=== PATIENT | female | born 1950 | race Caucasian/White ===

== ENCOUNTER 2019-07-29 15:13 | Inpatient (IN) | payer MEDICARE, OTHER, SELFPAY ==
[2019-07-29 15:31] VITALS: BP 125/52; PULSE 67; RESP 16; TEMP 37.1; O2SAT 96; BMI 35.4
[2019-07-29 17:15] LABS: Bedside Glucose 176 mg/dL (70-110)
[2019-07-29] MEDS: NYSTATIN 500,000 UNIT/5 ML UDC 100000 UNIT PO (18:11)
[2019-07-29] MEDS: Calcium Carb/Vitamin D 1 TABLET Tablet PO (18:11)
[2019-07-29] MEDS: metFORMIN (XR) 500 MG Tablet PO (18:11)
[2019-07-29 18:41] VITALS: BP 124/57; PULSE 61; RESP 16; TEMP 37; O2SAT 96
[2019-07-29 21:01] LABS: Bedside Glucose 85 mg/dL (70-110)
[2019-07-29] MEDS: Omega-3 Acid Ethyl Esters 1 GM Capsule PO (21:46)
[2019-07-29] MEDS: Nystatin Powder 15gm Bottle 1 APPLIC TOPICAL (21:48)
[2019-07-29] MEDS: Menthol/Lanolin/Calamine/Znox 113 GM Tube 1 APPLIC TOPICAL (21:49)
[2019-07-29] MEDS: Atorvastatin Calcium 80 MG Tablet PO (21:50)
[2019-07-29] MEDS: Montelukast 10 MG Tablet PO (21:51)
[2019-07-29] MEDS: NYSTATIN 500,000 UNIT/5 ML UDC 500000 UNIT PO (21:51)
[2019-07-29] MEDS: Senna/Docusate Sodium 1 Tablet 2 TABLET PO (21:51)
[2019-07-29 22:00] VITALS: RESP 16; BMI 35.4
[2019-07-29] MEDS: Lisinopril 10 MG Tablet PO (22:02)
[2019-07-30] MEDS: Levothyroxine 125 MCG Tablet PO (05:38)
[2019-07-30] MEDS: Pantoprazole Sodium 40 MG Tablet PO (05:38)
[2019-07-30] MEDS: oxyCODONE 5 MG Tablet PO ×2 (05:43→22:03)
[2019-07-30 05:44] VITALS: RESP 16; O2SAT 95
[2019-07-30 06:35] LABS: Hematocrit 32.1 % (37-47); Hemoglobin 9.9 g/dL (12.0-15.0); Mean Corp Hgb Conc 30.8 g/dL (32-36); Mean Corpuscular Hgb 28.8 pg (27.0-32.0); Mean Corpuscular Volume 93.3 fL (81-99); Mean Platelet Vol. 8.6 fl (6.2-12.0); Platelet Count 384 K/mm3 (150-450); RBC Distribution Width CV 13.8 % (11.6-14.6); RBC Distribution Width SD 46.5 fl (35.1-43.9); Red Blood Count 3.44 M/mm3 (4.2-5.4); White Blood Count 8.6 K/mm3 (4.4-11.0)
[2019-07-30 06:54] LABS: ALB/GLOB Ratio 0.9 RATIO (0.9-2.4); AST(SGOT) 12 U/L (15-37); Alanine Aminotransfer ALT/SGPT 16 U/L (13-56); Albumin, Serum 2.7 g/dL (3.2-5.0); Alkaline Phosphatase 34 U/L (45-117); Anion Gap 6 (5-15); BUN 19 mg/dL (7-18); BUN/Creat Ratio 22.5 RATIO (10-20); Chloride 111 mmol/L (98-107); Creatinine, Serum 0.84 mg/dL (0.55-1.02); EST Glomerular Filtration Rate 71 mL/min (>60); Est Glom Filt Rate - Afr Amer 86 mL/min (>60); Estimated Creatinine Clearance 58.48 ml/min; Globulin 3.1 g/dL (2.2-4.2); Glucose 109 mg/dL (74-106); Magnesium 1.9 mg/dL (1.6-2.6); Potassium 3.9 mmol/L (3.5-5.1); Protein, Total 5.8 g/dL (6.4-8.2); Sodium Level 143 mmol/L (136-145)
[2019-07-30 06:55] LABS: Bedside Glucose 106 mg/dL (70-110)
--- NOTE | 2019-07-30 08:08 | HP.PCM_ITS ---
Problem List (1) Acute ischemic left MCA stroke Status: Acute Comment: 07/25/19 No TPA (2) Hypertension Status: Chronic Qualifiers: Hypertension type: essential hypertension Qualified Code(s): I10 - Essential (primary) hypertension (3) Diabetes mellitus type 2 in obese Status: Chronic (4) Steroid dependence Status: Chronic Comment: for inflamatory polyarthropathy (5) Obesity (BMI 30-39.9) Status: Chronic (6) ADHD Status: Chronic (7) Tobacco dependence in remission Status: Chronic (8) Hypothyroidism Status: Chronic (9) Hyperlipidemia Status: Chronic (10) Normochromic normocytic anemia Status: Acute (11) Aphasia due to acute cerebrovascular accident (CVA) Status: Acute Comment: Expressive and receptive (12) Atrial fibrillation and flutter Status: Acute (13) Psoriasis Status: Chronic (14) Dysphagia Status: Acute (15) Right hemiparesis Status: Acute (16) Inflammatory polyarthropathy Status: Chronic Comment: on chronic Prednisone (17) Vitamin D deficiency Status: Chronic (18) History of depression Status: Chronic History of Present Illness Date of Admission: 07/29/19 Chief Complaint: Debility secondary to recent ischemic left MCA CVA due to embolism The patient is a 68 year old F with a past medical history of hypertension, diabetes mellitus type 2, obesity, hypothyroidism, asthma, inflammatory polyarthropathy, chronic steroid dependence, ADHD, tobacco dependence in remission, hyperlipidemia, paroxysmal atrial fibrillation/flutter, vitamin D deficiency, history of depression, left MCA ischemic CVA due to suspected embolism on 07/25/19, expressive and receptive aphasia, dysphagia, right hemiparesis and chronic narcotic use who is admitted to the [facility] for > 3 hours of therapy daily to restore function at or near he prior level of independence. Prior to the CVA she was independent with ADL's and used no assistive device. Echocardiogram at [facility] showed an ejection fraction of 65% with normal diastolic function no wall motion abnormalities. She has aortic sclerosis and otherwise no significant valvular heart disease. Estimated PA pressure was within normal limits. There was no evidence of R to Left shunt. Lipid panel at [facility] showed a LDL of 89, an HDL of 51 and TG of 309. She did not have a HGBA1C that I could find in the records sent with the patient. She has N/N anemia possibly due to inflammatory arthropathy. She has not ever seen a rail car maintenance mechanic....shakes her head no when I explain what a rail car maintenance mechanic does and ask if she has ever seen a rail car maintenance mechanic. Al records from [facility] were reviewed and all the lab from this AM. Past Medical History Past Medical History (Chronic Problems): Chronic Problems (Last Reviewed 07/30/19 @ 08:[address] Shakira Lock DO) Hypertension (Chronic) Diabetes mellitus type 2 in obese (Chronic) Steroid dependence (Chronic) for inflamatory polyarthropathy Obesity (BMI 30-39.9) (Chronic) ADHD (Chronic) Tobacco dependence in remission (Chronic) Hypothyroidism (Chronic) Hyperlipidemia (Chronic) Psoriasis (Chronic) Inflammatory polyarthropathy (Chronic) on chronic Prednisone Vitamin D deficiency (Chronic) History of depression (Chronic) Medical History: Medical History (Last Reviewed 07/30/19 @ 08:[address] Shakira Lock, ) Adult hypothyroidism E03.9 Allergic rhinitis J30.9 Alopecia L65.9 Anemia D64.9 Attention deficit disorder of adult with hyperactivity F90.9 Cervical disc syndrome M50.10 Degenerative joint disease M19.90 Depressive disorder F32.9 Fusion of lumbar spine M43.26 Goiter E04.9 Inflammatory polyarthropathy M06.4 Lumbar disc disease M51.9 Obesity E66.9 Osteoarthritis M19.90 Plantar fasciitis M72.2 Stress bladder incontinence, female N39.3 Type 2 diabetes mellitus E11.9 Vitamin D deficiency E55.9 HTN (hypertension) I10 Allergies gemfibrozil [From Lopid] Allergy (Verified 07/29/19 16:41) PT UNABLE TO RESPOND-NEEDS F/U mold Allergy (Verified 07/29/19 16:41) Shortness of breath Jziokyf-Ifw-Aur Reductase Inhibitor Allergy (Verified 07/29/19 16:41) Pain in joints Home Medications: Ambulatory Orders Medication Instructions Recorded Albuterol Inhaler [Ventolin Hfa 2 puff INHALATION Q4H PRN PRN 07/29/19 (SP)] Aspirin E.C. [Ecotrin] 81 mg PO DAILY@0800 07/29/19 Atorvastatin Calcium 80 mg PO QHS 07/29/19 Calcium Carbonate/Vitamin D3 1 ea PO BID 07/29/19 [Calcium 600-Vit D3 500 Softgel] Cholecalciferol (VIT D3) [Vitamin 2 cap PO DAILY 07/29/19 D3] Dextroamphetamine/Amphetamine 20 mg PO TID 07/29/19 [Adderall 20 mg Tablet] Esomeprazole Mag Trihydrate 40 mg PO DAILY@59907/29/19 [Nexium] Folic Acid 1 mg PO DAILY 07/29/19 Folic Acid/Multivit,Iron,Machine Taper 1 tab PO DAILY 07/29/19 [One Daily For Women Tablet] Glimepiride 2 mg PO DAILY 07/29/19 Insulin Glargine [Lantus SoloStar 5 mg PO DAILY@219907/29/19 Pen] Levothyroxine [Synthroid] 125 mcg PO DAILY@59907/29/19 Lisinopril/Hydrochlorothiazide 20 mg PO DAILY 07/29/19 [Lisinopril-Hctz 20-12.5 mg Tab] Magnesium 250 mg PO BID 07/29/19 Montelukast [Singulair] 10 mg PO DAILY@219907/29/19 Nystatin 100,000 unit PO TID 07/29/19 [place]-3 Fatty Acids/Fish Oil [Fish 1 ea PO BID 07/29/19 Oil 1,000 mg Capsule] Oxycodone HCl/Acetaminophen 1 ea PO Q4H PRN 07/29/19 [Oxycodone-Acetaminophen 5-325] Potassium 99 mg PO BID 07/29/19 Prednisone [Deltasone] 20 mg PO DAILY 07/29/19 Vitamin B Complex [B Complex] 1 ea PO BID 07/29/19 metFORMIN (XR) [Glucophage Xr] 500 mg PO BID 07/29/19 Surgical History: Surgical History (Last Reviewed 07/30/19 @ 08:[address] 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 history, - - Has had 2 C-sections Lives: Spouse/ Significant Other Smoking Status: Former smoker - *Family History Sibling Family History: Family History (Last Updated 07/29/19 @ 17:20 by Arianna Serrano) Brother Asthma Hypertension Son Diabetes Unknown Rheumatoid arthritis Review of Systems Constitutional: Denies: Chills, Fever HEENT: Reports: Difficulty Swallowing, Dysphasia Cardiovascular: Denies: Chest Pain, Palpitations Respiratory: Denies: Cough, Shortness of Breath Gastrointestinal: Denies: Abdominal Pain, Diarrhea, Nausea, Vomiting Genitourinary: Denies: Dysuria Musculoskeletal: Reports: - - denies pain Skin: Denies: Rash, Wounds Neurological: Reports: Focal weakness Psychiatric: Reports: Depression Unable to obtain accurate/complete ROS d/t: ROS limited due to receptive and expressive aphasia. VTE Information - Inpt Only VTE Present on Admission: No VTE Mechan Device Prophylaxis: Knee High OPAL Hose VTE Pharm Prophylaxis ordered?: Yes Patient Problems: Active and Suspected Problems (Last Reviewed 07/30/19 @ 08:[address] Shakira Lock, DO) Acute ischemic left MCA stroke (Acute) 07/25/19 No TPA Normochromic normocytic anemia (Acute) Aphasia due to acute cerebrovascular accident (CVA) (Acute) Expressive and receptive Atrial fibrillation and flutter (Acute) Dysphagia (Acute) Right hemiparesis (Acute) - Physical Exam Vitals/I&O's: Vital Signs Temp Pulse Resp BP Pulse Ox 98.6 F 61 16 124/57 H 95 07/29/19 18:41 07/29/19 18:41 07/30/19 05:44 07/29/19 18:41 07/30/19 05:44 Oxygen Delivery Method Room Air Weight: 212 lb 11.937 oz Body Mass Index (BMI) 35.4 Intake and Output for Last 24 Hours 07/28/19 07/29/19 07/30/19 23:59 23:59 23:59 Intake Total 240 / 300 60 / 60 Output Total 500 / 500 1250 / 1250 Balance -260 / -200 -1190 / -1190 General: Alert, Cooperative, No apparent distress, Well developed, Well nourished HEENT: Atraumatic, PERRLA, EOMI, Normocephalic Oral: No Gingival or Mucosal Lesions/ Ulcerations, Dry Mucosa Neck: Supple, Negative Carotid Bruits, No Nodes, No Nuchal Rigidity, Trachea Midline, - - Carotids had brisk upstroke and excellent pulse volume bilaterally. Lungs: Clear to auscultation, No rhonchi, No wheeze, No rales Cardiovascular: Regular rate, Regular Rhythm, Normal S1, Normal S2, No murmurs, No Ectopic Activity, No rub noted, No Gallop Abdomen: Bowel Sounds Present, Soft, Non Tender, Non-Distended, Obese, - - No guarding with palpation Extremities: No clubbing, No cyanosis, No edema, No Calf Tenderness, Peripheral Pulses Normal Skin: No rashes, No breakdown Musculoskeletal: No Muscle Wasting Neurological: - - Right facial droop, Weakness of the R arm and the R leg. The R leg and the R arm drift but do not touch the bed. She has complete R hemianopsia. She is ataxic with the R arm and the R leg. Decreased sensation on the right side. Psych/Mental Status: Appropriate Laboratory Results 07/29/19 16:22: POC Glucose 176 H 07/29/19 20:55: POC Glucose 85 07/30/19 06:21: WBC 8.6, RBC 3.44 L, Hgb 9.9 L, Hct 32.1 L, MCV 93.3, MCH 28.8, MCHC 30.8 L, RDW Std Deviation 46.5 H, RDW Coeff of Jeffrey 13.8, Plt Count 384, MPV 8.6 07/30/19 06:21: Sodium 143, Potassium 3.9, Chloride 111 H, Carbon Dioxide 26.0, Anion Gap 6, BUN 19 H, Creatinine 0.84, Estim Creat Clear Calc 58.48, Est GFR (MDRD) Af Amer 86, Est GFR (MDRD) Non-Af 71, BUN/Creatinine Ratio 22.5 H, Glucose 109 H, Calcium 9.0, Magnesium 1.9, Total Bilirubin 0.30, AST 12 L, ALT 16, Alkaline Phosphatase 34 L, Total Protein 5.8 L, Albumin 2.7 L, Globulin 3.1, Albumin/Globulin Ratio 0.9 07/30/19 06:51: POC Glucose 106 Current Medications Albuterol Sulfate (Ventolin Aerosols) 2.5 mg INHALATION Q4H PRN PRN Reason: SOB &/OR WHEEZING Aspirin (Ecotrin) 81 mg PO DAILY@0800 [facility] Atorvastatin Calcium (Lipitor) 80 mg PO QHS [facility] Last Admin: 07/29/19 21:50 Dose: 80 mg Documented by: Bisacodyl (Dulcolax) 10 mg RECTAL .PRN X 1 PRN PRN Reason: Constipation Calamine/Phenol (Calmoseptine Ointment) 1 applic TOPICAL BID [facility]; Protocol Last Admin: 07/29/19 21:49 Dose: 1 applicatio Documented by: Calcium/Vitamin D (Os-Dewayne 500mg + D) [facility] Last Admin: 07/29/19 18:11 Dose: 1 tablet Documented by: Cholecalciferol (Vitamin D (25mcg)) 2,000 unit PO DAILY [facility] Folic Acid (Folic Acid) [facility] Glimepiride (Amaryl) 2 mg PO DAILY@0800 [facility] Insulin Glargine (Lantus (Bkc)) 5 units SC QHS [facility] Last Admin: 07/29/19 21:50 Dose: 5 u Documented by: Levothyroxine Sodium (Synthroid) 125 mcg PO DAILY@0600 [facility] Last Admin: 07/30/19 05:38 Dose: 125 mcg Documented by: Lisinopril (Zestril) 10 mg PO QHS [facility] Last Admin: 07/29/19 22:02 Dose: 10 mg Documented by: Lisinopril (Zestril) 20 mg PO DAILY [facility] Magnesium Hydroxide (Milk Of Magnesia) 30 ml PO .PRN X 1 PRN PRN Reason: Constipation Metformin HCl (Glucophage Xr) [facility] Last Admin: 07/29/19 18:11 Dose: 500 mg Documented by: Montelukast Sodium (Singulair) 10 mg PO QHS [facility] Last Admin: 07/29/19 21:51 Dose: 10 mg Documented by: Multivitamins/Minerals (Multivitamin With Minerals (Bkc)) 1 tablet PO DAILY@0800 [facility] Nystatin (Mycostatin Powder) 1 applic TOPICAL BID [facility]; Protocol Last Admin: 07/29/19 21:48 Dose: 1 applicatio Documented by: Nystatin (Nystatin) 500,000 unit PO 4X/DAY [facility] Last Admin: 07/29/19 21:51 Dose: 500,000 unit Documented by: Zceyc-1-Tlcj Ethyl Esters (Lovaza) 1 gm PO BID [facility] Last Admin: 07/29/19 21:46 Dose: 1 gm Documented by: Oxycodone HCl (Oxyir) 5 mg PO Q4H PRN PRN PRN Reason: Pain Score 6-10/10 Last Admin: 07/30/19 05:43 Dose: 5 mg Documented by: Pantoprazole Sodium (Protonix) 40 mg PO DAILY@0600 [facility] Last Admin: 07/30/19 05:38 Dose: 40 mg Documented by: Prednisone () 20 mg PO DAILYCM [facility] Senna/Docusate Sodium (Senokot-S, Stefany-Colace) 2 tablet PO BID [facility] Last Admin: 07/29/19 21:51 Dose: 2 tablet Documented by: Assessment/Plan All Active Problems (Last Reviewed 07/30/19 @ 08:[address] Shakira Lock, DO) Acute ischemic left MCA stroke (Acute) Normochromic normocytic anemia (Acute) Aphasia due to acute cerebrovascular accident (CVA) (Acute) Atrial fibrillation and flutter (Acute) Dysphagia (Acute) Right hemiparesis (Acute) Impressions 1. Post stroke debility with expressive and receptive aphasia, dysphagia and right hemiparesis 2. Recent left MCA ischemic CVA presumed to be secondary to emboli 3. Paroxysmal atrial fibrillation/flutter 4. Normochromic normocytic anemia-etiology? Possibly secondary to inflammatory polyarthropathy. 5. Hypertension-controlled 6. Diabetes mellitus type 2-blood sugar record was reviewed and the blood sugars are currently well controlled 7. Dyslipidemia -continue atorvastatin 80 mg nightly. Patient lists statins as an allergy due to bone pain. HDL was 51 recently and the LDL was 89. 8. chronic steroid dependence - Need to find out who is managing the inflammatory polyarthropathy and whether or not she has been tried on any steroid sparing alternatives. 9. Chronic medical conditions: Asthma/hypothyroidism/ADHD/obesity/former tobacco dependence/GERD/chronic narcotic use/vitamin D deficiency/history of depression(not currently on an anti-depressant) - continue the home meds. These conditions complicate care/management/recovery/prognosis. PLAN PT for gait stability OT for ADL's ST for evaluation Analgesics as needed Bowel protocol Fall precautions Assess for Anxiety/Depression GI prophylaxis with Protonix DVT prophylaxis with heparin 5000 units subcu every 12 hours Follow up with neurology at [facility], Dr. Montalvo and rheumatology following DC from Rehab Obtain Dr Montalvo's records...has she ever seen a rail car maintenance mechanic? Med list, problem list, recent labs. Check a TSH and a T4. HGBA1C, UA, urine culture(had a Nicolas until 07/29/19 at [facility]). Hemoccult stool. DC the diuretic Keep the K at 4 or above and the Mag at 2 or above Overnight trending pulse ox Accu-Chek blood sugars before meals and at bedtime Goal for the hemoglobin A1c is 7 or under Goal for the LDL is less than 70 Goal for the blood pressure currently is less than 135/80 Inpatient E&M: 19614 Init Hosp L3
[2019-07-30] MEDS: predniSONE 20 MG Tablet PO (08:44)
[2019-07-30] MEDS: Lisinopril 20 MG Tablet PO (08:44)
[2019-07-30] MEDS: NYSTATIN 500,000 UNIT/5 ML UDC 500000 UNIT PO ×4 (08:44→22:00)
[2019-07-30] MEDS: Senna/Docusate Sodium 1 Tablet 2 TABLET PO ×2 (08:44→21:58)
[2019-07-30] MEDS: Glimepiride 2 MG Tablet PO (08:45)
[2019-07-30] MEDS: Calcium Carb/Vitamin D 1 TABLET Tablet PO ×2 (08:45→17:13)
[2019-07-30] MEDS: Multivitamins,Ther W-Minerals Tablet 1 TABLET PO (08:45)
[2019-07-30] MEDS: metFORMIN (XR) 500 MG Tablet PO ×2 (08:45→17:13)
[2019-07-30] MEDS: Omega-3 Acid Ethyl Esters 1 GM Capsule PO (08:45)
[2019-07-30] MEDS: Aspirin E.C. 81 MG Tablet PO (08:45)
[2019-07-30] MEDS: Folic Acid 1 MG Tablet PO (08:45)
[2019-07-30] MEDS: Menthol/Lanolin/Calamine/Znox 113 GM Tube 1 APPLIC TOPICAL ×2 (08:54→22:05)
[2019-07-30] MEDS: Nystatin Powder 15gm Bottle 1 APPLIC TOPICAL ×2 (08:54→22:04)
[2019-07-30 09:03] VITALS: BP 112/62; PULSE 67; RESP 16; TEMP 36.6; O2SAT 96
[2019-07-30 09:11] LABS: T4 Free Direct 1.06 ng/dL (0.76-1.46); Thyroid Stim Hormone (TSH) 3.63 uIU/mL (0.358-3.74)
[2019-07-30] MEDS: Heparin Injection (Vial) 5,000 UNIT/ML VIAL 5000 UNIT SC ×2 (09:26→22:00)
[2019-07-30 10:26] LABS: Hemoglobin A1c 6.2 % (4.2-6.3)
--- NOTE | 2019-07-30 10:27 | PCM.RU.PYE ---
Admission Information Primary Diagnosis:: Post stroke debility with dysphagia, a aphasia and right hemiparesis Status Changes from Prescreening?: No changes Identified Actual Problem List:: Cognitve Impr/Memory Loss, Depression, Alteration in Nutrition, Mobility Impaired, Self Care Deficit, Ineffective Communication, Diabetes, Hyperglycemia, BP, Hypertension, Alteration-Leisure Activ. Potential Problem List:: DVT, Bleeding, Infection, UTI, Aspiration, Falls, Skin Integrity, Depression Risk of Complications DVT: LMWH, OPAL Hose Bleeding: Monitor Lab Values, Nursing to Teach Precautions for anti-coagulation therapy., Wound, if applicable, to be assessed every shift., Stroke patients assessed for lethargy or change in status. Infection: Clinical Staff to Monitor for S/S of infection:, S/S of infection include fever, redness, warmth, etc. Urinary Tract Infection: Monitor for frequency, burning, discomfort, or incontinence., Nursing will obtain urine sample for urinalysis and C&S when ordered. Aspiration: Clinical staff will monitor for coughing, drooling, congestion., Speech will evaluate swallowing and dsyphasia., Nursing will monitor patient swallowing during meals. Falls: Patient will be evaluated for Fall Precautions, Patient will be placed on Fall Precautions as indicated per protocol. Skin Breakdown: Nursing will assess skin daily using assessment tool., Nursing will place on Skin Breakdown Precautions as indicated. Pain: Clinical staff will assess patient's pain level per protocol., Medications will be given, if needed, and the pain level reassessed., Other methods: Massage, distraction, decrease stimulus, etc. used PRN. Plan of Care Patient requires physician specializing in physical medicine and rehab oversight to provide close medical supervision of rehab issues including: Pain Management, Sleep Problems, Bowel and Bladder, Medical and co-morbidity Management, DVT prophylaxis, Rehabilitation Leadership, Coordination of treatment team Patient needs Physical Therapy: For a minimum of 1 hour, At least 5 out of 7 days Patient needs Physical Therapy to improve:: Mobility, Mobility, Mobility, Strengthening, Transfers, Stretching, ROM, Endurance, Stairs, Gait, Balance Patient needs Occupational Therapy: For a minimum of 1 hour, At least 5 out of 7 days Patient needs Occupational Therapy to improve ADL's incl.: Eating, Grooming, Bathing, Dressing, Toileting, Toilet transfers, Community Reintegration, Higher functioning activities, Household tasks, Adaptive Equipment, Splinting, Other activities as determined Patient requires speech therapy: For a minimum of 1 hour, At least 5 out of 7 days Patient requires speech therapy for: Swallowing, Cognition, Language Skills, Compensatory Strategies Patient requires 24/ Rehabilitation Nursing for: Pain Issues, Identifying and preventing risk factors, Monitoring and reporting current medical conditions, Assisting with ambulation, transfer, and all ADL's, Teaching patients about disease process and medications, Family teaching, Providing safe environment, Bowel and Bladder Issues, Skin integrity, Medication Management Patient needs Didactic Program In Dietetics Director/ Case Management for: Discharge Planning, Arranging Home Equipment or Services, Family Interventions Patient needs Dietary and Nutrition Services for: Adequate Nutrition, Nutritional Supplements, Nutritional Education Goals Patient will remain: free from falls, or injury at time of discharge. Patient will perform bed mobility at: MOD I level of assist. Patient will complete transfers from bed to chair at: MOD I level of assist. Patient will ambulate: 100 feet, with MOD I assist, with LRD Patient will complete upper body dressing at: MOD I level of assist. Patient will complete lower body dressing at: MOD I level of assist. Patient will complete toileting at: MOD I level of assist. Patient will perform bathing at: MOD I level of assist. Patient will complete grooming at: MOD I level of assist. Patient will complete home management skills at: MOD I level of assist. Patient will achieve: 12 stairs, at MOD I assist Patient will have pain level of: of 3 or less Patient's skin will: remain intact, free from infection. Patient will receive: adequate nutrition. Discharge Planning Pt Prognosis for Sig. Practical Improv. w/in Reasonable Time: Fair Estimated Length of stay (days): 21 Anticipated D/C Destination: Long Term Facility Was Preadmission Assessment Accurate?: Yes
[2019-07-30 12:16] LABS: Bedside Glucose 107 mg/dL (70-110)
--- NOTE | 2019-07-30 12:20 | CASEMGMT ---
Social Work Met pt to complete PHQ-9. Score:2. Luz Hill, social work internet site designer Pilar Addison, WILDLIFE POLICY PROFESSIONAL FERRYBOAT OPERATOR
--- NOTE | 2019-07-30 12:21 | CASEMGMT ---
Social Work Met with pt to complete initial assessment, pt non verbal but able to answer yes and no questions. Asked pt if SWI could call to complete assessment-pt agreeable. Called to complete initial assessment. Explained insurance to . During conversation, asked for resources on building a ramp, installing grab bars, Medicaid application and MOW resources-emailed resources to . appreciative of call. Luz Hill, social work manager internet retails sales Pilar Addison,REIMBURSEMENT SPECIALIST SAFETY CLOTHING AND EQUIPMENT DEVELOPER
[2019-07-30] MEDS: Magnesium Oxide 400 MG Tablet PO (13:20)
[2019-07-30 13:34] VITALS: BMI 35.4
--- NOTE | 2019-07-30 13:59 | CASEMGMT ---
Social Work Reviewed and agreed with social work internet merchant documentation on this date. Pilar Addison, LICENSED MIDWIFE SPA MANAGER
[2019-07-30 20:46] LABS: Bedside Glucose 178 mg/dL (70-110)
[2019-07-30 20:47] VITALS: BP 123/55; PULSE 62; RESP 16; TEMP 36.8; O2SAT 94
[2019-07-30 21:00] VITALS: O2SAT 94
[2019-07-30 21:20] VITALS: BMI 35.4
[2019-07-30] MEDS: Lisinopril 10 MG Tablet PO (21:57)
[2019-07-30] MEDS: Montelukast 10 MG Tablet PO (21:58)
[2019-07-30] MEDS: Atorvastatin Calcium 80 MG Tablet PO (21:59)
[2019-07-30 22:00] VITALS: O2SAT 94
--- NOTE | 2019-07-30 23:17 | NURSING ---
Pt bladder scanned for 820mL urine. Nicolas inserted as this was third straight cath and urine specimen obtained through Nicolas port. Specimen sent to lab. 810mL urine out of Nicolas.
[2019-07-30 23:52] LABS: Mucous, Urine 0 SEEN /hpf (<or=2+); Squamous Epithelial Cells - UA 0 SEEN /hpf (5-10)
[2019-07-31] LABS: Color, Urine Yellow (Yellow); Glucose, Dipstick Normal (Normal); Ketone-Dipstick Negative (Negative); Leukocyte Esterase-Dipstick 100 /ul (Negative); Nitrite-Dipstick Positive (Negative); Occult Blood-Urine 10 /ul (Negative); Protein-Dipstick Negative (Negative); Urine Bilirubin Dipstick Negative (Negative); Urine Clarity Sl. Cloudy (Clear); Urine Urobilinogen Normal (Normal)
[2019-07-31 00:30] LABS: Bacteria 2+ /hpf (None Seen); Red Blood Cells-Urine 0-5 SEEN /hpf (0-5); White Blood Cells 5-10 SEEN /hpf (0-5)
[2019-07-31] MEDS: Levothyroxine 125 MCG Tablet PO (05:10)
[2019-07-31] MEDS: Pantoprazole Sodium 40 MG Tablet PO (05:10)
[2019-07-31 06:18] VITALS: O2SAT 100
[2019-07-31 07:00] LABS: Bedside Glucose 99 mg/dL (70-110)
[2019-07-31] MEDS: Folic Acid 1 MG Tablet PO (08:16)
[2019-07-31] MEDS: Lisinopril 20 MG Tablet PO (08:16)
[2019-07-31] MEDS: Sertraline 50 MG Tablet PO (08:16)
[2019-07-31] MEDS: metFORMIN (XR) 500 MG Tablet PO ×2 (08:16→16:30)
[2019-07-31] MEDS: Glimepiride 2 MG Tablet PO (08:16)
[2019-07-31] MEDS: predniSONE 20 MG Tablet PO (08:16)
[2019-07-31] MEDS: Aspirin E.C. 81 MG Tablet PO (08:16)
[2019-07-31] MEDS: Magnesium Oxide 400 MG Tablet PO (08:16)
[2019-07-31] MEDS: Multivitamins,Ther W-Minerals Tablet 1 TABLET PO (08:16)
[2019-07-31] MEDS: Calcium Carb/Vitamin D 1 TABLET Tablet PO ×2 (08:16→16:30)
[2019-07-31] MEDS: Heparin Injection (Vial) 5,000 UNIT/ML VIAL 5000 UNIT SC ×2 (08:17→21:16)
[2019-07-31] MEDS: Nystatin Powder 15gm Bottle 1 APPLIC TOPICAL ×2 (08:17→21:17)
[2019-07-31] MEDS: NYSTATIN 500,000 UNIT/5 ML UDC 500000 UNIT PO ×4 (08:17→21:18)
[2019-07-31 08:18] VITALS: BP 148/70; PULSE 61; RESP 16; TEMP 36.8; O2SAT 98
[2019-07-31] MEDS: Glucerna Shake 120 ML LIQUID PO ×2 (08:19→16:30)
[2019-07-31] MEDS: Menthol/Lanolin/Calamine/Znox 113 GM Tube 1 APPLIC TOPICAL ×2 (08:34→21:16)
--- NOTE | 2019-07-31 09:40 | PCM.PN.BLA ---
Progress Note Afebrile Blood pressure is adequately controlled She is maintaining appropriate oxygen saturation on room air. Oral intake was poor on 07/30/2019 with 700 in and 2260 out for a fluid balance of -1560. Last bowel movement was 07/30/2019. Blood sugar record was reviewed. At bedtime blood sugar was 178 last night and the fasting blood sugar is 99 today. The overnight trending pulse ox record was reviewed. The lowest oxygen saturation recorded was 67%. The lowest heart rate recorded was 45 bpm. All lab was personally reviewed. The UA showed 5-10 WBCs per high-power field with 2+ bacteria and this was a catheterized specimen. It is nitrite positive. Urine is growing greater than 100,000 colonies of suspected E. coli. alert, participating in therapy but, she is able to tell us today when she needs a break. Lungs-clear to auscultation H RRR Abdomen-soft, nontender, nondistended, bowel sounds heard No peripheral edema No change in the neurological exam from yesterday Impressions 1. Complicated urinary tract infection likely related to Nicolas catheter while at [facility], present at admission. Presumptive E. Coli. Will start Duricef and await the results of the final culture and sensitivity. 2. urine retention. Nicolas was inserted last night for residuals in the 800's. Will treat for UTI for 7 days and then repeat a voiding trial. 3. Diabetes mellitus type 2 with a hemoglobin A1c of 6.2....suspect she was having hypoglycemic episodes at home. I am going to DC the Lantus and continue to monitor the BS's AC and HS 4. inflammatory polyarthropathy -? We have received records on this patient and I do not believe she has ever seen a cnc machinist 2nd shift. Would recommend this going forward. May be able to find a steroid sparing treatment to tx. If she has not had a recent DEXA in the past 2 years I recommend she have 1 due to increased risk for osteoporosis in patients on LT steroids. STROKE Vital Signs/Narrative: Vital Signs Temp Pulse Resp BP Pulse Ox 07/31/19 08:18 98.3 F 61 16 148/70 H 98 07/31/19 06:18 100 Inpatient E&M: 08524 Subs Hosp L2
[2019-07-31 09:41] VITALS: BMI 35.4
[2019-07-31 11:25] LABS: Bedside Glucose 133 mg/dL (70-110)
[2019-07-31] MEDS: oxyCODONE 5 MG Tablet PO (13:31)
[2019-07-31] MEDS: Cefadroxil 500 MG CAPSULE 1000 MG PO (14:44)
[2019-07-31 16:40] LABS: Bedside Glucose 201 mg/dL (70-110)
[2019-07-31 18:11] VITALS: BP 129/64; PULSE 59; RESP 16; TEMP 36.6; O2SAT 95
[2019-07-31] MEDS: Cefadroxil 500 MG CAPSULE PO (21:16)
[2019-07-31] MEDS: Atorvastatin Calcium 80 MG Tablet PO (21:17)
[2019-07-31] MEDS: Lisinopril 10 MG Tablet PO (21:18)
[2019-07-31] MEDS: Montelukast 10 MG Tablet PO (21:18)
[2019-07-31 21:35] LABS: Bedside Glucose 124 mg/dL (70-110)
[2019-07-31 22:01] VITALS: BMI 35.4
[2019-08-01] MEDS: Pantoprazole Sodium 40 MG Tablet PO (06:26)
[2019-08-01] MEDS: Levothyroxine 125 MCG Tablet PO (06:26)
[2019-08-01 06:45] LABS: Bedside Glucose 93 mg/dL (70-110)
[2019-08-01 07:16] VITALS: O2SAT 99
[2019-08-01 08:19] VITALS: BP 128/61; PULSE 53; RESP 16; TEMP 36.8; O2SAT 96
[2019-08-01] MEDS: Aspirin E.C. 81 MG Tablet PO (08:21)
[2019-08-01] MEDS: Folic Acid 1 MG Tablet PO (08:21)
[2019-08-01] MEDS: Glimepiride 2 MG Tablet PO (08:21)
[2019-08-01] MEDS: metFORMIN (XR) 500 MG Tablet PO ×2 (08:22→17:16)
[2019-08-01] MEDS: Magnesium Oxide 400 MG Tablet PO (08:22)
[2019-08-01] MEDS: predniSONE 20 MG Tablet PO (08:23)
[2019-08-01] MEDS: Cefadroxil 500 MG CAPSULE PO ×2 (08:23→21:27)
[2019-08-01] MEDS: Calcium Carb/Vitamin D 1 TABLET Tablet PO ×2 (08:23→17:16)
[2019-08-01] MEDS: Multivitamins,Ther W-Minerals Tablet 1 TABLET PO (08:23)
[2019-08-01] MEDS: NYSTATIN 500,000 UNIT/5 ML UDC 500000 UNIT PO ×4 (08:24→21:28)
[2019-08-01] MEDS: Heparin Injection (Vial) 5,000 UNIT/ML VIAL 5000 UNIT SC ×2 (08:24→21:27)
[2019-08-01] MEDS: Sertraline 50 MG Tablet PO (08:27)
[2019-08-01] MEDS: Lisinopril 20 MG Tablet PO (08:28)
[2019-08-01] MEDS: Menthol/Lanolin/Calamine/Znox 113 GM Tube 1 APPLIC TOPICAL ×2 (08:33→21:26)
[2019-08-01] MEDS: Nystatin Powder 15gm Bottle 1 APPLIC TOPICAL ×2 (08:33→21:27)
--- NOTE | 2019-08-01 08:34 | PCM.PN.BLA ---
Progress Note Patient was seen on team rounds today. Her Memo participated in a conference call with the team. Day #2 Christosicef Afebrile Blood pressure is well controlled She is maintaining appropriate oxygen saturation on room air. Oral intake was 1000 cc (plus incontinence) on 07/31/2019 and the fluid balance was positive 250. Last bowel movement was 07/31/2019. Blood sugar record was reviewed. At bedtime blood sugar was 124 and the fasting today was 93. All lab was personally reviewed. Urine culture (see cath specimen) is growing a pansensitive E. coli. Stool is heme positive. Alert, smiling today, no apparent distress Lungs-clear to auscultation Heart-regular rate and rhythm Abdomen-soft, nontender, nondistended, bowel sounds present, bladder is not distended, no guarding with palpation no edema of the LE's. She has some bruising on the distal LE's, possibly from the SCD's....no palpable purpura. no calf pain. Impressions 1. post stroke debility 2. Complicated UTI present at admission. Patient had a Nicolas catheter that was discontinued just prior to discharge to the inpatient rehab unit 3. Subacute left MCA ischemic CVA, presumed to be secondary to emboli. Not currently on anticoagulation due to the size of the infarct and risk for hemorrhagic transformation. 4. Hypertension-controlled 5. Diabetes mellitus type 2-controlled 6. Dyslipidemia 7. Chronic steroid dependence 8. Normochromic normocytic anemia with Hemoccult positive stool. Currently on a PPI. Denies nausea/vomiting/abdominal pain. Unable to tell me if she has ever had peptic ulcer disease or if she is ever had a colonoscopy. Will need to follow this up at discharge Continue cefadroxil for 10 days since she has a catheter associated UTI that was present at admission. H&H, BMP in the a.m. Continue Protonix Will need to have colonoscopy and possibly EGD post DC.....sooner if the HGB starts to drop. CT head without contrast tomorrow and if no hemorrhagic conversion will start Eliquis. STROKE Vital Signs/Narrative: Vital Signs Temp Pulse Resp BP Pulse Ox 08/01/19 08:19 98.3 F 53 L 16 128/61 H 96 08/01/19 07:16 99 Inpatient E&M: 84257 Subs Hosp L2
[2019-08-01] MEDS: Glucerna Shake 120 ML LIQUID PO ×2 (08:38→17:16)
--- NOTE | 2019-08-01 10:01 | CASEMGMT ---
Social Work Met with pt, and dtr in law via conference call for team meeting. Pt is able to do bed transfers at mod to max assist and stands at mod assistx1, however, if pt is determined, she can transfer SBA. Pt is able to walk 10ft with wall rail and w/c follow at min to mod assist. Pt has limited coordination, weakness and neglect in right arm. Pt is able to do shower transfers at mod assist and is able to do UE ADLS at min assist and LE ADLS at total assist. Pt fatigues easily. Physician noted that pt is frustrated with deficits and is showing symptoms of depression and Physician started depression mediations. Pt is on puree diet with thin liquids, but will trial mechanical soft diet. Pt to work on expressing personal information, date and time and comprehension, speech and expression. Explained insurance information, will update when receive days. Informed that he could call to fill out Medicaid application. Will continue to follow. Luz Hill, social work r d intern Pilar Addison, SANITATION SUPERINTENDENT RESEARCH COORDINATOR
[2019-08-01 11:50] LABS: Bedside Glucose 121 mg/dL (70-110)
[2019-08-01 13:19] VITALS: BMI 35.4
[2019-08-01 17:20] LABS: Bedside Glucose 142 mg/dL (70-110)
[2019-08-01 20:10] VITALS: BP 128/56; PULSE 58; RESP 16; TEMP 37.1; O2SAT 97
[2019-08-01] MEDS: Atorvastatin Calcium 80 MG Tablet PO (21:27)
[2019-08-01] MEDS: Montelukast 10 MG Tablet PO (21:28)
[2019-08-01] MEDS: Lisinopril 10 MG Tablet PO (21:28)
[2019-08-01 22:00] LABS: Bedside Glucose 140 mg/dL (70-110)
[2019-08-01 22:05] VITALS: BMI 35.4
[2019-08-02 06:09] LABS: Hematocrit 35.8 % (37-47); Hemoglobin 11.1 g/dL (12.0-15.0)
[2019-08-02 06:41] LABS: Anion Gap 7 (5-15); BUN 28 mg/dL (7-18); BUN/Creat Ratio 30.5 RATIO (10-20); Calcium,Total 9.3 mg/dL (8.5-10.1); Chloride 104 mmol/L (98-107); Creatinine, Serum 0.92 mg/dL (0.55-1.02); EST Glomerular Filtration Rate 65 mL/min (>60); Est Glom Filt Rate - Afr Amer 78 mL/min (>60); Estimated Creatinine Clearance 53.39 ml/min; Glucose 90 mg/dL (74-106); Potassium 4.1 mmol/L (3.5-5.1); Sodium Level 138 mmol/L (136-145)
[2019-08-02] MEDS: Levothyroxine 125 MCG Tablet PO (06:46)
[2019-08-02] MEDS: Pantoprazole Sodium 40 MG Tablet PO (06:46)
[2019-08-02 06:56] LABS: Bedside Glucose 92 mg/dL (70-110)
[2019-08-02 08:03] VITALS: BP 124/62; PULSE 65; RESP 16; TEMP 36.4; O2SAT 97
[2019-08-02] MEDS: Folic Acid 1 MG Tablet PO (08:09)
[2019-08-02] MEDS: Glimepiride 2 MG Tablet PO (08:09)
[2019-08-02] MEDS: Heparin Injection (Vial) 5,000 UNIT/ML VIAL 5000 UNIT SC ×2 (08:09→20:35)
[2019-08-02] MEDS: Aspirin E.C. 81 MG Tablet PO (08:09)
[2019-08-02] MEDS: Multivitamins,Ther W-Minerals Tablet 1 TABLET PO (08:10)
[2019-08-02] MEDS: Calcium Carb/Vitamin D 1 TABLET Tablet PO ×2 (08:10→17:17)
[2019-08-02] MEDS: Cefadroxil 500 MG CAPSULE PO ×2 (08:10→20:31)
[2019-08-02] MEDS: predniSONE 20 MG Tablet PO (08:10)
[2019-08-02] MEDS: Magnesium Oxide 400 MG Tablet PO (08:10)
[2019-08-02] MEDS: metFORMIN (XR) 500 MG Tablet PO ×2 (08:10→17:17)
[2019-08-02] MEDS: NYSTATIN 500,000 UNIT/5 ML UDC 500000 UNIT PO ×4 (08:11→20:30)
[2019-08-02] MEDS: Sertraline 50 MG Tablet PO (08:11)
[2019-08-02] MEDS: Lisinopril 20 MG Tablet PO (08:11)
[2019-08-02] MEDS: Glucerna Shake 120 ML LIQUID PO ×3 (08:12→17:16)
[2019-08-02 08:15] VITALS: BMI 35.4
[2019-08-02] MEDS: Menthol/Lanolin/Calamine/Znox 113 GM Tube 1 APPLIC TOPICAL ×2 (08:29→20:31)
[2019-08-02] MEDS: Nystatin Powder 15gm Bottle 1 APPLIC TOPICAL ×2 (08:29→20:30)
--- NOTE | 2019-08-02 12:03 | CT_ITS ---
STUDY: CT BRAIN WITHOUT CONTRAST REASON FOR EXAM: Female, 68 years old. FOLLOW UP LEFT MCA, CVA RADIATION DOSAGE (If Supplied By Facility): CTDIvol = ( 44.99 ) mGy, DLP = ( 798.92 ) mGycm TECHNIQUE: Transaxial CT imaging of the brain was performed without administration of intravenous contrast material. Individualized dose optimization techniques were used for this CT. COMPARISON: No relevant priors. FINDINGS: Normal soft tissue structures. Normal calvarium. There is mild cerebral atrophy with widening of the extra-axial spaces and ventricular dilatation. There is evidence of increase attenuation involving the gyral aspects of the left frontal temporal parietal lobes. This may represent petechial hemorrhage. Follow-up is recommended. There are small punctate calcifications of the basal ganglia which are seen in the aging brain as a normal variant. Normal brainstem. Normal cerebellum. There is no intracranial hemorrhage. There are no findings of an acute ischemic infarction. Atherosclerotic calcification of the cavernous portions of the internal carotid arteries bilaterally. Normal visualized paranasal sinuses. CT/Brain/Head without Contrast IMPRESSION: Increased attenuation in a gyral pattern involving the left temporal frontal parietal lobes in the distribution of the left middle cerebral artery territory. This may represent petechial hemorrhage following a stroke. Follow-up is recommended. Electronically Signed: Quentin Rogel, at 12:28 EDT , Service support ,
--- NOTE | 2019-08-02 12:10 | PCM.PN.BLA ---
Progress Note Afebrile, vital signs stable, blood pressure well controlled. Maintaining appropriate oxygen saturation on room air Poor oral intake All lab was personally reviewed. The hemoglobin has increased from 9.9 at admission to 11.1, likely secondary to dehydration. Platelets are within normal limits. Electrolytes are within normal limits. The BUN is increased at 28, up from 19 at admission, and the creatinine has increased from 0.84-0.92. Hemoglobin A1c 6.2. Calcium is normal today. Alert, smiling today, appears in no acute distress, laying flat in bed without any respiratory difficulty, no cough She is able to follow simple commands but, there is a delay while she processes. MM are very dry no JVD Lungs - CTA H-RRR Abdomen-soft, nontender, nondistended no edema Impressions 1. 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 PAF 3. complicated UTI present at admission related to Nicolas catheter while at the previous hospital 4. urine retention - had to re-insert Nicolas. 5. dehydration/pre-renal azotemia 6. hemoccult + stool 7. HTN - controlled CT of the head today and if no hemorrhagic conversion will start Eliquis per neurology at [facility] Continue Duricef for a total of 10 days. Voiding trial after she has completed 10 days of antibiotics. Encouraged the patient to increase her fluid intake. If she continues to retain urine following treatment with antibiotics will consult Dr. Tucker. Vaginal estrogen ordered to improve urogenital mucosa Will need GI eval post discharge due to anemia and heme positive stool Inpatient E&M: [id number] Subs Hosp L2
[2019-08-02 17:36] LABS: Bedside Glucose 171 mg/dL (70-110)
[2019-08-02 20:00] VITALS: BP 118/60; PULSE 58; RESP 16; TEMP 36.9; O2SAT 93
[2019-08-02 20:27] VITALS: BMI 35.4
[2019-08-02] MEDS: Atorvastatin Calcium 80 MG Tablet PO (20:32)
[2019-08-02] MEDS: Montelukast 10 MG Tablet PO (20:34)
[2019-08-02] MEDS: Lisinopril 10 MG Tablet PO (20:35)
[2019-08-03] MEDS: Levothyroxine 125 MCG Tablet PO (05:42)
[2019-08-03] MEDS: Pantoprazole Sodium 40 MG Tablet PO (05:42)
[2019-08-03 06:15] LABS: Bedside Glucose 93 mg/dL (70-110)
[2019-08-03 06:28] VITALS: O2SAT 97
[2019-08-03] MEDS: Multivitamins,Ther W-Minerals Tablet 1 TABLET PO (07:58)
[2019-08-03] MEDS: Sertraline 50 MG Tablet PO (07:58)
[2019-08-03] MEDS: metFORMIN (XR) 500 MG Tablet PO ×2 (07:59→16:59)
[2019-08-03] MEDS: Glimepiride 2 MG Tablet PO (07:59)
[2019-08-03] MEDS: Magnesium Oxide 400 MG Tablet PO (07:59)
[2019-08-03] MEDS: Calcium Carb/Vitamin D 1 TABLET Tablet PO ×2 (07:59→16:59)
[2019-08-03] MEDS: predniSONE 20 MG Tablet PO (08:00)
[2019-08-03] MEDS: Folic Acid 1 MG Tablet PO (08:01)
[2019-08-03] MEDS: Glucerna Shake 120 ML LIQUID PO ×2 (08:01→11:27)
[2019-08-03 08:09] VITALS: BP 114/57; PULSE 61; RESP 16; TEMP 36.8; O2SAT 98
[2019-08-03] MEDS: Cefadroxil 500 MG CAPSULE PO ×2 (09:08→20:22)
[2019-08-03] MEDS: Aspirin E.C. 81 MG Tablet PO (09:08)
[2019-08-03] MEDS: Nystatin Powder 15gm Bottle 1 APPLIC TOPICAL ×2 (09:10→20:21)
[2019-08-03] MEDS: NYSTATIN 500,000 UNIT/5 ML UDC 500000 UNIT PO ×4 (09:10→20:20)
[2019-08-03] MEDS: Heparin Injection (Vial) 5,000 UNIT/ML VIAL 5000 UNIT SC ×2 (09:15→20:21)
[2019-08-03] MEDS: Menthol/Lanolin/Calamine/Znox 113 GM Tube 1 APPLIC TOPICAL ×2 (09:16→20:23)
[2019-08-03] MEDS: Lisinopril 20 MG Tablet PO (11:27)
[2019-08-03 11:40] LABS: Bedside Glucose 116 mg/dL (70-110)
[2019-08-03 15:53] VITALS: BMI 35.4
[2019-08-03 17:11] LABS: Bedside Glucose 166 mg/dL (70-110)
[2019-08-03 18:43] VITALS: BP 123/54; PULSE 60; RESP 16; TEMP 36.8; O2SAT 94
[2019-08-03 20:19] VITALS: BMI 35.4
[2019-08-03] MEDS: Lisinopril 10 MG Tablet PO (20:20)
[2019-08-03] MEDS: Montelukast 10 MG Tablet PO (20:20)
[2019-08-03] MEDS: Atorvastatin Calcium 80 MG Tablet PO (20:21)
[2019-08-03 22:00] VITALS: PULSE 60; RESP 16
[2019-08-04] MEDS: Levothyroxine 125 MCG Tablet PO (05:45)
[2019-08-04] MEDS: Pantoprazole Sodium 40 MG Tablet PO (05:45)
[2019-08-04 06:26] LABS: Bedside Glucose 91 mg/dL (70-110)
[2019-08-04 07:52] VITALS: BP 128/68; PULSE 76; RESP 16; TEMP 37; O2SAT 95
[2019-08-04] MEDS: metFORMIN (XR) 500 MG Tablet PO ×2 (08:12→17:20)
[2019-08-04] MEDS: Folic Acid 1 MG Tablet PO (08:12)
[2019-08-04] MEDS: Aspirin E.C. 81 MG Tablet PO (08:12)
[2019-08-04] MEDS: Glimepiride 2 MG Tablet PO (08:12)
[2019-08-04] MEDS: Calcium Carb/Vitamin D 1 TABLET Tablet PO ×2 (08:14→17:20)
[2019-08-04] MEDS: predniSONE 20 MG Tablet PO (08:14)
[2019-08-04] MEDS: Sertraline 50 MG Tablet PO (08:16)
[2019-08-04] MEDS: Lisinopril 20 MG Tablet PO (08:16)
[2019-08-04] MEDS: Menthol/Lanolin/Calamine/Znox 113 GM Tube 1 APPLIC TOPICAL ×2 (08:17→20:55)
[2019-08-04] MEDS: Magnesium Oxide 400 MG Tablet PO (08:18)
[2019-08-04] MEDS: Multivitamins,Ther W-Minerals Tablet 1 TABLET PO (08:18)
[2019-08-04] MEDS: Nystatin Powder 15gm Bottle 1 APPLIC TOPICAL ×2 (08:18→20:55)
[2019-08-04] MEDS: Heparin Injection (Vial) 5,000 UNIT/ML VIAL 5000 UNIT SC ×2 (08:20→20:48)
[2019-08-04] MEDS: Cefadroxil 500 MG CAPSULE PO ×2 (11:17→20:47)
[2019-08-04 11:36] VITALS: BMI 35.4
[2019-08-04] MEDS: Glucerna Shake 120 ML LIQUID PO ×2 (13:55→17:19)
[2019-08-04] MEDS: NYSTATIN 500,000 UNIT/5 ML UDC 500000 UNIT PO ×3 (14:57→20:47)
[2019-08-04 17:31] LABS: Bedside Glucose 153 mg/dL (70-110)
[2019-08-04 19:17] VITALS: BP 126/66; PULSE 72; RESP 18; TEMP 37.1; O2SAT 95
[2019-08-04] MEDS: Lisinopril 10 MG Tablet PO (20:47)
[2019-08-04] MEDS: Montelukast 10 MG Tablet PO (20:48)
[2019-08-04] MEDS: Atorvastatin Calcium 80 MG Tablet PO (20:48)
[2019-08-05 05:00] VITALS: BMI 35.4
[2019-08-05] MEDS: Levothyroxine 125 MCG Tablet PO (05:17)
[2019-08-05] MEDS: Pantoprazole Sodium 40 MG Tablet PO (05:17)
[2019-08-05 06:46] LABS: Bedside Glucose 94 mg/dL (70-110)
[2019-08-05] MEDS: metFORMIN (XR) 500 MG Tablet PO ×2 (07:52→16:55)
[2019-08-05] MEDS: Folic Acid 1 MG Tablet PO (07:52)
[2019-08-05] MEDS: Aspirin E.C. 81 MG Tablet PO (07:52)
[2019-08-05] MEDS: Glimepiride 2 MG Tablet PO (07:52)
[2019-08-05] MEDS: Magnesium Oxide 400 MG Tablet PO (07:53)
[2019-08-05] MEDS: predniSONE 20 MG Tablet PO (07:53)
[2019-08-05] MEDS: Calcium Carb/Vitamin D 1 TABLET Tablet PO ×2 (07:53→16:55)
[2019-08-05] MEDS: Multivitamins,Ther W-Minerals Tablet 1 TABLET PO (07:53)
[2019-08-05] MEDS: Sertraline 50 MG Tablet PO (07:53)
[2019-08-05] MEDS: Lisinopril 20 MG Tablet PO (07:53)
[2019-08-05] MEDS: Cefadroxil 500 MG CAPSULE PO ×2 (07:53→20:39)
[2019-08-05] MEDS: Nystatin Powder 15gm Bottle 1 APPLIC TOPICAL ×2 (08:01→20:41)
[2019-08-05] MEDS: Menthol/Lanolin/Calamine/Znox 113 GM Tube 1 APPLIC TOPICAL ×2 (08:02→20:38)
[2019-08-05 08:16] VITALS: BP 142/62; PULSE 62; RESP 16; TEMP 36.7; O2SAT 93
--- NOTE | 2019-08-05 08:33 | PN_ITS ---
Progress Note Day #6 cefadroxil Afebile VSS-blood pressure is well controlled. Maintaining appropriate oxygen saturation on RA Oral intake has improved Last bowel movement was 08/04/2019 Discussed with nursing - no problems that need addressed Reviewed the PT/OT/ST notes Medication list reviewed. Blood sugar record was reviewed. Blood sugars are well controlled on Amaryl 2 mg p.o. daily and metformin 500 mg twice daily. I once again reviewed the CT and the interpretation by the radiologist. There are petechial areas of hemorrhagic conversion in a gyral distribution involving the L frontal, temporal and parietal lobes. Seen by speech therapy today who evaluated her for possible upgrade in diet however she will remain on pur?ed. She continues to have a dense expressive a aphasia. alert and smiling. Lungs - CTA anteriorly and lateral, lying nearly flat in bed with no tachypnea or respiratory distress Heart-regular rate and rhythm, no gallop Abdomen-soft, nontender, nondistended No peripheral edema No calf pain No rashes, no breakdown Getting more movement in the R shoulder and some in the wrist now She was able to ambulate 6 feet today with FWW Impressions 1. Large left MCA ischemic infarct thought to be secondary to thrombus -CT scan on 08/02/2019 shows small petechial hemorrhages in a gyral distribution in the right frontal, temporal and parietal lobes. The stroke was a large 1 and she is at increased risk for major hemorrhage if started on full dose anticoagulation. We will hold off on anticoagulation at this time. Repeat the CT brain in another 2 weeks. 2. Paroxysmal atrial flutter -will need a 30-day event monitor at discharge and follow-up with cardiology 3. Complicated urinary tract infection due to Nicolas catheter at the previous institution. UTI present at admission. Continue cefadroxil for 10 days. 4. Urine retention. Voiding trial after she completes 10 days of cefadroxil. 5. Hypertension-controlled 6. Hemoccult positive stool 7. BUN increased out of proportion to creatinine-more likely than not secondary to decreased oral intake with thickened liquids. Will recheck a CMP and H&H on Monday 8. Normochromic normocytic anemia 9. 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 Has never seen a temporary administrative assistant. Her does not recall they were ever given a dose for why she was started on prednisone. Needs to follow-up with a temporary administrative assistant post discharge. 10. Diabetes mellitus type [id number], even with discontinuation of Lantus at at bedtime. Currently on metformin 500 mg twice daily and Amaryl 2 mg daily in the a.m. 11. History of ADHD-on Adderall 3 times daily at home. This was discontinued at admission due to potential for increasing blood pressure and also inciting atrial fibrillation/flutter. She seems to be able to attend to directions from therapy adequately. Will continue to hold the Adderall. 12. Dyslipidemia 13. History of depression-on sertraline 50 mg daily with no adverse side effects. Will increase to 100 mg daily. STROKE Vital Signs/Narrative: Vital Signs Temp Pulse Resp BP Pulse Ox 08/05/19 08:16 98.1 F 62 16 142/62 H 93 Inpatient E&M: 77222 Subs Hosp L2
[2019-08-05] MEDS: NYSTATIN 500,000 UNIT/5 ML UDC 500000 UNIT PO ×4 (10:59→20:42)
[2019-08-05] MEDS: Glucerna Shake 120 ML LIQUID PO ×3 (10:59→16:55)
[2019-08-05] MEDS: Heparin Injection (Vial) 5,000 UNIT/ML VIAL 5000 UNIT SC ×2 (10:59→20:39)
[2019-08-05 17:00] VITALS: BMI 35.4
[2019-08-05 18:01] LABS: Bedside Glucose 233 mg/dL (70-110)
[2019-08-05 19:29] VITALS: BP 115/56; PULSE 69; RESP 18; TEMP 36.4; O2SAT 94
[2019-08-05] MEDS: Atorvastatin Calcium 80 MG Tablet PO (20:40)
[2019-08-05] MEDS: Montelukast 10 MG Tablet PO (20:42)
[2019-08-05] MEDS: Lisinopril 10 MG Tablet PO (20:42)
[2019-08-05 21:00] VITALS: BMI 35.4
[2019-08-06] MEDS: Pantoprazole Sodium 40 MG Tablet PO (05:16)
[2019-08-06] MEDS: Levothyroxine 125 MCG Tablet PO (05:16)
[2019-08-06 06:21] LABS: Bedside Glucose 91 mg/dL (70-110)
[2019-08-06] MEDS: Sertraline 100 MG Tablet PO (07:28)
[2019-08-06] MEDS: NYSTATIN 500,000 UNIT/5 ML UDC 500000 UNIT PO ×4 (07:28→21:25)
[2019-08-06] MEDS: Lisinopril 20 MG Tablet PO (07:28)
[2019-08-06] MEDS: Cefadroxil 500 MG CAPSULE PO ×2 (07:28→21:25)
[2019-08-06] MEDS: Magnesium Oxide 400 MG Tablet PO (07:29)
[2019-08-06] MEDS: metFORMIN (XR) 500 MG Tablet PO ×2 (07:29→16:22)
[2019-08-06] MEDS: Multivitamins,Ther W-Minerals Tablet 1 TABLET PO (07:29)
[2019-08-06] MEDS: Folic Acid 1 MG Tablet PO (07:29)
[2019-08-06] MEDS: Aspirin E.C. 81 MG Tablet PO (07:29)
[2019-08-06] MEDS: Glimepiride 2 MG Tablet PO (07:29)
[2019-08-06] MEDS: Calcium Carb/Vitamin D 1 TABLET Tablet PO ×2 (07:29→16:22)
[2019-08-06] MEDS: Heparin Injection (Vial) 5,000 UNIT/ML VIAL 5000 UNIT SC ×2 (07:29→21:25)
[2019-08-06] MEDS: predniSONE 20 MG Tablet PO (07:29)
[2019-08-06] MEDS: Nystatin Powder 15gm Bottle 1 APPLIC TOPICAL ×2 (07:30→21:29)
[2019-08-06] MEDS: Menthol/Lanolin/Calamine/Znox 113 GM Tube 1 APPLIC TOPICAL ×2 (07:30→21:29)
[2019-08-06] MEDS: Glucerna Shake 120 ML LIQUID PO ×3 (07:43→16:22)
[2019-08-06 08:32] VITALS: BP 125/82; PULSE 94; RESP 18; TEMP 36.8; O2SAT 95
[2019-08-06 09:02] VITALS: BMI 35.4
[2019-08-06 17:06] LABS: Bedside Glucose 146 mg/dL (70-110)
[2019-08-06] MEDS: Atorvastatin Calcium 80 MG Tablet PO (21:25)
[2019-08-06] MEDS: Montelukast 10 MG Tablet PO (21:26)
[2019-08-06] MEDS: Lisinopril 10 MG Tablet PO (21:27)
[2019-08-06 22:00] VITALS: BP 131/52; PULSE 62; RESP 18; TEMP 36.7; O2SAT 96
[2019-08-06 22:40] VITALS: BMI 35.4
[2019-08-07] MEDS: Pantoprazole Sodium 40 MG Tablet PO (05:30)
[2019-08-07] MEDS: Levothyroxine 125 MCG Tablet PO (05:30)
[2019-08-07 06:08] LABS: Hematocrit 38.8 % (37-47); Hemoglobin 12.1 g/dL (12.0-15.0)
[2019-08-07 06:20] LABS: Anion Gap 7 (5-15); BUN 34 mg/dL (7-18); BUN/Creat Ratio 33.7 RATIO (10-20); Calcium,Total 9.6 mg/dL (8.5-10.1); Chloride 101 mmol/L (98-107); Creatinine, Serum 1.01 mg/dL (0.55-1.02); EST Glomerular Filtration Rate 58 mL/min (>60); Est Glom Filt Rate - Afr Amer 70 mL/min (>60); Estimated Creatinine Clearance 48.64 ml/min; Glucose 86 mg/dL (74-106); Magnesium 2.1 mg/dL (1.6-2.6); Phosphorus 4.5 mg/dL (2.5-4.9); Potassium 4.4 mmol/L (3.5-5.1); Sodium Level 136 mmol/L (136-145)
[2019-08-07 06:35] LABS: Bedside Glucose 82 mg/dL (70-110)
[2019-08-07] MEDS: Multivitamins,Ther W-Minerals Tablet 1 TABLET PO (07:37)
[2019-08-07] MEDS: Magnesium Oxide 400 MG Tablet PO (07:37)
[2019-08-07] MEDS: metFORMIN (XR) 500 MG Tablet PO ×2 (07:37→16:53)
[2019-08-07] MEDS: Lisinopril 20 MG Tablet PO (07:37)
[2019-08-07] MEDS: Calcium Carb/Vitamin D 1 TABLET Tablet PO ×2 (07:37→16:53)
[2019-08-07] MEDS: predniSONE 20 MG Tablet PO (07:37)
[2019-08-07] MEDS: Folic Acid 1 MG Tablet PO (07:38)
[2019-08-07] MEDS: Sertraline 100 MG Tablet PO (07:38)
[2019-08-07] MEDS: Glimepiride 2 MG Tablet PO (07:38)
[2019-08-07] MEDS: Aspirin E.C. 81 MG Tablet PO (07:38)
[2019-08-07] MEDS: Heparin Injection (Vial) 5,000 UNIT/ML VIAL 5000 UNIT SC ×2 (07:46→22:53)
[2019-08-07] MEDS: NYSTATIN 500,000 UNIT/5 ML UDC 500000 UNIT PO ×4 (07:48→22:53)
[2019-08-07 08:00] VITALS: BP 113/57; PULSE 61; RESP 16; TEMP 36.7; O2SAT 95
--- NOTE | 2019-08-07 08:43 | PN_ITS ---
Progress Note Day #7 of 10 cefadroxil Afebile VSS-blood pressure is well controlled. Maintaining appropriate oxygen saturation on RA Oral intake is variable. She only took 600 orally yesterday. Discussed with nursing - no problems that need addressed Reviewed the PT/OT/ST notes Medication list reviewed. Blood sugar record was reviewed. The 4 PM sugar is usually the highest of the day. Yesterday it was 233 but all the other blood sugars have been less than 200. All lab was personally reviewed. Electrolytes are unremarkable. The BUN is 34 today with a creatinine of 1.01. We are continually having to encourage her to increase her fluid intake. Hemoglobin today is 12.1 which is up from 9.9 at admission however, I suspect the increase in hemoglobin is due to hemoconcentration. She is alert and smiling and doing therapy with no resistance. NAD Lungs - unable to cooperate when I tell her to take a deep breath. No rales, rhonchi or wheezes heard. Heart - RRR, no gallop abd - soft, no guarding, normal BS's no peripheral edema. she has both expressive and receptive aphasia. I still do not think she appropriately answers yes or no all the time. she said yes when I asked her if she had abdominal pain and then no guarding with palpation and a normal exam? No rash and no breakdown. Nicolas still in place. will DC on Monday. Antibiotics for UTI will finish on Monday. Nicolas was inserted for urine retention Impressions 1. Post stroke [id number] weakness and severe expressive a aphasia and also with receptive aphasia. 2. Paroxysmal atrial flutter -cannot start anticoagulation at this time due to recent CT with multiple punctate hemorrhagic areas in the left frontal, temporal and parietal areas 3. Diabetes mellitus type 2-controlled 4. Chronic steroid use-the diagnosis the goes with this is unclear. Will need to see a transfer station attendant post discharge 5. Poor fluid intake with increased BUN and creatinine today-patient was reminded to increase her fluid intake and nursing and therapists are reinforcing this 6. Depression-tolerating the increase in sertraline to 100 mg daily with no adverse side effects yet. We will continue to monitor Inpatient E&M: 45247 Subs Hosp L2
[2019-08-07] MEDS: Glucerna Shake 120 ML LIQUID PO ×3 (09:01→16:53)
[2019-08-07] MEDS: Cefadroxil 500 MG CAPSULE PO ×2 (09:03→22:54)
[2019-08-07] MEDS: Menthol/Lanolin/Calamine/Znox 113 GM Tube 1 APPLIC TOPICAL ×2 (09:04→22:54)
[2019-08-07] MEDS: Nystatin Powder 15gm Bottle 1 APPLIC TOPICAL ×2 (09:04→22:53)
[2019-08-07 15:17] VITALS: BMI 35.4
[2019-08-07 16:36] LABS: Bedside Glucose 160 mg/dL (70-110)
[2019-08-07 19:22] VITALS: BP 108/51; PULSE 69; RESP 17; TEMP 36.6; O2SAT 92
[2019-08-07] MEDS: Lisinopril 10 MG Tablet PO (22:52)
[2019-08-07] MEDS: Montelukast 10 MG Tablet PO (22:53)
[2019-08-07] MEDS: Atorvastatin Calcium 80 MG Tablet PO (22:53)
[2019-08-08] MEDS: Levothyroxine 125 MCG Tablet PO (06:05)
[2019-08-08] MEDS: Pantoprazole Sodium 40 MG Tablet PO (06:05)
[2019-08-08 06:55] LABS: Bedside Glucose 81 mg/dL (70-110)
[2019-08-08 08:10] VITALS: BP 102/52; PULSE 61; RESP 16; TEMP 36.5; O2SAT 94
--- NOTE | 2019-08-08 10:22 | CASEMGMT ---
Social Work IDT met with patient for Team Meeting. did not answer phone call - left message. Discussed patient's progress in therapy. Pt is on [facility] soft, thin liquid diet with direct supervision for swallowing cues and strategies. Pt is not accurate answering yes/no questions, but has 80% accuracy with visual/written directions, and 25% accuracy with auditory directions. Pt is modx1 for stand pivot transfers to w/c, walking 10 ft with FWW min-mod assist, mod for bed mobility, min-mod for sitting to standing. Pt can complete 3 steps with 2 HR mod-max x2, min assist for UE ADLS, max for LE ADLs. Pt requires space between therapy tx as pt fatigues very easily. pt is improving with movement in wrist and grasping with hands. The goal is for pt to get manrique removed tomorrow. Explained Medicare benefit with DC date 08/21. Will ReTeam next week and discuss DC plans. Will continue to follow. Pilar Addison RESEARCH MICROBIOLOGIST [employer]ORCEL[employer] ENAMEL SPRAYER
[2019-08-08] MEDS: Lisinopril 20 MG Tablet PO (10:32)
[2019-08-08] MEDS: Magnesium Oxide 400 MG Tablet PO (10:32)
[2019-08-08] MEDS: Senna/Docusate Sodium 1 Tablet 2 TABLET PO ×2 (10:32→23:01)
[2019-08-08] MEDS: Glimepiride 2 MG Tablet PO (10:32)
[2019-08-08] MEDS: Multivitamins,Ther W-Minerals Tablet 1 TABLET PO (10:32)
[2019-08-08] MEDS: Cefadroxil 500 MG CAPSULE PO ×2 (10:32→23:01)
[2019-08-08] MEDS: Sertraline 100 MG Tablet PO (10:32)
[2019-08-08] MEDS: predniSONE 20 MG Tablet PO (10:32)
[2019-08-08] MEDS: Calcium Carb/Vitamin D 1 TABLET Tablet PO ×2 (10:32→17:09)
[2019-08-08] MEDS: metFORMIN (XR) 500 MG Tablet PO ×2 (10:33→17:09)
[2019-08-08] MEDS: NYSTATIN 500,000 UNIT/5 ML UDC 500000 UNIT PO ×4 (10:33→23:01)
[2019-08-08] MEDS: Folic Acid 1 MG Tablet PO (10:33)
[2019-08-08] MEDS: Aspirin E.C. 81 MG Tablet PO (10:33)
[2019-08-08] MEDS: Heparin Injection (Vial) 5,000 UNIT/ML VIAL 5000 UNIT SC ×2 (10:33→23:02)
[2019-08-08] MEDS: Menthol/Lanolin/Calamine/Znox 113 GM Tube 1 APPLIC TOPICAL ×2 (10:46→23:00)
[2019-08-08] MEDS: Nystatin Powder 15gm Bottle 1 APPLIC TOPICAL ×2 (10:46→23:00)
[2019-08-08] MEDS: Glucerna Shake 120 ML LIQUID PO ×2 (12:10→13:50)
[2019-08-08 15:18] VITALS: BMI 35.4
--- NOTE | 2019-08-08 17:10 | PN_ITS ---
Progress Note Abena was seen on team rounds today. Her Vasiliy was not available for conference call. Afebile VSS Maintaining appropriate oxygen saturation on RA. The patient is ordered oxygen at 2 L/min anytime she is sleeping however when reviewing the graphic record I see that she has not been getting oxygen at night with the exception of one ni ght. Will reinforce with nursing that this needs to happen since she desaturated to 67% on room air at night on an overnight trending pulse ox. Oral intake is fair Discussed with nursing - no problems that need addressed Reviewed the PT/OT/ST notes Medication list reviewed. Blood sugar record was reviewed and all blood sugars are under 200. No hypoglycemia. Denies pain. Still with a dense expressive a aphasia. She gets an occasional word out which is more often than not and automatism. She is very alert. She smiles when the team enters her room. She appears in no acute distress. Lungs-not taking deep breaths because she does not understand my command. No wheezes, rhonchi or rales appreciated. She is not tachypneic and has no accessory muscle use. Heart-regular rate and rhythm, no gallop Abdomen-soft, nontender, nondistended, bowel sounds present, no guarding with palpation No peripheral edema Impressions 1. debility post stroke 2. DM II - controlled 3. HTN - controlled 4. UTI - complicated and present at admission 5. steroid dependence 6. poor oral intake - continue to encourage increased fluid intake Continue Therapy Consider trying to wean the steroids Inpatient E&M: [id number] Subs Hosp L2
[2019-08-08 17:21] LABS: Bedside Glucose 227 mg/dL (70-110)
[2019-08-08 21:53] VITALS: PULSE 59; O2SAT 93
[2019-08-08 22:00] VITALS: BP 100/49; PULSE 64; RESP 16; TEMP 36.8; O2SAT 96
[2019-08-08] MEDS: Montelukast 10 MG Tablet PO (23:01)
[2019-08-08] MEDS: Atorvastatin Calcium 80 MG Tablet PO (23:01)
[2019-08-08] MEDS: Lisinopril 10 MG Tablet PO (23:08)
--- NOTE | 2019-08-09 05:00 | NURSING ---
REVIEWED AND AGREE WITH CUSTOM DRESSMAKER'S FUNCTIONAL ASSESSMENT AND HANDOFF CHARTING.
[2019-08-09] MEDS: Pantoprazole Sodium 40 MG Tablet PO (06:59)
[2019-08-09] MEDS: Levothyroxine 125 MCG Tablet PO (06:59)
[2019-08-09 07:15] VITALS: O2SAT 96
[2019-08-09 07:15] LABS: Bedside Glucose 89 mg/dL (70-110)
[2019-08-09] MEDS: Glucerna Shake 120 ML LIQUID PO ×2 (08:18→17:42)
[2019-08-09] MEDS: Nystatin Powder 15gm Bottle 1 APPLIC TOPICAL ×2 (08:24→22:00)
[2019-08-09] MEDS: Menthol/Lanolin/Calamine/Znox 113 GM Tube 1 APPLIC TOPICAL ×2 (08:24→22:00)
[2019-08-09] MEDS: Cefadroxil 500 MG CAPSULE PO ×2 (08:28→22:01)
[2019-08-09] MEDS: Sertraline 100 MG Tablet PO (08:28)
[2019-08-09] MEDS: predniSONE 20 MG Tablet PO (08:28)
[2019-08-09] MEDS: Aspirin E.C. 81 MG Tablet PO (08:28)
[2019-08-09] MEDS: Senna/Docusate Sodium 1 Tablet 2 TABLET PO ×2 (08:28→22:02)
[2019-08-09] MEDS: Glimepiride 2 MG Tablet PO (08:28)
[2019-08-09] MEDS: Lisinopril 20 MG Tablet PO (08:28)
[2019-08-09] MEDS: Calcium Carb/Vitamin D 1 TABLET Tablet PO ×2 (08:28→17:43)
[2019-08-09] MEDS: NYSTATIN 500,000 UNIT/5 ML UDC 500000 UNIT PO ×4 (08:29→22:02)
[2019-08-09] MEDS: Magnesium Oxide 400 MG Tablet PO (08:29)
[2019-08-09] MEDS: Multivitamins,Ther W-Minerals Tablet 1 TABLET PO (08:29)
[2019-08-09] MEDS: Folic Acid 1 MG Tablet PO (08:29)
[2019-08-09] MEDS: metFORMIN (XR) 500 MG Tablet PO (08:29)
[2019-08-09] MEDS: Heparin Injection (Vial) 5,000 UNIT/ML VIAL 5000 UNIT SC ×2 (08:33→22:02)
[2019-08-09 09:18] VITALS: BP 111/61; PULSE 64; RESP 16; TEMP 36.7; O2SAT 95
--- NOTE | 2019-08-09 10:27 | PCM.PN.BLA ---
Progress Note Day #9/10 Christosicef Afebile VSS Maintaining appropriate oxygen saturation on RA Oral intake is improving. Her oral intake on 08/08/2019 was 1640 cc. Discussed with nursing - no problems that need addressed Reviewed the PT/OT/ST notes Medication list reviewed. Blood sugar record was reviewed. 5:00 PM blood sugar is rarely over 180. Fasting blood sugars are in the 81-94 range. No hypoglycemia. Alert, smiling, nods her head to answer yes and no questions but the answers are not always consistent and I still think she has a component of receptive a aphasia. If I ask her the same question twice she gives me different answers. Lungs-clear to auscultation anterior and lateral Heart-regular rate and rhythm, no gallop Abdomen-soft, nontender, nondistended No peripheral edema No rashes, no breakdown Impressions 1. Post stroke debility with receptive and dense expressive a aphasia and right-sided weakness 2. Paroxysmal atrial flutter-unable to start anticoagulation due to numerous petechial hemorrhages in a gyral distribution in the left frontal, temporal and parietal lobes 3. Diabetes mellitus type 2-controlled but 5 PM sugars are a little high. AM are a little low. Will try changing the dosing to 1,000 mg in the AM 4. HTN - was on Lisinopril/HCTZ 20/12.5 at admission. Not drinking enough fluid so will DC the HCTZ and change Lisinopril dose to 10 mg BID to help control the higher BP's in the AM. Goal for the BP is < 120/80. change the Lisinopril to 10 mg BID Change the Metformin XR to 1,000 mg in the AM and DC the PM dose Check a BMP and a CBC on Monday Decrease the prednisone to 19 mg daily and then taper by mg every 2 weeks. STROKE Vital Signs/Narrative: Vital Signs Temp Pulse Resp BP Pulse Ox 08/09/19 09:18 98.1 F 64 16 111/61 95 Inpatient E&M: [id number] Subs Hosp L2
[2019-08-09 15:16] VITALS: BMI 35.4
[2019-08-09 18:00] LABS: Bedside Glucose 214 mg/dL (70-110)
[2019-08-09 19:39] VITALS: BP 104/56; PULSE 66; RESP 16; TEMP 36.9; O2SAT 93
[2019-08-09 22:00] VITALS: O2SAT 95
[2019-08-09] MEDS: Atorvastatin Calcium 80 MG Tablet PO (22:01)
[2019-08-09] MEDS: Lisinopril 10 MG Tablet PO (22:02)
[2019-08-09] MEDS: Montelukast 10 MG Tablet PO (22:02)
--- NOTE | 2019-08-10 04:52 | NURSING ---
Reviewed and agreed with INSTRUCTOR TRAFFIC SAFETY documentation and charting.
[2019-08-10] MEDS: Pantoprazole Sodium 40 MG Tablet PO (05:23)
[2019-08-10] MEDS: Levothyroxine 125 MCG Tablet PO (05:23)
[2019-08-10] MEDS: NYSTATIN 500,000 UNIT/5 ML UDC 500000 UNIT PO ×4 (07:49→21:44)
[2019-08-10] MEDS: Aspirin E.C. 81 MG Tablet PO (07:50)
[2019-08-10] MEDS: Heparin Injection (Vial) 5,000 UNIT/ML VIAL 5000 UNIT SC ×2 (07:50→21:44)
[2019-08-10] MEDS: Glimepiride 2 MG Tablet PO (07:50)
[2019-08-10] MEDS: metFORMIN (XR) 500 MG Tablet 1000 MG PO (07:51)
[2019-08-10] MEDS: Folic Acid 1 MG Tablet PO (07:51)
[2019-08-10] MEDS: Multivitamins,Ther W-Minerals Tablet 1 TABLET PO (07:52)
[2019-08-10] MEDS: Magnesium Oxide 400 MG Tablet PO (07:52)
[2019-08-10] MEDS: Calcium Carb/Vitamin D 1 TABLET Tablet PO ×2 (07:52→16:57)
[2019-08-10] MEDS: predniSONE 10 MG Tablet PO (07:53)
[2019-08-10] MEDS: predniSONE 5 MG Tablet PO (07:53)
[2019-08-10] MEDS: predniSONE 1 MG Tablet 4 MG PO (07:53)
[2019-08-10] MEDS: Senna/Docusate Sodium 1 Tablet 2 TABLET PO ×2 (07:54→21:46)
[2019-08-10] MEDS: Cefadroxil 500 MG CAPSULE PO (07:54)
[2019-08-10] MEDS: Sertraline 100 MG Tablet PO (07:58)
[2019-08-10] MEDS: Lisinopril 10 MG Tablet PO ×2 (07:58→21:47)
[2019-08-10] MEDS: Glucerna Shake 120 ML LIQUID PO ×3 (07:59→16:57)
[2019-08-10] MEDS: Nystatin Powder 15gm Bottle 1 APPLIC TOPICAL ×2 (08:07→21:45)
[2019-08-10] MEDS: Menthol/Lanolin/Calamine/Znox 113 GM Tube 1 APPLIC TOPICAL ×2 (08:07→21:43)
[2019-08-10 09:13] VITALS: BP 111/60; PULSE 80; RESP 14; TEMP 36.5; O2SAT 95
[2019-08-10 12:05] LABS: Bedside Glucose 115 mg/dL (70-110)
[2019-08-10 16:25] VITALS: BMI 35.4
[2019-08-10 17:20] LABS: Bedside Glucose 115 mg/dL (70-110)
[2019-08-10 19:33] VITALS: BP 100/47; PULSE 72; RESP 16; TEMP 36.4; O2SAT 96
[2019-08-10 21:42] VITALS: BMI 35.4
[2019-08-10] MEDS: Atorvastatin Calcium 80 MG Tablet PO (21:44)
[2019-08-10] MEDS: Montelukast 10 MG Tablet PO (21:46)
[2019-08-11] MEDS: Pantoprazole Sodium 40 MG Tablet PO (05:14)
[2019-08-11] MEDS: Levothyroxine 125 MCG Tablet PO (05:14)
[2019-08-11 07:10] LABS: Bedside Glucose 96 mg/dL (70-110)
[2019-08-11] MEDS: Glimepiride 2 MG Tablet PO (08:47)
[2019-08-11] MEDS: Folic Acid 1 MG Tablet PO (08:47)
[2019-08-11] MEDS: Aspirin E.C. 81 MG Tablet PO (08:47)
[2019-08-11] MEDS: metFORMIN (XR) 500 MG Tablet 1000 MG PO (08:47)
[2019-08-11] MEDS: Multivitamins,Ther W-Minerals Tablet 1 TABLET PO (08:48)
[2019-08-11] MEDS: Calcium Carb/Vitamin D 1 TABLET Tablet PO ×2 (08:48→16:41)
[2019-08-11] MEDS: Magnesium Oxide 400 MG Tablet PO (08:48)
[2019-08-11] MEDS: predniSONE 10 MG Tablet PO (08:49)
[2019-08-11] MEDS: predniSONE 1 MG Tablet 4 MG PO (08:49)
[2019-08-11] MEDS: Heparin Injection (Vial) 5,000 UNIT/ML VIAL 5000 UNIT SC ×2 (08:49→22:15)
[2019-08-11] MEDS: predniSONE 5 MG Tablet PO (08:49)
[2019-08-11] MEDS: NYSTATIN 500,000 UNIT/5 ML UDC 500000 UNIT PO ×4 (08:50→22:15)
[2019-08-11] MEDS: Sertraline 100 MG Tablet PO (08:52)
[2019-08-11] MEDS: Glucerna Shake 120 ML LIQUID PO ×3 (08:56→16:41)
[2019-08-11] MEDS: Nystatin Powder 15gm Bottle 1 APPLIC TOPICAL ×2 (09:01→22:14)
[2019-08-11] MEDS: Menthol/Lanolin/Calamine/Znox 113 GM Tube 1 APPLIC TOPICAL ×2 (09:01→22:14)
[2019-08-11 09:42] VITALS: BP 90/50; PULSE 81; RESP 16; TEMP 36.4; O2SAT 99
[2019-08-11 12:26] VITALS: BP 93/44
--- NOTE | 2019-08-11 12:27 | NURSING ---
pt BP retaken at 93/44. Dr Lock called and new order to hold AM Lisinopril.
[2019-08-11 13:51] VITALS: BMI 35.4
[2019-08-11 17:31] LABS: Bedside Glucose 174 mg/dL (70-110)
[2019-08-11 22:00] VITALS: BP 113/58; PULSE 72; RESP 16; TEMP 36.7; O2SAT 98
[2019-08-11] MEDS: Senna/Docusate Sodium 1 Tablet 2 TABLET PO (22:15)
[2019-08-11] MEDS: Montelukast 10 MG Tablet PO (22:15)
[2019-08-11] MEDS: Atorvastatin Calcium 80 MG Tablet PO (22:16)
[2019-08-11] MEDS: Lisinopril 10 MG Tablet PO (22:16)
[2019-08-12 00:03] VITALS: BMI 35.4
[2019-08-12 06:12] LABS: Hematocrit 34.2 % (37-47); Hemoglobin 10.8 g/dL (12.0-15.0); Mean Corp Hgb Conc 31.6 g/dL (32-36); Mean Corpuscular Hgb 29.3 pg (27.0-32.0); Mean Corpuscular Volume 92.7 fL (81-99); Mean Platelet Vol. 8.7 fl (6.2-12.0); Platelet Count 423 K/mm3 (150-450); RBC Distribution Width SD 47.6 fl (35.1-43.9); Red Blood Count 3.69 M/mm3 (4.2-5.4); White Blood Count 11.6 K/mm3 (4.4-11.0)
[2019-08-12 06:23] LABS: Anion Gap 5 (5-15); BUN 47 mg/dL (7-18); Calcium,Total 9.4 mg/dL (8.5-10.1); Chloride 108 mmol/L (98-107); Creatinine, Serum 0.98 mg/dL (0.55-1.02); EST Glomerular Filtration Rate 60 mL/min (>60); Est Glom Filt Rate - Afr Amer 73 mL/min (>60); Estimated Creatinine Clearance 50.13 ml/min; Glucose 70 mg/dL (74-106); Potassium 4.6 mmol/L (3.5-5.1); Sodium Level 139 mmol/L (136-145)
[2019-08-12] MEDS: Pantoprazole Sodium 40 MG Tablet PO (06:56)
[2019-08-12] MEDS: Levothyroxine 125 MCG Tablet PO (06:56)
[2019-08-12 07:05] LABS: Bedside Glucose 75 mg/dL (70-110)
[2019-08-12] MEDS: Folic Acid 1 MG Tablet PO (08:27)
[2019-08-12] MEDS: Glimepiride 2 MG Tablet PO (08:27)
[2019-08-12] MEDS: Glucerna Shake 120 ML LIQUID PO ×3 (08:27→16:54)
[2019-08-12] MEDS: Aspirin E.C. 81 MG Tablet PO (08:27)
[2019-08-12] MEDS: Multivitamins,Ther W-Minerals Tablet 1 TABLET PO (08:28)
[2019-08-12] MEDS: Magnesium Oxide 400 MG Tablet PO (08:28)
[2019-08-12] MEDS: Calcium Carb/Vitamin D 1 TABLET Tablet PO ×2 (08:28→16:54)
[2019-08-12] MEDS: metFORMIN (XR) 500 MG Tablet 1000 MG PO (08:28)
[2019-08-12] MEDS: predniSONE 5 MG Tablet PO (08:29)
[2019-08-12] MEDS: predniSONE 1 MG Tablet 4 MG PO (08:29)
[2019-08-12] MEDS: predniSONE 10 MG Tablet PO (08:29)
[2019-08-12] MEDS: NYSTATIN 500,000 UNIT/5 ML UDC 500000 UNIT PO ×4 (08:30→22:07)
[2019-08-12] MEDS: Senna/Docusate Sodium 1 Tablet 2 TABLET PO ×2 (08:30→22:07)
[2019-08-12] MEDS: Heparin Injection (Vial) 5,000 UNIT/ML VIAL 5000 UNIT SC ×2 (08:30→22:08)
[2019-08-12] MEDS: Sertraline 100 MG Tablet PO (08:31)
[2019-08-12] MEDS: Nystatin Powder 15gm Bottle 1 APPLIC TOPICAL ×2 (08:32→22:08)
[2019-08-12] MEDS: Menthol/Lanolin/Calamine/Znox 113 GM Tube 1 APPLIC TOPICAL ×2 (08:32→22:09)
[2019-08-12 09:14] VITALS: BP 100/52; PULSE 62; RESP 16; TEMP 36.9; O2SAT 96
[2019-08-12 10:41] VITALS: BP 92/49
--- NOTE | 2019-08-12 12:20 | PN_ITS ---
Progress Note Afebile VSS the blood pressure is on the low side today. She was 113/58 at bedtime and this morning is 100/52 at 9 AM and 92/49 at 10 AM. She did get the at bedtime dose of lisinopril last night. She denies lightheadedness. Maintaining appropriate oxygen saturation on RA Oral intake is poor Discussed with nursing - no problems that need addressed Reviewed the PT/OT/ST notes Medication list reviewed. BS record was reviewed. Blood sugars are well controlled Alert, smiling, no apparent distress, lying flat in bed without cough or sh ortness of breath Lungs-clear to auscultation Heart-regular rate and rhythm Abdomen-soft, no guarding with palpation, bowel sounds present, nondistended No peripheral edema No rashes and no breakdown Nursing did a bladder scan prior to straight cath for UA and she had 341 cc in the bladder and no urge to void. Nicolas was inserted. The urine looks clear and pale Impressions 1. low BP in immunocompromised pt on chronic steroids who recently had a UTI....also with increased WBC yesterday. Need to consider sepsis. At admission she was on Lisinopril and HCTZ and she did not have low BP's. 2. The creatinine has increased from 0.98-1.18 even with IV fluids -I suspect that she is once again retaining urine. Recheck lab in a.m. Hold the Lisinopril today. Continue to monitor the BP closely. More likely than not the low BP is due to IV volume depletion. Will order 3 L of NS . Recheck the lab on Monday. WBC is mildly elevated but she is AF and has no complaints. She has no cough a nd the lungs are clear. She just completed 10 days of Duricef on Monday. The Nicolas was discontinued on Monday and the PVR's were good. If she has a fever will recheck the urine. If the WBC is still elevated on Monday will check a UA. STROKE Vital Signs/Narrative: Vital Signs Temp Pulse Resp BP Pulse Ox 08/12/19 10:41 92/49 L 08/12/19 09:14 98.4 F 62 16 100/52 L 96 Inpatient E&M: [id number] Subs Hosp L3
[2019-08-12 14:04] VITALS: BMI 35.4
[2019-08-12] MEDS: 0.9% Normal Saline 1,000 ML 100 ML IV (14:37)
[2019-08-12 17:56] LABS: Bedside Glucose 223 mg/dL (70-110)
[2019-08-12 21:52] VITALS: BP 122/51; PULSE 70; RESP 16; TEMP 36.9; O2SAT 97
[2019-08-12] MEDS: Lisinopril 10 MG Tablet PO (22:07)
[2019-08-12] MEDS: Montelukast 10 MG Tablet PO (22:07)
[2019-08-12] MEDS: traZODone 50 MG Tablet PO (22:08)
[2019-08-12] MEDS: Atorvastatin Calcium 80 MG Tablet PO (22:08)
[2019-08-13] MEDS: 0.9% Normal Saline 1,000 ML 100 ML IV ×2 (02:21→14:04)
[2019-08-13] MEDS: Levothyroxine 125 MCG Tablet PO (05:26)
[2019-08-13] MEDS: Pantoprazole Sodium 40 MG Tablet PO (05:26)
[2019-08-13 06:26] LABS: Bedside Glucose 77 mg/dL (70-110)
[2019-08-13] MEDS: metFORMIN (XR) 500 MG Tablet 1000 MG PO (08:14)
[2019-08-13] MEDS: Glucerna Shake 120 ML LIQUID PO ×3 (08:14→17:03)
[2019-08-13] MEDS: Folic Acid 1 MG Tablet PO (08:14)
[2019-08-13] MEDS: Aspirin E.C. 81 MG Tablet PO (08:14)
[2019-08-13] MEDS: Magnesium Oxide 400 MG Tablet PO (08:14)
[2019-08-13] MEDS: predniSONE 5 MG Tablet PO (08:15)
[2019-08-13] MEDS: predniSONE 10 MG Tablet PO (08:15)
[2019-08-13] MEDS: Calcium Carb/Vitamin D 1 TABLET Tablet PO ×2 (08:15→17:03)
[2019-08-13] MEDS: Multivitamins,Ther W-Minerals Tablet 1 TABLET PO (08:15)
[2019-08-13] MEDS: predniSONE 1 MG Tablet 4 MG PO (08:15)
[2019-08-13] MEDS: Heparin Injection (Vial) 5,000 UNIT/ML VIAL 5000 UNIT SC ×2 (08:15→22:02)
[2019-08-13] MEDS: Meloxicam 7.5 MG Tablet PO (08:16)
[2019-08-13] MEDS: NYSTATIN 500,000 UNIT/5 ML UDC 500000 UNIT PO ×4 (08:16→22:02)
[2019-08-13] MEDS: Sertraline 100 MG Tablet PO (08:17)
[2019-08-13] MEDS: Nystatin Powder 15gm Bottle 1 APPLIC TOPICAL ×2 (08:24→22:03)
[2019-08-13] MEDS: Menthol/Lanolin/Calamine/Znox 113 GM Tube 1 APPLIC TOPICAL ×2 (08:24→22:02)
[2019-08-13] MEDS: 0.9% Saline Lock 10 ML Syringe IV (08:34)
[2019-08-13 09:18] VITALS: BP 104/54; PULSE 62; RESP 18; TEMP 36.6; O2SAT 95
[2019-08-13] MEDS: Glimepiride 2 MG Tablet PO (10:06)
[2019-08-13 10:15] VITALS: BP 82/47
[2019-08-13 11:12] LABS: Lactic Acid 1.7 mmol/L (0.4-1.9)
[2019-08-13 11:17] LABS: Bacteria 0 SEEN /hpf (None Seen); Mucous, Urine 0 SEEN /hpf (<or=2+); Red Blood Cells-Urine 0 SEEN /hpf (0-5); Squamous Epithelial Cells - UA 0 SEEN /hpf (5-10)
[2019-08-13 11:20] LABS: Color, Urine Yellow (Yellow); Glucose, Dipstick Normal (Normal); Ketone-Dipstick Negative (Negative); Leukocyte Esterase-Dipstick Negative /ul (Negative); Nitrite-Dipstick Negative (Negative); Occult Blood-Urine Negative /ul (Negative); Protein-Dipstick Negative (Negative); Urine Bilirubin Dipstick Negative (Negative); Urine Clarity Clear (Clear); Urine Urobilinogen Normal (Normal)
[2019-08-13 11:28] LABS: White Blood Cells 0-5 SEEN /hpf (0-5)
[2019-08-13 11:32] VITALS: BP 103/54
[2019-08-13 11:33] LABS: Absolute Lymphocyte Count 1.95 X10^3/uL (0.83-4.51); Absolute Neutrophil Count 7.1 X10^3/uL (2.0-7.7); Basophil# 0.08 X10^3/uL; Basophil% 0.8 % (0-1); Eosinophil# 0.16 X10^3/uL; Eosinophils% 1.6 % (0-5); Hematocrit 32.3 % (37-47); Hemoglobin 9.8 g/dL (12.0-15.0); Lymphocyte # 1.95 X10^3/ul (4.0); Mean Corp Hgb Conc 30.3 g/dL (32-36); Mean Corpuscular Hgb 28.4 pg (27.0-32.0); Mean Corpuscular Volume 93.6 fL (81-99); Mean Platelet Vol. 8.8 fl (6.2-12.0); Monocyte# 0.77 X10^3/uL; Monocyte% 7.5 % (0-10); NRBC Flagged by Analyzer 0 % (0-5); Neutrophil # 7.13 X10^3/uL (2.7-7.7); Neutrophil % 69.3 % (47-70); Platelet Count 387 K/mm3 (150-450); RBC Distribution Width CV 14.1 % (11.6-14.6); RBC Distribution Width SD 48.3 fl (35.1-43.9); Red Blood Count 3.45 M/mm3 (4.2-5.4); White Blood Count 10.3 K/mm3 (4.4-11.0)
[2019-08-13 11:53] LABS: Anion Gap 5 (5-15); BUN 37 mg/dL (7-18); BUN/Creat Ratio 31.4 RATIO (10-20); Calcium,Total 8.7 mg/dL (8.5-10.1); Chloride 108 mmol/L (98-107); Creatinine, Serum 1.18 mg/dL (0.55-1.02); EST Glomerular Filtration Rate 48 mL/min (>60); Est Glom Filt Rate - Afr Amer 59 mL/min (>60); Estimated Creatinine Clearance 41.63 ml/min; Glucose 147 mg/dL (74-106); Potassium 4.6 mmol/L (3.5-5.1); Sodium Level 140 mmol/L (136-145)
[2019-08-13 15:27] VITALS: BMI 35.4
[2019-08-13 16:21] LABS: Bedside Glucose 203 mg/dL (70-110)
[2019-08-13 19:44] VITALS: BP 112/63; PULSE 71; RESP 18; TEMP 36.9; O2SAT 95
[2019-08-13 20:26] VITALS: BMI 35.4
[2019-08-13] MEDS: Montelukast 10 MG Tablet PO (22:01)
[2019-08-13] MEDS: Senna/Docusate Sodium 1 Tablet 2 TABLET PO (22:01)
[2019-08-13] MEDS: Atorvastatin Calcium 80 MG Tablet PO (22:02)
[2019-08-13] MEDS: traZODone 50 MG Tablet PO (22:02)
[2019-08-14] MEDS: Pantoprazole Sodium 40 MG Tablet PO (05:14)
[2019-08-14] MEDS: Levothyroxine 125 MCG Tablet PO (05:14)
[2019-08-14 06:55] LABS: Bedside Glucose 71 mg/dL (70-110)
[2019-08-14 06:59] LABS: Absolute Lymphocyte Count 2.98 X10^3/uL (0.83-4.51); Absolute Neutrophil Count 4.9 X10^3/uL (2.0-7.7); Basophil# 0.07 X10^3/uL; Basophil% 0.8 % (0-1); Eosinophils% 2.2 % (0-5); Hemoglobin 10.5 g/dL (12.0-15.0); Lymphocyte # 2.98 X10^3/ul (4.0); Lymphocyte % 33.1 % (19-41); Mean Corp Hgb Conc 31.8 g/dL (32-36); Mean Corpuscular Hgb 29.4 pg (27.0-32.0); Mean Corpuscular Volume 92.4 fL (81-99); Mean Platelet Vol. 8.9 fl (6.2-12.0); Monocyte# 0.73 X10^3/uL; Monocyte% 8.1 % (0-10); NRBC Flagged by Analyzer 0 % (0-5); Neutrophil # 4.89 X10^3/uL (2.7-7.7); Neutrophil % 54.4 % (47-70); Platelet Count 353 K/mm3 (150-450); RBC Distribution Width CV 13.9 % (11.6-14.6); RBC Distribution Width SD 47.5 fl (35.1-43.9); Red Blood Count 3.57 M/mm3 (4.2-5.4)
[2019-08-14 07:29] LABS: Anion Gap 4 (5-15); BUN 34 mg/dL (7-18); BUN/Creat Ratio 39.1 RATIO (10-20); Calcium,Total 8.9 mg/dL (8.5-10.1); Chloride 108 mmol/L (98-107); Creatinine, Serum 0.87 mg/dL (0.55-1.02); EST Glomerular Filtration Rate 69 mL/min (>60); Est Glom Filt Rate - Afr Amer 83 mL/min (>60); Estimated Creatinine Clearance 56.46 ml/min; Glucose 69 mg/dL (74-106); Potassium 4.5 mmol/L (3.5-5.1); Sodium Level 140 mmol/L (136-145)
[2019-08-14] MEDS: Folic Acid 1 MG Tablet PO (08:13)
[2019-08-14] MEDS: Magnesium Oxide 400 MG Tablet PO (08:14)
[2019-08-14] MEDS: Multivitamins,Ther W-Minerals Tablet 1 TABLET PO (08:14)
[2019-08-14] MEDS: metFORMIN (XR) 500 MG Tablet 1000 MG PO (08:14)
[2019-08-14] MEDS: Sertraline 100 MG Tablet PO (08:14)
[2019-08-14] MEDS: Aspirin E.C. 81 MG Tablet PO (08:15)
[2019-08-14] MEDS: Glimepiride 2 MG Tablet PO (08:15)
[2019-08-14] MEDS: Calcium Carb/Vitamin D 1 TABLET Tablet PO ×2 (08:18→16:41)
[2019-08-14] MEDS: predniSONE 10 MG Tablet PO (08:19)
[2019-08-14] MEDS: predniSONE 5 MG Tablet PO (08:20)
[2019-08-14] MEDS: predniSONE 1 MG Tablet 4 MG PO (08:20)
[2019-08-14] MEDS: Glucerna Shake 120 ML LIQUID PO ×3 (08:23→16:40)
[2019-08-14] MEDS: Meloxicam 7.5 MG Tablet PO (08:25)
[2019-08-14] MEDS: Menthol/Lanolin/Calamine/Znox 113 GM Tube 1 APPLIC TOPICAL ×2 (08:26→22:41)
[2019-08-14] MEDS: Nystatin Powder 15gm Bottle 1 APPLIC TOPICAL ×2 (08:27→22:41)
[2019-08-14] MEDS: Heparin Injection (Vial) 5,000 UNIT/ML VIAL 5000 UNIT SC ×2 (08:28→22:39)
[2019-08-14] MEDS: NYSTATIN 500,000 UNIT/5 ML UDC 500000 UNIT PO ×4 (08:31→22:39)
[2019-08-14 08:47] VITALS: BP 129/66; PULSE 68; RESP 16; TEMP 36.6; O2SAT 94
--- NOTE | 2019-08-14 09:33 | PCM.PN.BLA ---
Progress Note Afebile VSS-blood pressure is well controlled. She has been taken off lisinopril and will continue to monitor. Maintaining appropriate oxygen saturation on RA Oral intake is improving but sporadic her weight has decreased from 203 pounds and 0.7 ounces on 720 to 199 pounds and 8.3 ounces today. Discussed with nursing - no problems that need addressed Reviewed the PT/OT/ST notes Medication list reviewed. STROKE Vital Signs/Narrative: Vital Signs Temp Pulse Resp BP Pulse Ox 08/14/19 08:47 98 F 68 16 129/66 H 94
--- NOTE | 2019-08-14 09:40 | PCM.PN.BLA ---
Progress Note Afebile VSS-blood pressure is within normal limits on no antihypertensive at this time. Maintaining appropriate oxygen saturation on RA while awake. She desaturates while sleeping and is wearing 2 L of nasal O2. Oral intake is variable. Or at best. Discussed with nursing - no problems that need addressed Reviewed the PT/OT/ST notes Medication list reviewed. Blood sugar record was reviewed. Fasting blood sugars are in the 70s however the 4 PM is in the low 200s. Currently she is taking metformin XL 1000 mg in the a.m. And Amaryl 2 mg every morning. All lab was personally reviewed. White blood cell count today is 9.0. Hemoglobin is 10.5 and stable. Platelets are within normal limits. The BMP shows a sodium of 140, potassium 4.5, BUN of 34 and the creatinine is down to 0.87. Calcium is normal at 8.9. Alert, aphasic, NAD Lungs - CTA Heart - RRR abd- soft, NT, ND, no guarding with palpation and normal BS's no peripheral edema no rashes or breakdown Impressions 1. Debility post stroke with severe aphasia, expressive>receptive 2. The creatinine has increased from 0.98-1.18 even with IV fluids - Nicolas was inserted on 08/13/2019 and the creatinine is down to 0.87 today.? 3. Diabetes mellitus type 2-fasting sugars are low even though she only gets medication in the a.m. but the 4 PM's are high. Would like the fasting blood sugars to be less than 130 but greater than 85. All blood sugars should be less than 180. Will adjust the hypoglycemic regimen. 4. Relative hypotension-related to lisinopril. Patient is off lisinopril now and maintaining an appropriate blood pressure. Continue to monitor DC the Metformin XL and start short acting Metformin 500 mg BID Reinstitute BS's AC and HS Encourage increased water intake Continue to monitor the BP off Lisinopril Start Vaginal estrogen and do another voiding trial in 1 week. If she continues to retain will need to follow up with Dr. Tucker as an OP. DC the PRN albuterol aerosols - she has not had any and the lungs are clear STROKE Vital Signs/Narrative: Vital Signs Temp Pulse Resp BP Pulse Ox 08/14/19 08:47 98 F 68 16 129/66 H 94 Inpatient E&M: [id number] Subs Hosp L2
[2019-08-14 15:34] VITALS: BMI 35.4
[2019-08-14] MEDS: metFORMIN HCl 500 MG Tablet PO (16:41)
[2019-08-14 16:46] LABS: Bedside Glucose 205 mg/dL (70-110)
[2019-08-14 22:30] VITALS: BP 133/58; PULSE 67; RESP 18; TEMP 36.9; O2SAT 95; BMI 35.4
[2019-08-14] MEDS: traZODone 50 MG Tablet PO (22:39)
[2019-08-14] MEDS: Montelukast 10 MG Tablet PO (22:39)
[2019-08-14] MEDS: Estrogens,Conj. 1 Tube 1 DOSE VAGINAL (22:40)
[2019-08-14] MEDS: Atorvastatin Calcium 80 MG Tablet PO (22:42)
[2019-08-14 23:01] LABS: Bedside Glucose 89 mg/dL (70-110)
[2019-08-14] MEDS: 0.9% Saline Lock 10 ML Syringe IV (23:57)
[2019-08-15] MEDS: Levothyroxine 125 MCG Tablet PO (05:12)
[2019-08-15] MEDS: Pantoprazole Sodium 40 MG Tablet PO (05:12)
[2019-08-15 07:11] LABS: Bedside Glucose 87 mg/dL (70-110)
[2019-08-15 07:35] LABS: Bedside Glucose 92 mg/dL (70-110)
[2019-08-15] MEDS: predniSONE 1 MG Tablet 4 MG PO (08:06)
[2019-08-15] MEDS: Calcium Carb/Vitamin D 1 TABLET Tablet PO ×2 (08:07→16:52)
[2019-08-15] MEDS: Heparin Injection (Vial) 5,000 UNIT/ML VIAL 5000 UNIT SC ×2 (08:07→20:24)
[2019-08-15] MEDS: predniSONE 5 MG Tablet PO (08:07)
[2019-08-15] MEDS: predniSONE 10 MG Tablet PO (08:07)
[2019-08-15] MEDS: Sertraline 100 MG Tablet PO (08:07)
[2019-08-15] MEDS: Meloxicam 7.5 MG Tablet PO (08:07)
[2019-08-15] MEDS: Multivitamins,Ther W-Minerals Tablet 1 TABLET PO (08:07)
[2019-08-15] MEDS: Folic Acid 1 MG Tablet PO (08:07)
[2019-08-15] MEDS: Glimepiride 2 MG Tablet PO (08:07)
[2019-08-15] MEDS: metFORMIN HCl 500 MG Tablet PO ×2 (08:07→16:53)
[2019-08-15] MEDS: Aspirin E.C. 81 MG Tablet PO (08:07)
[2019-08-15] MEDS: NYSTATIN 500,000 UNIT/5 ML UDC 500000 UNIT PO ×4 (08:07→20:24)
[2019-08-15] MEDS: Magnesium Oxide 400 MG Tablet PO (08:08)
[2019-08-15] MEDS: Glucerna Shake 120 ML LIQUID PO ×3 (08:08→16:52)
[2019-08-15] MEDS: Menthol/Lanolin/Calamine/Znox 113 GM Tube 1 APPLIC TOPICAL ×2 (08:08→20:23)
[2019-08-15] MEDS: Nystatin Powder 15gm Bottle 1 APPLIC TOPICAL ×2 (08:09→20:24)
[2019-08-15 09:15] VITALS: BP 139/71; PULSE 61; RESP 16; TEMP 36.8; O2SAT 98
--- NOTE | 2019-08-15 11:27 | PN_ITS ---
Progress Note Abena was seen on team rounds today and her Vasiliy participated in the meeting by phone. Afebile VSS-blood pressures have improved with discontinuation of lisinopril and hydration. Blood pressures yesterday and today have ranged from 129/66-139/71. Maintaining appropriate oxygen saturation on RA Oral intake is oral intake on 08/14/2019 was 1450. She needs to be reminded throughout the day to increase fluid intake. Discussed with nursing - no problems that need addressed Reviewed the PT/OT/ST notes - She is starting to say an occasional word. She is working on understanding commands and picking out objects from a picture when given a verbal command Medication list reviewed. Blood sugar record was reviewed. She is now on 4 times daily blood sugars again, before meals and at bedtime. Blood sugars seem to be better with changing the Metformin to short acting 500 mg twice daily. Fasting was 87 this morning. We will continue to monitor today and make changes as needed. Alert, non-verbal during the phone call. NAD, smiling, percy when she heard Vasiliy is coming in tomorrow for family training to see if Vasiliy is able to provide the assistance she will need at home if discharged on 08/11 or if she will need to go to a SNF. Mucous membranes-mildly dry, no oral lesions Lungs-clear to auscultation with good air exchange Heart-regular rate and rhythm, no gallop Abdomen-soft, nontender, nondistended, no guarding with palpation, good bowel sounds heard No peripheral edema No rashes, no skin breakdown urine in the Nciolas bag is clear and yellow Impressions 1. Debility secondary to ischemic left middle cerebral artery CVA with right- sided weakness and expressive greater than receptive aphasia with multiple petecchial hemorrhages in a gyral distribution in the left frontal, temporal and parietal areas 10 days post CVA. She has not been started on anticoagulation yet. 2. Diabetes mellitus type 2-controlled 3. Dehydration with prerenal azotemia-improved with IV fluids. Will continue to need reminders to drink more fluids 4. Hypotension resolved. Patient had been on 10 mg of lisinopril twice daily. Blood pressures are currently mildly increased. The goal is less than 120/80. 5. Urine retention despite treating urinary tract infection. Started on vaginal estrogen once daily for 1 week and then transition to twice weekly. Will have her follow-up with Dr. Tucker going forward. This was relayed to Vasiliy today. 6. Steroid dependence for at least 10 years. Diagnosis for what is being treated with steroids is unclear. Will need to follow-up with rheumatology as an outpatient. 7. Sleep disordered breathing with hypoxia down to 67% while sleeping at night on an overnight trending pulse ox. Will need oxygen at discharge. She will need a formal sleep study when they are being scheduled again. STROKE Vital Signs/Narrative: Vital Signs Temp Pulse Resp BP Pulse Ox 08/15/19 09:15 98.2 F 61 16 139/71 H 98 Inpatient E&M: 58694 Subs Hosp L2
--- NOTE | 2019-08-15 11:49 | CASEMGMT ---
Social Work IDT met with patient and via conference call for Team meeting. Discussed patient's progress in therapy. Pt walking 10ft with FWW 4x with rest breaks at min assist w/w/c follow while wearing a slipper sock on t he right shoe. Those steps have become more fluid, but turning does require more assistance and coordination. Pt is CGA for bed mobility and sitting to standing, mod assist for UE dressing, max for LE dressing, min for transfers, mind for bathing. Pt is improving right arm strength but still lacks coordination. ST is working with pt on comprehension, following directions. Pt is having more spontaneous responses, on a [facility] soft/thin diet with supervision at meals. Pt to f/u with urology at [facility] as pt will DC with a cath. to come in for therapy family training 08/15 to see all sessions to see what can assist with. did stated on the phone he cannot walk long distances d/t neuropathy in his legs. Will meet with as well to potentially discuss Medicaid and SNF for DC 08/21. Will continue to follow. JENNIFER Butler STAFF SONOGRAPHER
[2019-08-15 12:01] LABS: Bedside Glucose 166 mg/dL (70-110)
[2019-08-15] MEDS: Lisinopril 2.5 MG Tablet PO (12:19)
[2019-08-15 15:01] VITALS: BMI 35.4
[2019-08-15] MEDS: 0.9% Saline Lock 10 ML Syringe IV (16:57)
[2019-08-15 18:00] LABS: Bedside Glucose 207 mg/dL (70-110)
[2019-08-15 20:00] VITALS: BP 118/56; PULSE 62; RESP 16; TEMP 36.7; O2SAT 98
[2019-08-15] MEDS: Atorvastatin Calcium 80 MG Tablet PO (20:24)
[2019-08-15] MEDS: Montelukast 10 MG Tablet PO (20:24)
[2019-08-15] MEDS: traZODone 50 MG Tablet PO (20:24)
[2019-08-15] MEDS: Estrogens,Conj. 1 Tube 1 DOSE VAGINAL (20:25)
[2019-08-15] MEDS: Senna/Docusate Sodium 1 Tablet 2 TABLET PO (20:25)
[2019-08-15 22:20] LABS: Bedside Glucose 113 mg/dL (70-110)
[2019-08-16] MEDS: 0.9% Saline Lock 10 ML Syringe IV (01:27)
[2019-08-16] MEDS: Pantoprazole Sodium 40 MG Tablet PO (06:41)
[2019-08-16] MEDS: Levothyroxine 125 MCG Tablet PO (06:41)
[2019-08-16 07:05] LABS: Bedside Glucose 87 mg/dL (70-110)
[2019-08-16 07:25] VITALS: O2SAT 94
[2019-08-16 08:24] VITALS: BP 120/60; PULSE 62; RESP 16; TEMP 36.9; O2SAT 93
[2019-08-16] MEDS: predniSONE 1 MG Tablet 4 MG PO (08:51)
[2019-08-16] MEDS: Heparin Injection (Vial) 5,000 UNIT/ML VIAL 5000 UNIT SC ×2 (08:51→20:51)
[2019-08-16] MEDS: Meloxicam 7.5 MG Tablet PO (08:52)
[2019-08-16] MEDS: Magnesium Oxide 400 MG Tablet PO (08:52)
[2019-08-16] MEDS: Calcium Carb/Vitamin D 1 TABLET Tablet PO ×2 (08:52→17:06)
[2019-08-16] MEDS: predniSONE 10 MG Tablet PO (08:53)
[2019-08-16] MEDS: Glimepiride 2 MG Tablet PO (08:53)
[2019-08-16] MEDS: Folic Acid 1 MG Tablet PO (08:53)
[2019-08-16] MEDS: Multivitamins,Ther W-Minerals Tablet 1 TABLET PO (08:53)
[2019-08-16] MEDS: Aspirin E.C. 81 MG Tablet PO (08:53)
[2019-08-16] MEDS: Sertraline 100 MG Tablet PO (08:54)
[2019-08-16] MEDS: NYSTATIN 500,000 UNIT/5 ML UDC 500000 UNIT PO ×3 (08:54→17:06)
[2019-08-16] MEDS: predniSONE 5 MG Tablet PO (08:54)
[2019-08-16] MEDS: Lisinopril 2.5 MG Tablet PO (08:54)
[2019-08-16] MEDS: Nystatin Powder 15gm Bottle 1 APPLIC TOPICAL ×2 (08:55→20:51)
[2019-08-16] MEDS: Menthol/Lanolin/Calamine/Znox 113 GM Tube 1 APPLIC TOPICAL ×2 (08:55→20:52)
[2019-08-16] MEDS: Glucerna Shake 120 ML LIQUID PO ×3 (09:01→17:06)
[2019-08-16] MEDS: metFORMIN HCl 500 MG Tablet PO ×2 (11:42→17:06)
[2019-08-16 12:00] LABS: Bedside Glucose 192 mg/dL (70-110)
[2019-08-16 12:38] VITALS: BMI 35.4
[2019-08-16 17:16] LABS: Bedside Glucose 141 mg/dL (70-110)
--- NOTE | 2019-08-16 18:49 | PCM.PN.BLA ---
Progress Note Afebile VSS Maintaining appropriate oxygen saturation on RA Oral intake is fair Discussed with nursing - no problems that need addressed Reviewed the PT/OT/ST notes Medication list reviewed. Blood sugar record was reviewed. All the blood sugars today have been less than 200. The 4 PM blood sugar is 141 today and that is improved. She is currently on Amaryl 2 mg p.o. every morning and metformin 500 mg with lunch and with supper. She denies pain. Prednisone has been decreased to 19 mg daily for 1 week now. No N/V. Not coughing. Not tachypneic. Alert and smiling. Her Vasiliy is here today for family training and to see if he will be able to manage her at home. He is in a WC when he arrives on the floor. She walked 10 feet X 2 today with a wheeled walker. Occupational Therapy note was reviewed. Still requiring moderate assistance with upper body dressing and max assist with lower body dressing. Her told the occupational therapist that he feels comfortable in assisting the patient with self-care. Alert, attentive, no apparent distress, smiling Lungs-clear to auscultation Heart-regular rate and rhythm, no gallop Abdomen-soft, nontender, nondistended, no guarding with palpation No peripheral edema No calf tenderness No rashes and no breakdown Remains aphasic. Impressions 1. 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 Diabetes mellitus type [id number] 3. Hypertension-controlled. Hypotension secondary to dehydration has resolved. 4. Urine retention-has been started on estrogen vaginal cream. Voiding trial after 7 days. If she continues to have urine retention with greater than 200 cc post void will discharge with a Nicolas catheter and have her follow-up with Dr. Tucker following discharge 5. Steroid dependence-tapering by 1 mg every 10 to 14 days. Recommended follow-up with rheumatology at the [facility] post discharge 6. Sleep disordered breathing with hypoxia down to 67% while sleeping. Will need oxygen at discharge and a formal sleep study following discharge. Continue therapy Plan DC home when ready with [facility] Inpatient E&M: 85150 Subs Hosp L2
[2019-08-16] MEDS: Atorvastatin Calcium 80 MG Tablet PO (20:51)
[2019-08-16] MEDS: traZODone 50 MG Tablet PO (20:51)
[2019-08-16] MEDS: Montelukast 10 MG Tablet PO (20:52)
[2019-08-16] MEDS: Estrogens,Conj. 1 Tube 1 DOSE VAGINAL (20:52)
[2019-08-16 22:00] VITALS: BP 110/54; PULSE 68; RESP 18; TEMP 37; O2SAT 94
[2019-08-16 23:05] LABS: Bedside Glucose 90 mg/dL (70-110)
[2019-08-17 01:40] VITALS: BMI 35.4
[2019-08-17] MEDS: Levothyroxine 125 MCG Tablet PO (06:24)
[2019-08-17] MEDS: Pantoprazole Sodium 40 MG Tablet PO (06:24)
[2019-08-17 07:11] LABS: Bedside Glucose 102 mg/dL (70-110)
[2019-08-17] MEDS: Meloxicam 7.5 MG Tablet PO (07:42)
[2019-08-17] MEDS: Calcium Carb/Vitamin D 1 TABLET Tablet PO ×2 (07:42→17:01)
[2019-08-17] MEDS: Magnesium Oxide 400 MG Tablet PO (07:42)
[2019-08-17] MEDS: Lisinopril 2.5 MG Tablet PO (07:42)
[2019-08-17] MEDS: Multivitamins,Ther W-Minerals Tablet 1 TABLET PO (07:42)
[2019-08-17] MEDS: predniSONE 10 MG Tablet PO (07:43)
[2019-08-17] MEDS: predniSONE 1 MG Tablet 4 MG PO (07:43)
[2019-08-17] MEDS: Folic Acid 1 MG Tablet PO (07:49)
[2019-08-17] MEDS: Aspirin E.C. 81 MG Tablet PO (07:49)
[2019-08-17] MEDS: Heparin Injection (Vial) 5,000 UNIT/ML VIAL 5000 UNIT SC ×2 (07:50→20:29)
[2019-08-17] MEDS: Glimepiride 2 MG Tablet PO (07:52)
[2019-08-17] MEDS: predniSONE 5 MG Tablet PO (07:53)
[2019-08-17] MEDS: metFORMIN HCl 500 MG Tablet PO ×3 (07:53→17:01)
[2019-08-17] MEDS: Glucerna Shake 120 ML LIQUID PO ×3 (07:56→17:01)
[2019-08-17] MEDS: Sertraline 100 MG Tablet PO (07:56)
[2019-08-17 08:00] VITALS: BP 114/67; PULSE 88; RESP 16; TEMP 36.7; O2SAT 95
[2019-08-17] MEDS: Nystatin Powder 15gm Bottle 1 APPLIC TOPICAL ×2 (08:06→20:30)
[2019-08-17] MEDS: Menthol/Lanolin/Calamine/Znox 113 GM Tube 1 APPLIC TOPICAL ×2 (08:07→20:31)
[2019-08-17 11:50] LABS: Bedside Glucose 164 mg/dL (70-110)
[2019-08-17 15:05] VITALS: BMI 35.4
[2019-08-17 17:40] LABS: Bedside Glucose 146 mg/dL (70-110)
[2019-08-17 19:00] VITALS: BP 115/67; PULSE 78; RESP 16; TEMP 36.8; O2SAT 97
[2019-08-17] MEDS: Estrogens,Conj. 1 Tube 1 DOSE VAGINAL (20:30)
[2019-08-17] MEDS: Montelukast 10 MG Tablet PO (20:30)
[2019-08-17] MEDS: traZODone 50 MG Tablet PO (20:30)
[2019-08-17] MEDS: Atorvastatin Calcium 80 MG Tablet PO (20:30)
[2019-08-17 22:25] LABS: Bedside Glucose 121 mg/dL (70-110)
[2019-08-18 02:12] VITALS: BMI 35.4
[2019-08-18] MEDS: Pantoprazole Sodium 40 MG Tablet PO (06:09)
[2019-08-18] MEDS: Levothyroxine 125 MCG Tablet PO (06:09)
[2019-08-18 06:56] LABS: Bedside Glucose 99 mg/dL (70-110)
[2019-08-18] MEDS: Glimepiride 2 MG Tablet PO (08:23)
[2019-08-18] MEDS: Aspirin E.C. 81 MG Tablet PO (08:24)
[2019-08-18] MEDS: metFORMIN HCl 500 MG Tablet PO ×3 (08:24→17:32)
[2019-08-18] MEDS: Folic Acid 1 MG Tablet PO (08:24)
[2019-08-18] MEDS: Multivitamins,Ther W-Minerals Tablet 1 TABLET PO (08:25)
[2019-08-18] MEDS: Magnesium Oxide 400 MG Tablet PO (08:25)
[2019-08-18] MEDS: Calcium Carb/Vitamin D 1 TABLET Tablet PO ×2 (08:25→17:32)
[2019-08-18] MEDS: predniSONE 10 MG Tablet PO (08:26)
[2019-08-18] MEDS: predniSONE 5 MG Tablet PO (08:28)
[2019-08-18] MEDS: predniSONE 1 MG Tablet 4 MG PO (08:28)
[2019-08-18] MEDS: Heparin Injection (Vial) 5,000 UNIT/ML VIAL 5000 UNIT SC ×2 (08:29→22:19)
[2019-08-18] MEDS: Meloxicam 7.5 MG Tablet PO (08:29)
[2019-08-18] MEDS: Sertraline 100 MG Tablet PO (08:30)
[2019-08-18] MEDS: Lisinopril 2.5 MG Tablet PO (08:30)
[2019-08-18] MEDS: Nystatin Powder 15gm Bottle 1 APPLIC TOPICAL ×2 (08:32→22:20)
[2019-08-18] MEDS: Menthol/Lanolin/Calamine/Znox 113 GM Tube 1 APPLIC TOPICAL ×2 (08:32→22:20)
[2019-08-18 10:00] VITALS: BP 114/60; PULSE 82; RESP 16; TEMP 36.7; O2SAT 95
[2019-08-18 11:30] LABS: Bedside Glucose 140 mg/dL (70-110)
[2019-08-18] MEDS: Glucerna Shake 120 ML LIQUID PO ×2 (11:41→17:31)
[2019-08-18 15:10] VITALS: BMI 35.4
[2019-08-18 16:55] LABS: Bedside Glucose 267 mg/dL (70-110)
[2019-08-18 21:35] VITALS: BP 113/60; PULSE 71; RESP 16; TEMP 36.3; O2SAT 96
[2019-08-18 21:55] LABS: Bedside Glucose 114 mg/dL (70-110)
[2019-08-18] MEDS: Montelukast 10 MG Tablet PO (22:19)
[2019-08-18] MEDS: traZODone 50 MG Tablet PO (22:19)
[2019-08-18] MEDS: Atorvastatin Calcium 80 MG Tablet PO (22:19)
[2019-08-18] MEDS: Estrogens,Conj. 1 Tube 1 DOSE VAGINAL (22:19)
[2019-08-19] MEDS: Levothyroxine 125 MCG Tablet PO (05:15)
[2019-08-19] MEDS: Pantoprazole Sodium 40 MG Tablet PO (05:15)
[2019-08-19 06:36] LABS: Bedside Glucose 117 mg/dL (70-110)
--- NOTE | 2019-08-19 08:35 | PN_ITS ---
Progress Note Afebile VSS-blood pressure is controlled Maintaining appropriate oxygen saturation on RA Oral intake is much improved Discussed with nursing - no problems that need addressed Reviewed the PT/OT/ST notes Medication list reviewed. Denies joint or muscle pain. Will decrease the Prednisone to 18 mg daily. Rare blood sugar greater than 200. Remains aphasic and unable to speak Alert Lungs-clear to auscultation Heart regular Abdomen-soft, nontender No peripheral edema Impressions 1. Debility post ischemic left MCA infarct with dense expressive aphasia and some receptive aphasia. 2. Diabetes mellitus type 2-excellent control 3. Hypertension-controlled 4. Depression-tolerating sertraline 100 mg daily 5. Insomnia-resolved with trazodone 50 mg p.o. nightly 6. Sleep disordered breathing with hypoxia down to 67% at night. Continue supplemental oxygen anytime she is sleeping and schedule a sleep study following discharge 7. Steroid dependence-has been on steroids for at least 10 years with an unclear diagnosis that may be just osteoarthritis. We are slowly tapering prednisone by 1 mg every 10 to 14 days and she has had no recurrence of joint or muscle pain. I urged her to follow-up at the [facility] post discharge 8. Hypotension secondary to dehydration-resolved. Oral intake is improving. 9. Normochromic normocytic anemia of undetermined etiology 10. Hemoccult positive stool-this will need followed up as an outpatient and will defer work-up to her primary care physician. Hemoglobin is stable. 11. Obesity with a BMI of 33.6 12. History of ADHD-was on dextroamphetamine at admission however this was discontinued when she was admitted due to its contribution to hypertension in light of recent ischemic CVA. I would not continue this medication at discharge. 13. Hypothyroidism 14. Paroxysmal atrial fibrillation/flutter-she was not started on an anticoagulant while in inpatient rehab because a follow-up CT scan showed numerous petechial hemorrhages in a gyral distribution in the left frontal, temporal and parietal lobes. Will defer this decision to neurology 15. Dyslipidemia-continue high intensity statin 16. History of asthma 17. Tobacco dependence in remission 18. GERD 19. Chronic narcotic use-has not had an OxyIR since 07/31/2019. Would discontinue the chronic narcotics going forward. 20. Vitamin D deficiency-continue supplement Plan on DC 08/22/19 to home with [facility] Check a BMP and a CBC in the AM Inpatient E&M: 92864 Subs Hosp L2
[2019-08-19 08:42] VITALS: BP 135/71; PULSE 81; RESP 16; TEMP 36.4; O2SAT 95
[2019-08-19] MEDS: Aspirin E.C. 81 MG Tablet PO (09:46)
[2019-08-19] MEDS: metFORMIN HCl 500 MG Tablet PO ×3 (09:46→17:17)
[2019-08-19] MEDS: Glucerna Shake 120 ML LIQUID PO ×2 (09:46→11:42)
[2019-08-19] MEDS: Glimepiride 2 MG Tablet PO (09:46)
[2019-08-19] MEDS: Folic Acid 1 MG Tablet PO (09:46)
[2019-08-19] MEDS: predniSONE 10 MG Tablet PO (09:47)
[2019-08-19] MEDS: Multivitamins,Ther W-Minerals Tablet 1 TABLET PO (09:47)
[2019-08-19] MEDS: Magnesium Oxide 400 MG Tablet PO (09:47)
[2019-08-19] MEDS: predniSONE 5 MG Tablet PO (09:47)
[2019-08-19] MEDS: Calcium Carb/Vitamin D 1 TABLET Tablet PO ×2 (09:47→17:17)
[2019-08-19] MEDS: Menthol/Lanolin/Calamine/Znox 113 GM Tube 1 APPLIC TOPICAL ×2 (09:48→21:35)
[2019-08-19] MEDS: predniSONE 1 MG Tablet 3 MG PO (09:48)
[2019-08-19] MEDS: Nystatin Powder 15gm Bottle 1 APPLIC TOPICAL ×2 (09:48→21:34)
[2019-08-19] MEDS: Heparin Injection (Vial) 5,000 UNIT/ML VIAL 5000 UNIT SC ×2 (09:48→21:34)
[2019-08-19] MEDS: Meloxicam 7.5 MG Tablet PO (09:48)
[2019-08-19] MEDS: Lisinopril 2.5 MG Tablet PO (09:49)
[2019-08-19] MEDS: Sertraline 100 MG Tablet PO (10:27)
[2019-08-19 12:15] LABS: Bedside Glucose 159 mg/dL (70-110)
[2019-08-19 16:24] VITALS: BMI 35.4
[2019-08-19 16:45] LABS: Bedside Glucose 121 mg/dL (70-110)
[2019-08-19 20:31] LABS: Bedside Glucose 198 mg/dL (70-110)
[2019-08-19 20:51] VITALS: BMI 35.4
[2019-08-19 20:56] VITALS: BP 123/59; PULSE 66; RESP 16; TEMP 36.6; O2SAT 95
[2019-08-19] MEDS: Montelukast 10 MG Tablet PO (21:30)
[2019-08-19] MEDS: Estrogens,Conj. 1 Tube 1 DOSE VAGINAL (21:31)
[2019-08-19] MEDS: Atorvastatin Calcium 80 MG Tablet PO (21:32)
[2019-08-19] MEDS: traZODone 50 MG Tablet PO (21:32)
[2019-08-20] MEDS: Levothyroxine 125 MCG Tablet PO (05:10)
[2019-08-20] MEDS: Pantoprazole Sodium 40 MG Tablet PO (05:10)
[2019-08-20 06:17] LABS: Hematocrit 34.9 % (37-47); Hemoglobin 10.9 g/dL (12.0-15.0); Mean Corp Hgb Conc 31.2 g/dL (32-36); Mean Corpuscular Hgb 29.3 pg (27.0-32.0); Mean Corpuscular Volume 93.8 fL (81-99); Mean Platelet Vol. 8.7 fl (6.2-12.0); Platelet Count 321 K/mm3 (150-450); RBC Distribution Width CV 14.1 % (11.6-14.6); RBC Distribution Width SD 47.7 fl (35.1-43.9); Red Blood Count 3.72 M/mm3 (4.2-5.4)
[2019-08-20 06:39] LABS: Anion Gap 5 (5-15); BUN 37 mg/dL (7-18); BUN/Creat Ratio 42.5 RATIO (10-20); Calcium,Total 9.2 mg/dL (8.5-10.1); Chloride 104 mmol/L (98-107); Creatinine, Serum 0.87 mg/dL (0.55-1.02); EST Glomerular Filtration Rate 69 mL/min (>60); Est Glom Filt Rate - Afr Amer 83 mL/min (>60); Estimated Creatinine Clearance 56.46 ml/min; Glucose 75 mg/dL (74-106); Potassium 4.2 mmol/L (3.5-5.1); Sodium Level 137 mmol/L (136-145)
[2019-08-20 06:51] LABS: Bedside Glucose 84 mg/dL (70-110)
[2019-08-20] MEDS: Aspirin E.C. 81 MG Tablet PO (08:04)
[2019-08-20] MEDS: Folic Acid 1 MG Tablet PO (08:04)
[2019-08-20] MEDS: Glucerna Shake 120 ML LIQUID PO ×3 (08:04→17:12)
[2019-08-20] MEDS: Glimepiride 2 MG Tablet PO (08:04)
[2019-08-20] MEDS: Magnesium Oxide 400 MG Tablet PO (08:05)
[2019-08-20] MEDS: predniSONE 10 MG Tablet PO (08:05)
[2019-08-20] MEDS: metFORMIN HCl 500 MG Tablet PO ×3 (08:05→17:12)
[2019-08-20] MEDS: Calcium Carb/Vitamin D 1 TABLET Tablet PO ×2 (08:05→17:12)
[2019-08-20] MEDS: predniSONE 5 MG Tablet PO (08:05)
[2019-08-20] MEDS: Multivitamins,Ther W-Minerals Tablet 1 TABLET PO (08:05)
[2019-08-20] MEDS: Lisinopril 2.5 MG Tablet PO (08:06)
[2019-08-20] MEDS: Meloxicam 7.5 MG Tablet PO (08:06)
[2019-08-20] MEDS: Sertraline 100 MG Tablet PO (08:06)
[2019-08-20] MEDS: predniSONE 1 MG Tablet 3 MG PO (08:07)
[2019-08-20] MEDS: Heparin Injection (Vial) 5,000 UNIT/ML VIAL 5000 UNIT SC ×2 (08:08→22:08)
[2019-08-20] MEDS: Menthol/Lanolin/Calamine/Znox 113 GM Tube 1 APPLIC TOPICAL ×2 (08:09→22:12)
[2019-08-20] MEDS: Nystatin Powder 15gm Bottle 1 APPLIC TOPICAL ×2 (08:10→22:12)
[2019-08-20 09:25] VITALS: BP 146/70; PULSE 64; RESP 18; TEMP 36.5; O2SAT 96
[2019-08-20 11:41] LABS: Bedside Glucose 80 mg/dL (70-110)
[2019-08-20 12:44] VITALS: BMI 35.4
[2019-08-20 14:40] LABS: Bedside Glucose 148 mg/dL (70-110)
--- NOTE | 2019-08-20 14:56 | PN_ITS ---
Progress Note Afebrile Blood pressure is controlled Maintaining appropriate oxygen saturation on room air. Continue 2 L of oxygen per minute via nasal cannula anytime she is sleeping for sleep disordered breathing/hypoxia. Heart rate is within normal limits Last bowel movement was today. No diarrhea no constipation Blood sugars are well controlled. Lab from today was personally reviewed. Hemoglobin is stable at 10.9. The white blood cell count is mildly increased at 12. Potassium is 4.2. The BUN is 37 and a creatinine today is 0.87 and stable. We routinely encourage increased fluid intake but she refuses fluids at times. Alert HRRR L- CTA ABD - soft, NT Impressions 1. Prerenal azotemia secondary to poor oral intake 2. Leukocytosis-we will check a UA and urine culture. Patient is afebrile but she was afebrile in the past when she had a urinary tract infection 3. Urine retention-has been on estrogen vaginal cream for 1 week now. Voiding trial in the a.m. 4. Normochromic normocytic anemia with a stable hemoglobin 5. Hemoccult positive stool-we will defer work-up to her PCP as an outpatient. UA and urine culture Discontinue Nicolas catheter in the a.m. for voiding trial and check postvoid residuals. If the residual is less than 200 will leave the Nicolas out and if > 200 will replace the Nicolas and have her follow up with Dr. Tucker for a voiding trial in the office. Inpatient E&M: [id number] [facility] [[email or web address]] Hosp L1
[2019-08-20 16:40] LABS: Bedside Glucose 144 mg/dL (70-110)
[2019-08-20 17:05] LABS: Mucous, Urine 0 SEEN /hpf (<or=2+); Squamous Epithelial Cells - UA 0 SEEN /hpf (5-10)
[2019-08-20 17:12] LABS: Color, Urine Yellow (Yellow); Glucose, Dipstick Normal (Normal); Ketone-Dipstick 5 mg/dl (Negative); Leukocyte Esterase-Dipstick 500 /ul (Negative); Nitrite-Dipstick Positive (Negative); Occult Blood-Urine 250 /ul (Negative); Protein-Dipstick 15 mg/dl (Negative); Specific Gravity, Urine 1.015 (1.002-1.030); Urine Bilirubin Dipstick Negative (Negative); Urine Clarity Cloudy (Clear); Urine Urobilinogen Normal (Normal)
[2019-08-20 18:01] LABS: Bacteria 4+ /hpf (None Seen); Calcium Oxalate Crystals Ur 1+ /hpf (<or=2+); White Blood Cells 50-100 SEEN /hpf (0-5)
[2019-08-20 18:03] LABS: Red Blood Cells-Urine 25-50 SEEN /hpf (0-5)
[2019-08-20 19:42] VITALS: BP 122/52; PULSE 70; RESP 18; TEMP 36.3; O2SAT 96
[2019-08-20 22:00] VITALS: BMI 35.4
[2019-08-20] MEDS: Atorvastatin Calcium 80 MG Tablet PO (22:08)
[2019-08-20] MEDS: Estrogens,Conj. 1 Tube 1 DOSE VAGINAL (22:08)
[2019-08-20] MEDS: Montelukast 10 MG Tablet PO (22:08)
[2019-08-20] MEDS: traZODone 50 MG Tablet PO (22:09)
[2019-08-20 23:26] LABS: Bedside Glucose 148 mg/dL (70-110)
[2019-08-21] MEDS: Levothyroxine 125 MCG Tablet PO (06:17)
[2019-08-21] MEDS: Pantoprazole Sodium 40 MG Tablet PO (06:17)
[2019-08-21 06:56] LABS: Bedside Glucose 80 mg/dL (70-110)
--- NOTE | 2019-08-21 07:05 | NURSING ---
0600 manrique removed as per order, pt tolerated well and staff assisted with lilian-care. there was 800cc of cloudy yellow urine
[2019-08-21] MEDS: Lisinopril 2.5 MG Tablet PO (08:09)
[2019-08-21] MEDS: Sertraline 100 MG Tablet PO (08:09)
[2019-08-21] MEDS: Multivitamins,Ther W-Minerals Tablet 1 TABLET PO (08:09)
[2019-08-21] MEDS: Meloxicam 7.5 MG Tablet PO (08:09)
[2019-08-21] MEDS: Calcium Carb/Vitamin D 1 TABLET Tablet PO ×2 (08:09→16:48)
[2019-08-21] MEDS: metFORMIN HCl 500 MG Tablet PO ×3 (08:09→16:48)
[2019-08-21] MEDS: Aspirin E.C. 81 MG Tablet PO (08:10)
[2019-08-21] MEDS: Glimepiride 2 MG Tablet PO (08:10)
[2019-08-21] MEDS: Heparin Injection (Vial) 5,000 UNIT/ML VIAL 5000 UNIT SC ×2 (08:10→20:09)
[2019-08-21] MEDS: Folic Acid 1 MG Tablet PO (08:10)
[2019-08-21] MEDS: Magnesium Oxide 400 MG Tablet PO (08:10)
[2019-08-21] MEDS: predniSONE 5 MG Tablet PO (08:10)
[2019-08-21] MEDS: predniSONE 10 MG Tablet PO (08:10)
[2019-08-21] MEDS: predniSONE 1 MG Tablet 3 MG PO (08:10)
[2019-08-21] MEDS: Menthol/Lanolin/Calamine/Znox 113 GM Tube 1 APPLIC TOPICAL ×2 (08:18→20:08)
[2019-08-21] MEDS: Nystatin Powder 15gm Bottle 1 APPLIC TOPICAL ×2 (08:19→20:09)
[2019-08-21] MEDS: Glucerna Shake 120 ML LIQUID PO ×3 (08:20→16:48)
[2019-08-21 08:23] VITALS: BP 117/63; PULSE 63; RESP 16; TEMP 36.9; O2SAT 93
--- NOTE | 2019-08-21 08:27 | PCM.PN.BLA ---
Progress Note Afebrile BP is controlled BS's well controlled with no hypoglycemia UA with 50-100 WBC's per HPFand 4+ bacteria urine culture is pending. No N/V/abd pain/no flank pain Impressions 1. complicated UTI in immunocompromised host on chronic steroid therapy Last urine culture grew E. Coli that was pansensitive. Will empirically start Keflex 500 mg TID and await the results of the urine culture STROKE Vital Signs/Narrative: Vital Signs Temp Pulse Resp BP Pulse Ox 08/21/19 08:23 98.5 F 63 16 117/63 93 Inpatient E&M: 85205 Subs Hosp L1
[2019-08-21 11:23] VITALS: BMI 35.4
[2019-08-21 11:36] LABS: Bedside Glucose 107 mg/dL (70-110)
--- NOTE | 2019-08-21 12:54 | CASEMGMT ---
Social Work Spoke with pt's to finalize DC plans. requested referral to [facility]. Referral made for PT/OT/ST/SN/[facility]. Referred to [facility] for [facility], w/c and night time O2. Plan: DC home with 08/21 with [facility] PT/OT/ST/SN/[facility], [employer] - BSC, w/c, O2 JENNIFER ButlerW
[2019-08-21] MEDS: Cephalexin 500 MG Capsule PO ×2 (13:34→20:09)
[2019-08-21 16:41] LABS: Bedside Glucose 145 mg/dL (70-110)
[2019-08-21 18:34] VITALS: BP 129/65; PULSE 78; RESP 16; TEMP 36.7; O2SAT 95
[2019-08-21] MEDS: Montelukast 10 MG Tablet PO (20:09)
[2019-08-21] MEDS: Atorvastatin Calcium 80 MG Tablet PO (20:09)
[2019-08-21] MEDS: traZODone 50 MG Tablet PO (20:09)
[2019-08-21 20:56] LABS: Bedside Glucose 95 mg/dL (70-110)
[2019-08-21 23:32] VITALS: BMI 35.4
[2019-08-22] MEDS: Levothyroxine 125 MCG Tablet PO (05:05)
[2019-08-22] MEDS: Pantoprazole Sodium 40 MG Tablet PO (05:05)
[2019-08-22] MEDS: Cephalexin 500 MG Capsule PO (05:05)
[2019-08-22 06:41] LABS: Bedside Glucose 83 mg/dL (70-110)
--- NOTE | 2019-08-22 08:18 | PN_ITS ---
Progress Note Day #2 Keflex Afebrile VSS-blood pressure is well controlled. Heart rate is within normal limits. Maintaining appropriate oxygen saturation on RA Oral intake is good Discussed with nursing - no problems that need addressed Reviewed the PT/OT/ST notes Medication list reviewed. Blood sugar record was reviewed. Blood sugars are very well controlled with no hypoglycemia. There are several BS's less than 100. Urine culture is growing greater than 100,000 colonies of a gram-negative radha lactose paper pattern folder and 80,000-100,000 colonies of a gram-negative radha. Post void residuals x2 following Nicolas catheter discontinuation on 08/21/19 were 0.
[2019-08-22 08:46] VITALS: BP 147/64; PULSE 67; RESP 16; TEMP 36.7; O2SAT 99
[2019-08-22] MEDS: Glucerna Shake 120 ML LIQUID PO ×2 (09:11→11:41)
[2019-08-22] MEDS: Sertraline 100 MG Tablet PO (09:15)
[2019-08-22] MEDS: Meloxicam 7.5 MG Tablet PO (09:15)
[2019-08-22] MEDS: predniSONE 10 MG Tablet PO (09:15)
[2019-08-22] MEDS: predniSONE 5 MG Tablet PO (09:15)
[2019-08-22] MEDS: Multivitamins,Ther W-Minerals Tablet 1 TABLET PO (09:15)
[2019-08-22] MEDS: Calcium Carb/Vitamin D 1 TABLET Tablet PO (09:15)
[2019-08-22] MEDS: Lisinopril 2.5 MG Tablet PO (09:15)
[2019-08-22] MEDS: Magnesium Oxide 400 MG Tablet PO (09:15)
[2019-08-22] MEDS: predniSONE 1 MG Tablet 3 MG PO (09:15)
[2019-08-22] MEDS: metFORMIN HCl 500 MG Tablet PO ×2 (09:16→11:41)
[2019-08-22] MEDS: Aspirin E.C. 81 MG Tablet PO (09:16)
[2019-08-22] MEDS: Folic Acid 1 MG Tablet PO (09:16)
[2019-08-22] MEDS: Heparin Injection (Vial) 5,000 UNIT/ML VIAL 5000 UNIT SC (09:23)
[2019-08-22] MEDS: Menthol/Lanolin/Calamine/Znox 113 GM Tube 1 APPLIC TOPICAL (09:23)
[2019-08-22] MEDS: Nystatin Powder 15gm Bottle 1 APPLIC TOPICAL (09:24)
[2019-08-22 10:51] VITALS: BMI 35.4
--- NOTE | 2019-08-22 11:15 | PCM.DC ---
- Discharge Diagnoses Current Active Problems: Current Active and Chronic Problems (Last Reviewed 07/30/19 @ 08:[address] 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 Vitamin D deficiency (Chronic) History of depression (Chronic) You will use the following diet at home:: Calorie/Carbohydrate Controlled (specify 1200, 1400, etc) - 1800 calories, Cardiac - low salt and low fat, Other - make sure to drink at least 1500 cc's (50 ounces of water/liquid) daily Your food should be the consistency of: Mechanical soft (ground) Your liquids should be the consistency of: Regular/Thin Discharge Activity: May Not Drive, May Shower, Use Walker Weight Bearing Status: Full weight bearing Call your doctor if you observe: Fever of 101 or Higher, Inability to urinate, Inability to have a bowel movement, Shortness of breath, Dizziness, Fainting spells, Swelling in the ankles, Chest pain, Increased palpitations (irregular heartbeat), Calf discomfort, Uncontrolled pain, - - 1. Report any change in the neurology symptoms such as worsening weakness on one side and not the other, change in the numbness on one side, facial droop, unresponsiveness, confusion, any seizure activity. Call PCP OR call the squad and go to the ED. 2. Call your PCP if severe diarrhea ( > 5 stools a day), painful sores in the mouth, painful swallowing, rash or itching. Taking a probiotic such as Lactobacillus or Kefir can help with loose stools while taking antibiotics. Instructions: MyPlate Worksheet: 1,800 Calories Additional Instructions: 1. Amphetamine and Prednisone BOTH increase risk for atrial fibrillation and for increased blood pressure. We discontinued the Amphetamine at admission to the rehab unit and she has done fine. I have been tapering the Prednisone does every 10 days. She is currently on 18 mg daily and she denies any joint or muscle pain. When you have been on Prednisone the dose has to be tapered slowly. Decrease the dose of the Prednisone by 1 mg every 10-14 days. I am not really sure why Abena is taking Prednisone. Prednisone causes osteoporosis, diabetes, cataracts, muscle weakness, weight gain, avascular necrosis of the hip, swelling, etc. It is not a drug people should be on termite helper IF there is an alternative. IF she is on Prednisone for arthritis then they are many better drugs for treatment. I highly recommend a visit to a school lunch manager (specialist in arthritis care.). There are many good rheumatology groups around. The practise I frequently recommend is the [facility]. Many hospital employees go there and they are excelent. Their office is easy to get to. The number to schedule an appt is [phone] and the address is [address] [place] [address] in [place]. 3. The blood pressure and the diabetes are under excellent control at discharge. We have been able to decrease the dose of the blood pressure meds since she is off the Amphetamine. There are many things that contribute to strokes.....smoking history, dibetes, high cholesterol, high blood pressure, family history of strokes, atrial fibrillation. Abena has many risk factors for strokes and it is important to control all of these risk factors the best we can. She has already done something wonderful for herself and that was to discontinue smoking. When she came to us she listed statins as an allergy. She has been on a high-dose statin because she had a stroke and the name of the statin is atorvastatin. She has been tolerating this medication with no complaints of muscle pain. 4. On the days that Abena does not have physical therapy she should do the exercises given to her twice a day. 5. If Abena has never had a bone density test then she should have one. I suspect she has osteoporosis due to the retirement high dose steroids. Calcium and vitamin D supplementation can help to prevent bone loss but they do not build bone back up once you have lost bone. She will need to take an additional medication once a week or once a month to build the bone back up and prevent fractures going forward. 6. Abena will need to go on an anticoagulant if she continues to have atrial fibrillation. We could not start her on an anticoagulant while she was at the hospital because the follow up CT scan of the brain showed multiple small areas of bleeding and I thought it would be too risky to start an anticoagulant and have the bleeding increase. She will need to see a neurologist to start anticoagulation. Since the amphetamine was discontinued she has been in a regular time every time I have examined her. The Atrial fibrillation may have been caused by the amphetamine and high dose prednisone.......she will need to follow up with cardiology. If they do a 30 day event monitor and she has no Atrial fibrillation she may not need a anticoagulant. 7. I have given you a lot of information in these discharge instructions and I am sure you are going to have questions. My cell number is [phone] and the number to the rehab unit is [phone]. Please do not hesitate to call if you have questions. I know this can be overwhelming and you have health issues as well so let us know what we can do to help you. 2. We were able to get Abena off Insulin and I changed the Metformin XL to short acting Metformin 3 times a day and her blood sugars are under excellent control. As the Prednisone is tapered she will likely be able to decrease the doses of the drugs used to control the blood sugar and she may even be able to get of meds and control the blood sugar with just diet. 8. I will be sending a copy of the instructions and a discharge summary to all of the doctors Abena will see. 9. Abena has a urinary tract infection and is on a antibiotic called cephalexin. the urine culture is still pending. The results should be back Monday or Monday. I will call you if I need to change the antibiotic. Pending Tests on Discharge: urine culture results. Allergies/Adverse Reactions: Allergies gemfibrozil [From Lopid] Allergy (Verified 07/29/19 16:41) PT UNABLE TO RESPOND-NEEDS F/U mold Allergy (Verified 07/29/19 16:41) Shortness of breath Yljsyam-Erf-Bvc Reductase Inhibitor Allergy (Verified 07/29/19 16:41) Pain in joints Medications to take at Discharge Aspirin E.C. [Ecotrin] 81 mg PO DAILY@0800 07/29/19 Folic Acid/Multivit,Iron,Starr [One Daily For Women Tablet] 1 tab PO DAILY 04/06/20 [place]-3 Fatty Acids/Fish Oil [Fish Oil 1,000 mg Capsule] 1 ea PO BID 07/29/19 Vitamin B Complex [B Complex] 1 ea PO BID 07/29/19 Albuterol Inhaler [Ventolin Hfa] 2 puff INHALATION Q4H PRN PRN #1 inhaler 08/22/19 Atorvastatin Calcium 80 mg PO QHS #30 tab 08/22/19 Calcium Carbonate/Vitamin D3 [Calcium 600-Vit D3 500 Softgel] 1 ea PO BID #60 cap 08/22/19 Cephalexin [Keflex] 500 mg PO Q8 #21 cap 08/22/19 Esomeprazole Mag Trihydrate [Nexium] 40 mg PO DAILY@0600 #30 cap 08/22/19 Estrogens, Conjugated [Premarin] 1 dose VAGINAL TUFR@2200 #9 tube 08/22/19 Folic Acid 1 mg PO DAILY #30 tab 08/22/19 Glimepiride 2 mg PO DAILY #30 08/22/19 Glimepiride [Amaryl] 1 mg PO DAILY@0800 #30 tab 08/22/19 Levothyroxine [Synthroid] 125 mcg PO DAILY@0600 #30 tab 08/22/19 Lisinopril [Zestril] 2.5 mg PO DAILY #30 tab 08/22/19 Magnesium Oxide [Mag-Ox 400] 400 mg PO DAILYCM #30 tab 08/22/19 Meloxicam [Mobic] 7.5 mg PO DAILY #30 tab 08/22/19 Montelukast [Singulair] 10 mg PO DAILY@2200 #30 tab 08/22/19 Potassium Chloride [K-Dur] 10 meq PO DAILYCM #30 tab 08/22/19 Prednisone 6 mg PO DAILY #180 tab 08/22/19 Prednisone 10 mg PO DAILY #30 tablet 08/22/19 Senna/Docusate Sodium [Senokot-S] 2 tab PO BID #120 tab 08/22/19 Sertraline HCl [Zoloft] 100 mg PO DAILY #30 tab 08/22/19 metFORMIN HCl [Glucophage] 500 mg PO TIDCM #90 tab 08/22/19 traZODone [Desyrel] 50 mg PO QHS #30 tab 08/22/19 The following prescriptions were given: Glimepiride [Amaryl] 1 mg PO DAILY@0800 #30 tab Transmission Status: Pending to [facility] Atorvastatin Calcium 80 mg PO QHS #30 tab Transmission Status: Sent to [facility] Calcium Carbonate/Vitamin D3 [Calcium 600-Vit D3 500 Softgel] 1 ea PO BID #60 cap Transmission Status: Sent to [facility] traZODone [Desyrel] 50 mg PO QHS #30 tab Transmission Status: Sent to [facility] Folic Acid 1 mg PO DAILY #30 tab Transmission Status: Sent to [facility] Glimepiride 2 mg PO DAILY #30 metFORMIN HCl [Glucophage] 500 mg PO TIDCM #90 tab Transmission Status: Sent to [facility] Potassium Chloride [K-Dur] 10 meq PO DAILYCM #30 tab Transmission Status: Sent to [facility] Cephalexin [Keflex] 500 mg PO Q8 #21 cap Transmission Status: Sent to [facility] Magnesium Oxide [Mag-Ox 400] 400 mg PO DAILYCM #30 tab Transmission Status: Sent to [facility] Meloxicam [Mobic] 7.5 mg PO DAILY #30 tab Transmission Status: Sent to [facility] Esomeprazole Mag Trihydrate [Nexium] 40 mg PO DAILY@0600 #30 cap Transmission Status: Sent to [facility] Prednisone 10 mg PO DAILY #30 tablet Prednisone 6 mg PO DAILY #180 tab Transmission Status: Pending to [facility] Estrogens, Conjugated [Premarin] 1 dose VAGINAL TUFR@2200 #9 tube Transmission Status: Sent to [facility] Senna/Docusate Sodium [Senokot-S] 2 tab PO BID #120 tab Transmission Status: Sent to [facility] Montelukast [Singulair] 10 mg PO DAILY@2200 #30 tab Transmission Status: Sent to [facility] Levothyroxine [Synthroid] 125 mcg PO DAILY@0600 #30 tab Transmission Status: Sent to [facility] Albuterol Inhaler [Ventolin Hfa] 2 puff INHALATION Q4H PRN PRN #1 inhaler PRN Reason: Sob &/Or Wheezing Transmission Status: Sent to [facility] Lisinopril [Zestril] 2.5 mg PO DAILY #30 tab Transmission Status: Sent to [facility] Sertraline HCl [Zoloft] 100 mg PO DAILY #30 tab Transmission Status: Sent to [facility] Primary Care Physician: Phoenix Montalvo [Primary Care Provider] - Please follow up with your Primary Care Physician in: within the next 7-10 days Test Results: Test results from this visit will be discussed in further detail at your follow-up appointment, if applicable. Please Follow Up With: Dr Montalvo Please Follow Up With: Dr Bahena Please Follow Up With: Sleep Study Please Follow Up With: cardiology Proposed Discharge Date: 08/22/19
[2019-08-22 12:05] LABS: Bedside Glucose 94 mg/dL (70-110)
[2019-08-22 12:14] VITALS: BP 147/64; PULSE 67; RESP 16; TEMP 36.7; O2SAT 99
--- NOTE | 2019-08-22 12:26 | DS.PCM_ITS ---
Discharge Date and Diagnosis - Problem List Patient Problems: Active and Suspected Problems (Last Reviewed 07/30/19 @ 08:[address] 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 and the patient are unaware of why she is on Prednisone. Hypoxia, sleep related (Acute) - suspect central sleep apnea Sleep-disordered breathing (Acute) - sleep lab will call her to set up and appt Positive occult stool blood test (Acute) Urine retention - resolved dehydration - resolved UTI (urinary tract infection) due to urinary indwelling Nicolas catheter (Acute) X 2. UTI due to E. Coli present at admission to rehab unit and then a second UTI a few days prior to discharge and he urine culture has not been resulted at the time of discharge. - Secondary Discharge Diagnosis Chronic Problems (Last Reviewed 07/30/19 @ 08:[address] 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 no one seems to know the diagnosis associated with 10 years of steroid use? Obesity (BMI 30-39.9) (Chronic) ADHD (Chronic) - she is doing well in therapy off amphetamines and the BP is better and antihypertensives have been weaned Tobacco dependence in remission (Chronic) Hypothyroidism (Chronic) Hyperlipidemia (Chronic) Psoriasis (Chronic) Vitamin D deficiency (Chronic) History of depression (Chronic) Hospital Course and Treatment Imaging Results: Clinical Impression(s) from Imaging Studies Brain CT 08/02/19 12:03 IMPRESSION: Increased attenuation in a gyral pattern involving the left temporal frontal parietal lobes in the distribution of the left middle cerebral artery territory. This may represent petechial hemorrhage following a stroke. Follow-up is recommended. Electronically Signed: Quentin Juan F, at 12:28 EDT , Service support , Laboratory Results - last 24 hr 08/21/19 08/21/19 08/22/19 16:19 20:44 06:21 POC Glucose 145 H 95 83 08/22/19 11:40 POC Glucose 94 Microbiology 08/20/19 16:45 Urine Catheter - Nicolas Urine Culture - Preliminary Presumptive E. coli Gram negative radha 08/13/19 10:55 Urine, Catheterized Urine Culture - Final Culture exhibits no growth. 07/30/19 23:30 Urine Catheter - Nicolas Urine Culture - Final Presumptive E. coli 07/31/19 13:40 Stool Stool Occult Blood ([facility]TON) - Final Occult Blood Positive none Operations: None Procedures: - - overnight trending pulse ox - desaturates to 67% when sleeping. Summary of Care Provided: Abena Kerr is a 68 year old F with a past medical history of hypertension, diabetes mellitus type 2, obesity, hypothyroidism, asthma, inflammatory polyarthropathy, chronic steroid dependence, ADHD, tobacco dependence in remission, hyperlipidemia, paroxysmal atrial fibrillation/flutter (new), vitamin D deficiency, history of depression, left MCA ischemic CVA due to suspected embolism on 07/25/19, expressive > receptive aphasia, dysphagia, right hemiparesis and chronic narcotic use who was admitted to the [facility] on 07/29/2019 for > 3 hours of therapy daily to restore function at or near her prior level of independence. Prior to the CVA she was independent with ADL's and used no assistive device. All record from [facility] were reviewed at the time of admission. Echocardiogram at [facility] showed an ejection fraction of 65% with normal diastolic function no wall motion abnormalities. She has aortic sclerosis and otherwise no significant valvular heart disease. Estimated PA pressure was within normal limits. There was no evidence of R to Left shunt. She had Fib/Flutter while at [facility]. A Lipid panel at [facility] showed a LDL of 89, an HDL of 51 and TG of 309. HGBA1C done at [facility] was 6.2%. She had N/N anemia at admission to [facility] and the hemoglobin at admission was 9.9. Hemoglobin at discharge is 10.9. A hemoccult stool was positive. Neither the patient or her could tell me the diagnosis for the chronic steroid use. She has been on steroids for at least 10 years per her . She has never seen a intelligence support officer. Abena was quite depressed at admission and not sleeping well. She was started on Sertraline 50 mg and this was increased to 100 mg after about 10 days. She has had no adverse side effects. Her mood has improved significantly and she is usually smiling throughout the day. She is less frustrated and always participates in therapy now without getting frustrated or quitting. She continued to have difficulty sleeping and she was started on Trazodone 50 mg with good resolution of insomnia. Abena continues to have severe expressive aphasia and is non-verbal at TN. The receptive aphasia is improved and at least 75% of the time she gets the right answer to yes and no questions asked to her. Prior to discharge she was ambulating 20 ft with a WW with minimal assist. She is able to do the Nu-Step for 10 minutes at level 1. She is able to do 2 8 steps with BL hand rails with min A. Abena has decreased endurance but has been progressing steadily toward her goals. Prior to discharge her , Vasiliy, was allowed to come in for family training and he felt he could manage Abena at home. She had a follow up CT scan of the brain 10 days after admission to the rehab unit and it showed multiple petechial hemorrhages in a gyral distribution in the Left frontal, temporal and parietal areas. she was not started on anticoagulation for atrial fibrillation. This decision is being deferred to neurology. With the discontinuation of Amphetamines and tapering of steroid she may not have PAF. Her ECHO did not show any significant chamber enlargement, valvular heart disease or pulmonary HTN. While in the inpt rehab unit she had an overnight trending pulse ox the saturation dropped to 67%. She has been wearing 2 LPM of oxygen anytime she is sleeping. O2 was arranged for her at discharge. she was referred for an OP sleep study and the sleep lab will be calling her to set up an appt. If she has not had a DEXA in the recent past She had been on Amphetamine for a dx of ADHD at admission to the rehab unit. This was discontinued at admission. The BP came under better control and we have been able to wean the antihypertensives. She has been in a regular rhythm every time I have examined her in the rehab unit. She has been tolerating Atorvastatin 80 mg without any muscle pain even though she lists statins as allergies. Lantus was discontinued and Metformin XL was discontinued. She was having high sugars at 4 PM and HS and low sugars in the AM. She was started on Metformin 500 mg CM and the blood sugars are excellent at the time of DC. She has been on a 1800 calorie cardiac diet. We have been tapering the Prednisone by 1 mg every 10-14 days and at discharge she is taking 18 mg daily. The plan is to decrease by 1 mg every 10 days. At the time of discharge she feels good and she denies any joint or muscle pain. There has not been any outbreak of psoriasis. She was discharged home with [facility] (PT/OT/ST/RN/NA). Prescriptions were sent to [facility] in [place] for all of her medications. She was instructed to follow up with Dr. Montalvo in 7-10 days, cardiology and neurology (Dr. Abdoul Bahena). If she has not had a DEXA in the recent past I recommend she have one to assess bone density. After 10 years of steroids I suspect she has osteoporosis. The stool was heme + at admission and she was anemic. She will need a colonoscopy and possibly an EGD if she has not had either one of these recently. Will defer to cardiology whether she needs a 30 day event monitor. She has not had palpitations or any fast heart rates since the Amphetamine was discontinued and she has been in NSR every time I examine her. I strongly recommended to Vasiliy that Abena follow up with the [facility] in [place] to see if she does in fact have an inflammatory arthropathy. Alert, attentive, no apparent distress, smiling, no pain, no nausea and she is eating well Lungs-clear to auscultation Heart-regular rate and rhythm, no gallop, no murmur, no ectopy, no rub Abdomen-soft, nontender, nondistended, no guarding with palpation, no bladder distention and her postvoid residual today was 12 cc. No hepatosplenomegaly. No peripheral edema No calf tenderness No rashes and no breakdown. Remains aphasic and non verbal. The right facial droop is barely noticeable now. She has weakness on the R side but, strength has been increasing with therapy. Endurance with activity has also been improving. This note was generated with [employer] dictation software. It may contain incorrect words, spelling, and punctuation that were not noted in checking the note before signing. Patient Problems: Active and Suspected Problems (Last Reviewed 07/30/19 @ 08:[address] 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 - Physical Exam Vitals/I&O's: Vital Signs Temp Pulse Resp BP Pulse Ox 98.0 F 67 16 147/64 H 99 08/22/19 08:46 08/22/19 08:46 08/22/19 08:46 08/22/19 08:46 08/22/19 08:46 Oxygen Flow Rate (L/min) 2 Oxygen Delivery Method Room Air Weight: 198 lb 10.184 oz Body Mass Index (BMI) 35.4 Intake and Output for Last 24 Hours 08/20/19 08/21/19 08/22/19 23:59 23:59 23:59 Intake Total 1140 / 1140 1450 / 1450 240 / 240 Output Total 1650 / 1650 1000 / 1000 600 / 600 Balance -510 / -510 450 / 450 -360 / -360 Microbiology Past 72 Hours 08/20/19 16:45 Urine Catheter - Nicolas Urine Culture - Preliminary Presumptive E. coli Gram negative radha Laboratory Results 08/21/19 16:19: POC Glucose 145 H 08/21/19 20:44: POC Glucose 95 08/22/19 06:21: POC Glucose 83 08/22/19 11:40: POC Glucose 94 Current Medications Albuterol Sulfate (Ventolin Aerosols) 2.5 mg INHALATION Q4H PRN PRN Reason: SOB &/OR WHEEZING Aspirin (Ecotrin) 81 mg PO DAILY@0800 [facility] Last Admin: 08/22/19 09:16 Dose: 81 mg Documented by: Atorvastatin Calcium (Lipitor) 80 mg PO QHS [facility] Last Admin: 08/21/19 20:09 Dose: 80 mg Documented by: Bisacodyl (Dulcolax) 10 mg RECTAL .PRN X 1 PRN PRN Reason: Constipation Calamine/Phenol (Calmoseptine Ointment) 1 applic TOPICAL BID [facility]; Protocol Last Admin: 08/22/19 09:23 Dose: 1 applicatio Documented by: Calcium/Vitamin D (Os-Dewayne 500mg + D) [facility] Last Admin: 08/22/19 09:15 Dose: 1 tablet Documented by: Cephalexin (Keflex) 500 mg PO Q8 [facility] Last Admin: 08/22/19 05:05 Dose: 500 mg Documented by: Cholecalciferol (Vitamin D (25mcg)) 2,000 unit PO DAILY [facility] Last Admin: 08/22/19 09:15 Dose: 2,000 unit Documented by: Estrogens Conjugated (Premarin) 1 dose VAGINAL TUFR@2200 [facility] Folic Acid (Folic Acid) [facility] Last Admin: 08/22/19 09:16 Dose: 1 mg Documented by: Glimepiride (Amaryl) 1 mg PO DAILY@0800 [facility] Heparin Sodium (Porcine) (Heparin Na) 5,000 unit SC Q12 [facility] Last Admin: 08/22/19 09:23 Dose: 5,000 unit Documented by: Levothyroxine Sodium (Synthroid) 125 mcg PO DAILY@0600 [facility] Last Admin: 08/22/19 05:05 Dose: 125 mcg Documented by: Lisinopril (Zestril) 2.5 mg PO DAILY [facility] Last Admin: 08/22/19 09:15 Dose: 2.5 mg Documented by: Magnesium Hydroxide (Milk Of Magnesia) 30 ml PO .PRN X 1 PRN PRN Reason: Constipation Magnesium Oxide (Mag-Ox 400) [facility] Last Admin: 08/22/19 09:15 Dose: 400 mg Documented by: Meloxicam (Mobic) 7.5 mg PO DAILY [facility] Last Admin: 08/22/19 09:15 Dose: 7.5 mg Documented by: Metformin HCl (Glucophage) 500 mg PO TIDCM [facility] Last Admin: 08/22/19 11:41 Dose: 500 mg Documented by: Montelukast Sodium (Singulair) 10 mg PO QHS [facility] Last Admin: 08/21/19 20:09 Dose: 10 mg Documented by: Multivitamins/Minerals (Multivitamin With Minerals (Bkc)) 1 tablet PO DAILY@0800 [facility] Last Admin: 08/22/19 09:15 Dose: 1 tablet Documented by: Nutritional Formula (Lactose Free) (Glucerna Shake) [facility] Last Admin: 08/22/19 11:41 Dose: 120 ml Documented by: Nystatin (Mycostatin Powder) 1 applic TOPICAL BID [facility]; Protocol Last Admin: 08/22/19 09:24 Dose: 1 applicatio Documented by: Oxycodone HCl (Oxyir) 5 mg PO Q4H PRN PRN PRN Reason: Pain Score 6-10/10 Last Admin: 07/31/19 13:31 Dose: 5 mg Documented by: Pantoprazole Sodium (Protonix) 40 mg PO DAILY@0600 [facility] Last Admin: 08/22/19 05:05 Dose: 40 mg Documented by: Potassium Chloride (K-Dur) 10 meq [facility] Last Admin: 08/22/19 09:16 Dose: 10 meq Documented by: Prednisone () [facility] Last Admin: 08/22/19 09:15 Dose: 10 mg Documented by: Prednisone () [facility] Last Admin: 08/22/19 09:15 Dose: 5 mg Documented by: Prednisone () 3 [facility] Last Admin: 08/22/19 09:15 Dose: 3 mg Documented by: Senna/Docusate Sodium (Senokot-S, Stefany-Colace) 2 tablet PO BID [facility] Last Admin: 08/22/19 09:12 Dose: Not Given Documented by: Sertraline HCl (Zoloft) 100 mg PO DAILY [facility] Last Admin: 08/22/19 09:15 Dose: 100 mg Documented by: Sodium Chloride () 10 - 40 ml IV UD PRN PRN Reason: SALINE FLUSH Last Admin: 08/16/19 01:27 Dose: 10 ml Documented by: Trazodone HCl (Desyrel) 50 mg PO QHS [facility] Last Admin: 08/21/19 20:09 Dose: 50 mg Documented by: Discharge Activity: May Not Drive, May Shower, Use Walker Weight Bearing Status: Full weight bearing Call your doctor if you observe: Fever of 101 or Higher, Inability to urinate, Inability to have a bowel movement, Shortness of breath, Dizziness, Fainting spells, Swelling in the ankles, Chest pain, Increased palpitations (irregular heartbeat), Calf discomfort, Uncontrolled pain, - - 1. Report any change in the neurology symptoms such as worsening weakness on one side and not the other, change in the numbness on one side, facial droop, unresponsiveness, confusion, any seizure activity. Call PCP OR call the squad and go to the ED. 2. Call you r PCP if severe diarrhea ( > 5 stools a day), painful sores in the mouth, painful swallowing, rash or itching. Taking a probiotic such as Lactobacillus or Kefir can help with loose stools while taking antibiotics. Home Medications: Medications to take at Discharge Aspirin E.C. [Ecotrin] 81 mg PO DAILY@0800 07/29/19 Folic Acid/Multivit,Iron,[place] [One Daily For Women Tablet] 1 tab PO DAILY 07/29/19 [place]-3 Fatty Acids/Fish Oil [Fish Oil 1,000 mg Capsule] 1 ea PO BID 07/29/19 Vitamin B Complex [B Complex] 1 ea PO BID 07/29/19 Albuterol Inhaler [Ventolin Hfa] 2 puff INHALATION Q4H PRN PRN #1 inhaler 08/22/19 Atorvastatin Calcium 80 mg PO QHS #30 tab 08/22/19 Calcium Carbonate/Vitamin D3 [Calcium 600-Vit D3 500 Softgel] 1 ea PO BID #60 cap 08/22/19 Cephalexin [Keflex] 500 mg PO Q8 #21 cap 08/22/19 Esomeprazole Mag Trihydrate [Nexium] 40 mg PO DAILY@0600 #30 cap 08/22/19 Estrogens, Conjugated [Premarin] 1 dose VAGINAL TUFR@2200 #9 tube 08/22/19 Folic Acid 1 mg PO DAILY #30 tab 08/22/19 Glimepiride 2 mg PO DAILY #30 08/22/19 Glimepiride [Amaryl] 1 mg PO DAILY@0800 #30 tab 08/22/19 Levothyroxine [Synthroid] 125 mcg PO DAILY@0600 #30 tab 08/22/19 Lisinopril [Zestril] 2.5 mg PO DAILY #30 tab 08/22/19 Magnesium Oxide [Mag-Ox 400] 400 mg PO DAILYCM #30 tab 08/22/19 Meloxicam [Mobic] 7.5 mg PO DAILY #30 tab 08/22/19 Montelukast [Singulair] 10 mg PO DAILY@2200 #30 tab 08/22/19 Potassium Chloride [K-Dur] 10 meq PO DAILYCM #30 tab 08/22/19 Prednisone 6 mg PO DAILY #180 tab 08/22/19 Prednisone 10 mg PO DAILY #30 tablet 08/22/19 Senna/Docusate Sodium [Senokot-S] 2 tab PO BID #120 tab 08/22/19 Sertraline HCl [Zoloft] 100 mg PO DAILY #30 tab 08/22/19 metFORMIN HCl [Glucophage] 500 mg PO TIDCM #90 tab 08/22/19 traZODone [Desyrel] 50 mg PO QHS #30 tab 08/22/19 Following Prescrptions Were Given to Patient: Glimepiride [Amaryl] 1 mg PO DAILY@0800 #30 tab Transmission Status: Pending to [facility] Atorvastatin Calcium 80 mg PO QHS #30 tab Transmission Status: Sent to [employer] #69 Calcium Carbonate/Vitamin D3 [Calcium 600-Vit D3 500 Softgel] 1 ea PO BID #60 cap Transmission Status: Sent to [employer] #69 traZODone [Desyrel] 50 mg PO QHS #30 tab Transmission Status: Sent to [employer] #69 Folic Acid 1 mg PO DAILY #30 tab Transmission Status: Sent to [employer] #69 Glimepiride 2 mg PO DAILY #30 metFORMIN HCl [Glucophage] 500 mg PO TIDCM #90 tab Transmission Status: Sent to [employer] #69 Potassium Chloride [K-Dur] 10 meq PO DAILYCM #30 tab Transmission Status: Sent to [employer] #69 Cephalexin [Keflex] 500 mg PO Q8 #21 cap Transmission Status: Sent to [employer] #69 Magnesium Oxide [Mag-Ox 400] 400 mg PO DAILYCM #30 tab Transmission Status: Sent to [employer] #69 Meloxicam [Mobic] 7.5 mg PO DAILY #30 tab Transmission Status: Sent to [employer] #69 Esomeprazole Mag Trihydrate [Nexium] 40 mg PO DAILY@0600 #30 cap Transmission Status: Sent to [employer] #69 Prednisone 10 mg PO DAILY #30 tablet Prednisone 6 mg PO DAILY #180 tab Transmission Status: Pending to [employer] #69 Estrogens, Conjugated [Premarin] 1 dose VAGINAL TUFR@2200 #9 tube Transmission Status: Sent to [employer] #69 Senna/Docusate Sodium [Senokot-S] 2 tab PO BID #120 tab Transmission Status: Sent to [employer] #69 Montelukast [Singulair] 10 mg PO DAILY@2200 #30 tab Transmission Status: Sent to [employer] #69 Levothyroxine [Synthroid] 125 mcg PO DAILY@0600 #30 tab Transmission Status: Sent to [employer] #69 Albuterol Inhaler [Ventolin Hfa] 2 puff INHALATION Q4H PRN PRN #1 inhaler PRN Reason: Sob &/Or Wheezing Transmission Status: Sent to [employer] #69 Lisinopril [Zestril] 2.5 mg PO DAILY #30 tab Transmission Status: Sent to [employer] #69 Sertraline HCl [Zoloft] 100 mg PO DAILY #30 tab Transmission Status: Sent to [employer] #69 Primary Care Physician: Phoenix Montalvo [Primary Care Provider] - Please follow up with your Primary Care Physician in: within the next 7-10 days Please Follow Up With: Dr Montalvo Please Follow Up With: Dr Bahena-Neurology Please Follow Up With: Sleep Study Please Follow Up With: cardiology Patient Instructions: MyPlate Worksheet: 1,800 Calories Disposition: Home with Home Health - PT/OT/ST/NA/RN Minutes spent on discharge:: 45 Patient Condition:: Good Medical Necessity - Tobacco Use Smoking Status: Former smoker Tobacco Use: Non-smoker, Cigarettes Meaningful Use Info Meaningful Use Diagnoses (Choose all that apply): Ischemic CVA - CVA Therapy Assessed for PT,OT and/or ST?: Yes - Ischemic Stroke Antithrombotic order at d/c?: Yes Dx of Atrial fib/flutter?: Yes Anticoagulant at discharge?: No Reason anticoagulant not ordered: Medical Contraindication - follow up showed many petechial hemorrhages in a gyral distribution in the L frontal, temporal and parietal lobes. Statins at discharge?: Yes Primary Dx Acute Ischemic CVA?: Yes IV tPA ordered during stay?: No Reason IV t-PA not ordered: Treatment not Indicated Inpatient E&M: [id number] Disch Hosp
--- NOTE | 2019-08-22 14:12 | NURSING ---
discharged home with family. Discharge instructions, medications and appointments reviewed with pt and . Denies questions and concerns.
[2019-08-22 14:16] VITALS: BMI 35.4
== END 2019-08-22 13:15 | disposition home health service (06) | DRG 57 ==
PROVIDERS: Admitting Provider Internal Medicine; PCP Family Medicine; Referring Provider Internal Medicine; Visit Provider Internal Medicine
DX: I69.351 Hemiplegia and hemiparesis following cerebral infarction affecting right dominant side (principal); N39.0 Urinary tract infection, site not specified; I69.320 Aphasia following cerebral infarction; I69.391 Dysphagia following cerebral infarction; R13.10 Dysphagia, unspecified; E78.5 Hyperlipidemia, unspecified; E03.9 Hypothyroidism, unspecified; I48.0 Paroxysmal atrial fibrillation; I10 Essential (primary) hypertension; E11.9 Type 2 diabetes mellitus without complications; E66.9 Obesity, unspecified; F90.9 Attention-deficit hyperactivity disorder, unspecified type; Z87.891 Personal history of nicotine dependence; L40.9 Psoriasis, unspecified; F32.9 Major depressive disorder, single episode, unspecified; M06.4 Inflammatory polyarthropathy; E55.9 Vitamin D deficiency, unspecified; J45.909 Unspecified asthma, uncomplicated; D64.9 Anemia, unspecified; Z79.52 Long term (current) use of systemic steroids; K21.9 Gastro-esophageal reflux disease without esophagitis; T83.518D Infection and inflammatory reaction due to other urinary catheter, subsequent encounter; B96.20 Unspecified Escherichia coli [E. coli] as the cause of diseases classified elsewhere; I69.392 Facial weakness following cerebral infarction
CPT/HCPCS: 36415; 70450; 80048; 80053; 81001; 82274; 82962; 83036; 83605; 83735; 84100; 84439; 84443; 85014; 85018; 85025; 85027; 87077; 87086; 87088; 87186; 92507; 92523; 92526; 94762; 97110; 97112; 97116; 97140; 97162; 97166; 97530; 97535; 97802; 97803; 99251; J7030; J7040; A4216; G0463

== ENCOUNTER 2019-09-04 10:45 | Outpatient (RCR) | payer MEDICARE, OTHER, SELFPAY ==
[2019-08-26 18:10] LABS: Hematocrit 33.8 % (37-47); Hemoglobin 10.7 g/dL (12.0-15.0); Mean Corp Hgb Conc 31.7 g/dL (32-36); Mean Corpuscular Hgb 30.4 pg (27.0-32.0); Mean Platelet Vol. 8.8 fl (6.2-12.0); Platelet Count 340 K/mm3 (150-450); RBC Distribution Width CV 15.3 % (11.6-14.6); RBC Distribution Width SD 52.1 fl (35.1-43.9); Red Blood Count 3.52 M/mm3 (4.2-5.4); White Blood Count 14.2 K/mm3 (4.4-11.0)
[2019-08-26 18:24] LABS: Anion Gap 6 (5-15); BUN 23 mg/dL (7-18); BUN/Creat Ratio 21.5 RATIO (10-20); Calcium,Total 9.3 mg/dL (8.5-10.1); Chloride 102 mmol/L (98-107); Creatinine, Serum 1.07 mg/dL (0.55-1.02); EST Glomerular Filtration Rate 54 mL/min (>60); Est Glom Filt Rate - Afr Amer 66 mL/min (>60); Glucose 77 mg/dL (74-106); Potassium 4.1 mmol/L (3.5-5.1); Sodium Level 135 mmol/L (136-145)
[2019-09-04 11:14] LABS: AST(SGOT) 21 U/L (15-37); Alanine Aminotransfer ALT/SGPT 56 U/L (13-56); Albumin, Serum 3.5 g/dL (3.2-5.0); Alkaline Phosphatase 58 U/L (45-117); Bilirubin, Direct 0.09 mg/dL (0.00-0.30); Cholesterol 126 mg/dL (200); Globulin 2.9 g/dL (2.2-4.2); High Density Lipoprotein 69 mg/dL; Protein, Total 6.4 g/dL (6.4-8.2); Triglycerides 91 mg/dL; Very Low Density Lipoprotein 18 mg/dL (5-40)
== END 2019-09-04 18:00 | disposition home or self-care (01) ==
LOC: HHLAB 10:45
PROVIDERS: Visit Provider Family Medicine
DX: D64.9 Anemia, unspecified (principal); I10 Essential (primary) hypertension
CPT/HCPCS: 80048; 80061; 80076; 85027

== ENCOUNTER 2020-02-21 15:00 | Outpatient (RCR) | payer MEDICARE, OTHER, SELFPAY ==
[2019-09-03 10:23] VITALS: BMI 36.2
--- NOTE | 2019-10-24 18:39 | HP.PTEVAL_ITS ---
Patient's Visit Information YAJAIRA MCGINNIS is a 69 year old F referred to Physical Therapy by Dr. Phoenix Montalvo MD with a diagnosis of CVA. Date of Evaluation: 10/24/19 Physical Therapist: Bright Maradiaga DPT, OCS, CSCS - Visit Plan Frequency: 2x /Week Duration: 4-6 Weeks Plan: 2x/week for 4-6 weeks to start for: 1. mobility with increasing gait distance with wh walker adn improved L WB to take steps without AD. 2. LE and RC/scap strength R especially and progress to Home ex as able. 3. stadning dynamic balance - Subjective present today. had a CVA 07/24/19. While they were talking blacked out and they called squad. Hospital and rehab unit at [facility] until August 21 then home therapy. R side is very weak and cannot speak. R arm hard to move adn R leg. Not much improvement since going home. Uses wh walker to walk about 15 minutes. Not able to min bathroom. Cannot get out of chair herself, someone needs to be with her when walking. She can dress all but bra. Has BSC that she uses. Has walk in shower adn chair in the shower. Has ADA toilet adn shower. Most of time cleans up a little herself. Spends day sitting. Has some leg exercises that she does at home. Is R handed. Not employed. Enjoyed gardening previously. Has first floor set up and ramp to enter, no other steps necessary. - Pain B LE Pain Intensity (Out of 10): Unrated Pain Intensity Range: Unrated - Objective Pt presents with who does much of the communication today. Pt only words are Yes, no and more often two,two for everything. Sitting in WC slouched and pushed back to PT by in WC. Sit to stadn I with UE. stands when asked without support but pelvis trails L, can close eyes and stadn with perturbation well. sit to supine I on table, supine to sit I. Stand to sit I with UE adn slowly. Walks 20 feet at a time with wh walker SBA with pelvis deviating off L in L WB making stance time on R short adn difficult and L trendelenberg obvious even with walker.. This is slightly odd as her stroke effected her R side. Unabe to WB L and step R without UE on walker. Sensation R LE seems diminished in lateral thigh. Flexibility LE is good. Motor control R ankle dimiinished DF/ev/inv vs L. AROM LE joints WFL adn symmetrical. Strength R hip flexion 4- and L 4, abduction 3+ B, ext 3+ B. knee flexion 3+ R and 4- L, knee ext 3+ R adn 4- L. Ankles DF 4+ B, ev and inv 4- R and 4 L. Some swelling in B lateral lower legs and c/o some pain and appears diminished circulation LE. educated on AP, LAQ,a dn marching as HEP. UE AROM R shoulder elevation to 110 adn L 145. Ext rotation R neural and L 45, weakness obvious in R external and IR 3-, 3+ R and 4- L. Unable to do FFGA today. TUG is approx 40 seconds. - Goals Goal 1:: Walk one lap 360 feet Hp with walker safe and mod I Goal Time Frame: 4-6 Weeks Goal 2:: Walk 15 feet without AD SBA confidently Goal Time Frame: 4-6 Weeks Goal 3:: tolerate FGA and TUG in 30 seconds or less. Goal Time Frame: 4-6 Weeks Goal 4:: Pt/ report 50% improvement in overall condition mobility. Goal 5:: Ascend and descend one step safe adn I with rail. Goal Time Frame: 4-6 Weeks Goal 6:: <50% disability on LEFS Goal Time Frame: 8-12 Weeks - Rehabilitation Potential Physical Therapy Diagnosis: Diminished mobility since CVA, lots of potential but L hip oddities and pelvic weakness are limiting WB factors L. Rehabilitation Potential: Fair - Anticipated Interventions Patient/Client Instruction: Educate patient on: Condition, Plan of Care For the Purpose of:: To decrease pain, To improve muscle performance and motor function, To increase tolerance to activity/condition/position, To improve ability of physical actions for home/community/work/leisure, To improve gait and locomotor functions Therapeutic Exercise to Include: Strength training, Balance training, Postural training, Gait and locomotor training, Neuromotor development, Active ROM, Scapular Strength/Stabilization For the Purpose of:: To decrease pain, To increase ROM, To improve muscle performance and motor function, To increase tolerance to activity/condition/position, To improve ability of physical actions for home/community/work/leisure Thank you for the opportunity to evaluate your patient. For Medicare and Medicare HMO plans, please review the plan of care and approve it. It will need to be FAXED BACK to us at [phone] for Medicare purposes. For Medicare only, by signing this I certify the plan of care. Please let me know if there are questions or concerns regarding this plan of care. Physician Signature: _Date:
--- NOTE | 2019-11-01 13:00 | SOAP_ITS ---
REASON FOR REFERRAL: The Patient is a pleasant 69 year old female referred for a clinical assessment of the Patients cognitive communication abilities at [facility] on 11/01/2019 due to severe communication deficits status post 07/29/2019 left middle cerebral artery cerebrovascular accident involving the left temporal frontal parietal lobes. The Patient?s was present for the evaluation, and provided details regarding the Patient?s current communication abilities. The Patient is known to this clinician from her recent inpatient rehabilitation stay, with the Patient recalling this clinician (immediately laughing). She continues to struggle with expressive language, and aside from fleeting instances is only able to say ?to? in a repetitive fashion. Her reports that she does appear to be able to follow conversations and instructions, and is getting stronger with physical therapy, though her language continues to be a major struggle with her recovery. They have initiated use of a basic level electronic alternative and augmentative communication device (Torch Solderer application on their android based tablet), though she struggles with targeted use, and is not near a functional level of operation. She appears rather cognitively intact, particularly when considering the extent of her aphasia. Her affect appears appropriate, and is quite pleasant and personable during interactions despite the severity of aphasia. She was transported via wheelchair to the session by her . 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 severe aphasia, left hemiparesis, and gait instability; attention deficit hyperactivity disorder, hypertension, hyperlipidemia, type II diabetes mellitus, inflammatory polyarthropathy with steroid dependence, hypothyroidism, obesity (BMI 30- 39.9), psoriasis, vitamin D deficiency, depression, tobacco dependence in remission ADDITIONAL OBJECTIVE ASSESSMENT RESULTS: 08/02/2019 CT of the brain revealed increased attenuation in a gyral pattern involving the left temporal frontal parietal lobes in the distribution of the left middle cerebral artery territory; this may represent petechial hemorrhage following a stroke RESULTS OF THE EVALUATION: The Patient presents with severe global aphasia secondary to a left middle cerebral artery cerebrovascular accident involving the left temporal frontal parietal lobes COGNITIVE COMMUNICATION ASSESSMENT RESULTS (QUANTITATIVE): QUICK APHASIA BATTERY (QAB): <FORM 1A> QAB OVERALL: 1.91 /10 QAB SEVERITY LEVEL: severe QAB COMPAIRISION COMPARISON SCORE: 0.61 (08/05/2019) QAB CORE SUBTESTS: WORD COMPREHENSION: 4.38 /10 SENTENCE COMPREHENSION: 0.83 /10 WORD FINDIN /10 GRAMMATICAL CONSTRUCTION: 0.5 /10 SPEECH MOTOR PROGRAMMIN.5 /10 REPETITION: 0 /10 READIN /10 ADDITIONAL ASSESSMENT SUBTESTS: 5W. WRITIN/16 3E. EXTRA WORD COMPREHENSION: 4E. EXTRA SENTENCE COMPREHENSION: 3W. WRITTEN WORD COMPREHENSION: APHASIA CONNECTED SPEECH FEATURES: REDUCED LENGTH / COMPLEXITY OF UTTERANCES: 1 (MLU 2 words) REDUCED SPEECH RATE: 0 (0-24 wpm) AGRAMMATISM: 0 (severe) PARAGRAMMATISM: 0 (severe) ANOMIA: 0 (severe) EMPTY SPEECH: 0 (severe) SEMANTIC PARAPHASIAS: 0 (severe) PHONEMIC PARAPHASIAS & NEOLOGISMS: 2 (moderate) SELF CORRECTION: 2 (moderate) OVERALL COMMUNICATION IMPAIRMENT: 0 (severe) MOTOR SPEECH FEATURES: DYSARTHRIA: 3 (mild) APRAXIA OF SPEECH: 3 (mild) APRAXIA OF SPEECH RATING SCALE (ASRS-v1): ASRS-v1 SCORE: 1/4 ASRS-v1 SCORE DESCRIPTION: apraxia detectable but infrequent APHASIA SEVERITY RATING SCALE (ASRS): ASRS SCORE: 0/5 ASRS SCORE DESCRIPTION: no usable verbal speech COGNITIVE COMMUNICATION ASSESSMENT RESULTS (QUALITATIVE): LANGUAGE FUNCTIONING: she demonstrates a severe global aphasia, with reduced mean length of utterances (typically 1-2 words) with severe perseverations consisting of the word ?to? nearly exclusively (one instance where she uttered ?yes?, and another consisting of 2 sequential novel words); more mild form of expressive aprosodia in comparison to prior interactions; she is able to follow basic conversations and to a point instructions (though often needs initial visual cueing), and is inconsistent with yes / no responses (particularly more complex stimulus items); of note her strongest performance was noted with subtest 3W (written word comprehension), which is a positive indicator when considering augmentative communication implementation; she is able to write short messages that would constitute neologistic and phonemic based paraphasic patterns in verbal expression with dysgraphia (poor legibility), though her written expression is superior to her verbal output, and may demonstrate a pattern similar to her recovery pattern; she is able to utilize her augmentative communication application only with direct cueing and assistance, with around 50-75% accuracy (to this point non-functional) EXECUTIVE FUNCTIONING: no obviating executive functioning based abnormalities appreciated throughout the assessment; though the severity of her language deficits precluded full assessment. MEMORY: no obviating memory based abnormalities appreciated throughout the assessment; though the severity of her language deficits precluded full assessment. ATTENTION: no obviating attention based abnormalities appreciated throughout the assessment; though the severity of her language deficits precluded full assessment; does have an underlying history of attention deficit hyperactivity disorder prior to her cerebrovascular accident. VISUOSPATIAL ABILITIES: no obviating visuospatial based abnormalities appreciated throughout the assessment, though the severity of her language deficits precluded full assessment. COMPLICATING FACTORS AND NOTABLE FINDINGS: assessment of her cognitive profile was precluded by the significance of her communication based impairments; she was able to sufficiently attend and participate throughout the assessment, and was able to utilize her AAC device at a very base level; it is quite clear that her language based deficits are much more severe than any underlying cognitive disruption, though I would recommend re-assessment of her cognitive profile if her language based deficits improve enough to allow for any meaningful re-assessment attempts. COGNITIVE COMMUNICATION ASSESSMENT RESULTS (SEVERITY GRADING): FUNCTIONAL COMMUNICATION MEASURE (FCM) ?LANGUAGE COMPREHENSION FCM ? LANGUAGE COMPREHENSION LEVEL: 4 (moderate-severe) SEVERITY: moderate-severe LEVEL DESCRIPTION: comprehends 30-40% of words and phrases in restricted contexts; minimal efficiency as a conversational participant; requires frequent redirection and cueing to comprehend; understands some simple, novel utterances; FUNCTIONAL COMMUNICATION MEASURE (FCM) ?LANGUAGE PRODUCTION FCM ? LANGUAGE PRODUCTION LEVEL: 5 (severe) SEVERITY: severe LEVEL DESCRIPTION: limited verbal productions; communication of basic needs is severely limited; no conversational participation; no self-monitoring. FUNCTIONAL COMMUNICATION MEASURE (FCM) ? AAC COMPREHENSION FCM ? AAC COMPREHENSION LEVEL: 5 (severe) SEVERITY: severe LEVEL DESCRIPTION: limited comprehension of augmentative / alternative communication relative to events in the environment; always requires environmental cueing and maximum assistance to comprehend; no self- monitoring. FUNCTIONAL COMMUNICATION MEASURE (FCM) ? AAC COMMUNICATION PRODUCTION FCM ? AAC COMMUNICATION PRODUCTION LEVEL: 5 (severe) SEVERITY: severe LEVEL DESCRIPTION: may produce occasional augmentative/alternative communication that is primarily nonfunctional in the environment; no self- monitoring. INTERVENTION CONSIDERATIONS AND RECOMMENDATIONS: I would consider the Patient to be at a higher risk of persistent post stroke language difficulties secondary to the location of the Patients lesion (dominant hemisphere), the size of the Patients lesion, the extended duration post stroke (most recovery occurs in first 1-3 months post stroke), and the severity of her deficits; she will require extensive intervention at this level to promote the highest level of functional recovery, with years of intervention required. However, she does demonstrate potential for eventual functional recovery when considering her relatively young age, relatively spared cognitive functioning, engaging personality and determination to communicate, family support, and improving levels of physical functioning. RECOMMENDATIONS FOR INTERVENTION: The Patient requires intensive skilled speech-language intervention targeting training and implementation of multimodal based interventions designed to utilize her residual language abilities to enhance communication through continued training with Augmentative and Alternative Communication (AAC) and Supported Communication Intervention (SCI) approaches, along with considerations for Visual Action Therapy (VAT), Gestural Facilitation of Naming (GES), and possibly Promoting Aphasics' Communication Effectiveness (PACE) approaches; and training and implementation of partner based approaches (Conversational Coaching); with the eventual goal to graduate to training and implementation of more advanced aphasia based treatments to include Response Elaboration Training (RET), Semantic Feature Analysis Treatment (SFAT), and Verb Network Strengthening Treatment (VNeST); with evolving goal development and adjustments as clinically indicated as her communication profile improves. POST ASSESSMENT EDUCATION: The results and recommendations were discussed with the Patient and the Patients family immediately following completion of the assessment, with the Patient and the Patients family verbalizing understanding and agreement with all recommendations and education provided. FUNCTIONAL OUTCOMES: OUTCOME 1: the Patient will independently utilize alternative and augmentative communication devices implemented during structured therapeutic tasks targeting basic level communication attempts to facilitate improved communication effectiveness with 90% accuracy over 3 consecutive sessions. OUTCOME 2: the Patient will utilize multimodal based interventions designed to utilize her residual language abilities to enhance communication Supported Communication Intervention (SCI) approaches during structured therapeutic tasks targeting basic level communication attempts to facilitate improved communication effectiveness with 90% accuracy over 3 consecutive sessions. OUTCOME 3: goal adjustment as needed. Robin Beaulieu M.A., CCC-SET BUILDER, CBIS MBSImP Certified, LSVT Certified [facility] Speech-Language Pathology Department Email: [email or web address]
--- NOTE | 2019-11-11 18:43 | HP.OTEVAL ---
Patient's Visit Information YAJAIRA MCGINNIS is a 69 year old F, referred to Occupational Therapy by Dr. Phoenix Montalvo MD, with a diagnosis of cva with right UE weakness. Date of Evaluation: 11/11/19 Occupational Therapist: Kymberly Ying, ELOISAR/Mack, CHT - Subjective This 69 year old female was seen for OT eval with dx of CVA. Spouse is with and states she had her stroke in July. spouse states she was in hospital about 4 weeks and home with home therapy. pts spouse states she is writing her name. can dress herself except hooking bra and with bathing is supervision 80% herself. and pt would like to improve pts ROM/strength and fine motor skills to return pt to PLOF. - ROM ROM Comments: pt demo with functional ROM of bilateral UE. pt demo with right wrist and digit OA deformities and crepitis with motion - Strength Shoulder: right 4-/5 left 4+/5 Elbow: right 4-/5 left 4+/5 Production Sorter: right 5# left 20# Lateral Pinch: right 2# left 8# Tripod Pinch: right 2# left 8# Strength Comments: pt demo with a weak right UE - Sensation Sensation Comments: denies - In-Hand Manipulation Finger to Palm Translation: Unable - Right, Mild - Left Palm to Finger Translation: Unable - Right, Mild - Left Shift: Unable - Right, Mild - Left Rotation: Unable - Right, Mild - Left Comments: pt demo with decrease in FMS - Quick DASH-Disab of Arm,Shoulder& Hand Quick DASH Score: 52.2725 - Goals Goal:: pt will demo a increase in right UE mmt to 4+/ or greater to increase ind. with ADLs and IADLS by d/c. pt will demo a increase in right paving supervisor strength by 10# to increase pts ind. with FMS by d/c Goal:: pt will demo the ability to manipulate coins IND by d/c to increase ind. with IADLs by d/c. pt will demo ind. with manipulating fasteners by d/c. pt will demo ind with writing name by d/c - Rehabilitation General Assessment: pt demo with a decrease in right UE strength and FMS limiting use of right UE with ADls and IADLs. Pt would benefit from skilled OT services 2x week for 6 weeks to assist pt in reaching her maximum rehab potential. Therapist will provide PRE ( limiting paving supervisor due to OA deformities and crepidis in wrist/digits) FM tasks to improve pts fine motor skills. Pt and spouse demo understanding and agree to POC Rehabilitation Potential: Fair - Anticipated Interventions A/AAROM/PROM, Strengthening, Modalities, Joint Protection/Energy Conservation, Ergonomic Education, Fine Motor Coord/[place] - Visit Plan Frequency: 2x /Week Duration: 6 Weeks TEXT: Thank you for the opportunity to evaluate your patient. For Medicare and Medicare HMO plans, please review the plan of care and approve it. It will need to be FAXED BACK to us at [phone] for Medicare purposes. Please let me know if there are questions or concerns regarding this plan of care. Physician Signature: Date:
--- NOTE | 2019-12-03 13:57 | HP.PTREVAL_ITS ---
Dr. Phoenix Montalvo MD, It has been my pleasure to treat YAJAIRA MCGINNIS over the last 9 visits for CVA. Please see the progress note below for an update on the physical therapy plan of care! Subjective: Pt only verbalizing yeah and two two today. present adn seeing progress with distance and quality of walking but SLOW. Using wh walker at home even outside occasionally. Got injection in R shoulder yesterday and slightly uncomfortable. Objective/Function: Sit to stadn to sit with UE mod I today. 40 sec TUG. Ambul ate with wh walker 60 feet tday slowly and L hip weak making R foot clearance challenging with L trendelenberg. Forgot walker adn is using clinic wh walker today. Very tired and c/o B knee pain after ambulation. Knee pain may be holding her back as communication about this is challenging vs fatigue. Appears to have slow steady progress. Goals still appropriate qith questionable prognosis Plan Plan: 2x/week for 4 weeks for.. 1. Walk slightly further with wh walker each session. 2. 1-2 steps wiht wh walker each session. 3. Encourage ankle and knee ROM and strength. 4. Work on lateral weight shift. Goals Goal 1:: Walk one lap 360 feet Hp with walker safe and mod I Goal Time Frame: 4-6 Weeks Goal Progress: Progressing Goal 2:: Walk 15 feet without AD SBA confidently Goal Time Frame: 4-6 Weeks Goal Progress: Not Progressing Goal 3:: tolerate FGA and TUG in 30 seconds or less. Goal Time Frame: 4-6 Weeks Goal Progress: Not Progressing Goal 4:: Pt/ report 50% improvement in overall condition mobility. Goal Progress: Progressing Goal 5:: Ascend and descend one step safe adn I with rail. Goal Time Frame: 4-6 Weeks Goal Progress: Progressing Goal 6:: <50% disability on LEFS Goal Time Frame: 8-12 Weeks Goal Progress: 68, progressing Anticipated Interventions Patient/Client Instruction: Educate patient on: Condition, Plan of Care For the Purpose of:: To decrease pain, To improve muscle performance and motor function, To increase tolerance to activity/condition/position, To improve ability of physical actions for home/community/work/leisure, To improve gait and locomotor functions Therapeutic Exercise to Include: Strength training, Balance training, Postural training, Gait and locomotor training, Neuromotor development, Active ROM, Scapular Strength/Stabilization For the Purpose of:: To decrease pain, To increase ROM, To improve muscle performance and motor function, To increase tolerance to activity/condition/position, To improve ability of physical actions for dequan e/community/work/leisure Please do not hesitate to contact me at [phone] by phone or if you have questions or concerns regarding this new plan of care! Sincerely, Bright Maradiaga, DPT, OCS, CSCS
--- NOTE | 2020-01-02 17:21 | HP.PTREVAL_ITS ---
Dr. Phoenix Montalvo MD, It has been my pleasure to treat YAJAIRA MCGINNIS over the last 15 visits for CVA. Please see the progress note below for an update on the physical therapy plan of care! Subjective: Pain is still holding her back. More pain now than a month ago. Had some pain prior to stroke but not this bad. Very little walking at home. Not many exercises at home. Has pain doctor and has had hip shots prior but not in a while. Points to knee down B that hurts. Swelling is better but persists. Objective/Function: L knee pain has been worsening over the last 3 weeks. Swelling is better than last visit with therapist but pain limits her gait to about 12 steps today. Difficult to bear weight through L side due to c ombination of L trendelenberg sign adn pain L knee but distance was improving despite L hip weakness prior to 3 weeks ago. Strength in Knees is 3+ R and 4- L, hip is 3 L and 3+ R, ankles 4- B. AROM WFL.Trasnfers I , needs help to put on shoes today. Overall pain holding back progress toward goals. Plan Plan: Recommend f/u with doctor due to progressing R knee pain limiting abilities in PT . WB walking is worseing due to pain. Pt to get this checkeed out adn then contact therapist when it is improved adn able to work on walking OR consider pool based therapy if knee stays painful. they will call after doctor check. Goals Goal 1:: Walk one lap 360 feet Hp with walker safe and mod I Goal Time Frame: 4-6 Weeks Goal Progress: Not Progressing Goal 2:: Walk 15 feet without AD SBA confidently Goal Time Frame: 4-6 Weeks Goal Progress: Not Progressing Goal 3:: tolerate FGA and TUG in 30 seconds or less. Goal Time Frame: 4-6 Weeks Goal Progress: Not Progressing Goal 4:: Pt/ report 50% improvement in overall condition mobility. Goal Progress: digression Goal 5:: Ascend and descend one step safe adn I with rail. Goal Time Frame: 4-6 Weeks Goal Progress: N/A at this time Goal 6:: <50% disability on LEFS Goal Time Frame: 8-12 Weeks Goal Progress: Not Progressing Anticipated Interventions Patient/Client Instruction: Educate patient on: Condition, Plan of Care For the Purpose of:: To decrease pain, To improve muscle performance and motor function, To increase tolerance to activity/condition/position, To improve ability of physical actions for home/community/work/leisure, To improve gait and locomotor functions Therapeutic Exercise to Include: Strength training, Balance training, Postural training, Gait and locomotor training, Neuromotor development, Active ROM, Scapular Strength/Stabilization For the Purpose of:: To decrease pain, To increase ROM, To improve muscle performance and motor function, To increase tolerance to activity/condition/position, To improve ability of physical actions for home/community/work/leisure Please do not hesitate to contact me at [phone] by phone or if you have questions or concerns regarding this new plan of care! Sincerely, Bright Maradiaga, COMFORTT, OCS, CSCS
== END 2020-02-21 17:00 | disposition home or self-care (01) ==
LOC: SP 15:00
PROVIDERS: PCP Family Medicine; Referring Provider Family Medicine; Visit Provider Family Medicine
DX: I69.320 Aphasia following cerebral infarction (principal); I63.412 Cerebral infarction due to embolism of left middle cerebral artery
CPT/HCPCS: 92507; 92523; 92609; 97016; 97110; 97116; 97140; 97163; 97164; 97166; 97530

== ENCOUNTER → 2022-12-05 | Outpatient (REF) | payer MEDICARE, OTHER, SELFPAY ==
[2022-12-05 09:35] LABS: Hematocrit 35.5 % (37-47); Hemoglobin 10.7 g/dL (12.0-15.0); Mean Corp Hgb Conc 30.1 g/dL (32-36); Mean Corpuscular Hgb 27.3 pg (27.0-32.0); Mean Corpuscular Volume 90.6 fL (81-99); Mean Platelet Vol. 9.1 fl (6.2-12.0); Platelet Count 281 K/mm3 (150-450); RBC Distribution Width CV 14.4 % (11.6-14.6); RBC Distribution Width SD 47.6 fl (35.1-43.9); Red Blood Count 3.92 M/mm3 (4.2-5.4); White Blood Count 4.7 K/mm3 (4.4-11.0)
[2022-12-05 09:54] LABS: Vitamin B12 509 pg/mL (211-911); Vitamin D,25 Hydroxy 46.7 ng/mL
[2022-12-05 10:10] LABS: Hemoglobin A1c 5.9 % (3.8-5.6)
[2022-12-05 10:26] LABS: Anion Gap 6 (5-15); BUN 16 mg/dL (7-18); BUN/Creat Ratio 18.5 RATIO (10-20); CRP < 2.90 mg/L (0.0-3.0); Calcium,Total 8.6 mg/dL (8.5-10.1); Chloride 109 mmol/L (98-107); Cholesterol 147 mg/dL (200); Creatinine, Serum 0.86 mg/dL (0.55-1.02); EST Glomerular Filtration Rate 69 mL/min (>60); Est Glom Filt Rate - Afr Amer 83 mL/min (>60); Glucose 99 mg/dL (74-106); High Density Lipoprotein 42 mg/dL; Potassium 3.9 mmol/L (3.5-5.1); Sodium Level 141 mmol/L (136-145); Thyroid Stim Hormone (TSH) 3.54 uIU/mL (0.358-3.74); Triglycerides 173 mg/dL; Very Low Density Lipoprotein 35 mg/dL (5-40)
== END ==
LOC: OLS.SW 05:00
PROVIDERS: PCP Family Medicine; Visit Provider Internal Medicine
DX: I10 Essential (primary) hypertension (principal); E55.9 Vitamin D deficiency, unspecified; E03.9 Hypothyroidism, unspecified; Z79.899 Other long term (current) drug therapy
CPT/HCPCS: 36415; 80048; 80061; 82306; 82607; 83036; 83735; 84443; 85027; 86140

== ENCOUNTER → 2023-03-13 | Outpatient (REF) | payer MEDICARE, OTHER, SELFPAY ==
[2023-03-13 08:11] LABS: Hematocrit 33.6 % (37-47); Hemoglobin 10.2 g/dL (12.0-15.0); Mean Corp Hgb Conc 30.4 g/dL (32-36); Mean Corpuscular Hgb 27.1 pg (27.0-32.0); Mean Corpuscular Volume 89.1 fL (81-99); Mean Platelet Vol. 9.5 fl (6.2-12.0); Platelet Count 324 K/mm3 (150-450); RBC Distribution Width CV 13.8 % (11.6-14.6); Red Blood Count 3.77 M/mm3 (4.2-5.4); White Blood Count 7.3 K/mm3 (4.4-11.0)
[2023-03-13 08:42] LABS: Hemoglobin A1c 5.5 % (3.8-5.6)
[2023-03-13 11:16] LABS: Anion Gap 9 (5-15); BUN 25 mg/dL (7-18); BUN/Creat Ratio 19.4 RATIO (10-20); Chloride 104 mmol/L (98-107); Creatinine, Serum 1.29 mg/dL (0.55-1.02); EST Glomerular Filtration Rate 43 mL/min (>60); Est Glom Filt Rate - Afr Amer 52 mL/min (>60); Glucose 90 mg/dL (74-106); Potassium 4.2 mmol/L (3.5-5.1); Prealbumin 17.5 mg/dL (20.0-40.0); Sodium Level 137 mmol/L (136-145)
== END ==
LOC: OLS.SW 04:00
PROVIDERS: PCP Family Medicine; Visit Provider Internal Medicine
DX: E11.9 Type 2 diabetes mellitus without complications (principal); E03.9 Hypothyroidism, unspecified
CPT/HCPCS: 36415; 80048; 83036; 84134; 85027

== ENCOUNTER → 2023-05-22 | Outpatient (REF) | payer MEDICARE, OTHER, SELFPAY ==
--- OUTSIDE RECORDS SUMMARY | 2023-05-22 03:48 | XMS RPT_ITS | CCD ---
Author Name Unknown Address [address] [place] [address] Organization [facility] Care Team Providers Care Bridge Tender Name Role Phone Sheets Bere BRANCH Unavailable [phone] Carlton Montalvo MD Primary Care Provider [phone] Sheets Bere BRANCH Unavailable Carlton Montalvo MD Primary Care Provider [phone] [place] CH, Rajinder Unavailable Carlton Montalvo MD Unavailable [phone] CARLTON MONTALVO Primary Care Unavailable RAJINDER RODRIGUEZ Attending Unavailable SERENITY HAYWOOD Referring Unavailable ABUTEER, HADEEL Admitting Unavailable ISABEL FLANAGAN Consulting Unavailable Jarvis Smiley RN, Catherine Unavailable [phone] Renae Moore RN Unavailable Jarvis Smiley RN, Catherine Unavailable [phone] CARLTON MONTALVO Primary Care Unavailable MANDIE VINCENT Attending Unavailable SERENITY HAYWOOD Attending Unavailable CARLTON MONTALVO Primary Care Unavailable THUESTAD, RAMAN A Attending Unavailable CARIEUESTAD, RAMAN A Admitting Unavailable CARLTON MONTALVO Primary Care Unavailable Renae Moore RN Unavailable Allergies Allergy Classification Reported Allergen(s) Allergy Type Date of Onset Reaction(s) Facility (20 sources) Gemfibrozil; Translations: [GEMFIBROZIL] Drug Allergy 6 Other: See Comments [facility] (12 sources) HMG-CoA reductase inhibitor; Translations: [AMITAGB-VVR-CI A REDUCTASE INHIBITORS] Propensity to adverse reactions to drug 6 Other: See Comments [facility] (20 sources) Mold Extract; Translations: [MOLD] Drug Allergy 0 Other: See Comments [facility] Work Phone: (20 sources) Seasonal allergy; Translations: [SEASONAL ALLERGIES] Allergy to substance 7 Shortness of Breath, Other: See Comments [facility] (20 sources) HMG-CoA reductase inhibitor Propensity to adverse reactions to drug 6 Other: See Comments [facility] Medications Current Medications Medication Drug Class(es) Dates Sig (Normalized) Sig (Original) apixaban 5 mg oral tablet (5 sources) Factor Xa Inhibitor Start: 11-29-2022 End: 12-30-2022 take 1 tablet by mouth twice daily apixaban (ELIQUIS) 5 mg tab(s) Take 1 tablet by mouth twice daily. 60 tablet 0 11/29/2022 12/30/2022 Active Completed/Discontinued Medications Medication Drug Class(es) Dates Sig (Normalized) Sig (Original) [id number] 200 actuat albuterol 0.09 mg/actuat metered dose inhaler (20 sources) beta2-Adrenergic Agonist Start: 07-27-2018 take 2 puff(s) by inhalation every four hours as needed albuterol HFA (PROAIR HFA) 90 mcg/actuation inhaler Indications: Extrinsic asthma without complication, unspecified asthma severity, unspecified whether persistent Inhale 2 Puffs as instructed every 4 hours as needed. 1 Inhaler 1 07/27/2018 Active Problems Active Problems Problem Classification Problem Date Documented Date Episodic/Chronic Acute and unspecified renal failure (1 source) Acute injury of kidney; Translations: [Acute kidney failure, unspecified] Onset: 11-27-2022 11-27-2022 Episodic Cardiac dysrhythmias (20 sources) Paroxysmal atrial fibrillation; Translations: [Paroxysmal atrial fibrillation] Onset: 07-25-2019 08-10-2020 Chronic Chronic ulcer of skin (20 sources) Pressure ulcer of right heel, stage 1; Translations: [Pressure ulcer, heel] Onset: 08-11-2020 08-11-2020 Chronic Diabetes mellitus without complication (20 sources) Type 2 diabetes mellitus without complication; Translations: [Type 2 diabetes mellitus without complications] Onset: 02-09-2018 08-10-2020 Chronic Disorders usually diagnosed in infancy, childhood, or adolescence (20 sources) Attention deficit hyperactivity disorder, predominantly inattentive type; Translations: [Other specified behavioral and emotional disorders with onset usually occurring in childhood and adolescence] 09-03-2019 Chronic Esophageal disorders (20 sources) Gastroesophageal reflux disease without esophagitis; Translations: [Gastro-esophageal reflux disease without esophagitis] Onset: 07-22-2019 09-03-2019 Chronic Essential hypertension (20 sources) Hypertensive disorder; Translations: [Essential (primary) hypertension] Onset: 01-28-2015 08-10-2020 Chronic Genitourinary symptoms and ill-defined conditions (8 sources) Abnormal urinalysis; Translations: [Unspecified abnormal findings in urine] Onset: 11-27-2022 11-27-2022 Episodic Malaise and fatigue (2 sources) Asthenia; Translations: [Weakness] Onset: 03-13-2018 11-27-2022 Episodic Nutritional deficiencies (3 sources) Undernutrition; Translations: [Mild protein-calorie malnutrition] Onset: 12-02-2022 12-02-2022 Chronic Other endocrine disorders (20 sources) Hypoglycemia; Translations: [Hypoglycemia, unspecified] Onset: 08-09-2020 08-10-2020 Chronic Other inflammatory condition of skin (20 sources) Guttate psoriasis; 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] Onset: 07-22-2019 09-03-2019 Chronic Other nervous system disorders (20 sources) Expressive dysphasia; Translations: [Aphasia] Onset: 08-10-2020 08-10-2020 Chronic Other non-traumatic joint disorders (20 sources) Multiple joint pain; Translations: [Pain in unspecified joint] 09-03-2019 Episodic Other nutritional; endocrine; and metabolic disorders (20 sources) Obese class I; Translations: [Obesity, unspecified] Onset: 08-09-2020 08-10-2020 Chronic Other nutritional; endocrine; and metabolic disorders (5 sources) Adult failure to thrive syndrome; Translations: [Adult failure to thrive] Onset: 12-01-2022 12-01-2022 Episodic Other screening for suspected conditions (not mental disorders or infectious disease) (1 source) Patient encounter status; Translations: [Encounter for screening mammogram for malignant neoplasm of breast] 11-23-2022 Episodic Residual codes; unclassified (3 sources) Needs assistance with community resources; Translations: [Other specified health status] Episodic Residual codes; unclassified (3 sources) Other specified health status; Translations: [Other specified conditions influencing health status] Episodic Spondylosis; intervertebral disc disorders; other back problems (20 sources) Degeneration of cervical intervertebral disc; Translations: [Other cervical disc degeneration, unspecified cervical region] Onset: 02-26-2016 09-03-2019 Chronic Thyroid disorders (20 sources) Hypothyroidism; Translations: [Hypothyroidism, unspecified] 08-10-2020 Chronic Viral infection (8 sources) Disease caused by 2019-nCoV; Translations: [COVID-19] Onset: 11-27-2022 11-27-2022 Episodic Viral infection (3 sources) COVID-19; Translations: [COVID-19 virus infection] Onset: 11-27-2022 Past or Other Problems Problem Classification Problem Date Documented Date Episodic/Chronic Other circulatory disease (20 sources) History of cerebrovascular accident; Translations: [Personal history of transient ischemic attack (TIA), and cerebral infarction without residual deficits] Onset: 07-25-2019 08-10-2020 Episodic Urinary tract infections (20 sources) Urinary tract infectious disease; Translations: [Urinary tract infection, site not specified] Onset: 08-09-2020 08-10-2020 Episodic Results Test Name Value Interpretation Reference Range Facil ity Encounters Encounter Date Encounter Type Care Provider Facility Start: 02-11-2023 Marquez Vincent APRN.CNP Work Phone: [facility] Procedures Date Procedure Procedure Detail Performing Clinician Start: 03-04-2020 Mammography Carlton biswas MD Work Phone: Start: 06-29-2019 Adult depression scr eening assessment Carlton Montalvo MD Work Phone: Start: 06-20-2019 Colonoscopy Carlton biswas MD Work Phone: Plan of Treatment Date Care Activity Detail Author Start: 11-07-2027 Urine microalbumin profile [facility] Start: 08-10-2023 ANNUAL PCP TEAM CHRONIC DISEASE VISIT ANNUAL PCP TEAM CHRONIC DISEASE VISIT [facility] Start: 05-30-2023 Hemoglobin A1c/Hemoglobin.total in Blood HBA1C [facility] Start: 12-23-2022 Influenza vaccination [facility] Start: 06-20-2022 Colonoscopy COLONOSCOPY [facility] Start: 06-20-2022 COLORECTAL CANCER SCREENING COLORECTAL CANCER SCREENING [facility] Start: 04-24-2022 ADVANCE DIRECTIVE DISCUSSION ADVANCE DIRECTIVE DISCUSSION [facility] Start: 04-24-2022 DEPRESSION ASSESSMENT DEPRESSION ASSESSMENT [facility] Start: 01-12-2022 3 comp foot exam completed DIABETIC FOOT EXAM [facility] Start: 01-12-2022 ANNUAL PCP TEAM CHRONIC DISEASE VISIT ANNUAL PCP TEAM CHRONIC DISEASE VISIT [facility] Start: 01-12-2022 BP CONTROLLED (<130/80) BP CONTROLLED (<130/80) [facility] in Start: 01-12-2022 Hepatitis B screening URINE ALBUMIN:CREATININE RATIO [facility] Start: 01-11-2022 Hepatitis B surface antibody level LDL CHOLESTEROL [facility] Start: 12-23-2021 Influenza vaccination [facility] Start: 07-11-2021 Hemoglobin A1c/Hemoglobin.total in Blood HBA1C [facility] Start: 04-24-2021 ADVANCE DIRECTIVE DISCUSSION ADVANCE DIRECTIVE DISCUSSION [facility] Start: 04-24-2021 DEPRESSION ASSESSMENT DEPRESSION ASSESSMENT [facility] Start: 03-04-2021 Mammography [facility] Start: 06-28-2020 Adult depression screening assessment DEPRESSION SCREENING [facility] Start: 04-02-2020 FECAL OCCULT BLOOD FECAL OCCULT BLOOD [facility] Start: 10-17-2018 Hepatitis C antibody, confirmatory test DILATED RETINAL EXAM [facility] Start: 2011 Hepatitis B Vaccine (1 of 3 - Risk 3-dose series) Hepatitis B Vaccine (1 of 3 - Risk 3-dose series) [facility] Start: 2011 RSV Vaccine (1 - 1-dose 60+ series) RSV Vaccine (1 - 1-dose 60+ series) [facility] Start: 09-20-2001 SHINGRIX VACCINE (1 of 2) SHINGRIX VACCINE (1 of 2) [facility] Start: 09-20-1996 COLOGUARD (FIT-DNA) COLOGUARD (FIT-DNA) [facility] Start: 09-20-[address] COLONOGRAPHY [facility] Start: 09-20-1996 SIGMOIDOSCOPY SIGMOIDOSCOPY [facility] Start: 09-20-1969 BP CONTROLLED (<130/80) BP CONTROLLED (<130/80) [facility] Start: 09-20-1956 COVID-19 VACCINE (#1) COVID-19 VACCINE (#1) [facility] Start: 09-20-1956 COVID-19 VACCINE (1) COVID-19 VACCINE (1) [facility] Start: 03-23-1952 COVID-19 VACCINE (#1) COVID-19 VACCINE (#1) [facility] End: 12-23-2023 GAVIN SCREENING GAVIN SCREENING Radiology Routine Encounter for screening mammogram for breast cancer 1 Occurrences starting 11/23/2022 until 12/23/2023 [facility] Work Phone: Immunizations Immunization Date Immunization Notes Care Provider Fa cili 03-20-2019 influenza virus vacc ine, unspecified formulation Mandie Vincent QUALITY TESTER.TUBE COREMAKER Work Phone: [facility] 11-06-2017 pneumococcal polysaccharide vaccine, 23 valent Carlton Montalvo MD Work Phone: [facility] 11-06-2017 tetanus toxoid, redu sherif diphtheria toxoid, and acellular pertussis vaccine, adsorbed Carlton Montalvo MD Work Phone: [facility] 09-27-2016 pneumococcal conjuga te vaccine, 13 valent Carlton Montalvo MD Work Phone: [facility] Payers Date Payer Category Payer Medicare [id number] 2019 Unknown MMO MMO MEDICARE SUPPLEMENT [id number] 2019-Present [phone] [address] [place] [address] Indemnity [id number] 2019 Unknown MMO MMO MEDICARE SUPPLEMENT [id number] 2019-Present [phone] [address] [place] [address] Indemnity [id number] 2016 Medicare MEDICARE MEDICAR E A AND B [id number] 2016-Present [phone] [address] [address] [place] [address] Medicare [id number] 2016 Medicare MEDICARE MEDICAR E A AND B [id number] 2016-Present [phone] [place] [address] Medicare [id number] 2016 Medicare [id number] Social History Date Type Detail Facility Start: 11-20-2012 Tobacco smoking status NHIS Ex-smoke r [facility] Start: 11-20-2012 Tobacco use and exposure Smoke less tobacco non-user [facility] Start: 01-12-2021 End: 12-01-2022 Alcohol intake Current non-drinker of alcohol (finding) [facility] Start: 06-29-2019 End: 07-25-2019 History SDOH Alcohol Frequency 1 [facility] Start: 06-29-2019 History SDOH Social Connections Phone 5 [facility] Start: 06-29-2019 End: 07-25-2019 History SDOH Social Connections Get Together 3 [facility] Start: 06-29-2019 End: 07-25-2019 History SDOH Social Connections Membership 2 [facility] Start: 1950 Sex Assigned At Not on file [facility] Start: 08-08-2021 End: 08-27-2021 Exposure to SARS-CoV-2 (event) Not sure [facility] History of tobacco use Current smoker [facility] Start: 06-29-2019 End: 11-08-2022 History of Social function [facility] Start: 06-29-2019 End: 11-08-2022 Social connection and isolation panel [facility] Do you belong to any clubs or organizations such as taoism groups, unions, fraternal or athletic groups, or school groups? No [facility] Are you now , , , , never or living with a partner? [facility] How often to you hav e a drink containing alcohol? Never [facility] Average Number of Drinks Not on file [facility] How hard is it for y ou to pay for the very basics like food, housing, medical care, and heating Somewhat hard [facility] Do you feel stress - tense, restless, nervous, or anxious, or unable to sleep at night because your mind is troubled all the time - these days [OSQ] Only a little [facility] (I/We) worried wheth er (my/our) food would run out before (I/we) got money to buy more. Sometimes true [facility] Medical Equipment Procedure Code Equipment Code Equipment Origin al Text Equipment Identifier Dates Use to check blo od sugars 2 times per day. Dx: E11.9 Start: 05-31-2019 Goals Date Patient Goal Desired Activity /State Personal health goal Clinical Notes 07-25-2019 to 02-14-2023 Telephone Encounter - Meagan Craig Ma - 02/14/2023 2:46 PM EDTTelephone Encounter - Irasema Mar Ma - 12/05/2022 9:58 AM EDTTelephone Encounter - Irasema Mar Ma - 12/05/2022 9:45 AM EDT Note Date & Type Note Facility 02-14-2023 Miscellaneous Notes Patient is currently in residential and receiving medications and care through them. Will deny refill request. documented in this encounter [facility] 12-05-2022 Miscellaneous Notes Patient is NOT checked in for appointment- patient not present in waiting room or hollins at this time patient's name was called a total of 3 times by this ANAMIKA Mar. Patient is NOT checked in for appointment- patient not present in waiting room or hollins at this time patient's name was called a total of 2 times by geni Mar. documented in this encounter [facility] 12-03-2022 Note HNO ID: [id number] Author: Note, Interface Service: ? Author Type: ? Type: Progress Notes Filed: 12/03/2022 2:33 AM Note Text: Epic Scheduled Downtime: 12/03/2022 1:00:13 AM to 12/03/2022 2:13:13 AM [facility] 12-02-2022 Note HNO ID: [id number] Author: Catherine Webber, RN Service: ? Author Type: Registered Nurse Type: Progress Notes Filed: 12/02/2022 12:19 PM Note Text: TRANSITION CARE MANAGEMENT (TCM) FOLLOW-UP NOTE Provider Action/FYI Hospital discharge follow up chart review; patient is currently admitted to hospital.. Name will be removed from care team as Game Advisor. Will follow up pending hospital discharge disposition Networking Technology Instructor plan for next outreach: No further follow up needed at this time TAI Education Ordered -: No Signature Catherine Smiley RN December 02, 2022 [facility] 12-02-2022 Note Patient Outreach (AM [facility]) YAJAIRA MCGINNIS ([id number]) 1950 F Date Time Provider Department 12/02/22 CATHERINE WEBBER [facility] During your visit today, we recorded the following information about you: Catherine Webber, MADHAVI 12/02/2022 12:19 PM Signed TRANSITION CARE MANAGEMENT (TCM) FOLLOW-UP NOTE Provider Action/FYI Hospital discharge follow up chart review; patient is currently admitted to hospital.. Name will be removed from care team as Game Advisor. Will follow up pending hospital discharge disposition Networking Technology Instructor plan for next outreach: No further follow up needed at this time TAI Education Ordered -: No Signature Catherine Smiley RN December 02, 2022 Allergies As of Date: 12/02/2022 Noted Allergy Reaction LOPID (GEMFIBROZIL) 12/25/2015 14 - Other: See Comments Comments: Myalgias MOLD 07/29/2019 14 - Other: See Comments SEASONAL ALLERGIES 08/01/2016 12 - Shortness of Breath 14 - Other: See Comments Comments: Allergy induced asthmatic bronchitis, gets wheezy and SOB with molds and mildew [id number] REDUCTASE INHIBIT*12/25/2015 14 - Other: See Comments Comments: Bone pain Date Reviewed: 12/02/2022 Reviewed by: Patricia Del Rio RN - Fully Assessed Reason for Visit: Transition Of Care [4074] Prescriptions as of 12/02/2022 - apixaban (ELIQUIS) 5 mg tab(s) Take 1 tablet by mouth twice daily. - sertraline (ZOLOFT) 100 mg tablet Take 1 tablet by mouth once daily. - omeprazole (PRILOSEC) 40 mg capsule Take 1 capsule by mouth once daily. - metFORMIN (GLUCOPHAGE) 500 mg tablet Take 1 tablet by mouth twice daily with meals. - levothyroxine (SYNTHROID) 100 mcg tablet Take 1 tablet by mouth once daily. - lisinopril 2.5 mg tablet Take 1 tablet by mouth once daily. - Cholecalciferol, Vitamin D3, (VITAMIN D) 25 mcg (1,000 unit) cap Take 6 capsules by mouth once daily. - vitamin b complex (VITAMINS B COMPLEX) capsule Take 1 capsule by mouth twice daily. - montelukast (SINGULAIR) 10 mg tablet Take 1 tablet by mouth daily at bedtime. As needed - magnesium oxide (MAG-OX) 400 mg (241.3 mg magnesium) tablet Take 1 tablet by mouth once daily. - blood sugar diagnostic (TRUE METRIX GLUCOSE TEST STRIP) test strip Use to check blood sugars 2 times per day. Dx: E11.9 - FOLIC ACID ORAL Take by mouth. - albuterol HFA (PROAIR HFA) 90 mcg/actuation inhaler Inhale 2 Puffs as instructed every 4 hours as needed. - aspirin, enteric coated (ASPIRIN, ENTERIC COATED) 81 mg EC tablet Take 1 tablet by mouth once daily. - CALCIUM CARBONATE-VITAMIN D3 ORAL Take 1 capsule by mouth twice daily. - MULTIVITS-MIN/FA/CA CARB/VIT K (ONE-A-DAY WOMEN'S 50+ ORAL) Take 1 tablet by mouth once daily. - [place]-3 Fatty Acids-Vitamin E (FISH OIL) 1,000 mg cap Take 1 capsule by mouth twice daily. Facility-Administered Medications as of 12/02/2022 - potassium chloride ER 40 mEq tab(s) (KLOR-CON) - dextrose 40 % 15 g - glucagon 1 mg injection - dextrose 10% iv bolus - metFORMIN 500 mg tab(s) (GLUCOPHAGE) - lisinopril 2.5 mg tab(s) (ZESTRIL) - albuterol HFA 90 mcg/actuation 2 Puff (PROVENTIL HFA, VENTOLIN HFA) - calcium-cholecalciferol (D3) 1 tablet tab(s) (OSCAL+D 250) - apixaban 5 mg tab(s) (ELIQUIS) - folic acid 1 mg tab(s) - montelukast 10 mg tab(s) (SINGULAIR) - magnesium oxide 400 mg tab(s) (MAG-OX) - aspirin, enteric coated 81 mg tab(s) - sertraline 100 mg tab(s) (ZOLOFT) - levothyroxine 100 mcg tab(s) (SYNTHROID) - B-complex with vitamin C 1 tablet (ALLBEE with C) - cholecalciferol 6,000 Units tab(s) (VITAMIN D3) - NaCl 0.9% iv flush bag - acetaminophen 650 mg tab(s) (TYLENOL) - pantoprazole DR 40 mg tab(s) (PROTONIX) Meds Comments as of 09/04/2017: Also takes a vitamin for hair loss Problem List As Of Date 12/02/2022 Noted Resolved Osteoarthritis [M19.90] 11/21/2012 07/29/2019 Vitamin D deficiency [E55.9] 08/20/2013 07/29/2019 Hypertension [I10] ADD (attention deficit disorder) [F98.8] Hypothyroidism [E03.9] Acquired hypothyroidism [E03.9] 01/28/2015 07/29/2019 Essential hypertension [I10] 01/28/2015 DDD (degenerative disc disease), cervical [M50.*02/26/2016 DDD (degenerative disc disease), lumbar [M51.36]02/26/2016 Allergic asthma [J45.909] 02/26/2016 07/29/2019 Allergic rhinitis [J30.9] 02/26/2016 07/29/2019 Hyperglycemia [R73.9] 09/04/2017 09/06/2017 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 [facility] 12-02-2022 History of Presen t illness Narrative TRANSITION CARE MANAGEMENT (TCM) FOLLOW-UP NOTE Provider Action/FYI Hospital discharge follow up chart review; patient is currently admitted to hospital.. Name will be removed from care team as Game Advisor. Will follow up pending hospital discharge disposition Networking Technology Instructor plan for next outreach: No further follow up needed at this time TAI Education Ordered -: No Signature Catherine Smiley RN December 02, 2022 documented in this encounter [facility] 12-01-2022 Note HNO ID: [id number] Author: Nevaeh Aquino MD Service: Hospital Medicine Author Type: Physician Type: Progress Notes Filed: 12/01/2022 9:11 PM Note Text: IVF from ER d/c'd. Labs reviewed. - will trial off IVF with diet + supplements as ordered [facility] 12-01-2022 Note HNO ID: [id number] Author: Anne Cohen APRN.TUBE COREMAKER Service: Hospital Medicine Author Type: Nurse Practitioner Type: Plan of Care Filed: 12/01/2022 5:29 PM Note Text: DEPARTMENT OF HOSPITAL MEDICINE PLAN OF CARE NOTE SERVICE DATE: December 01, 2022 SERVICE TIME: 5:25 PM Hospital Medicine/Primary Attending: Department of Hospital Medicine NIGHT AND WEEKEND COVERAGE: [facility] Medicine Coverage PLAN OF CARE 72 y.o. male female presents with weakness and FTT. Was discharged to home from [facility] on 11/29/22 after admission due to Covid 19. PT/OT recommended SNF but family patient did not qualify due to observation status. Since being home patient has worsening weakness and incontinence. Family unable to care for patient. Admitted for FTT. Full HANDP to follow. SIGNATURE: Anne Cohen APRN.CNP PATIENT NAME: Yajaira Mcginnis DATE: December 01, 2022 TIME: 5:25 PM [facility] 12-01-2022 Note HNO ID: [id number] Author: Catherine Webber, RN Service: ? Author Type: Registered Nurse Type: Progress Notes Filed: 12/01/2022 12:36 PM Note Text: TRANSITIONAL CARE MANAGEMENT (TCM) COMMUNITY MONITORING PROGRAM Provider Action/FYI: Second Attempt: Second attempt to outreach patient for initial hospital discharge. No answer. Unable to leave message. PCP TCM follow up:Scheduled 12/05/2022 Transitions of Care Critical Issues: SPECIALIST FOLLOW-UP: CARDIOLOGY, PCP [place] MEDICATION CHANGES: STARTED ON ELIQUIS FOR ATRIAL FIB [facility] SUMMARY: Discharge Network Status: In-Network Discharge Pt discharged from [facility] on 11/29/2022. Admitted for: COVID 19, afib Contact made with patient: No - 2nd unsuccessful attempt - end outreach and close encounter Outreach ended Theresa QUIROZ, smoking pipe coater Game Advisor [phone] [facility] 12-01-2022 Miscellaneous Notes Upon arrival pt in bed. Pt with previous CVA, aphasic, can say yes and Two . Son informed SN I can't take care of her. Last night her bed was all wet and she managed to get up to BSC and I could barely get her back to bed, I almost called the paramedics again . Pt's spouse who is POA is at [place] at this time and not coming home according to son Son informed SN it is only me and my girlfriend living here and we both work and can't take care of her. My sister moved out, I just can't do this anymore. She is too weak. Before hospital stay she was able to independently transfer herself on and off BSC and now she can't SN spoke to Rosy Garcia CAN SORTER regarding placement in [place] and Rosy informed SN she will start paperwork but may take several days at least and reason pt not placed last hospital stay was due to pt only observation SN called Nina Kenyon RN and discussed situation/concerns SN called 911 and paramedics arrived, pt declined after much encouragement. [place] Police called and officer arrived SN, paramedics, [place] encouraged pt to go to hospital Son messaged and he wanted her to go to Er also Son messaged pt's brother and he came over to home and was able to encourage pt to go to [place] and pt did agree Paramedics transported pt to ER, pt with increased weakness FTT and son not able to take care of her Nina Kenyon RN and Rosy Garcia CAN SORTER notified Will message Dr. Montalvo of situation Will notify [facility] scheduling of SN no ADMIT documented in this encounter [facility] 12-01-2022 History of Presen t illness Narrative TRANSITIONAL CARE MANAGEMENT (TCM) COMMUNITY MONITORING PROGRAM Provider Action/FYI: Second Attempt: Second attempt to outreach patient for initial hospital discharge. No answer. Unable to leave message. PCP TCM follow up:Scheduled 12/05/2022 Transitions of Care Critical Issues: SPECIALIST FOLLOW-UP: CARDIOLOGY, PCP [facility] MEDICATION CHANGES: STARTED ON ELIQUIS FOR ATRIAL FIB [facility] SUMMARY: Discharge Network Status: In-Network Discharge Pt discharged from [facility] on 11/29/2022. Admitted for: COVID 19, afib Contact made with patient: No - 2nd unsuccessful attempt - end outreach and close encounter Outreach ended Theresa QUIROZ, smoking pipe coater Game Advisor [phone] TCM Home Visit Referral Source of Stratification: [facility] Hospital Admission Status: Discharged Readmission Risk Score: 17 JUAN JOSE Score: 4 Patient meets program referral criteria: No Patient does not qualify for High Risk TCM Home Visit program due to: Discharged home, does not meet program criteria TRANSITIONAL CARE MANAGEMENT (TCM) COMMUNITY MONITORING PROGRAM Provider Action/FYI: Attempted outreach to patient for hospital discharge initial outreach. No answer, mailbox full, unable to leave message. SUMMARY: Discharge Network Status: In-Network Discharge Pt discharged from [facility] on 11/29/2022. Admitted for: COVID 19, afib Contact made with patient: No - next outreach attempt will be on next business day Outreach ended Catherine Smiley RN November 30, 2022 9:26 AM documented in this encounter [facility] 11-30-2022 Note Patient Outreach ([facility] YAJAIRA MCGINNIS ([id number]) 1950 F Date Time Provider Department 11/30/22 CATHERINE WEBBER [facility] During your visit today, we recorded the following information about you: Catherine Webber, MADHAVI 12/01/2022 12:36 PM Signed TCM Home Visit Referral Source of Stratification: [facility] Hospital Admission Status: Discharged Readmission Risk Score: 17 JUAN JOSE Score: 4 Patient meets program referral criteria: No Patient does not qualify for High Risk TCM Home Visit program due to: Discharged home, does not meet program criteria TRANSITIONAL CARE MANAGEMENT (TCM) COMMUNITY MONITORING PROGRAM Provider Action/FYI: Attempted outreach to patient for hospital discharge initial outreach. No answer, mailbox full, unable to leave message. SUMMARY: Discharge Network Status: In-Network Discharge Pt discharged from [facility] on 11/29/2022. Admitted for: COVID 19, afib Contact made with patient: No - next outreach attempt will be on next business day Outreach ended Catherine Smiley RN November 30, 2022 9:26 AM Catherine Webber RN 12/01/2022 12:36 PM Signed TRANSITIONAL CARE MANAGEMENT (TCM) COMMUNITY MONITORING PROGRAM Provider Action/FYI: Second Attempt: Second attempt to outreach patient for initial hospital discharge. No answer. Unable to leave message. PCP TCM follow up:Scheduled 12/05/2022 Transitions of Care Critical Issues: SPECIALIST FOLLOW-UP: CARDIOLOGY, PCP [facility] MEDICATION CHANGES: STARTED ON ELIQUIS FOR ATRIAL FIB [facility] SUMMARY: Discharge Network Status: In-Network Discharge Pt discharged from [facility] on 11/29/2022. Admitted for: COVID 19, afib Contact made with patient: No - 2nd unsuccessful attempt - end outreach and close encounter Outreach ended Theresa QUIROZ, smoking pipe coater Game Advisor [phone] Allergies As of Date: 11/30/2022 Noted Allergy Reaction LOPID (GEMFIBROZIL) 12/25/2015 14 - Other: See Comments Comments: Myalgias MOLD 07/29/2019 14 - Other: See Comments SEASONAL ALLERGIES 08/01/2016 12 - Shortness of Breath 14 - Other: See Comments Comments: Allergy induced asthmatic bronchitis, gets wheezy and SOB with molds and mildew [id number] REDUCTASE INHIBIT*12/25/2015 14 - Other: See Comments Comments: Bone pain Date Reviewed: 11/29/2022 Reviewed by: Maribeth Sutherland, MADHAVI - Fully Assessed Reason for Visit: Transition Of Care [4074] Cmt: TCM Initial Hospital Discharge 11/29/2022 Prescriptions as of 12/01/2022 - apixaban (ELIQUIS) 5 mg tab(s) Take 1 tablet by mouth twice daily. - sertraline (ZOLOFT) 100 mg tablet Take 1 tablet by mouth once daily. - omeprazole (PRILOSEC) 40 mg capsule Take 1 capsule by mouth once daily. - metFORMIN (GLUCOPHAGE) 500 mg tablet Take 1 tablet by mouth twice daily with meals. - levothyroxine (SYNTHROID) 100 mcg tablet Take 1 tablet by mouth once daily. - lisinopril 2.5 mg tablet Take 1 tablet by mouth once daily. - Cholecalciferol, Vitamin D3, (VITAMIN D) 25 mcg (1,000 unit) cap Take 6 capsules by mouth once daily. - vitamin b complex (VITAMINS B COMPLEX) capsule Take 1 capsule by mouth twice daily. - montelukast (SINGULAIR) 10 mg tablet Take 1 tablet by mouth daily at bedtime. As needed - magnesium oxide (MAG-OX) 400 mg (241.3 mg magnesium) tablet Take 1 tablet by mouth once daily. - blood sugar diagnostic (TRUE METRIX GLUCOSE TEST STRIP) test strip Use to check blood sugars 2 times per day. Dx: E11.9 - FOLIC ACID ORAL Take by mouth. - albuterol HFA (PROAIR HFA) 90 mcg/actuation inhaler Inhale 2 Puffs as instructed every 4 hours as needed. - aspirin, enteric coated (ASPIRIN, ENTERIC COATED) 81 mg EC tablet Take 1 tablet by mouth once daily. - CALCIUM CARBONATE-VITAMIN D3 ORAL Take 1 capsule by mouth twice daily. - MULTIVITS-MIN/FA/CA CARB/VIT K (ONE-A-DAY WOMEN'S 50+ ORAL) Take 1 tablet by mouth once daily. - [place]-3 Fatty Acids-Vitamin E (FISH OIL) 1,000 mg cap Take 1 capsule by mouth twice daily. Meds Comments as of 09/04/2017: Also takes a vitamin for hair loss Problem List As Of Date 11/30/2022 Noted Resolved Osteoarthritis [M19.90] 11/21/2012 07/29/2019 Vitamin D deficiency [E55.9] 08/20/2013 07/29/2019 Hypertension [I10] ADD (attention deficit disorder) [F98.8] Hypothyroidism [E03.9] Acquired hypothyroidism [E03.9] 01/28/2015 07/29/2019 Essential hypertension [I10] 01/28/2015 DDD (degenerative disc disease), cervical [M50.*02/26/2016 DDD (degenerative disc disease), lumbar [M51.36]02/26/2016 Allergic asthma [J45.909] 02/26/2016 07/29/2019 Allergic rhinitis [J30.9] 02/26/2016 07/29/2019 Hyperglycemia [R73.9] 09/04/2017 09/06/2017 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] 09/05/2017 09/06/2017 Uncontrolled type 2 diabetes mellitus with keto*09/05/2017 09/14/2017 Controlled type 2 diabete (more content not included)... [facility] 11-30-2022 Note HNO ID: [id number] Author: Catherine Webber RN Service: ? Author Type: Registered Nurse Type: Progress Notes Filed: 12/01/2022 12:36 PM Note Text: TCM Home Visit Referral Source of Stratification: [facility] Hospital Admission Status: Discharged Readmission Risk Score: 17 JUAN JOSE Score: 4 Patient meets program referral criteria: No Patient does not qualify for High Risk TCM Home Visit program due to: Discharged home, does not meet program criteria TRANSITIONAL CARE MANAGEMENT (TCM) COMMUNITY MONITORING PROGRAM Provider Action/FYI: Attempted outreach to patient for hospital discharge initial outreach. No answer, mailbox full, unable to leave message. SUMMARY: Discharge Network Status: In-Network Discharge Pt discharged from [facility] on 11/29/2022. Admitted for: COVID 19, afib Contact made with patient: No - next outreach attempt will be on next day Outreach ended Catherine Smiley RN November 30, 2022 9:26 AM [facility] 11-29-2022 Note HNO ID: [id number] Author: Enrique (Python Developer)Gilda Service: Pharmacy Author Type: ? Type: Plan of Care Filed: 11/29/2022 5:00 PM Note Text: PHARMACY BEDSIDE DELIVERY SERVICE Patient Name: Yajaira Mcginnis The marked outpatient medications were Filled at: [facility] and delivered to the patient's bedside to 303-1 Medication List START taking these medications apixaban 5 mg tab(s) Commonly known as: ELIQUIS Take 1 tablet by mouth twice daily. X CONTINUE taking these medications albuterol HFA 90 mcg/actuation inhaler Commonly known as: PROAIR HFA Inhale 2 Puffs as instructed every 4 hours as needed. aspirin, enteric coated 81 mg EC tablet Commonly known as: ASPIRIN, ENTERIC COATED Take 1 tablet by mouth once daily. CALCIUM CARBONATE-VITAMIN D3 ORAL Cholecalciferol (Vitamin D3) 25 mcg (1,000 unit) Cap Commonly known as: Vitamin D Take 6 capsules by mouth once daily. Fish OiL 1,000 mg Cap Generic drug: [place]-3 Fatty Acids-Vitamin E FOLIC ACID ORAL levothyroxine 100 mcg tablet Commonly known as: SYNTHROID Take 1 tablet by mouth once daily. lisinopril 2.5 mg tablet Take 1 tablet by mouth once daily. magnesium oxide 400 mg (241.3 mg magnesium) tablet Commonly known as: MAG-OX Take 1 tablet by mouth once daily. metFORMIN 500 mg tablet Commonly known as: GLUCOPHAGE Take 1 tablet by mouth twice daily with meals. montelukast 10 mg tablet Commonly known as: SINGULAIR Take 1 tablet by mouth daily at bedtime. As needed omeprazole 40 mg capsule Commonly known as: PriLOSEC Take 1 capsule by mouth once daily. ONE-A-DAY WOMEN'S 50+ ORAL sertraline 100 mg tablet Commonly known as: ZOLOFT Take 1 tablet by mouth once daily. TRUE METRIX GLUCOSE TEST STRIP test strip Generic drug: blood sugar diagnostic Use to check blood sugars 2 times per day. Dx: E11.9 vitamin b complex capsule Commonly known as: VITAMINS B COMPLEX Take 1 capsule by mouth twice daily. You might also be taking other medications not listed above. If you have questions about any of your other medications, talk to the person who prescribed them or your Primary Care Provider. STOP taking these medications meloxicam 7.5 mg tablet Commonly known as: MOBIC Pt's rx handed off to and signed for by Christi Pérez RN since pt is covid+ and pt's RN was occupied in another room. Gilda Nunez (Python Developer) PAGER: [phone] November 29, 2022 4:59 PM [facility] 11-29-2022 Note HNO ID: [id number] Author: Rajinder Rodriguez MD Service: Hospital Medicine Author Type: Physician Type: Progress Notes Filed: 11/29/2022 1:59 PM Note Text: DEPARTMENT OF HOSPITAL MEDICINE PROGRESS NOTE SERVICE DATE: 11/29/2022 SERVICE TIME: 1:55 PM Hospital Medicine/Primary Attending: Rajinder Rodriguez MD NIGHT AND WEEKEND COVERAGE: [place] COVERAGE: Days: [phone], please page attending physician. Nights: [phone], please page [facility] Night coverage pager [phone]. Subjective Subjective Patient seems more alert today, sitting comfortably in bed MEDICATIONS: Reviewed Objective Physical Exam Performed Objective: Vital signs: (most recent): Blood pressure 126/59, pulse 74, temperature 37.1 ?C (98.8 ?F), temperature source Oral, resp. rate 18, height 165.1 cm (5' 5 ), weight 113.6 kg (250 lb 7.1 oz), SpO2 94 %. General : No distress , follows commands Oral : oral mucosa moist, no ulcers Eyes: PERRLA Neck - no JVD Respiratory : b/l equal breath sounds CVS - S1,S2 normal , no murmer heard Abdomen :soft non tender, BS active Extremities : no leg edema Neuro : grossly normal cognition,right side weakness 3/5, severe aphasia present Pulses - 2+ radial, 2+carotid Lines, Drains, and Airways Line Duration Peripheral 11/27/22 [facility] Right Antecubital 20 Gauge 2 days Drain Duration External Collection Device 11/27/22 194 [facility] 1 day Reviewed lines and needs to be continued: REASONS: Intravenous fluids DATA: Diagnostic tests reviewed for today's visit: Most recent labs and imaging results. 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 She is COVID positive, not requiring supplemental oxygen. Admitted for COVID-19 infection, KACY and generalized weakness COVID-19 virus infection (POA: Yes) --Symptom onset 11/21/22 (cough, congestion) --COVID PCR (+) 11/27/22 --O2 stable on RA --CXR negative for acute --Tylenol, Robitussin, Albuterol as needed --Heparin for DVT ppx --Telemetry and pulse ox monitoring --Maintain COVID precautions --ID consulted Generalized weakness (POA: Yes) --Suspected related to COVID infection --PT/OT recommend SNF History of Paroxysmal atrial fibrillation (HCC) (POA: Yes) --Appear to be in NSR --ASA 81 mg daily as ART CONSERVATOR -- cardiology consulted for anticoagulation Hypothyroidism (POA: Yes) --Synthroid Medication and Non-Pharmacologic VTE Prophylaxis/Anticoagulants Anticoagulant AND Antiplatelet Medications (From admission, onward) Start Dose Route Frequency Last Action Ordered Stop 11/28/22 0900 aspirin, enteric coated 81 mg tab(s) 81 mg ORAL DAILY Given, 11/30 83511/27/221904 -- 11/27/22 2100 heparin 5,000 Units injection (Medical Risk Categories) 5,000 Units SUBCUTANEOUS EVERY 12 HOURS Given, 11/30 83511/27/221904 -- VTE Prophylaxis: VTE prophylaxis appropriate Disposition: To be determined Plan of care discussed with: Provider, RN, Patient SIGNATURE: Rajinder Rodriguez MD PATIENT NAME: Yajaira Mcginnis DATE: November 29, 2022 TIME: 1:55 PM PAGER/CONTACT #: [phone] [facility] 11-29-2022 Miscellaneous Notes Welcome Home Call: a. Date and Time: 3:23 PM 11/29/2022 b. Contact name/relationship: Elizabeth/daughter c. Have you been active with any Home Care company in the last 60 days (such as help with bathing, filling medications, checking your blood pressure)? No. d. [facility] will be providing your care, are you agreeable to starting these services? yes (yes or no) e. Do you have any upcoming appointments in the next few days, or restrictions to your schedule? no f. Caregiver: Yes - Caregiver name brother ; spoke with Elizabeth to confirm 11/29/22 g. Confirmed Visited Location and preferred #: Address: [address] [place] [phone] (Elizabeth) Please keep our your medications both over the counter and prescribed out for the home care to review, your hospital discharge instructions and write down any questions you might have. In order to maintain a safe environment for our caregivers, [facility] requires any animals or weapons present in the home be located in a secured location. Our clinicians will call you the night before or the morning of the appointment. Their # may come up restricted but they'll leave a VM for you. In case you have any questions or concerns in the meantime, our # is [phone], option 5 Thank you for your time and have a great day. Paola Dos Santos documented in this encounter [facility] 11-29-2022 Miscellaneous Notes Yes, I will follow for home care Carlton Montalvo MD Please advise if you are agreeable to signing and following for HHC services? Our Clinicians will be sending the Plan of Care to you for review and approval. They will reach out for any appropriate orders required to provide home care services for the patient. We are not able to initiate HHC services without a following provider. Home care clinicians may also obtain orders from [facility] Virtual[facility] Providers Thank you and we would be happy to answer any questions. Carole Fermin LPN 11/29/2022 10:07 AM documented in this encounter [facility] 11-28-2022 Note HNO ID: [id number] Author: Rajinder Rodriguez MD Service: Hospital Medicine Author Type: Physician Type: Progress Notes Filed: 11/28/2022 2:51 PM Note Text: DEPARTMENT OF HOSPITAL MEDICINE PROGRESS NOTE SERVICE DATE: 11/28/2022 SERVICE TIME: 2:46 PM Hospital Medicine/Primary Attending: Rajinder Rodriguez MD NIGHT AND WEEKEND COVERAGE: [place] COVERAGE: Days: [phone], please page attending physician. Nights: [phone], please page [facility] Night coverage pager [phone]. Subjective Subjective Patient not able to provide any history due to severe aphasia. MEDICATIONS: Reviewed Objective Physical Exam Performed Objective: Vital signs: (most recent): Blood pressure 126/58, pulse 78, temperature 37 ?C (98.6 ?F), temperature source Oral, resp. rate 14, height 165.1 cm (5' 5 ), weight 112.1 kg (247 lb 2.2 oz), SpO2 96 %. General : No distress , follows commands Oral : oral mucosa moist, no ulcers Eyes: PERRLA Neck - no JVD Respiratory : b/l equal breath sounds CVS - S1,S2 normal , no murmer heard Abdomen :soft non tender, BS active Extremities : no leg edema Neuro : grossly normal cognition,right side weakness 3/5, severe aphasia present Pulses - 2+ radial, 2+carotid Lines, Drains, and Airways Line Duration Peripheral 11/27/22 [facility] Right Antecubital 20 Gauge 1 day Drain Duration External Collection Device 11/27/22 1940 [facility] <1 day Reviewed lines and needs to be continued: REASONS: Telemetry DATA: Diagnostic tests reviewed for today's visit: Most recent labs and imaging results. 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 She is COVID positive, not requiring supplemental oxygen. Admitted for COVID-19 infection, KACY and generalized weakness COVID-19 virus infection (POA: Yes) --Symptom onset 11/21/22 (cough, congestion) --COVID PCR (+) 11/27/22 --O2 stable on RA --CXR negative for acute --Tylenol, Robitussin, Albuterol as needed --Trend COVID labs --Heparin for DVT ppx --Telemetry and pulse ox monitoring --Maintain COVID precautions --ID consulted Generalized weakness (POA: Yes) --Suspected related to COVID infection --Residual right sided weakness and aphasia from prior CVA otherwise non-focal neurological evaluation without new deficits --CT Brain negative for acute intracranial process --COVID management as above --Fall Precautions --PT/OT evaluations History of Paroxysmal atrial fibrillation (HCC) (POA: Yes) --Appear to be in NSR but no recent EKG on file therefor will repeat now --No rate or rhythm control on board --ASA 81 mg daily as ART CONSERVATOR Hypothyroidism (POA: Yes) --Synthroid Medication and Non-Pharmacologic VTE Prophylaxis/Anticoagulants Anticoagulant AND Antiplatelet Medications (From admission, onward) Start Dose Route Frequency Last Action Ordered Stop 11/28/22 0900 aspirin, enteric coated 81 mg tab(s) 81 mg ORAL DAILY Given, 11/28 90911/27/221904 -- 11/27/22 2100 heparin 5,000 Units injection (Medical Risk Categories) 5,000 Units SUBCUTANEOUS EVERY 12 HOURS Given, 11/28 90911/27/22 190 -- VTE Prophylaxis: VTE prophylaxis appropriate Disposition: To be determined Plan of care discussed with: Provider, RN, Patient SIGNATURE: Rajinder Rodriguez MD PATIENT NAME: Yajaira Mcginnis DATE: November 28, 2022 TIME: 2:46 PM PAGER/CONTACT #: [phone] [facility] documented as of this encounter (statuses as of 11/30/2022) [place] [id number] History of Past illness Narrative* Problem Noted Date Diagnosed Date Resolved Date KACY (acute kidney injury) 11/27/2022 Hypoglycemia 07/25/2019 07/25/2019 Last Assessment & Plan: Continue Synthroid Chronic neck pain 07/25/2019 07/29/2019 Overview: 5 milligrams oxycodone 4 times a day. Last Assessment & Plan: See treatment plan osteoarthritis Class 2 obesity with body ma ss index (BMI) of 35.0 to 35.9 in adult 07/25/2019 07/29/2019 Last Assessment & Plan: Assessment: Problem is stable with current regimen. PLAN: Continue current regimen Further counseling after stabilized following discharge Corticosteroid dependence 07/25/2019 Overview: Stress dose steroid while nothing by mouth and stable Last Assessment & Plan: Stable Altered mental state 07/24/2019 04 020 Last Assessment & Plan: Possibly secondary to hypoglycemia, stroke, or other etiology Opens eyes, responds to verbal stimuli and withdraw to pain but does not talk Moving all her extremities Head CT did not show acute findings Glucose improved now Continue D5+NS over night Check B12 and ammonia MRI at AM Neurology consult Stroke pathway Keep on telemetry ASA, statin Lipid panel and A1C Echo MRI W and W/O Anemia 07/22/2019 07/29/2019 Obesity, Class I, BMI 30-34.9 03/16/2018 07/29/2019 Constipation 03/15/2018 07/29/2019 Last Assessment & Plan: Senna-s, miralax daily One time fleet enema Current chronic use of systemic steroids 03/14/2018 07/29/2019 Last Assessment & Plan: Assessment: has been on 20mg prednisone for arthritis and asthma per patient for over 8 years. Has had unsuccessful attempts at weening due to fatigue, malaise. Likely has adrenal insufficiency due to this. PLAN: - continue 20mg prednisone for now - will try to decrease tomorrow to 17.5 and ween slowly Generalized weakness 03/13/2018 023 Last Assessment & Plan: Assessment: likely 2/2 to dehydration and prior viral illness, post viral cough. Exacerbated by chronic steroid use and likely adrenal insufficiency. PLAN: - IV hydration - PT/OT Asymptomatic bacteriuria 03/13/2018 Last Assessment & Plan: Assessment: UA positive but asymptomatic PLAN: D/c ceftriaxone Monitor for symptoms Chest pain 03/13/2018 03/16/2018 Last Assessment & Plan: Pleuritic chest pain likely from post viral cough troponins negative, will stop cycling Hyperosmolar (nonketotic) coma 09/05/2017 09/06/2017 Uncontrolled type 2 diabetes mellitus with ketoacidosis without coma, without long-term current use of insulin 09/05/2017 09/14/2017 Hyperglycemia 09/04/2017 09/06/2017 Allergic asthma 02/26/2016 07/29/2019 Last Assessment & Plan: Assessment h/o asthma and uses albuterol inhaler as needed paitent coming with mild exacerbation as she was wheezing in the ED. PLAN: Check for flu CT CHEST AND Abdomen negative for acute pathology. Continue with duoneb No need for steroids at present Allergic rhinitis 02/26/2016 07/29/2019 Acquired hypothyroidism 01/28/2015 04/0 09/2019 Last Assessment & Plan: TSH - WNL Continue with home dose of levothyroxine Vitamin D deficiency 08/20/2013 020 Osteoarthritis 11/21/2012 07/29/2019 Last Assessment & Plan: Stopped Celecoxib Resumed daily Prednisone 20mg As she is a phasic continued her oxycodone but at a lower dosage documented as of this encounter (statuses as of 11/30/2022) [facility] History of Past illness Narrative* Problem Noted Date Diagnosed Date Resolved Date KACY (acute kidney injury) 11/27/2022 Hypoglycemia 07/25/2019 07/25/2019 Last Assessment & Plan: Continue Synthroid Chronic neck pain 07/25/2019 07/29/2019 Overview: 5 milligrams oxycodone 4 times a day. Last Assessment & Plan: See treatment plan osteoarthritis Class 2 obesity with body ma ss index (BMI) of 35.0 to 35.9 in adult 07/25/2019 07/29/2019 Last Assessment & Plan: Assessment: Problem is stable with current regimen. PLAN: Continue current regimen Further counseling after stabilized following discharge Corticosteroid dependence 07/25/2019 Overview: Stress dose steroid while nothing by mouth and stable Last Assessment & Plan: Stable Altered mental state 07/24/2019 020 Last Assessment & Plan: Possibly secondary to hypoglycemia, stroke, or other etiology Opens eyes, responds to verbal stimuli and withdraw to pain but does not talk Moving all her extremities Head CT did not show acute findings Glucose improved now Continue D5+NS over night Check B12 and ammonia MRI at AM Neurology consult Stroke pathway Keep on telemetry ASA, statin Lipid panel and A1C Echo MRI W and W/O Anemia 07/22/2019 07/29/2019 Obesity, Class I, BMI 30-34.9 03/16/2018 07/29/2019 Constipation 03/15/2018 07/29/2019 Last Assessment & Plan: Senna-s, miralax daily One time fleet enema Current chronic use of systemic steroids 03/14/2018 07/29/2019 Last Assessment & Plan: Assessment: has been on 20mg prednisone for arthritis and asthma per patient for over 8 years. Has had unsuccessful attempts at weening due to fatigue, malaise. Likely has adrenal insufficiency due to this. PLAN: - continue 20mg prednisone for now - will try to decrease tomorrow to 17.5 and ween slowly Generalized weakness 03/13/2018 023 Last Assessment & Plan: Assessment: likely 2/2 to dehydration and prior viral illness, post viral cough. Exacerbated by chronic steroid use and likely adrenal insufficiency. PLAN: - IV hydration - PT/OT Asymptomatic bacteriuria 03/13/2018 Last Assessment & Plan: Assessment: UA positive but asymptomatic PLAN: D/c ceftriaxone Monitor for symptoms Chest pain 03/13/2018 03/16/2018 Last Assessment & Plan: Pleuritic chest pain likely from post viral cough troponins negative, will stop cycling Hyperosmolar (nonketotic) coma 09/05/2017 09/06/2017 Uncontrolled type 2 diabetes mellitus with ketoacidosis without coma, without long-term current use of insulin 09/05/2017 09/14/2017 Hyperglycemia 09/04/2017 09/06/2017 Allergic asthma 02/26/2016 07/29/2019 Last Assessment & Plan: Assessment h/o asthma and uses albuterol inhaler as needed paitent coming with mild exacerbation as she was wheezing in the ED. PLAN: Check for flu CT CHEST AND Abdomen negative for acute pathology. Continue with duoneb No need for steroids at present Allergic rhinitis 02/26/2016 07/29/2019 Acquired hypothyroidism 01/28/2015 04/09/2019 Last Assessment & Plan: TSH - WNL Continue with home dose of levothyroxine Vitamin D deficiency 08/20/2013 020 Osteoarthritis 11/21/2012 07/29/2019 Last Assessment & Plan: Stopped Celecoxib Resumed daily Prednisone 20mg As she is a phasic continued her oxycodone but at a lower dosage documented as of this encounter (statuses as of 12/01/2022) [facility]08-06-2023 History of Past illness Narrative* Problem Noted Date Diagnosed Date Resolved Date KACY (acute kidney injury) 11/27/2022 Hypoglycemia 07/25/2019 07/25/2019 Last Assessment & Plan: Continue Synthroid Chronic neck pain 07/25/2019 07/29/2019 Overview: 5 milligrams oxycodone 4 times a day. Last Assessment & Plan: See treatment plan osteoarthritis Class 2 obesity with body ma ss index (BMI) of 35.0 to 35.9 in adult 07/25/2019 07/29/2019 Last Assessment & Plan: Assessment: Problem is stable with current regimen. PLAN: Continue current regimen Further counseling after stabilized following discharge Corticosteroid dependence 07/25/2019 Overview: Stress dose steroid while nothing by mouth and stable Last Assessment & Plan: Stable Altered mental state 07/24/2019 020 Last Assessment & Plan: Possibly secondary to hypoglycemia, stroke, or other etiology Opens eyes, responds to verbal stimuli and withdraw to pain but does not talk Moving all her extremities Head CT did not show acute findings Glucose improved now Continue D5+NS over night Check B12 and ammonia MRI at AM Neurology consult Stroke pathway Keep on telemetry ASA, statin Lipid panel and A1C Echo MRI W and W/O Anemia 07/22/2019 07/29/2019 Obesity, Class I, BMI 30-34.9 03/16/2018 07/29/2019 Constipation 03/15/2018 07/29/2019 Last Assessment & Plan: Senna-s, miralax daily One time fleet enema Current chronic use of systemic steroids 03/14/2018 07/29/2019 Last Assessment & Plan: Assessment: has been on 20mg prednisone for arthritis and asthma per patient for over 8 years. Has had unsuccessful attempts at weening due to fatigue, malaise. Likely has adrenal insufficiency due to this. PLAN: - continue 20mg prednisone for now - will try to decrease tomorrow to 17.5 and ween slowly Generalized weakness 03/13/2018 023 Last Assessment & Plan: Assessment: likely 2/2 to dehydration and prior viral illness, post viral cough. Exacerbated by chronic steroid use and likely adrenal insufficiency. PLAN: - IV hydration - PT/OT Asymptomatic bacteriuria 03/13/2018 Last Assessment & Plan: Assessment: UA positive but asymptomatic PLAN: D/c ceftriaxone Monitor for symptoms Chest pain 03/13/2018 03/16/2018 Last Assessment & Plan: Pleuritic chest pain likely from post viral cough troponins negative, will stop cycling Hyperosmolar (nonketotic) coma 09/05/2017 09/06/2017 Uncontrolled type 2 diabetes mellitus with ketoacidosis without coma, without long-term current use of insulin 09/05/2017 09/14/2017 Hyperglycemia 09/04/2017 09/06/2017 Allergic asthma 02/26/2016 07/29/2019 Last Assessment & Plan: Assessment h/o asthma and uses albuterol inhaler as needed paitent coming with mild exacerbation as she was wheezing in the ED. PLAN: Check for flu CT CHEST AND Abdomen negative for acute pathology. Continue with duoneb No need for steroids at present Allergic rhinitis 02/26/2016 07/29/2019 Acquired hypothyroidism 01/28/201509/2019 Last Assessment & Plan: TSH - WNL Continue with home dose of levothyroxine Vitamin D deficiency 08/20/2013 020 Osteoarthritis 11/21/2012 07/29/2019 Last Assessment & Plan: Stopped Celecoxib Resumed daily Prednisone 20mg As she is a phasic continued her oxycodone but at a lower dosage documented as of this encounter (statuses as of 12/02/2022) [facility]08-06-2023 History of Past illness Narrative* Problem Noted Date Diagnosed Date Resolved Date KACY (acute kidney injury) 11/27/2022 Hypoglycemia 07/25/2019 07/25/2019 Last Assessment & Plan: Continue Synthroid Chronic neck pain 07/25/2019 07/29/2019 Overview: 5 milligrams oxycodone 4 times a day. Last Assessment & Plan: See treatment plan osteoarthritis Class 2 obesity with body ma ss index (BMI) of 35.0 to 35.9 in adult 07/25/2019 07/29/2019 Last Assessment & Plan: Assessment: Problem is stable with current regimen. PLAN: Continue current regimen Further counseling after stabilized following discharge Corticosteroid dependence 07/25/2019 Overview: Stress dose steroid while nothing by mouth and stable Last Assessment & Plan: Stable Altered mental state 07/24/2019 020 Last Assessment & Plan: Possibly secondary to hypoglycemia, stroke, or other etiology Opens eyes, responds to verbal stimuli and withdraw to pain but does not talk Moving all her extremities Head CT did not show acute findings Glucose improved now Continue D5+NS over night Check B12 and ammonia MRI at AM Neurology consult Stroke pathway Keep on telemetry ASA, statin Lipid panel and A1C Echo MRI W and W/O Anemia 07/22/2019 07/29/2019 Obesity, Class I, BMI 30-34.9 03/16/2018 07/29/2019 Constipation 03/15/2018 07/29/2019 Last Assessment & Plan: Senna-s, miralax daily One time fleet enema Current chronic use of systemic steroids 03/14/2018 07/29/2019 Last Assessment & Plan: Assessment: has been on 20mg prednisone for arthritis and asthma per patient for over 8 years. Has had unsuccessful attempts at weening due to fatigue, malaise. Likely has adrenal insufficiency due to this. PLAN: - continue 20mg prednisone for now - will try to decrease tomorrow to 17.5 and ween slowly Generalized weakness 03/13/2018 023 Last Assessment & Plan: Assessment: likely 2/2 to dehydration and prior viral illness, post viral cough. Exacerbated by chronic steroid use and likely adrenal insufficiency. PLAN: - IV hydration - PT/OT Asymptomatic bacteriuria 03/13/2018 Last Assessment & Plan: Assessment: UA positive but asymptomatic PLAN: D/c ceftriaxone Monitor for symptoms Chest pain 03/13/2018 03/16/2018 Last Assessment & Plan: Pleuritic chest pain likely from post viral cough troponins negative, will stop cycling Hyperosmolar (nonketotic) coma 09/05/2017 09/06/2017 Uncontrolled type 2 diabetes mellitus with ketoacidosis without coma, without long-term current use of insulin 09/05/2017 09/14/2017 Hyperglycemia 09/04/2017 09/06/2017 Allergic asthma 02/26/2016 07/29/2019 Last Assessment & Plan: Assessment h/o asthma and uses albuterol inhaler as needed paitent coming with mild exacerbation as she was wheezing in the ED. PLAN: Check for flu CT CHEST AND Abdomen negative for acute pathology. Continue with duoneb No need for steroids at present Allergic rhinitis 02/26/2016 07/29/2019 Acquired hypothyroidism 01/28/2015 04/0 09/2019 Last Assessment & Plan: TSH - WNL Continue with home dose of levothyroxine Vitamin D deficiency 08/20/2013 020 Osteoarthritis 11/21/2012 07/29/2019 Last Assessment & Plan: Stopped Celecoxib Resumed daily Prednisone 20mg As she is a phasic continued her oxycodone but at a lower dosage documented as of this encounter (statuses as of 12/03/2022) [facility]08-06-2023 History of Past illness Narrative* Problem Noted Date Diagnosed Date Resolved Date KACY (acute kidney injury) 11/27/2022 Hypoglycemia 07/25/2019 07/25/2019 Last Assessment & Plan: Continue Synthroid Chronic neck pain 07/25/2019 07/29/2019 Overview: 5 milligrams oxycodone 4 times a day. Last Assessment & Plan: See treatment plan osteoarthritis Class 2 obesity with body ma ss index (BMI) of 35.0 to 35.9 in adult 07/25/2019 07/29/2019 Last Assessment & Plan: Assessment: Problem is stable with current regimen. PLAN: Continue current regimen Further counseling after stabilized following discharge Corticosteroid dependence 07/25/2019 Overview: Stress dose steroid while nothing by mouth and stable Last Assessment & Plan: Stable Altered mental state 07/24/2019 020 Last Assessment & Plan: Possibly secondary to hypoglycemia, stroke, or other etiology Opens eyes, responds to verbal stimuli and withdraw to pain but does not talk Moving all her extremities Head CT did not show acute findings Glucose improved now Continue D5+NS over night Check B12 and ammonia MRI at AM Neurology consult Stroke pathway Keep on telemetry ASA, statin Lipid panel and A1C Echo MRI W and W/O Anemia 07/22/2019 07/29/2019 Obesity, Class I, BMI 30-34.9 03/16/2018 07/29/2019 Constipation 03/15/2018 07/29/2019 Last Assessment & Plan: Senna-s, miralax daily One time fleet enema Current chronic use of systemic steroids 03/14/2018 07/29/2019 Last Assessment & Plan: Assessment: has been on 20mg prednisone for arthritis and asthma per patient for over 8 years. Has had unsuccessful attempts at weening due to fatigue, malaise. Likely has adrenal insufficiency due to this. PLAN: - continue 20mg prednisone for now - will try to decrease tomorrow to 17.5 and ween slowly Generalized weakness 03/13/2018 023 Last Assessment & Plan: Assessment: likely 2/2 to dehydration and prior viral illness, post viral cough. Exacerbated by chronic steroid use and likely adrenal insufficiency. PLAN: - IV hydration - PT/OT Asymptomatic bacteriuria 03/13/2018 Last Assessment & Plan: Assessment: UA positive but asymptomatic PLAN: D/c ceftriaxone Monitor for symptoms Chest pain 03/13/2018 03/16/2018 Last Assessment & Plan: Pleuritic chest pain likely from post viral cough troponins negative, will stop cycling Hyperosmolar (nonketotic) coma 09/05/2017 09/06/2017 Uncontrolled type 2 diabetes mellitus with ketoacidosis without coma, without long-term current use of insulin 09/05/2017 09/14/2017 Hyperglycemia 09/04/2017 09/06/2017 Allergic asthma 02/26/2016 07/29/2019 Last Assessment & Plan: Assessment h/o asthma and uses albuterol inhaler as needed paitent coming with mild exacerbation as she was wheezing in the ED. PLAN: Check for flu CT CHEST AND Abdomen negative for acute pathology. Continue with duoneb No need for steroids at present Allergic rhinitis 02/26/2016 07/29/2019 Acquired hypothyroidism 01/28/2015 04/0 09/2019 Last Assessment & Plan: TSH - WNL Continue with home dose of levothyroxine Vitamin D deficiency 08/20/2013 020 Osteoarthritis 11/21/2012 07/29/2019 Last Assessment & Plan: Stopped Celecoxib Resumed daily Prednisone 20mg As she is a phasic continued her oxycodone but at a lower dosage documented as of this encounter (statuses as of 12/05/2022) [facility]08-06-2023 History of Past illness Narrative* Problem Noted Date Diagnosed Date Resolved Date KACY (acute kidney injury) 11/27/2022 Hypoglycemia 07/25/2019 07/25/2019 Last Assessment & Plan: Continue Synthroid Chronic neck pain 07/25/2019 07/29/2019 Overview: 5 milligrams oxycodone 4 times a day. Last Assessment & Plan: See treatment plan osteoarthritis Class 2 obesity with body ma ss index (BMI) of 35.0 to 35.9 in adult 07/25/2019 07/29/2019 Last Assessment & Plan: Assessment: Problem is stable with current regimen. PLAN: Continue current regimen Further counseling after stabilized following discharge Corticosteroid dependence 07/25/2019 Overview: Stress dose steroid while nothing by mouth and stable Last Assessment & Plan: Stable Altered mental state 07/24/2019 020 Last Assessment & Plan: Possibly secondary to hypoglycemia, stroke, or other etiology Opens eyes, responds to verbal stimuli and withdraw to pain but does not talk Moving all her extremities Head CT did not show acute findings Glucose improved now Continue D5+NS over night Check B12 and ammonia MRI at AM Neurology consult Stroke pathway Keep on telemetry ASA, statin Lipid panel and A1C Echo MRI W and W/O Anemia 07/22/2019 07/29/2019 Obesity, Class I, BMI 30-34.9 03/16/2018 07/29/2019 Constipation 03/15/2018 07/29/2019 Last Assessment & Plan: Senna-s, miralax daily One time fleet enema Current chronic use of systemic steroids 03/14/2018 07/29/2019 Last Assessment & Plan: Assessment: has been on 20mg prednisone for arthritis and asthma per patient for over 8 years. Has had unsuccessful attempts at weening due to fatigue, malaise. Likely has adrenal insufficiency due to this. PLAN: - continue 20mg prednisone for now - will try to decrease tomorrow to 17.5 and ween slowly Generalized weakness 03/13/2018 023 Last Assessment & Plan: Assessment: likely 2/2 to dehydration and prior viral illness, post viral cough. Exacerbated by chronic steroid use and likely adrenal insufficiency. PLAN: - IV hydration - PT/OT Asymptomatic bacteriuria 03/13/2018 Last Assessment & Plan: Assessment: UA positive but asymptomatic PLAN: D/c ceftriaxone Monitor for symptoms Chest pain 03/13/2018 03/16/2018 Last Assessment & Plan: Pleuritic chest pain likely from post viral cough troponins negative, will stop cycling Hyperosmolar (nonketotic) coma 09/05/2017 09/06/2017 Uncontrolled type 2 diabetes mellitus with ketoacidosis without coma, without long-term current use of insulin 09/05/2017 09/14/2017 Hyperglycemia 09/04/2017 09/06/2017 Allergic asthma 02/26/2016 07/29/2019 Last Assessment & Plan: Assessment h/o asthma and uses albuterol inhaler as needed paitent coming with mild exacerbation as she was wheezing in the ED. PLAN: Check for flu CT CHEST AND Abdomen negative for acute pathology. Continue with duoneb No need for steroids at present Allergic rhinitis 02/26/2016 07/29/2019 Acquired hypothyroidism 01/28/2015 04/09/2019 Last Assessment & Plan: TSH - WNL Continue with home dose of levothyroxine Vitamin D deficiency 08/20/2013 020 Osteoarthritis 11/21/2012 07/29/2019 Last Assessment & Plan: Stopped Celecoxib Resumed daily Prednisone 20mg As she is a phasic continued her oxycodone but at a lower dosage documented as of this encounter (statuses as of 02/14/2023) [facility]08-02-2023 NotePatient Outreach (INTMMN) YAJAIRA MCGINNIS ([id number]) 1950 F Date Time Provider Department 11/23/22 [facility] MONTALVO During your visit today, we recorded the following information about you: Allergies As of Date: 11/23/2022 Noted Allergy Reaction LOPID (GEMFIBROZIL) 12/25/2015 14 - Other: See Comments Comments: Myalgias MOLD 07/29/2019 14 - Other: See Comments SEASONAL ALLERGIES 08/01/2016 12 - Shortness of Breath 14 - Other: See Comments Comments: Allergy induced asthmatic bronchitis, gets wheezy and SOB with molds and mildew [id number] REDUCTASE INHIBIT*12/25/2015 14 - Other: See Comments Comments: Bone pain Date Reviewed: 08/18/2021 Reviewed by: Lo Zee RN - Fully Assessed Visit Diagnosis:Encounter for screening mammogram for breast cancer [Z12.31] Order(s):[facility] [[id number]] Order #: [id number] FUTURE Prescriptions as of 11/28/2022 - sertraline (ZOLOFT) 100 mg tablet Take 1 tablet by mouth once daily. - omeprazole (PRILOSEC) 40 mg capsule Take 1 capsule by mouth once daily. - metFORMIN (GLUCOPHAGE) 500 mg tablet Take 1 tablet by mouth twice daily with meals. - levothyroxine (SYNTHROID) 100 mcg tablet Take 1 tablet by mouth once daily. - lisinopril 2.5 mg tablet Take 1 tablet by mouth once daily. - meloxicam (MOBIC) 7.5 mg tablet Take 1 tablet by mouth once daily. - Cholecalciferol, Vitamin D3, (VITAMIN D) 25 mcg (1,000 unit) cap Take 6 capsules by mouth once daily. - vitamin b complex (VITAMINS B COMPLEX) capsule Take 1 capsule by mouth twice daily. - montelukast (SINGULAIR) 10 mg tablet Take 1 tablet by mouth daily at bedtime. As needed - magnesium oxide (MAG-OX) 400 mg (241.3 mg magnesium) tablet Take 1 tablet by mouth once daily. - blood sugar diagnostic (TRUE METRIX GLUCOSE TEST STRIP) test strip Use to check blood sugars 2 times per day. Dx: E11.9 - FOLIC ACID ORAL Take by mouth. - albuterol HFA (PROAIR HFA) 90 mcg/actuation inhaler Inhale 2 Puffs as instructed every 4 hours as needed. - aspirin, enteric coated (ASPIRIN, ENTERIC COATED) 81 mg EC tablet Take 1 tablet by mouth once daily. - CALCIUM CARBONATE-VITAMIN D3 ORAL Take 1 capsule by mouth twice daily. - MULTIVITS-MIN/FA/CA CARB/VIT K (ONE-A-DAY WOMEN'S 50+ ORAL) Take 1 tablet by mouth once daily. - [place]-3 Fatty Acids-Vitamin E (FISH OIL) 1,000 mg cap Take 1 capsule by mouth twice daily. Facility-Administered Medications as of 11/28/2022 - albuterol HFA 90 mcg/actuation 2 Puff (PROVENTIL HFA, VENTOLIN HFA) - montelukast 10 mg tab(s) (SINGULAIR) - aspirin, enteric coated 81 mg tab(s) - pantoprazole DR 40 mg tab(s) (PROTONIX) - sertraline 100 mg tab(s) (ZOLOFT) - levothyroxine 100 mcg tab(s) (SYNTHROID) - heparin 5,000 Units injection - NaCl 0.9% iv flush bag - melatonin 3 mg tab(s) - guaiFENesin-dextromethorphan 100-10 mg/5 mL 10 mL oral liquid (ROBITUSSIN DM) - miconazole 2 % 1 application topical powder - NaCl 0.9% iv infusion Meds Comments as of 09/04/2017: Also takes a vitamin for hair loss Problem List As Of Date 11/23/2022 Noted Resolved Osteoarthritis [M19.90] 11/21/2012 07/29/2019 Vitamin D deficiency [E55.9] 08/20/2013 07/29/2019 Hypertension [I10] ADD (attention deficit disorder) [F98.8] Hypothyroid [E03.9] Acquired hypothyroidism [E03.9] 01/28/2015 07/29/2019 Essential hypertension [I10] 01/28/2015 07/29/2019 DDD (degenerative disc disease), cervical [M50.*02/26/2016 DDD (degenerative disc disease), lumbar [M51.36]02/26/2016 Allergic asthma [J45.909] 02/26/2016 07/29/2019 Allergic rhinitis [J30.9] 02/26/2016 07/29/2019 Hyperglycemia [R73.9] 09/04/2017 09/06/2017 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] 09/05/2017 09/06/2017 Uncontrolled type 2 diabetes mellitus with keto*09/05/2017 09/14/2017 Controlled type 2 diabetes mellitus without com*02/09/2018 Weakness [R53.1] 03/13/2018 07/29/2019 Asymptomatic bacteriuria [R82.71] 03/13/2018 03/16/2018 Chest pain [R07.9] 03/13/2018 03/16/2018 Current chronic use of systemic steroids [Z79.5*03/14/2018 07/29/2019 Constipation [K59.00] 03/15/2018 07/29/2019 Obesity, Class I, BMI 30-34.9 [E66.9] 03/16/2018 07/29/2019 Anemia [D64.9] 07/22/2019 07/29/2019 GERD without esophagitis [K21.9] 07/22/2019 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 [facility]07-18-2023 Miscellaneous Notes* Telephone Encounter - Irasema Mar Ma - 11/08/2022 5:09 PM EDT Patient is NOT checked in for appointment- patient not present in waiting room or hollins at this timepatient's name was called a total of 3 times by geni (ANAMIKA) Irasema Mar. [facility] NotePatient Outreach (INTMMN) YAJAIRA MCGINNIS Ronaldo ([id number]) 1950 F Date Time Provider Department 10/26/22 CARLTON MONTALVO During your visit today, we recorded the following information about you: Allergies As of Date: 10/26/2022 Noted Allergy Reaction LOPID (GEMFIBROZIL) 12/25/2015 14 - Other: See Comments Comments: Myalgias MOLD 07/29/2019 14 - Other: See Comments SEASONAL ALLERGIES 08/01/2016 12 - Shortness of Breath 14 - Other: See Comments Comments: Allergy induced asthmatic bronchitis, gets wheezy and SOB with molds and mildew [id number] REDUCTASE INHIBIT*12/25/2015 14 - Other: See Comments Comments: Bone pain Date Reviewed: 08/18/2021 Reviewed by: Lo Zee, MADHAVI - Fully Assessed Visit Diagnosis:Controlled type 2 diabetes mellitus without complication, with long-term current use of insulin ([facility]) [E11.9, Z79.4] Order([facility] Order #: [id number] FUTURE Prescriptions as of 10/31/2022 - sertraline (ZOLOFT) 100 mg tablet Take 1 tablet by mouth once daily. - omeprazole (PRILOSEC) 40 mg capsule Take 1 capsule by mouth once daily. - metFORMIN (GLUCOPHAGE) 500 mg tablet Take 1 tablet by mouth twice daily with meals. - levothyroxine (SYNTHROID) 100 mcg tablet Take 1 tablet by mouth once daily. - lisinopril 2.5 mg tablet Take 1 tablet by mouth once daily. - meloxicam (MOBIC) 7.5 mg tablet Take 1 tablet by mouth once daily. - Cholecalciferol, Vitamin D3, (VITAMIN D) 25 mcg (1,000 unit) cap Take 6 capsules by mouth once daily. - vitamin b complex (VITAMINS B COMPLEX) capsule Take 1 capsule by mouth twice daily. - montelukast (SINGULAIR) 10 mg tablet Take 1 tablet by mouth daily at bedtime. As needed - magnesium oxide (MAG-OX) 400 mg (241.3 mg magnesium) tablet Take 1 tablet by mouth once daily. - blood sugar diagnostic (TRUE METRIX GLUCOSE TEST STRIP) test strip Use to check blood sugars 2 times per day. Dx: E11.9 - FOLIC ACID ORAL Take by mouth. - albuterol HFA (PROAIR HFA) 90 mcg/actuation inhaler Inhale 2 Puffs as instructed every 4 hours as needed. - aspirin, enteric coated (ASPIRIN, ENTERIC COATED) 81 mg EC tablet Take 1 tablet by mouth once daily. - CALCIUM CARBONATE-VITAMIN D3 ORAL Take 1 capsule by mouth twice daily. - MULTIVITS-MIN/FA/CA CARB/VIT K (ONE-A-DAY WOMEN'S 50+ ORAL) Take 1 tablet by mouth once daily. - [place]-3 Fatty Acids-Vitamin E (FISH OIL) 1,000 mg cap Take 1 capsule by mouth twice daily. Meds Comments as of 09/04/2017: Also takes a vitamin for hair loss Problem List As Of Date 10/26/2022 Noted Resolved Osteoarthritis [M19.90] 11/21/2012 07/29/2019 Vitamin D deficiency [E55.9] 08/20/2013 07/29/2019 Hypertension [I10] ADD (attention deficit disorder) [F98.8] Hypothyroid [E03.9] Acquired hypothyroidism [E03.9] 01/28/2015 07/29/2019 Essential hypertension [I10] 01/28/2015 07/29/2019 DDD (degenerative disc disease), cervical [M50.*02/26/2016 DDD (degenerative disc disease), lumbar [M51.36]02/26/2016 Allergic asthma [J45.909] 02/26/2016 07/29/2019 Allergic rhinitis [J30.9] 02/26/2016 07/29/2019 Hyperglycemia [R73.9] 09/04/2017 09/06/2017 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] 09/05/2017 09/06/2017 Uncontrolled type 2 diabetes mellitus with keto*09/05/2017 09/14/2017 Controlled type 2 diabetes mellitus without com*02/09/2018 Weakness [R53.1] 03/13/2018 07/29/2019 Asymptomatic bacteriuria [R82.71] 03/13/2018 03/16/2018 Chest pain [R07.9] 03/13/2018 03/16/2018 Current chronic use of systemic steroids [Z79.5*03/14/2018 07/29/2019 Constipation [K59.00] 03/15/2018 07/29/2019 Obesity, Class I, BMI 30-34.9 [E66.9] 03/16/2018 07/29/2019 Anemia [D64.9] 07/22/2019 07/29/2019 GERD without esophagitis [K21.9] 07/22/2019 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] 07/22/2019 Altered mental state [R41.82] 07/24/2019 07/25/2019 Hypoglycemia [E16.2] 07/25/2019 07/25/2019 History of CVA (cerebrovascular accident) [Z86.*07/25/2019 Chronic neck pain [M54.2, G89.29] 07/25/2019 07/29/2019 Class 2 obesity with body mass index (BMI) of 3*07/25/2019 07/29/2019 Corticosteroid dependence (HCC) [F19.20] 07/25/2019 03/28/2020 Paroxysmal atrial fibrillation (HCC) [I48.0] 07/25/2019 Multiple joint pain [M25.50] Obesity, Class I, BMI 30-34.9 [E66.9] 08/09/2020 Hypoglycemia [E16.2] 08/09/2020 UTI (urinary tract infection) [N39.0] 08/09/2020 Expressive aphasia [R47.01] 08/10/2020 Pressure ulcer of both heels, stage 1 [L89.611,*08/11/2020 Pressure ulcer of coccygeal region, stage 1 [L8*08/11/2020 Encounter Status:Closed by OMI PRODUSER on 10/31/22[facility] 08-19-2022 NoteHNO ID: [id number] Author: GRACIE Marr Service: ? 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 Angel reports patient needs assistance with all of her ADLs. Patient is non verbal but communicates with verbal cues. Discussed requesting an assessment thru the [facility] on Aging as it appears patient would benefit from many of their services and may be a Passport candidate. Angel reports he is also wheelchair bound and needs assistance with transportation. Discussed the [facility] can assist with his needs as well. Angel reports he gets things in the mail from them and has their number on hand. Angel reports he will contact them. Angel reports no additional resource needs at this time. Current SW intervention completed. INTERVENTION: [facility] Office on Aging - External Resource Community Resources - External Resource Connected to Resource - External Resource Follow Up Provided Resources Provided - Internal Resource Time Spent:: 30 minutes SIGNATURE: GRACIE Marr PATIENT NAME: Yajaira Mcginnis DATE: August 19, 2022 TIME: 2:42 PM CONTACT #: [phone] [facility]als [facility]04-28-[facility] History of Present illness Narrative* GRACIE Marr - 08/19/2022 2:42 PM EDT PRIMARY CARE SOCIAL WORK PROGRESS NOTE Provider Action / FYI PCP Action none SERVICE DATE: August 19, 2022 SERVICE TIME: 2:40 PM (Patient has been identified by name and date of ) REASON FOR CONTACT: Community Resources Mode of Outreach: Phone Call Progress Note: SW received return call from patient's Angel. Angel reports patient needs assistance with all of her ADLs. Patient is non verbal but communicates with verbal cues. Discussed requesting an assessment thru the [facility] Office on [facility] as it appears patient would benefit from many of their services and may be a Passport candidate. Angel reports he is also wheelchair bound and needs assistance with transportation. Discussed the [facility] can assist with his needs as well.Angel reports he gets things in the mail from them and has their number on hand. Angel reports hewill contact them. Angel reports no additional resource needs at this time. Current SW intervention completed. INTERVENTION: [facility] Office on Aging - External Resource Community Resources - External Resource Connected to Resource - External Resource Follow Up Provided Resources Provided - Internal Resource Time Spent:: 30 minutes SIGNATURE: GRACIE Marr PATIENT NAME: Yajaira Mcginnis DATE: August 19, 2022 TIME: 2:42 PM CONTACT #: [phone] documented in this encounterBelle[facility] Hospital04-24-2023 Miscellaneous Notes* Telephone Encounter - Irasema Mar Ma - 08/15/2022 9:42 AM EDT Patient requesting refills as follow: Last prescribed : 08/12/21 Last OV: 08/09/22 Next OV: 11/08/22 Requested Prescriptions Pending Prescriptions Disp Refills sertraline (ZOLOFT) 100 mg tablet [Pharmacy Med Name: sertraline 100 mg tablet] 90 tablet 3 Sig: Take 1 tablet by mouth once daily. omeprazole (PRILOSEC) 40 mg capsule [Pharmacy Med Name: omeprazole 40 mg capsule,delayed release] 90 capsule 3 Sig: Take 1 capsule by mouth once daily. Please review and advise. Irasema Mar Ma documented in this encounterBellevue Hospital04-20-2023 NoteHNO ID: [id number] Author: GRACIE Marr Service: ? Author Type: Truck Operator Type: Progress Notes Filed: 08/11/2022 3:27 PM Note Text: PRIMARY CARE SOCIAL WORK PROGRESS NOTE Provider Action / FYI PCP Action none SERVICE DATE: August 11, 2022 SERVICE TIME: 3:25 PM (Patient has been identified by name and date of ) REASON FOR CONTACT: Community Resources Mode of Outreach: Phone Call Progress Note: SW received voicemail from patient's returning my call. Placed return call this afternoon and left a message. SW will remain available. INTERVENTION: Follow Up Provided Unable to Contact Patient Time Spent:: 15 minutes SIGNATURE: GRACIE Marr PATIENT NAME: Yajaira Mcginnis DATE: August 11, 2022 TIME: 3:25 PM CONTACT #: [phone] Hospitals Conneaut [facility]04-19-2023 Note HNO ID: [id number] Author: GRACIE Marr Service: ? Author Type: Truck Operator Type: Progress Notes Filed: 08/10/2022 4:13 PM Note Text: PRIMARY CARE SOCIAL WORK PROGRESS NOTE Provider Action / FYI PCP Action none SERVICE DATE: August 10, 2022 SERVICE TIME: 4:10 PM (Patient has been identified by name and date of ) REASON FOR CONTACT: Community Resources Mode of Outreach: Phone Call Progress Note: PCSW order received for community resources, chart reviewed. Patient is in need of home health aide services. Left message for patient's spouse Angel ([phone]) offering assistance with resources. SW will remain available. INTERVENTION: Unable to Contact Patient Time Spent:: 15 minutes SIGNATURE: GRACIE Marr PATIENT NAME: Yajaira Mcginnis DATE: August 10, 2022 TIME: 4:07 PM CONTACT #: [phone] Hospitals [facility]04-19-2023 History of Present illness Narrative* GRACIE Marr - 08/10/2022 4:07 PM EDT PRIMARY CARE SOCIAL WORK PROGRESS NOTE Provider Action / FYI PCP Action none SERVICE DATE: August 10, 2022 SERVICE TIME: 4:10 PM (Patient has been identified by name and date of ) REASON FOR CONTACT: Community Resources Mode of Outreach: Phone Call Progress Note: PCSW order received for community resources, chart reviewed. Patient is in need of home health aide services. Left message for patient's spouse Angel ([phone]) offering assistance with resources. SW will remain available. INTERVENTION: Unable to Contact Patient Time Spent:: 15 minutes SIGNATURE: GRACIE Marr PATIENT NAME: Yajaira Mcginnis DATE: August 10, 2022 TIME: 4:07 PM CONTACT #: [phone] documented in this encounterBellevue Hospital04-18-2023 NoteHNO ID: [id number] Author: Mandie Vincent APRN.TUBE COREMAKER Service: ? Author Type: Nurse Practitioner Type: Progress Notes Filed: 08/09/2022 2:44 PM Note Text: AMBULATORY TELEPHONE VISIT Yajaira Mcginnis has consented to this telephone encounter. Persons Present: patient and patient's spouse/significant other Chief Complaint/Reason: medication f/u HPI: Communicated via Angel as patient is mostly non-verbal Daughter helping with medications, loads her pill boxes Living in a house in [place] with Angel Kraft is in a bed/chair most of the time No use of her entire right side since CVA Cannot speak but they can somewhat communicate with her with yes or no questions She does eat well for them No home health aid, couldn't get it approved he isnt sure what happened. He said it would be really helpful if they could. They do have to asist with all ADL's except feeding she can do alone, she does dress herself They have to bathe her and assist with elimination, using bedside commode DM- not checking blood sugars, does take the metformin Hx stroke/htn- does not check BP at home, is taking all medicaitons GERD- no symptoms, no vomiting DDD- no complaints of back pain, seems comofortable, does do the meloxicam Thyroid- taking daily Mood- does seem to be in good spirits Skin appears to be intact, no concerns with breakdown Taking the vitamin D supplement No troubles breathing, not needing the albuterol but rarely No chest pain or concerns Data Reviewed: Most recent labs ASSESSMENT/PLAN: 1. History of CVA (cerebrovascular accident) - ICD9: V12.54, ICD10: Z86.73 (primary diagnosis) 2. Expressive aphasia - ICD9: 784.3, ICD10: R47.01 - interested in home health aid, will consult social work for assistance with resources - LIPID PANEL BASIC - COMP METABOLIC PANEL - PRIMARY CARE SOCIAL WORK CONSULT 3. Primary hypertension - ICD9: 401.9, ICD10: I10 4. Paroxysmal atrial fibrillation (HCC) - ICD9: 427.31, ICD10: I48.0 - taking all medications as prescribed, not on any blood thinners, does not follow with cardiology - they do not check her blood pressure at home, discussed the importance of checking BP with home machine, spouse states they will get one - follow up in office with PCP in 3 months 5. GERD without esophagitis - ICD9: 530.81, ICD10: K21.9 - stable, no symptoms continue medications 6. Controlled type 2 diabetes mellitus without complication, with long-term current use of insulin (HCC) - ICD9: 250.00, V58.67, ICD10: E11.9, Z79.4 - they do not check blood sugars - she does take the metformin - due for a1c now - reviewed the need for dilated eye exam - ALBUMIN/CREAT RATIO RND UR - LIPID PANEL BASIC - HGB A1C - COMP METABOLIC PANEL - PRIMARY CARE SOCIAL WORK CONSULT 7. Hypothyroidism, unspecified type - ICD9: 244.9, ICD10: E03.9 - has been taking medications, will check blood work - TSH BLD 8. DDD (degenerative disc disease), cervical - ICD9: 722.4, ICD10: M50.30 9. DDD (degenerative disc disease), lumbar - ICD9: 722.52, ICD10: M51.36 - has not had any back pain complaints per spouse, she does appear comfortable and without pain for the most part - does use the meloxicam Total Time Spent: 16 minutes Mandie Vincent APRN.CNPUniversity Hospitals Conneaut Medical Center04-18-2023 Miscellaneous Notes * Telephone Encounter - Mandie Vincent APRN.CNP - 08/09/2022 10:25 AM EDT Due for visit with Dr. Montalvo, not seen since 2020 * Telephone Encounter - Addis Barakat MA - 08/09/2022 9:15 AM EDT Last appointment: 01-12-21 Next appointment: na Pharmacy verified in [facility]. Refill(s) requested: Requested Prescriptions Pending Prescriptions Disp Refills metFORMIN (GLUCOPHAGE) 500 mg tablet 180 tablet 0 Sig: Take 1 tablet by mouth twice daily with meals. levothyroxine (SYNTHROID) 100 mcg tablet 90 tablet 0 Sig: Take 1 tablet by mouth once daily. Order(s) pended. Please advise. Addis Barakat MA, [facility] documented in this encounterBellevue Hospital04-04-2023 NotePatient Outreach (NETNAV) YAJAIRA MCGINNIS ([id number]) 1950 F Date Time Provider Department 07/26/22 MARGARET ORDAZ During your visit today, we recorded the following information about you: Margaret Ordaz MA 07/26/2022 2:31 PM Signed POPULATION HEALTH NAVIGATION OUTREACH Action/[facility] MESSAGE SENT E11.9,Z79.4 - Controlled type 2 diabetes mellitus without complication, with long-term current use of insulin (HCC) - [id number] Last Billed 01/12/2021 I48.0 - Paroxysmal atrial fibrillation (HCC) ANNUAL MEDICARE WELLNESS BP CONTROLLED (<130/80) Never done DILATED RETINAL EXAM due on 10/17/2018 MAMMOGRAM due on 03/04/2021 HBA1C due on 07/11/2021 URINE ALBUMIN:CREATININE RATIO due on 01/12/2022 ANNUAL PCP TEAM CHRONIC DISEASE VISIT COLORECTAL CANCER SCREENING due on 06/20/2022 Patient Identified by Name and : NO Outreach Outcome/Action Unable to reach patient: Left message [employer] pet food companyhart message sent Did you use a PCP flex slot to schedule this appointment? N/A Reason for Outreach Care Gap or Scheduling/Wellness visits Payer: Payor: MEDICARE / Plan: MEDICARE A AND B / Product Type: Medicare / Care Gap Reviewed:: Annual Wellness visit Breast Cancer screening Controlling Blood Pressure Colorectal Cancer Screening HBA1C Nephropathy (Albumin/Creatinine) Urine Reminder: Reminder note to check Health Maintenance for items below Health Maintenance items due: COVID-19 VACCINE(1) Never done BP CONTROLLED (<130/80) Never done SHINGRIX VACCINE(1 of 2) Never done DILATED RETINAL EXAM due on 10/17/2018 MAMMOGRAM due on 03/04/2021 HBA1C due on 07/11/2021 LDL CHOLESTEROL due on 01/11/2022 URINE ALBUMIN:CREATININE RATIO due on 01/12/2022 DIABETIC FOOT EXAM due on 01/12/2022 ANNUAL PCP TEAM CHRONIC DISEASE VISIT due on 01/12/2022 ADVANCE DIRECTIVE DISCUSSION Never done DEPRESSION ASSESSMENT Never done COLORECTAL CANCER SCREENING due on 06/20/2022 Navigation Signature: Margaret Ordaz MA July 26, 2022 9:45 AM Allergies As of Date: 07/26/2022 Noted Allergy Reaction LOPID (GEMFIBROZIL) 12/25/2015 14 - Other: See Comments Comments: Myalgias MOLD 07/29/2019 14 - Other: See Comments SEASONAL ALLERGIES 08/01/2016 12 - Shortness of Breath 14 - Other: See Comments Comments: Allergy induced asthmatic bronchitis, gets wheezy and SOB with molds and mildew [id number] REDUCTASE INHIBIT*12/25/2015 14 - Other: See Comments Comments: Bone pain Date Reviewed: 08/18/2021 Reviewed by: Lo Zee RN - Fully Assessed Reason for Visit: Population Health Navigation Outreach [3910] Cmt: [facility] GAPS Prescriptions as of 07/26/2022 - metFORMIN (GLUCOPHAGE) 500 mg tablet TAKE 1 TABLET BY MOUTH TWICE DAILY WITH MEALS - levothyroxine (SYNTHROID) 100 mcg tablet TAKE 1 TABLET BY MOUTH ONCE DAILY - lisinopril 2.5 mg tablet Take 1 tablet by mouth once daily. - meloxicam (MOBIC) 7.5 mg tablet Take 1 tablet by mouth once daily. - sertraline (ZOLOFT) 100 mg tablet Take 1 tablet by mouth once daily. - omeprazole (PRILOSEC) 40 mg capsule Take 1 capsule by mouth once daily. - Cholecalciferol, Vitamin D3, (VITAMIN D) 25 mcg (1,000 unit) cap Take 6 capsules by mouth once daily. - vitamin b complex (VITAMINS B COMPLEX) capsule Take 1 capsule by mouth twice daily. - montelukast (SINGULAIR) 10 mg tablet Take 1 tablet by mouth daily at bedtime. As needed - magnesium oxide (MAG-OX) 400 mg (241.3 mg magnesium) tablet Take 1 tablet by mouth once daily. - blood sugar diagnostic (TRUE METRIX GLUCOSE TEST STRIP) test strip Use to check blood sugars 2 times per day. Dx: E11.9 - FOLIC ACID ORAL Take by mouth. - albuterol HFA (PROAIR HFA) 90 mcg/actuation inhaler Inhale 2 Puffs as instructed every 4 hours as needed. - aspirin, enteric coated (ASPIRIN, ENTERIC COATED) 81 mg EC tablet Take 1 tablet by mouth once daily. - CALCIUM CARBONATE-VITAMIN D3 ORAL Take 1 capsule by mouth twice daily. - MULTIVITS-MIN/FA/CA CARB/VIT K (ONE-A-DAY WOMEN'S 50+ ORAL) Take 1 tablet by mouth once daily. - [place]-3 Fatty Acids-Vitamin E (FISH OIL) 1,000 mg cap Take 1 capsule by mouth twice daily. Meds Comments as of 09/04/2017: Also takes a vitamin for hair loss Problem List As Of Date 07/26/2022 Noted Resolved Osteoarthritis [M19.90] 11/21/2012 07/29/2019 Vitamin D deficiency [E55.9] 08/20/2013 07/29/2019 Hypertension [I10] ADD (attention deficit disorder) [F98.8] Hypothyroid [E03.9] Acquired hypothyroidism [E03.9] 01/28/2015 07/29/2019 Essential hypertension [I10] 01/28/2015 07/29/2019 DDD (degenerative disc disease), cervical [M50.*02/26/2016 DDD (degenerative disc disease), lumbar [M51.36]02/26/2016 Allergic asthma [J45.909] 02/26/2016 07/29/2019 Allergic rhinitis [J30.9] 02/26/2016 07/29/2019 Hyperglycemia [R73.9] 09/04/2017 09/06/2017 Hyperosmolar (nonketotic) co (more content not included)...[facility]04-04-2023 NoteHNO ID: [id number] Author: Margaret Ordaz MA Service: ? Author Type: On Site Wastewater Systems Technician Type: Progress Notes Filed: 07/26/2022 2:31 PM Note Text: POPULATION HEALTH NAVIGATION OUTREACH Action/I [facility] Digital LuxuryHART MESSAGE SENT E11.9,Z79.4 - Controlled type 2 diabetes mellitus without complication, with long-term current use of insulin (HCC) - [id number] Last Billed 01/12/2021 I48.0 - Paroxysmal atrial fibrillation (HCC) ANNUAL MEDICARE WELLNESS BP CONTROLLED (<130/80) Never done DILATED RETINAL EXAM due on 10/17/2018 MAMMOGRAM due on 03/04/2021 HBA1C due on 07/11/2021 URINE ALBUMIN:CREATININE RATIO due on 01/12/2022 ANNUAL PCP TEAM CHRONIC DISEASE VISIT COLORECTAL CANCER SCREENING due on 06/20/2022 Patient Identified by Name and : NO Outreach Outcome/Action Unable to reach patient: Left message [employer] pet food companyhart message sent Did you use a PCP flex slot to schedule this appointment? N/A Reason for Outreach Care Gap or Scheduling/Wellness visits Payer: Payor: MEDICARE / Plan: MEDICARE A AND B / Product Type: Medicare / Care Gap Reviewed:: Annual Wellness visit Breast Cancer screening Controlling Blood Pressure Colorectal Cancer Screening HBA1C Nephropathy (Albumin/Creatinine) Urine Reminder: Reminder note to check Health Maintenance for items below Health Maintenance items due: COVID-19 VACCINE(1) Never done BP CONTROLLED (<130/80) Never done SHINGRIX VACCINE(1 of 2) Never done DILATED RETINAL EXAM due on 10/17/2018 MAMMOGRAM due on 03/04/2021 HBA1C due on 07/11/2021 LDL CHOLESTEROL due on 01/11/2022 URINE ALBUMIN:CREATININE RATIO due on 01/12/2022 DIABETIC FOOT EXAM due on 01/12/2022 ANNUAL PCP TEAM CHRONIC DISEASE VISIT due on 01/12/2022 ADVANCE DIRECTIVE DISCUSSION Never done DEPRESSION ASSESSMENT Never done COLORECTAL CANCER SCREENING due on 06/20/2022 Navigation Signature: Margaret Ordaz MA July 26, 2022 9:45 [facility]04-04-2023 History of Present illness Narrative* Margaret Ordaz MA - 07/26/2022 9:45 AM EDT POPULATION HEALTH NAVIGATION OUTREACH Action/FYI [facility] Digital LuxuryHART MESSAGE SENT E11.9,Z79.4 - Controlled type 2 diabetes mellitus without complication, with long-term current use of insulin (HCC) - [id number] Last Billed 01/12/2021 I48.0 - Paroxysmal atrial fibrillation (HCC) ANNUAL MEDICARE WELLNESS BP CONTROLLED (<130/80) Never done DILATED RETINAL EXAM due on 10/17/2018 MAMMOGRAM due on 03/04/2021 HBA1C due on 07/11/2021 URINE ALBUMIN:CREATININE RATIO due on 01/12/2022 ANNUAL PCP TEAM CHRONIC DISEASE VISIT COLORECTAL CANCER SCREENING due on 06/20/2022 Patient Identified by Name and : NO Outreach Outcome/Action Unable to reach patient: Left message MyChart message sent Did you use a PCP flex slot to schedule this appointment? N/A Reason for Outreach Care Gap or Scheduling/Wellness visits Payer: Payor: MEDICARE / Plan: MEDICARE A AND B / Product Type: Medicare / Care Gap Reviewed:: Annual Wellness visit Breast Cancer screening Controlling Blood Pressure Colorectal Cancer Screening HBA1C Nephropathy (Albumin/Creatinine) Urine Reminder: Reminder note to check Health Maintenance for items below Health Maintenance items due: COVID-19 VACCINE(1) Never done BP CONTROLLED (<130/80) Never done SHINGRIX VACCINE(1 of 2) Never done DILATED RETINAL EXAM due on 10/17/2018 MAMMOGRAM due on 03/04/2021 HBA1C due on 07/11/2021 LDL CHOLESTEROL due on 01/11/2022 URINE ALBUMIN:CREATININE RATIO due on 01/12/2022 DIABETIC FOOT EXAM due on 01/12/2022 ANNUAL PCP TEAM CHRONIC DISEASE VISIT due on 01/12/2022 ADVANCE DIRECTIVE DISCUSSION Never done DEPRESSION ASSESSMENT Never done COLORECTAL CANCER SCREENING due on 06/20/2022 Navigation Signature: Margaret Ordaz MA July 26, 2022 9:45 AM documented in this encounterBellevue Hospital02-08-2023 NoteHNO ID: [id number] Author: Margaret Ordaz MA Service: ? Author Type: On Site Wastewater Systems Technician Type: Progress Notes Filed: 06/01/2022 3:43 PM Note Text: POPULATION HEALTH NAVIGATION OUTREACH Action/FYI [facility] MYCHART MESSAGE SENT ANNUAL MEDICARE WELLNESS EXAM BP CONTROLLED (<130/80) Never done DILATED RETINAL EXAM due on 10/17/2018 MAMMOGRAM due on 03/04/2021 HBA1C due on 07/11/2021 INFLUENZA(1) due on 12/23/2021 LDL CHOLESTEROL due on 01/11/2022 URINE ALBUMIN:CREATININE RATIO due on 01/12/2022 ANNUAL PCP TEAM CHRONIC DISEASE VISIT due on 01/12/2022 COLORECTAL CANCER SCREENING due on 06/20/2022 Patient Identified by Name and : NO Outreach Outcome/Action Unable to reach patient: Left message MyChart message sent Did you use a PCP flex slot to schedule this appointment? N/A Reason for Outreach Care Gap or Scheduling/Wellness visits Payer: Payor: MEDICARE / Plan: MEDICARE A AND B / Product Type: Medicare / Care Gap Reviewed:: Annual Wellness visit Breast Cancer screening Controlling Blood Pressure Colorectal Cancer Screening Diabetic Eye Exam HBA1C Nephropathy (Albumin/Creatinine) Urine Flu Vaccine Reminder: Reminder note to check Health Maintenance for items below Health Maintenance items due: COVID-19 VACCINE(1) Never done BP CONTROLLED (<130/80) Never done SHINGRIX VACCINE(1 of 2) Never done DILATED RETINAL EXAM due on 10/17/2018 MAMMOGRAM due on 03/04/2021 HBA1C due on 07/11/2021 INFLUENZA(1) due on 12/23/2021 LDL CHOLESTEROL due on 01/11/2022 URINE ALBUMIN:CREATININE RATIO due on 01/12/2022 DIABETIC FOOT EXAM due on 01/12/2022 ANNUAL PCP TEAM CHRONIC DISEASE VISIT due on 01/12/2022 ADVANCE DIRECTIVE DISCUSSION Never done DEPRESSION ASSESSMENT Never done COLORECTAL CANCER SCREENING due on 06/20/2022 Navigation Signature: Margaret Ordaz MA June 01, 2022 12:26 [facility]02-08-2023 NotePatient Outreach (NETNAV) YAJAIRA MCGINNIS ([id number]) 1950 F Date Time Provider Department 06/01/22 MARGARET ORDAZ During your visit today, we recorded the following information about you: Margaret Ordaz MA 06/01/2022 3:43 PM Signed POPULATION HEALTH NAVIGATION OUTREACH Action/FYI [facility] [employer]T MESSAGE SENT ANNUAL MEDICARE WELLNESS EXAM BP CONTROLLED (<130/80) Never done DILATED RETINAL EXAM due on 10/17/2018 MAMMOGRAM due on 03/04/2021 HBA1C due on 07/11/2021 INFLUENZA(1) due on 12/23/2021 LDL CHOLESTEROL due on 01/11/2022 URINE ALBUMIN:CREATININE RATIO due on 01/12/2022 ANNUAL PCP TEAM CHRONIC DISEASE VISIT due on 01/12/2022 COLORECTAL CANCER SCREENING due on 06/20/2022 Patient Identified by Name and : NO Outreach Outcome/Action Unable to reach patient: Left message [employer] message sent Did you use a PCP flex slot to schedule this appointment? N/A Reason for Outreach Care Gap or Scheduling/Wellness visits Payer: Payor: MEDICARE / Plan: MEDICARE A AND B / Product Type: Medicare / Care Gap Reviewed:: Annual Wellness visit Breast Cancer screening Controlling Blood Pressure Colorectal Cancer Screening Diabetic Eye Exam HBA1C Nephropathy (Albumin/Creatinine) Urine Flu Vaccine Reminder: Reminder note to check Health Maintenance for items below Health Maintenance items due: COVID-19 VACCINE(1) Never done BP CONTROLLED (<130/80) Never done SHINGRIX VACCINE(1 of 2) Never done DILATED RETINAL EXAM due on 10/17/2018 MAMMOGRAM due on 03/04/2021 HBA1C due on 07/11/2021 INFLUENZA(1) due on 12/23/2021 LDL CHOLESTEROL due on 01/11/2022 URINE ALBUMIN:CREATININE RATIO due on 01/12/2022 DIABETIC FOOT EXAM due on 01/12/2022 ANNUAL PCP TEAM CHRONIC DISEASE VISIT due on 01/12/2022 ADVANCE DIRECTIVE DISCUSSION Never done DEPRESSION ASSESSMENT Never done COLORECTAL CANCER SCREENING due on 06/20/2022 Navigation Signature: Margaret Ordaz MA June 01, 2022 12:26 PM Allergies As of Date: 06/01/2022 Noted Allergy Reaction LOPID (GEMFIBROZIL) 12/25/2015 14 - Other: See Comments Comments: Myalgias MOLD 07/29/2019 14 - Other: See Comments SEASONAL ALLERGIES 08/01/2016 12 - Shortness of Breath 14 - Other: See Comments Comments: Allergy induced asthmatic bronchitis, gets wheezy and SOB with molds and mildew [id number] REDUCTASE INHIBIT*12/25/2015 14 - Other: See Comments Comments: Bone pain Date Reviewed: 08/18/2021 Reviewed by: Lo Zee RN - Fully Assessed Reason for Visit: Population Health Navigation Outreach [3910] Cmt: [facility]CIRA PCSA Prescriptions as of 06/01/2022 - metFORMIN (GLUCOPHAGE) 500 mg tablet TAKE 1 TABLET BY MOUTH TWICE DAILY WITH MEALS - levothyroxine (SYNTHROID) 100 mcg tablet TAKE 1 TABLET BY MOUTH ONCE DAILY - lisinopril 2.5 mg tablet Take 1 tablet by mouth once daily. - meloxicam (MOBIC) 7.5 mg tablet Take 1 tablet by mouth once daily. - sertraline (ZOLOFT) 100 mg tablet Take 1 tablet by mouth once daily. - omeprazole (PRILOSEC) 40 mg capsule Take 1 capsule by mouth once daily. - Cholecalciferol, Vitamin D3, (VITAMIN D) 25 mcg (1,000 unit) cap Take 6 capsules by mouth once daily. - vitamin b complex (VITAMINS B COMPLEX) capsule Take 1 capsule by mouth twice daily. - montelukast (SINGULAIR) 10 mg tablet Take 1 tablet by mouth daily at bedtime. As needed - magnesium oxide (MAG-OX) 400 mg (241.3 mg magnesium) tablet Take 1 tablet by mouth once daily. - blood sugar diagnostic (TRUE METRIX GLUCOSE TEST STRIP) test strip Use to check blood sugars 2 times per day. Dx: E11.9 - FOLIC ACID ORAL Take by mouth. - albuterol HFA (PROAIR HFA) 90 mcg/actuation inhaler Inhale 2 Puffs as instructed every 4 hours as needed. - aspirin, enteric coated (ASPIRIN, ENTERIC COATED) 81 mg EC tablet Take 1 tablet by mouth once daily. - CALCIUM CARBONATE-VITAMIN D3 ORAL Take 1 capsule by mouth twice daily. - MULTIVITS-MIN/FA/CA CARB/VIT K (ONE-A-DAY WOMEN'S 50+ ORAL) Take 1 tablet by mouth once daily. - [place]-3 Fatty Acids-Vitamin E (FISH OIL) 1,000 mg cap Take 1 capsule by mouth twice daily. Meds Comments as of 09/04/2017: Also takes a vitamin for hair loss Problem List As Of Date 06/01/2022 Noted Resolved Osteoarthritis [M19.90] 11/21/2012 07/29/2019 Vitamin D deficiency [E55.9] 08/20/2013 07/29/2019 Hypertension [I10] ADD (attention deficit disorder) [F98.8] Hypothyroid [E03.9] Acquired hypothyroidism [E03.9] 01/28/2015 07/29/2019 Essential hypertension [I10] 01/28/2015 07/29/2019 DDD (degenerative disc disease), cervical [M50.*02/26/2016 DDD (degenerative disc disease), lumbar [M51.36]02/26/2016 Allergic asthma [J45.909] 02/26/2016 07/29/2019 Allergic rhinitis [J30.9] 02/26/2016 07/29/2019 Hyperglycemia [R73.9] 09/04/2017 09/06/2017 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] 09/05/2017 0 (more content not included)...[facility]02-08-2023 History of Present illness Narrative* Margaret Ordaz MA - 06/01/2022 12:26 PM EST POPULATION HEALTH NAVIGATION OUTREACH Action/FYI LV Swarm64T MESSAGE SENT ANNUAL MEDICARE WELLNESS EXAM BP CONTROLLED (<130/80) Never done DILATED RETINAL EXAM due on 10/17/2018 MAMMOGRAM due on 03/04/2021 HBA1C due on 07/11/2021 INFLUENZA(1) due on 12/23/2021 LDL CHOLESTEROL due on 01/11/2022 URINE ALBUMIN:CREATININE RATIO due on 01/12/2022 ANNUAL PCP TEAM CHRONIC DISEASE VISIT due on 01/12/2022 COLORECTAL CANCER SCREENING due on 06/20/2022 Patient Identified by Name and : NO Outreach Outcome/Action Unable to reach patient: Left message Avesot message sent Did you use a PCP flex slot to schedule this appointment? N/A Reason for Outreach Care Gap or Scheduling/Wellness visits Payer: Payor: MEDICARE / Plan: MEDICARE A AND B / Product Type: Medicare / Care Gap Reviewed:: Annual Wellness visit Breast Cancer screening Controlling Blood Pressure Colorectal Cancer Screening Diabetic Eye Exam HBA1C Nephropathy (Albumin/Creatinine) Urine Flu Vaccine Reminder: Reminder note to check Health Maintenance for items below Health Maintenance items due: COVID-19 VACCINE(1) Never done BP CONTROLLED (<130/80) Never done SHINGRIX VACCINE(1 of 2) Never done DILATED RETINAL EXAM due on 10/17/2018 MAMMOGRAM due on 03/04/2021 HBA1C due on 07/11/2021 INFLUENZA(1) due on 12/23/2021 LDL CHOLESTEROL due on 01/11/2022 URINE ALBUMIN:CREATININE RATIO due on 01/12/2022 DIABETIC FOOT EXAM due on 01/12/2022 ANNUAL PCP TEAM CHRONIC DISEASE VISIT due on 01/12/2022 ADVANCE DIRECTIVE DISCUSSION Never done DEPRESSION ASSESSMENT Never done COLORECTAL CANCER SCREENING due on 06/20/2022 Navigation Signature: Margaret Ordaz MA June 01, 2022 12:26 PM documented in this encounterBelle[facility] Hospital11-29-2022 Miscellaneous Notes* Telephone Encounter - Addis Barakat MA - 03/22/2022 10:14 AM EST Last appointment: 01-12-21 Next appointment: na Pharmacy verified in [facility]. Refill(s) requested: Requested Prescriptions Pending Prescriptions Disp Refills metFORMIN (GLUCOPHAGE) 500 mg tablet [Pharmacy Med Name: metformin 500 mg tablet] 180 tablet 0 Sig: TAKE 1 TABLET BY MOUTH TWICE DAILY WITH MEALS levothyroxine (SYNTHROID) 100 mcg tablet [Pharmacy Med Name: levothyroxine 100 mcg tablet] 90 tablet 0 Sig: TAKE 1 TABLET BY MOUTH ONCE DAILY Order(s) pended. Please advise. Addis Barakat MA, [facility] documented in this encounterBellevue Hospital11-28-2022 Miscellaneous Notes* Telephone Encounter - Mandie Vincent APRN.CNP - 03/21/2022 4:14 PM EST Needs OV * Telephone Encounter - Irasema Mar Ma - 03/21/2022 3:33 PM EST Patient requesting refills as follow: Last prescribed : 09/13/21 Last OV: 01/12/21 Next OV: none Requested Prescriptions Pending Prescriptions Disp Refills lisinopril 2.5 mg tablet 30 tablet 5 Sig: Take 1 tablet by mouth once daily. meloxicam (MOBIC) 7.5 mg tablet [Pharmacy Med Name: meloxicam 7.5 mg tablet] 30 tablet 5 Sig: Take 1 tablet by mouth once daily. Please review and advise. Irasema Mar Ma documented in this encounterBellevue Hospital08-24-2022 NotePatient Outreach (INTMMN) YAJAIRA MCGINNIS ([id number]) 1950 F Date Time Provider Department 12/15/21 CARLTON MONTALVO INTHUMPHREY During your visit today, we recorded the following information about you: Allergies As of Date: 12/15/2021 Noted Allergy Reaction LOPID (GEMFIBROZIL) 12/25/2015 14 - Other: See Comments Comments: Myalgias MOLD 07/29/2019 14 - Other: See Comments SEASONAL ALLERGIES 08/01/2016 12 - Shortness of Breath 14 - Other: See Comments Comments: Allergy induced asthmatic bronchitis, gets wheezy and SOB with molds and mildew [id number] REDUCTASE INHIBIT*12/25/2015 14 - Other: See Comments Comments: Bone pain Date Reviewed: 08/18/2021 Reviewed by: Lo Zee RN - Fully Assessed Visit Diagnosis:Encounter for screening mammogram for breast cancer [Z12.31] Order(s):[facility] SCREENING [[id number]] Order #: [id number] FUTURE Prescriptions as of 12/20/2021 - levothyroxine (SYNTHROID) 100 mcg tablet TAKE 1 TABLET BY MOUTH ONCE DAILY - metFORMIN (GLUCOPHAGE) 500 mg tablet TAKE 1 TABLET BY MOUTH TWICE DAILY WITH MEALS - meloxicam (MOBIC) 7.5 mg tablet Take 1 tablet by mouth once daily. - lisinopril 2.5 mg tablet Take 1 tablet by mouth once daily. - sertraline (ZOLOFT) 100 mg tablet Take 1 tablet by mouth once daily. - omeprazole (PRILOSEC) 40 mg capsule Take 1 capsule by mouth once daily. - Cholecalciferol, Vitamin D3, (VITAMIN D) 25 mcg (1,000 unit) cap Take 6 capsules by mouth once daily. - vitamin b complex (VITAMINS B COMPLEX) capsule Take 1 capsule by mouth twice daily. - montelukast (SINGULAIR) 10 mg tablet Take 1 tablet by mouth daily at bedtime. As needed - magnesium oxide (MAG-OX) 400 mg (241.3 mg magnesium) tablet Take 1 tablet by mouth once daily. - blood sugar diagnostic (TRUE METRIX GLUCOSE TEST STRIP) test strip Use to check blood sugars 2 times per day. Dx: E11.9 - FOLIC ACID ORAL Take by mouth. - albuterol HFA (PROAIR HFA) 90 mcg/actuation inhaler Inhale 2 Puffs as instructed every 4 hours as needed. - aspirin, enteric coated (ASPIRIN, ENTERIC COATED) 81 mg EC tablet Take 1 tablet by mouth once daily. - CALCIUM CARBONATE-VITAMIN D3 ORAL Take 1 capsule by mouth twice daily. - MULTIVITS-MIN/FA/CA CARB/VIT K (ONE-A-DAY WOMEN'S 50+ ORAL) Take 1 tablet by mouth once daily. - [place]-3 Fatty Acids-Vitamin E (FISH OIL) 1,000 mg cap Take 1 capsule by mouth twice daily. Meds Comments as of 09/04/2017: Also takes a vitamin for hair loss Problem List As Of Date 12/15/2021 Noted Resolved Osteoarthritis [M19.90] 11/21/2012 07/29/2019 Vitamin D deficiency [E55.9] 08/20/2013 07/29/2019 Hypertension [I10] ADD (attention deficit disorder) [F98.8] Hypothyroid [E03.9] Acquired hypothyroidism [E03.9] 01/28/2015 07/29/2019 Essential hypertension [I10] 01/28/2015 07/29/2019 DDD (degenerative disc disease), cervical [M50.*02/26/2016 DDD (degenerative disc disease), lumbar [M51.36]02/26/2016 Allergic asthma [J45.909] 02/26/2016 07/29/2019 Allergic rhinitis [J30.9] 02/26/2016 07/29/2019 Hyperglycemia [R73.9] 09/04/2017 09/06/2017 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] 09/05/2017 09/06/2017 Uncontrolled type 2 diabetes mellitus with keto*09/05/2017 09/14/2017 Controlled type 2 diabetes mellitus without com*02/09/2018 Weakness [R53.1] 03/13/2018 07/29/2019 Asymptomatic bacteriuria [R82.71] 03/13/2018 03/16/2018 Chest pain [R07.9] 03/13/2018 03/16/2018 Current chronic use of systemic steroids [Z79.5*03/14/2018 07/29/2019 Constipation [K59.00] 03/15/2018 07/29/2019 Obesity, Class I, BMI 30-34.9 [E66.9] 03/16/2018 07/29/2019 Anemia [D64.9] 07/22/2019 07/29/2019 GERD without esophagitis [K21.9] 07/22/2019 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] 07/22/2019 Altered mental state [R41.82] 07/24/2019 07/25/2019 Hypoglycemia [E16.2] 07/25/2019 07/25/2019 History of CVA (cerebrovascular accident) [Z86.*07/25/2019 Chronic neck pain [M54.2, G89.29] 07/25/2019 07/29/2019 Class 2 obesity with body mass index (BMI) of 3*07/25/2019 07/29/2019 Corticosteroid dependence (HCC) [F19.20] 07/25/2019 03/28/2020 Paroxysmal atrial fibrillation (HCC) [I48.0] 07/25/2019 Multiple joint pain [M25.50] Obesity, Class I, BMI 30-34.9 [E66.9] 08/09/2020 Hypoglycemia [E16.2] 08/09/2020 UTI (urinary tract infection) [N39.0] 08/09/2020 Expressive aphasia [R47.01] 08/10/2020 Pressure ulcer of both heels, stage 1 [L89.611,*08/11/2020 Pressure ulcer of coccygeal region, stage 1 [L8*08/11/2020 Encounter Status:Closed by OMI, PRODUSER on 12/20/21[facility] 12-10-2021 Miscellaneous Notes* Telephone Encounter - Rocky Castro Coord - 12/10/2021 8:05 AM EDT WigWagt message sent. * Telephone Encounter - Janay Soto APRN.JOSH - 12/09/2021 10:27 AM EDT Please inform patient that they are due for OV and assist in scheduling. Thanks. * Telephone Encounter - Irasema Mar Ma - 12/09/2021 10:15 AM EDT Patient requesting refills as follows: Last Prescribed: 01/04/21 Last O/V: 01/12/21 Next O/V : none Requested Prescriptions Pending Prescriptions Disp Refills levothyroxine (SYNTHROID) 100 mcg tablet [Pharmacy Med Name: levothyroxine 100 mcg tablet] 90 tablet 3 Sig: TAKE 1 TABLET BY MOUTH ONCE DAILY metFORMIN (GLUCOPHAGE) 500 mg tablet [Pharmacy Med Name: metformin 500 mg tablet] 180 tablet 3 Sig: TAKE 1 TABLET BY MOUTH TWICE DAILY WITH MEALS Please review and advise. Irasema Mar Ma documented in this encounterBellevue Hospital07-11-2022 History of Present illness Narrative* Cheryl Reynaga - 11/01/2021 1:50 PM EDT The patient has been identified by name and date of : YES I have scheduled the patient for an appointment on Visit date not found. The patient will report to the lab prior to the visit. I have pended the following lab orders: Pended Orders None PHMA Documentation 10/19/2017 10/24/2017 06/10/2019 10/13/2021 Opts out of Population Health Postponed Postponed No Postponed Postponed Date 10/20/2017 12/25/2017 - 10/14/2021 Appointments Scheduled - - - - DM2 with No MANAN - - - - Opthy Appt - - - - DM2 with No Urine Alb - - - - DM2 with No DFE - - - - A1C > 8.9 - - - - Mammography - - - - CRCS - - - - Pneumoccal Vaccination - - - - Cheryl Reynaga * Cheryl Reynaga - 11/01/2021 1:48 PM EDT Care Gap Reviewed: Follow-up appointment HBA1C Phone call placed to patient. Pt identified by name and : NO Outreach Outcome/Action: Unable to reach patient: Left message If patient deferred or declined to schedule appointment, please indicate the reason(s): Other Cheryl Reynaga documented in this encounterBellevue Hospital06-22-2022 History of Present illness Narrative* Cheryl Reynaga - 10/13/2021 11:17 AM EDT The patient has been identified by name and date of : YES I have scheduled the patient for an appointment on Visit date not found. The patient will report to the lab prior to the visit. I have pended the following lab orders: Pended Orders None PHMA Documentation 10/18/2017 10/19/2017 10/24/2017 06/10/2019 Opts out of Population Health Postponed Postponed Postponed No Postponed Date 10/19/2017 10/20/2017 12/25/2017 - Appointments Scheduled - - - - DM2 with No MANAN - - - - Opthy Appt - - - - DM2 with No Urine Alb - - - - DM2 with No DFE - - - - A1C > 8.9 - - - - Mammography - - - - CRCS - - - - Pneumoccal Vaccination - - - - Cheryl Reynaga * Cheryl Reynaga - 10/13/2021 11:12 AM EDT Care Gap Reviewed: Follow-up appointment HBA1C Phone call placed to patient. Pt identified by name and : NO Outreach Outcome/Action: Unable to reach patient: Left message If patient deferred or declined to schedule appointment, please indicate the reason(s): Other NA Cheryl Reynaga documented in this encounterBellevue Hospital05-20-2022 Miscellaneous Notes* Telephone Encounter - Renée Benyak - 09/10/2021 4:14 PM EDT Patient has been identified by name and date of : Yes Pending Prescriptions Disp Refills MELOXICAM 7.5 MG TABLET 30 tablet 5 Sig: Take 1 tablet by mouth once daily. GEMMA: No LISINOPRIL 2.5 MG TABLET 30 tablet 5 Sig: Take 1 tablet by mouth once daily. GEMMA: No RX INSTRUCTIONS: Patient aware RX will be sent to pharmacy. No need to notify patient. Renée Frank documented in this encounterBellevue Hospital05-11-2022 History of Present illness Narrative* CLAIRE Tate - 09/01/2021 1:08 PM EDT PRIMARY CARE SOCIAL WORK PROGRESS NOTE Provider Action / FYI PCP Action Please see below SERVICE DATE: September 01, 2021 SERVICE TIME: 1:05 PM REASON FOR CONTACT: Other - Follow up Progress Note: PCSW left for NATE Jenkins [phone] asking if she had the opportunity to provide community resources to Pt's spouse for her care. PCSW will remain available. 4:10 PM PCSW received return call from Wilma. Wilma stated that the is very competent but right now physically it is difficult. He is taking care of all of Pt's needs. Wilma stated that they discussed resources. - Spouse wants Pt to have an RN out and Wilma stated that she needs to be assessed - [id number] - How will schedule look when children are home from school - Discussed AD and Wilma will be bringing documents out to their home PCSW will remain available when APS closes case. Did you receive information on your AVS about the [facility] [place] Remedify? N/A Did you like receiving this information? N/A Patient reported caregiver was able to meet their needs today? N/A INTERVENTION: Adult Protection - External Resource Follow Up Provided Time Spent:: 10 minutes SIGNATURE: CLAIRE Tate PATIENT NAME: Yajaira Mcginnis DATE: September 01, 2021 TIME: 1:08 PM CONTACT #: [phone] documented in this encounterBellevue Hospital05-06-2022 Miscellaneous Notes* Telephone Encounter - Carlton Montalvo MD - 08/27/2021 3:31 PM EDT Noted TRK * Telephone Encounter - Shakira Nunez RN - 08/27/2021 3:23 PM EDT PCP: please review 5/6 Truck Operator encounter. Shakira Nunez RN * Telephone Encounter - Shakira Nunez RN - 08/27/2021 3:08 PM EDT Message routed to for review, input. Shakira Nunez RN * Telephone Encounter - Carlton Montalvo MD - 08/27/2021 12:43 PM EDT Not sure that patient would qualify for home health care especially with a home health nurse. I do agree with the assessment with social work to see what resources might be available to them. Recommend pursuing/following up with social work * Telephone Encounter - Shakira Nunez RN - 08/27/2021 12:34 PM EDT calling- feels patient would benefit from home health care -has bed sores and fell recently. Per chart, social work has been trying to reach out. would just like home health care nurse to assess patient--please advise if referral can be placed in chart. Shakira Nunez RN Reason for Disposition [1] Caller requesting NON-URGENT health information AND [2] PCP's office is the best resource Answer Assessment - Initial Assessment Questions 1. REASON FOR CALL or QUESTION: What is your reason for calling today? or How can I best help you? or What question do you have that I can help answer? Patient's asking for Home Health care referral to be placed Protocols used: INFORMATION ONLY [id number] documented in this encounterBellevue Hospital05-06-2022 History of Present illness Narrative* CLAIRE Tate - 08/27/2021 2:23 PM EDT PRIMARY CARE SOCIAL WORK PROGRESS NOTE Provider Action / FYI PCP Action Please see below SERVICE DATE: August 27, 2021 SERVICE TIME: 2:10 PM REASON FOR CONTACT: Other - Follow up Progress Note: PCSW left VM for APS Worker, Wilma Wade [phone] and received return VM. PCSW spoke with Wilma and she stated she went out to see Pt and was let in by Pt's daughter. Wilma tried to talk with Pt but she did not say anything just closed her eyes. Pt's spouse was paying bills and told his daughter that Wilma needs to schedule and appointment for him to speak with her. Wilma stated that in the home is Pt, spouse, daughter, daughter's child, and two other family members. Wilma stated the house is not clean. Wilma is going to schedule an appointment with spouse and if he does not answer she will go out again next week unannounced. Did you receive information on your AVS about the [facility] [place] Remedify? N/A Did you like receiving this information? N/A Patient reported caregiver was able to meet their needs today? N/A INTERVENTION: Adult Protection - External Resource Follow Up Provided Time Spent:: 10 minutes SIGNATURE: CLAIRE Tate PATIENT NAME: Yajaira Mcginnis DATE: August 27, 2021 TIME: 2:23 PM CONTACT #: [phone] documented in this encounterBellevue Hospital05-03-2022 History of Present illness Narrative* CALIRE Tate - 08/24/2021 3:21 PM EDT PRIMARY CARE SOCIAL WORK PROGRESS NOTE Provider Action / FYI PCP Action Please see below SERVICE DATE: August 24, 2021 SERVICE TIME: 3:19 PM REASON FOR CONTACT: Other - Follow up Progress Note: PCSW spoke with Wilmarui Wade who attempted to meet with Pt and spouse. Pt didn't want to talk, she wanted to sleep and spouse told Wilma to call daughter and schedule and appointment. Wilma will be calling to schedule an appointment to meet with spouse. Wilma stated she had spoken with daughter previously she did not feel that Pt and spouse being each others caregivers was that much of a concern, but Wilma does want to follow up to address that issue. Did you receive information on your AVS about the [facility], [place] Remedify? N/A Did you like receiving this information? N/A Patient reported caregiver was able to meet their needs today? N/A INTERVENTION: Adult Protection - External Resource Follow Up Provided Time Spent:: 5 minutes SIGNATURE: CLAIRE Tate PATIENT NAME: Yajaira Mcginnis DATE: August 24, 2021 TIME: 3:21 PM CONTACT #: [phone] documented in this encounterBellevue Hospital05-02-2022 History of Present illness Narrative* CLAIRE Tate - 08/23/2021 12:08 PM EDT PRIMARY CARE SOCIAL WORK PROGRESS NOTE Provider Action / FYI PCP Action Please see below SERVICE DATE: August 23, 2021 SERVICE TIME: 12:00 PM REASON FOR CONTACT: Community Resources Progress Note: PCSW order from PCP for assistance with community resources. PCSW reviewed Pt chart. Pt went to ED and was discharged home, see ED notes 08/19/21. Lo Zee RN placed call to [facility] [phone] and spoke with Delicia on 08/19/21 PCSW called [facility] [phone] and was told case was open and outpatient case manager is Wilma Wade [phone]. This program writer spoke with Wilma who is to go out to see Pt today and will contact this program writer back 08/24/21. Did you receive information on your AVS about the [facility] [place] Remedify? N/A Did you like receiving this information? N/A Patient reported caregiver was able to meet their needs today? N/A INTERVENTION: Adult Protection - External Resource Follow Up Provided Time Spent:: 10 minutes SIGNATURE: CLAIRE Tate PATIENT NAME: Yajaira Mcginnis DATE: August 23, 2021 TIME: 12:08 PM CONTACT #: [phone] documented in this encounterBellevue Hospital04-28-2022 Miscellaneous Notes* Telephone Encounter - Carlton Montalvo MD - 08/19/2021 2:54 PM EDT Images from the original note were not included. Received message from the ER physician after ER visit yesterday Order has been placed for social work COpy of note from ER: MD Carlton Cadet MD I am following up, as I saw above patient in the ED last night for mechanical fall without apparentinjury. Patient discharged home with son Surendra, however they had concerns for additional assistance, care requirements and help at home. Patient was beginning to have pressure ulcerations to her buttocks, intertrigo Mirian infection, and was unkept, with some dried stool around her body, and I am reaching out to see if you or your office could reach out to your family, and help them with some community available resources. I am currently comfortable with patient going home this evening, however nursing staff was planning on reaching out to Adult Protective Services in the morning as well. Armani, Joni Grossman documented in this encounterBellevue Hospital04-20-2022 Miscellaneous Notes* Telephone Encounter - Leigha Cho - 08/11/2021 5:14 PM EDT Pending Prescriptions Disp Refills SERTRALINE 100 MG TABLET 90 tablet 3 Sig: Take 1 tablet by mouth once daily. GEMMA: No OMEPRAZOLE 40 MG CAPSULE,DELAYED RELEASE 90 capsule 3 Sig: Take 1 capsule by mouth once daily. GEMMA: No documented in this encounterBellevue Hospital04-02-2020 History of Past illness Narrative* Problem Noted Date Resolved Date Hypoglycemia 07/25/2019 07/25/2019 Last Assessment & Plan: Continue Synthroid Chronic neck pain 07/25/2019 07/29/2019 Overview: 5 milligrams oxycodone 4 times a day. Last Assessment & Plan: See treatment plan osteoarthritis Class 2 obesity with body ma ss index (BMI) of 35.0 to 35.9 in adult 07/25/2019 07/29/2019 Last Assessment & Plan: Assessment: Problem is stable with current regimen. PLAN: Continue current regimen Further counseling after stabilized following discharge Corticosteroid dependence 07/25/20192019 Overview: Stress dose steroid while nothing by mouth and stable Last Assessment & Plan: Stable Altered mental state 07/24/2019 07/25/2019 Last Assessment & Plan: Possibly secondary to hypoglycemia, stroke, or other etiology Opens eyes, responds to verbal stimuli and withdraw to pain but does not talk Moving all her extremities Head CT did not show acute findings Glucose improved now Continue D5+NS over night Check B12 and ammonia MRI at AM Neurology consult Stroke pathway Keep on telemetry ASA, statin Lipid panel and A1C Echo MRI W and W/O Anemia 07/22/2019 07/29/2019 Obesity, Class I, BMI 30-34.9 03/16/2018 Constipation 03/15/2018 07/29/2019 Last Assessment & Plan: Senna-s, miralax daily One time fleet enema Current chronic use of systemic steroids 018 07/29/2019 Last Assessment & Plan: Assessment: has been on 20mg prednisone for arthritis and asthma per patient for over 8 years. Has had unsuccessful attempts at weening due to fatigue, malaise. Likely has adrenal insufficiency due to this. PLAN: - continue 20mg prednisone for now - will try to decrease tomorrow to 17.5 and ween slowly Weakness 03/13/2018 07/29/2019 Last Assessment & Plan: Assessment: likely 2/2 to dehydration and prior viral illness, post viral cough. Exacerbated by chronic steroid use and likely adrenal insufficiency. PLAN: - IV hydration - PT/OT Asymptomatic bacteriuria 03/13/2018 018 Last Assessment & Plan: Assessment: UA positive but asymptomatic PLAN: D/c ceftriaxone Monitor for symptoms Chest pain 03/13/2018 03/16/2018 Last Assessment & Plan: Pleuritic chest pain likely from post viral cough troponins negative, will stop cycling Hyperosmolar (nonketotic) coma 09/05/2017 0 09/06/2017 Uncontrolled type 2 diabetes mellitus with ketoacidosis without coma, without long-term current use of insulin 09/05/2017 09/14/2017 Hyperglycemia 09/04/2017 09/06/2017 Allergic asthma 02/26/2016 07/29/2019 Last Assessment & Plan: Assessment h/o asthma and uses albuterol inhaler as needed paitent coming with mild exacerbation as she was wheezing in the ED. PLAN: Check for flu CT CHEST AND Abdomen negative for acute pathology. Continue with duoneb No need for steroids at present Allergic rhinitis 02/26/2016 07/29/2019 Acquired hypothyroidism 01/28/2015 07/29/19 20 Last Assessment & Plan: TSH - WNL Continue with home dose of levothyroxine Essential hypertension 01/28/2015 0 Last Assessment & Plan: Resumed Lisinopril/HCTZ Vitamin D deficiency 08/20/2013 07/29/2019 Osteoarthritis 11/21/2012 07/29/2019 Last Assessment & Plan: Stopped Celecoxib Resumed daily Prednisone 20mg As she is a phasic continued her oxycodone but at a lower dosage documented as of this encounter (statuses as of 08/12/2021) [facility]04-02-2020 History of Past illness Narrative* Problem Noted Date Resolved Date Hypoglycemia 07/25/2019 07/25/2019 Last Assessment & Plan: Continue Synthroid Chronic neck pain 07/25/2019 07/29/2019 Overview: 5 milligrams oxycodone 4 times a day. Last Assessment & Plan: See treatment plan osteoarthritis Class 2 obesity with body ma ss index (BMI) of 35.0 to 35.9 in adult 07/25/2019 07/29/2019 Last Assessment & Plan: Assessment: Problem is stable with current regimen. PLAN: Continue current regimen Further counseling after stabilized following discharge Corticosteroid dependence 07/25/20192019 Overview: Stress dose steroid while nothing by mouth and stable Last Assessment & Plan: Stable Altered mental state 07/24/2019 07/25/2019 Last Assessment & Plan: Possibly secondary to hypoglycemia, stroke, or other etiology Opens eyes, responds to verbal stimuli and withdraw to pain but does not talk Moving all her extremities Head CT did not show acute findings Glucose improved now Continue D5+NS over night Check B12 and ammonia MRI at AM Neurology consult Stroke pathway Keep on telemetry ASA, statin Lipid panel and A1C Echo MRI W and W/O Anemia 07/22/2019 07/29/2019 Obesity, Class I, BMI 30-34.9 03/16/2018 Constipation 03/15/2018 07/29/2019 Last Assessment & Plan: Senna-s, miralax daily One time fleet enema Current chronic use of systemic steroids 018 07/29/2019 Last Assessment & Plan: Assessment: has been on 20mg prednisone for arthritis and asthma per patient for over 8 years. Has had unsuccessful attempts at weening due to fatigue, malaise. Likely has adrenal insufficiency due to this. PLAN: - continue 20mg prednisone for now - will try to decrease tomorrow to 17.5 and ween slowly Weakness 03/13/2018 07/29/2019 Last Assessment & Plan: Assessment: likely 2/2 to dehydration and prior viral illness, post viral cough. Exacerbated by chronic steroid use and likely adrenal insufficiency. PLAN: - IV hydration - PT/OT Asymptomatic bacteriuria 03/13/2018 018 Last Assessment & Plan: Assessment: UA positive but asymptomatic PLAN: D/c ceftriaxone Monitor for symptoms Chest pain 03/13/2018 03/16/2018 Last Assessment & Plan: Pleuritic chest pain likely from post viral cough troponins negative, will stop cycling Hyperosmolar (nonketotic) coma 09/05/2017 0 09/06/2017 Uncontrolled type 2 diabetes mellitus with ketoacidosis without coma, without long-term current use of insulin 09/05/2017 09/14/2017 Hyperglycemia 09/04/2017 09/06/2017 Allergic asthma 02/26/2016 07/29/2019 Last Assessment & Plan: Assessment h/o asthma and uses albuterol inhaler as needed paitent coming with mild exacerbation as she was wheezing in the ED. PLAN: Check for flu CT CHEST AND Abdomen negative for acute pathology. Continue with duoneb No need for steroids at present Allergic rhinitis 02/26/2016 07/29/2019 Acquired hypothyroidism 01/28/2015 07/29/19 20 Last Assessment & Plan: TSH - WNL Continue with home dose of levothyroxine Essential hypertension 01/28/2015 0 Last Assessment & Plan: Resumed Lisinopril/HCTZ Vitamin D deficiency 08/20/2013 07/29/2019 Osteoarthritis 11/21/2012 07/29/2019 Last Assessment & Plan: Stopped Celecoxib Resumed daily Prednisone 20mg As she is a phasic continued her oxycodone but at a lower dosage documented as of this encounter (statuses as of 08/19/2021) [facility]04-02-2020 History of Past illness Narrative* Problem Noted Date Resolved Date Hypoglycemia 07/25/2019 07/25/2019 Last Assessment & Plan: Continue Synthroid Chronic neck pain 07/25/2019 07/29/2019 Overview: 5 milligrams oxycodone 4 times a day. Last Assessment & Plan: See treatment plan osteoarthritis Class 2 obesity with body ma ss index (BMI) of 35.0 to 35.9 in adult 07/25/2019 07/29/2019 Last Assessment & Plan: Assessment: Problem is stable with current regimen. PLAN: Continue current regimen Further counseling after stabilized following discharge Corticosteroid dependence 07/25/20192019 Overview: Stress dose steroid while nothing by mouth and stable Last Assessment & Plan: Stable Altered mental state 07/24/2019 07/25/2019 Last Assessment & Plan: Possibly secondary to hypoglycemia, stroke, or other etiology Opens eyes, responds to verbal stimuli and withdraw to pain but does not talk Moving all her extremities Head CT did not show acute findings Glucose improved now Continue D5+NS over night Check B12 and ammonia MRI at AM Neurology consult Stroke pathway Keep on telemetry ASA, statin Lipid panel and A1C Echo MRI W and W/O Anemia 07/22/2019 07/29/2019 Obesity, Class I, BMI 30-34.9 03/16/2018 Constipation 03/15/2018 07/29/2019 Last Assessment & Plan: Senna-s, miralax daily One time fleet enema Current chronic use of systemic steroids 018 07/29/2019 Last Assessment & Plan: Assessment: has been on 20mg prednisone for arthritis and asthma per patient for over 8 years. Has had unsuccessful attempts at weening due to fatigue, malaise. Likely has adrenal insufficiency due to this. PLAN: - continue 20mg prednisone for now - will try to decrease tomorrow to 17.5 and ween slowly Weakness 03/13/2018 07/29/2019 Last Assessment & Plan: Assessment: likely 2/2 to dehydration and prior viral illness, post viral cough. Exacerbated by chronic steroid use and likely adrenal insufficiency. PLAN: - IV hydration - PT/OT Asymptomatic bacteriuria 03/13/2018 018 Last Assessment & Plan: Assessment: UA positive but asymptomatic PLAN: D/c ceftriaxone Monitor for symptoms Chest pain 03/13/2018 03/16/2018 Last Assessment & Plan: Pleuritic chest pain likely from post viral cough troponins negative, will stop cycling Hyperosmolar (nonketotic) coma 09/05/2017 0 09/06/2017 Uncontrolled type 2 diabetes mellitus with ketoacidosis without coma, without long-term current use of insulin 09/05/2017 09/14/2017 Hyperglycemia 09/04/2017 09/06/2017 Allergic asthma 02/26/2016 07/29/2019 Last Assessment & Plan: Assessment h/o asthma and uses albuterol inhaler as needed paitent coming with mild exacerbation as she was wheezing in the ED. PLAN: Check for flu CT CHEST AND Abdomen negative for acute pathology. Continue with duoneb No need for steroids at present Allergic rhinitis 02/26/2016 07/29/2019 Acquired hypothyroidism 01/28/2015 07/29/19 20 Last Assessment & Plan: TSH - WNL Continue with home dose of levothyroxine Essential hypertension 01/28/2015 0 Last Assessment & Plan: Resumed Lisinopril/HCTZ Vitamin D deficiency 08/20/2013 07/29/2019 Osteoarthritis 11/21/2012 07/29/2019 Last Assessment & Plan: Stopped Celecoxib Resumed daily Prednisone 20mg As she is a phasic continued her oxycodone but at a lower dosage documented as of this encounter (statuses as of 08/23/2021) [facility]04-02-2020 History of Past illness Narrative* Problem Noted Date Resolved Date Hypoglycemia 07/25/2019 07/25/2019 Last Assessment & Plan: Continue Synthroid Chronic neck pain 07/25/2019 07/29/2019 Overview: 5 milligrams oxycodone 4 times a day. Last Assessment & Plan: See treatment plan osteoarthritis Class 2 obesity with body ma ss index (BMI) of 35.0 to 35.9 in adult 07/25/2019 07/29/2019 Last Assessment & Plan: Assessment: Problem is stable with current regimen. PLAN: Continue current regimen Further counseling after stabilized following discharge Corticosteroid dependence 07/25/20192019 Overview: Stress dose steroid while nothing by mouth and stable Last Assessment & Plan: Stable Altered mental state 07/24/2019 07/25/2019 Last Assessment & Plan: Possibly secondary to hypoglycemia, stroke, or other etiology Opens eyes, responds to verbal stimuli and withdraw to pain but does not talk Moving all her extremities Head CT did not show acute findings Glucose improved now Continue D5+NS over night Check B12 and ammonia MRI at AM Neurology consult Stroke pathway Keep on telemetry ASA, statin Lipid panel and A1C Echo MRI W and W/O Anemia 07/22/2019 07/29/2019 Obesity, Class I, BMI 30-34.9 03/16/2018 Constipation 03/15/2018 07/29/2019 Last Assessment & Plan: Senna-s, miralax daily One time fleet enema Current chronic use of systemic steroids 018 07/29/2019 Last Assessment & Plan: Assessment: has been on 20mg prednisone for arthritis and asthma per patient for over 8 years. Has had unsuccessful attempts at weening due to fatigue, malaise. Likely has adrenal insufficiency due to this. PLAN: - continue 20mg prednisone for now - will try to decrease tomorrow to 17.5 and ween slowly Weakness 03/13/2018 07/29/2019 Last Assessment & Plan: Assessment: likely 2/2 to dehydration and prior viral illness, post viral cough. Exacerbated by chronic steroid use and likely adrenal insufficiency. PLAN: - IV hydration - PT/OT Asymptomatic bacteriuria 03/13/2018 018 Last Assessment & Plan: Assessment: UA positive but asymptomatic PLAN: D/c ceftriaxone Monitor for symptoms Chest pain 03/13/2018 03/16/2018 Last Assessment & Plan: Pleuritic chest pain likely from post viral cough troponins negative, will stop cycling Hyperosmolar (nonketotic) coma 09/05/2017 0 09/06/2017 Uncontrolled type 2 diabetes mellitus with ketoacidosis without coma, without long-term current use of insulin 09/05/2017 09/14/2017 Hyperglycemia 09/04/2017 09/06/2017 Allergic asthma 02/26/2016 07/29/2019 Last Assessment & Plan: Assessment h/o asthma and uses albuterol inhaler as needed paitent coming with mild exacerbation as she was wheezing in the ED. PLAN: Check for flu CT CHEST AND Abdomen negative for acute pathology. Continue with duoneb No need for steroids at present Allergic rhinitis 02/26/2016 07/29/2019 Acquired hypothyroidism 01/28/2015 07/29/19 20 Last Assessment & Plan: TSH - WNL Continue with home dose of levothyroxine Essential hypertension 01/28/2015 0 Last Assessment & Plan: Resumed Lisinopril/HCTZ Vitamin D deficiency 08/20/2013 07/29/2019 Osteoarthritis 11/21/2012 07/29/2019 Last Assessment & Plan: Stopped Celecoxib Resumed daily Prednisone 20mg As she is a phasic continued her oxycodone but at a lower dosage documented as of this encounter (statuses as of 08/24/2021) [facility]04-02-2020 History of Past illness Narrative* Problem Noted Date Resolved Date Hypoglycemia 07/25/2019 07/25/2019 Last Assessment & Plan: Continue Synthroid Chronic neck pain 07/25/2019 07/29/2019 Overview: 5 milligrams oxycodone 4 times a day. Last Assessment & Plan: See treatment plan osteoarthritis Class 2 obesity with body ma ss index (BMI) of 35.0 to 35.9 in adult 07/25/2019 07/29/2019 Last Assessment & Plan: Assessment: Problem is stable with current regimen. PLAN: Continue current regimen Further counseling after stabilized following discharge Corticosteroid dependence 07/25/20192019 Overview: Stress dose steroid while nothing by mouth and stable Last Assessment & Plan: Stable Altered mental state 07/24/2019 07/25/2019 Last Assessment & Plan: Possibly secondary to hypoglycemia, stroke, or other etiology Opens eyes, responds to verbal stimuli and withdraw to pain but does not talk Moving all her extremities Head CT did not show acute findings Glucose improved now Continue D5+NS over night Check B12 and ammonia MRI at AM Neurology consult Stroke pathway Keep on telemetry ASA, statin Lipid panel and A1C Echo MRI W and W/O Anemia 07/22/2019 07/29/2019 Obesity, Class I, BMI 30-34.9 03/16/2018 Constipation 03/15/2018 07/29/2019 Last Assessment & Plan: Senna-s, miralax daily One time fleet enema Current chronic use of systemic steroids 018 07/29/2019 Last Assessment & Plan: Assessment: has been on 20mg prednisone for arthritis and asthma per patient for over 8 years. Has had unsuccessful attempts at weening due to fatigue, malaise. Likely has adrenal insufficiency due to this. PLAN: - continue 20mg prednisone for now - will try to decrease tomorrow to 17.5 and ween slowly Weakness 03/13/2018 07/29/2019 Last Assessment & Plan: Assessment: likely 2/2 to dehydration and prior viral illness, post viral cough. Exacerbated by chronic steroid use and likely adrenal insufficiency. PLAN: - IV hydration - PT/OT Asymptomatic bacteriuria 03/13/2018 018 Last Assessment & Plan: Assessment: UA positive but asymptomatic PLAN: D/c ceftriaxone Monitor for symptoms Chest pain 03/13/2018 03/16/2018 Last Assessment & Plan: Pleuritic chest pain likely from post viral cough troponins negative, will stop cycling Hyperosmolar (nonketotic) coma 09/05/2017 0 09/06/2017 Uncontrolled type 2 diabetes mellitus with ketoacidosis without coma, without long-term current use of insulin 09/05/2017 09/14/2017 Hyperglycemia 09/04/2017 09/06/2017 Allergic asthma 02/26/2016 07/29/2019 Last Assessment & Plan: Assessment h/o asthma and uses albuterol inhaler as needed paitent coming with mild exacerbation as she was wheezing in the ED. PLAN: Check for flu CT CHEST AND Abdomen negative for acute pathology. Continue with duoneb No need for steroids at present Allergic rhinitis 02/26/2016 07/29/2019 Acquired hypothyroidism 01/28/2015 07/29/19 20 Last Assessment & Plan: TSH - WNL Continue with home dose of levothyroxine Essential hypertension 01/28/2015 0 Last Assessment & Plan: Resumed Lisinopril/HCTZ Vitamin D deficiency 08/20/2013 07/29/2019 Osteoarthritis 11/21/2012 07/29/2019 Last Assessment & Plan: Stopped Celecoxib Resumed daily Prednisone 20mg As she is a phasic continued her oxycodone but at a lower dosage documented as of this encounter (statuses as of 08/27/2021) [facility]04-[facility]-2020 History of Past illness Narrative* Problem Noted Date Resolved Date Hypoglycemia 07/25/2019 07/25/2019 Last Assessment & Plan: Continue Synthroid Chronic neck pain 07/25/2019 07/29/2019 Overview: 5 milligrams oxycodone 4 times a day. Last Assessment & Plan: See treatment plan osteoarthritis Class 2 obesity with body ma ss index (BMI) of 35.0 to 35.9 in adult 07/25/2019 07/29/2019 Last Assessment & Plan: Assessment: Problem is stable with current regimen. PLAN: Continue current regimen Further counseling after stabilized following discharge Corticosteroid dependence 07/25/20192019 Overview: Stress dose steroid while nothing by mouth and stable Last Assessment & Plan: Stable Altered mental state 07/24/2019 07/25/2019 Last Assessment & Plan: Possibly secondary to hypoglycemia, stroke, or other etiology Opens eyes, responds to verbal stimuli and withdraw to pain but does not talk Moving all her extremities Head CT did not show acute findings Glucose improved now Continue D5+NS over night Check B12 and ammonia MRI at AM Neurology consult Stroke pathway Keep on telemetry ASA, statin Lipid panel and A1C Echo MRI W and W/O Anemia 07/22/2019 07/29/2019 Obesity, Class I, BMI 30-34.9 03/16/2018 Constipation 03/15/2018 07/29/2019 Last Assessment & Plan: Senna-s, miralax daily One time fleet enema Current chronic use of systemic steroids 018 07/29/2019 Last Assessment & Plan: Assessment: has been on 20mg prednisone for arthritis and asthma per patient for over 8 years. Has had unsuccessful attempts at weening due to fatigue, malaise. Likely has adrenal insufficiency due to this. PLAN: - continue 20mg prednisone for now - will try to decrease tomorrow to 17.5 and ween slowly Weakness 03/13/2018 07/29/2019 Last Assessment & Plan: Assessment: likely 2/2 to dehydration and prior viral illness, post viral cough. Exacerbated by chronic steroid use and likely adrenal insufficiency. PLAN: - IV hydration - PT/OT Asymptomatic bacteriuria 03/13/2018 018 Last Assessment & Plan: Assessment: UA positive but asymptomatic PLAN: D/c ceftriaxone Monitor for symptoms Chest pain 03/13/2018 03/16/2018 Last Assessment & Plan: Pleuritic chest pain likely from post viral cough troponins negative, will stop cycling Hyperosmolar (nonketotic) coma 09/05/2017 0 09/06/2017 Uncontrolled type 2 diabetes mellitus with ketoacidosis without coma, without long-term current use of insulin 09/05/2017 09/14/2017 Hyperglycemia 09/04/2017 09/06/2017 Allergic asthma 02/26/2016 07/29/2019 Last Assessment & Plan: Assessment h/o asthma and uses albuterol inhaler as needed paitent coming with mild exacerbation as she was wheezing in the ED. PLAN: Check for flu CT CHEST AND Abdomen negative for acute pathology. Continue with duoneb No need for steroids at present Allergic rhinitis 02/26/2016 07/29/2019 Acquired hypothyroidism 01/28/2015 07/29/19 20 Last Assessment & Plan: TSH - WNL Continue with home dose of levothyroxine Essential hypertension 01/28/2015 0 Last Assessment & Plan: Resumed Lisinopril/HCTZ Vitamin D deficiency 08/20/2013 07/29/2019 Osteoarthritis 11/21/2012 07/29/2019 Last Assessment & Plan: Stopped Celecoxib Resumed daily Prednisone 20mg As she is a phasic continued her oxycodone but at a lower dosage documented as of this encounter (statuses as of 08/27/2021) [facility]04-[facility]2020 History of Past illness Narrative* Problem Noted Date Resolved Date Hypoglycemia 07/25/2019 07/25/2019 Last Assessment & Plan: Continue Synthroid Chronic neck pain 07/25/2019 07/29/2019 Overview: 5 milligrams oxycodone 4 times a day. Last Assessment & Plan: See treatment plan osteoarthritis Class 2 obesity with body ma ss index (BMI) of 35.0 to 35.9 in adult 07/25/2019 07/29/2019 Last Assessment & Plan: Assessment: Problem is stable with current regimen. PLAN: Continue current regimen Further counseling after stabilized following discharge Corticosteroid dependence 07/25/20192019 Overview: Stress dose steroid while nothing by mouth and stable Last Assessment & Plan: Stable Altered mental state 07/24/2019 07/25/2019 Last Assessment & Plan: Possibly secondary to hypoglycemia, stroke, or other etiology Opens eyes, responds to verbal stimuli and withdraw to pain but does not talk Moving all her extremities Head CT did not show acute findings Glucose improved now Continue D5+NS over night Check B12 and ammonia MRI at AM Neurology consult Stroke pathway Keep on telemetry ASA, statin Lipid panel and A1C Echo MRI W and W/O Anemia 07/22/2019 07/29/2019 Obesity, Class I, BMI 30-34.9 03/16/2018 Constipation 03/15/2018 07/29/2019 Last Assessment & Plan: Senna-s, miralax daily One time fleet enema Current chronic use of systemic steroids 018 07/29/2019 Last Assessment & Plan: Assessment: has been on 20mg prednisone for arthritis and asthma per patient for over 8 years. Has had unsuccessful attempts at weening due to fatigue, malaise. Likely has adrenal insufficiency due to this. PLAN: - continue 20mg prednisone for now - will try to decrease tomorrow to 17.5 and ween slowly Weakness 03/13/2018 07/29/2019 Last Assessment & Plan: Assessment: likely 2/2 to dehydration and prior viral illness, post viral cough. Exacerbated by chronic steroid use and likely adrenal insufficiency. PLAN: - IV hydration - PT/OT Asymptomatic bacteriuria 03/13/2018 018 Last Assessment & Plan: Assessment: UA positive but asymptomatic PLAN: D/c ceftriaxone Monitor for symptoms Chest pain 03/13/2018 03/16/2018 Last Assessment & Plan: Pleuritic chest pain likely from post viral cough troponins negative, will stop cycling Hyperosmolar (nonketotic) coma 09/05/2017 0 09/06/2017 Uncontrolled type 2 diabetes mellitus with ketoacidosis without coma, without long-term current use of insulin 09/05/2017 09/14/2017 Hyperglycemia 09/04/2017 09/06/2017 Allergic asthma 02/26/2016 07/29/2019 Last Assessment & Plan: Assessment h/o asthma and uses albuterol inhaler as needed paitent coming with mild exacerbation as she was wheezing in the ED. PLAN: Check for flu CT CHEST AND Abdomen negative for acute pathology. Continue with duoneb No need for steroids at present Allergic rhinitis 02/26/2016 07/29/2019 Acquired hypothyroidism 01/28/2015 07/29/19 20 Last Assessment & Plan: TSH - WNL Continue with home dose of levothyroxine Essential hypertension 01/28/2015 0 Last Assessment & Plan: Resumed Lisinopril/HCTZ Vitamin D deficiency 08/20/2013 07/29/2019 Osteoarthritis 11/21/2012 07/29/2019 Last Assessment & Plan: Stopped Celecoxib Resumed daily Prednisone 20mg As she is a phasic continued her oxycodone but at a lower dosage documented as of this encounter (statuses as of 08/31/2021) [facility]2020 History of Past illness Narrative* Problem Noted Date Resolved Date Hypoglycemia 07/25/2019 07/25/2019 Last Assessment & Plan: Continue Synthroid Chronic neck pain 07/25/2019 07/29/2019 Overview: 5 milligrams oxycodone 4 times a day. Last Assessment & Plan: See treatment plan osteoarthritis Class 2 obesity with body ma ss index (BMI) of 35.0 to 35.9 in adult 07/25/2019 07/29/2019 Last Assessment & Plan: Assessment: Problem is stable with current regimen. PLAN: Continue current regimen Further counseling after stabilized following discharge Corticosteroid dependence 07/25/20192019 Overview: Stress dose steroid while nothing by mouth and stable Last Assessment & Plan: Stable Altered mental state 07/24/2019 07/25/2019 Last Assessment & Plan: Possibly secondary to hypoglycemia, stroke, or other etiology Opens eyes, responds to verbal stimuli and withdraw to pain but does not talk Moving all her extremities Head CT did not show acute findings Glucose improved now Continue D5+NS over night Check B12 and ammonia MRI at AM Neurology consult Stroke pathway Keep on telemetry ASA, statin Lipid panel and A1C Echo MRI W and W/O Anemia 07/22/2019 07/29/2019 Obesity, Class I, BMI 30-34.9 03/16/2018 Constipation 03/15/2018 07/29/2019 Last Assessment & Plan: Senna-s, miralax daily One time fleet enema Current chronic use of systemic steroids 018 07/29/2019 Last Assessment & Plan: Assessment: has been on 20mg prednisone for arthritis and asthma per patient for over 8 years. Has had unsuccessful attempts at weening due to fatigue, malaise. Likely has adrenal insufficiency due to this. PLAN: - continue 20mg prednisone for now - will try to decrease tomorrow to 17.5 and ween slowly Weakness 03/13/2018 07/29/2019 Last Assessment & Plan: Assessment: likely 2/2 to dehydration and prior viral illness, post viral cough. Exacerbated by chronic steroid use and likely adrenal insufficiency. PLAN: - IV hydration - PT/OT Asymptomatic bacteriuria 03/13/2018 018 Last Assessment & Plan: Assessment: UA positive but asymptomatic PLAN: D/c ceftriaxone Monitor for symptoms Chest pain 03/13/2018 03/16/2018 Last Assessment & Plan: Pleuritic chest pain likely from post viral cough troponins negative, will stop cycling Hyperosmolar (nonketotic) coma 09/05/2017 0 09/06/2017 Uncontrolled type 2 diabetes mellitus with ketoacidosis without coma, without long-term current use of insulin 09/05/2017 09/14/2017 Hyperglycemia 09/04/2017 09/06/2017 Allergic asthma 02/26/2016 07/29/2019 Last Assessment & Plan: Assessment h/o asthma and uses albuterol inhaler as needed paitent coming with mild exacerbation as she was wheezing in the ED. PLAN: Check for flu CT CHEST AND Abdomen negative for acute pathology. Continue with duoneb No need for steroids at present Allergic rhinitis 02/26/2016 07/29/2019 Acquired hypothyroidism 01/28/2015 07/29/19 20 Last Assessment & Plan: TSH - WNL Continue with home dose of levothyroxine Essential hypertension 01/28/2015 0 Last Assessment & Plan: Resumed Lisinopril/HCTZ Vitamin D deficiency 08/20/2013 07/29/2019 Osteoarthritis 11/21/2012 07/29/2019 Last Assessment & Plan: Stopped Celecoxib Resumed daily Prednisone 20mg As she is a phasic continued her oxycodone but at a lower dosage documented as of this encounter (statuses as of 09/01/2021) [facility]04-02-2020 History of Past illness Narrative* Problem Noted Date Resolved Date Hypoglycemia 07/25/2019 07/25/2019 Last Assessment & Plan: Continue Synthroid Chronic neck pain 07/25/2019 07/29/2019 Overview: 5 milligrams oxycodone 4 times a day. Last Assessment & Plan: See treatment plan osteoarthritis Class 2 obesity with body ma ss index (BMI) of 35.0 to 35.9 in adult 07/25/2019 07/29/2019 Last Assessment & Plan: Assessment: Problem is stable with current regimen. PLAN: Continue current regimen Further counseling after stabilized following discharge Corticosteroid dependence 07/25/20192019 Overview: Stress dose steroid while nothing by mouth and stable Last Assessment & Plan: Stable Altered mental state 07/24/2019 07/25/2019 Last Assessment & Plan: Possibly secondary to hypoglycemia, stroke, or other etiology Opens eyes, responds to verbal stimuli and withdraw to pain but does not talk Moving all her extremities Head CT did not show acute findings Glucose improved now Continue D5+NS over night Check B12 and ammonia MRI at AM Neurology consult Stroke pathway Keep on telemetry ASA, statin Lipid panel and A1C Echo MRI W and W/O Anemia 07/22/2019 07/29/2019 Obesity, Class I, BMI 30-34.9 03/16/2018 Constipation 03/15/2018 07/29/2019 Last Assessment & Plan: Senna-s, miralax daily One time fleet enema Current chronic use of systemic steroids 018 07/29/2019 Last Assessment & Plan: Assessment: has been on 20mg prednisone for arthritis and asthma per patient for over 8 years. Has had unsuccessful attempts at weening due to fatigue, malaise. Likely has adrenal insufficiency due to this. PLAN: - continue 20mg prednisone for now - will try to decrease tomorrow to 17.5 and ween slowly Weakness 03/13/2018 07/29/2019 Last Assessment & Plan: Assessment: likely 2/2 to dehydration and prior viral illness, post viral cough. Exacerbated by chronic steroid use and likely adrenal insufficiency. PLAN: - IV hydration - PT/OT Asymptomatic bacteriuria 03/13/2018 018 Last Assessment & Plan: Assessment: UA positive but asymptomatic PLAN: D/c ceftriaxone Monitor for symptoms Chest pain 03/13/2018 03/16/2018 Last Assessment & Plan: Pleuritic chest pain likely from post viral cough troponins negative, will stop cycling Hyperosmolar (nonketotic) coma 09/05/2017 0 09/06/2017 Uncontrolled type 2 diabetes mellitus with ketoacidosis without coma, without long-term current use of insulin 09/05/2017 09/14/2017 Hyperglycemia 09/04/2017 09/06/2017 Allergic asthma 02/26/2016 07/29/2019 Last Assessment & Plan: Assessment h/o asthma and uses albuterol inhaler as needed paitent coming with mild exacerbation as she was wheezing in the ED. PLAN: Check for flu CT CHEST AND Abdomen negative for acute pathology. Continue with duoneb No need for steroids at present Allergic rhinitis 02/26/2016 07/29/2019 Acquired hypothyroidism 01/28/2015 07/29/19 20 Last Assessment & Plan: TSH - WNL Continue with home dose of levothyroxine Essential hypertension 01/28/2015 0 Last Assessment & Plan: Resumed Lisinopril/HCTZ Vitamin D deficiency 08/20/2013 07/29/2019 Osteoarthritis 11/21/2012 07/29/2019 Last Assessment & Plan: Stopped Celecoxib Resumed daily Prednisone 20mg As she is a phasic continued her oxycodone but at a lower dosage documented as of this encounter (statuses as of 09/13/2021) [facility]04-02-2020 History of Past illness Narrative* Problem Noted Date Resolved Date Hypoglycemia 07/25/2019 07/25/2019 Last Assessment & Plan: Continue Synthroid Chronic neck pain 07/25/2019 07/29/2019 Overview: 5 milligrams oxycodone 4 times a day. Last Assessment & Plan: See treatment plan osteoarthritis Class 2 obesity with body ma ss index (BMI) of 35.0 to 35.9 in adult 07/25/2019 07/29/2019 Last Assessment & Plan: Assessment: Problem is stable with current regimen. PLAN: Continue current regimen Further counseling after stabilized following discharge Corticosteroid dependence 07/25/20192019 Overview: Stress dose steroid while nothing by mouth and stable Last Assessment & Plan: Stable Altered mental state 07/24/2019 07/25/2019 Last Assessment & Plan: Possibly secondary to hypoglycemia, stroke, or other etiology Opens eyes, responds to verbal stimuli and withdraw to pain but does not talk Moving all her extremities Head CT did not show acute findings Glucose improved now Continue D5+NS over night Check B12 and ammonia MRI at AM Neurology consult Stroke pathway Keep on telemetry ASA, statin Lipid panel and A1C Echo MRI W and W/O Anemia 07/22/2019 07/29/2019 Obesity, Class I, BMI 30-34.9 03/16/2018 Constipation 03/15/2018 07/29/2019 Last Assessment & Plan: Senna-s, miralax daily One time fleet enema Current chronic use of systemic steroids 018 07/29/2019 Last Assessment & Plan: Assessment: has been on 20mg prednisone for arthritis and asthma per patient for over 8 years. Has had unsuccessful attempts at weening due to fatigue, malaise. Likely has adrenal insufficiency due to this. PLAN: - continue 20mg prednisone for now - will try to decrease tomorrow to 17.5 and ween slowly Weakness 03/13/2018 07/29/2019 Last Assessment & Plan: Assessment: likely 2/2 to dehydration and prior viral illness, post viral cough. Exacerbated by chronic steroid use and likely adrenal insufficiency. PLAN: - IV hydration - PT/OT Asymptomatic bacteriuria 03/13/2018 018 Last Assessment & Plan: Assessment: UA positive but asymptomatic PLAN: D/c ceftriaxone Monitor for symptoms Chest pain 03/13/2018 03/16/2018 Last Assessment & Plan: Pleuritic chest pain likely from post viral cough troponins negative, will stop cycling Hyperosmolar (nonketotic) coma 09/05/2017 0 09/06/2017 Uncontrolled type 2 diabetes mellitus with ketoacidosis without coma, without long-term current use of insulin 09/05/2017 09/14/2017 Hyperglycemia 09/04/2017 09/06/2017 Allergic asthma 02/26/2016 07/29/2019 Last Assessment & Plan: Assessment h/o asthma and uses albuterol inhaler as needed paitent coming with mild exacerbation as she was wheezing in the ED. PLAN: Check for flu CT CHEST AND Abdomen negative for acute pathology. Continue with duoneb No need for steroids at present Allergic rhinitis 02/26/2016 07/29/2019 Acquired hypothyroidism 01/28/2015 07/29/19 20 Last Assessment & Plan: TSH - WNL Continue with home dose of levothyroxine Essential hypertension 01/28/2015 0 Last Assessment & Plan: Resumed Lisinopril/HCTZ Vitamin D deficiency 08/20/2013 07/29/2019 Osteoarthritis 11/21/2012 07/29/2019 Last Assessment & Plan: Stopped Celecoxib Resumed daily Prednisone 20mg As she is a phasic continued her oxycodone but at a lower dosage documented as of this encounter (statuses as of 11/15/2021) [facility]04-02-2020 History of Past illness Narrative* Problem Noted Date Resolved Date Hypoglycemia 07/25/2019 07/25/2019 Last Assessment & Plan: Continue Synthroid Chronic neck pain 07/25/2019 07/29/2019 Overview: 5 milligrams oxycodone 4 times a day. Last Assessment & Plan: See treatment plan osteoarthritis Class 2 obesity with body ma ss index (BMI) of 35.0 to 35.9 in adult 07/25/2019 07/29/2019 Last Assessment & Plan: Assessment: Problem is stable with current regimen. PLAN: Continue current regimen Further counseling after stabilized following discharge Corticosteroid dependence 07/25/20192019 Overview: Stress dose steroid while nothing by mouth and stable Last Assessment & Plan: Stable Altered mental state 07/24/2019 07/25/2019 Last Assessment & Plan: Possibly secondary to hypoglycemia, stroke, or other etiology Opens eyes, responds to verbal stimuli and withdraw to pain but does not talk Moving all her extremities Head CT did not show acute findings Glucose improved now Continue D5+NS over night Check B12 and ammonia MRI at AM Neurology consult Stroke pathway Keep on telemetry ASA, statin Lipid panel and A1C Echo MRI W and W/O Anemia 07/22/2019 07/29/2019 Obesity, Class I, BMI 30-34.9 03/16/2018 Constipation 03/15/2018 07/29/2019 Last Assessment & Plan: Senna-s, miralax daily One time fleet enema Current chronic use of systemic steroids 018 07/29/2019 Last Assessment & Plan: Assessment: has been on 20mg prednisone for arthritis and asthma per patient for over 8 years. Has had unsuccessful attempts at weening due to fatigue, malaise. Likely has adrenal insufficiency due to this. PLAN: - continue 20mg prednisone for now - will try to decrease tomorrow to 17.5 and ween slowly Weakness 03/13/2018 07/29/2019 Last Assessment & Plan: Assessment: likely 2/2 to dehydration and prior viral illness, post viral cough. Exacerbated by chronic steroid use and likely adrenal insufficiency. PLAN: - IV hydration - PT/OT Asymptomatic bacteriuria 03/13/2018 018 Last Assessment & Plan: Assessment: UA positive but asymptomatic PLAN: D/c ceftriaxone Monitor for symptoms Chest pain 03/13/2018 03/16/2018 Last Assessment & Plan: Pleuritic chest pain likely from post viral cough troponins negative, will stop cycling Hyperosmolar (nonketotic) coma 09/05/2017 0 09/06/2017 Uncontrolled type 2 diabetes mellitus with ketoacidosis without coma, without long-term current use of insulin 09/05/2017 09/14/2017 Hyperglycemia 09/04/2017 09/06/2017 Allergic asthma 02/26/2016 07/29/2019 Last Assessment & Plan: Assessment h/o asthma and uses albuterol inhaler as needed paitent coming with mild exacerbation as she was wheezing in the ED. PLAN: Check for flu CT CHEST AND Abdomen negative for acute pathology. Continue with duoneb No need for steroids at present Allergic rhinitis 02/26/2016 07/29/2019 Acquired hypothyroidism 01/28/2015 07/29/19 20 Last Assessment & Plan: TSH - WNL Continue with home dose of levothyroxine Essential hypertension 01/28/2015 0 Last Assessment & Plan: Resumed Lisinopril/HCTZ Vitamin D deficiency 08/20/2013 07/29/2019 Osteoarthritis 11/21/2012 07/29/2019 Last Assessment & Plan: Stopped Celecoxib Resumed daily Prednisone 20mg As she is a phasic continued her oxycodone but at a lower dosage documented as of this encounter (statuses as of 12/02/2021) [facility]04-02-2020 History of Past illness Narrative* Problem Noted Date Resolved Date Hypoglycemia 07/25/2019 07/25/2019 Last Assessment & Plan: Continue Synthroid Chronic neck pain 07/25/2019 07/29/2019 Overview: 5 milligrams oxycodone 4 times a day. Last Assessment & Plan: See treatment plan osteoarthritis Class 2 obesity with body ma ss index (BMI) of 35.0 to 35.9 in adult 07/25/2019 07/29/2019 Last Assessment & Plan: Assessment: Problem is stable with current regimen. PLAN: Continue current regimen Further counseling after stabilized following discharge Corticosteroid dependence 07/25/20192019 Overview: Stress dose steroid while nothing by mouth and stable Last Assessment & Plan: Stable Altered mental state 07/24/2019 07/25/2019 Last Assessment & Plan: Possibly secondary to hypoglycemia, stroke, or other etiology Opens eyes, responds to verbal stimuli and withdraw to pain but does not talk Moving all her extremities Head CT did not show acute findings Glucose improved now Continue D5+NS over night Check B12 and ammonia MRI at AM Neurology consult Stroke pathway Keep on telemetry ASA, statin Lipid panel and A1C Echo MRI W and W/O Anemia 07/22/2019 07/29/2019 Obesity, Class I, BMI 30-34.9 03/16/2018 Constipation 03/15/2018 07/29/2019 Last Assessment & Plan: Senna-s, miralax daily One time fleet enema Current chronic use of systemic steroids 018 07/29/2019 Last Assessment & Plan: Assessment: has been on 20mg prednisone for arthritis and asthma per patient for over 8 years. Has had unsuccessful attempts at weening due to fatigue, malaise. Likely has adrenal insufficiency due to this. PLAN: - continue 20mg prednisone for now - will try to decrease tomorrow to 17.5 and ween slowly Weakness 03/13/2018 07/29/2019 Last Assessment & Plan: Assessment: likely 2/2 to dehydration and prior viral illness, post viral cough. Exacerbated by chronic steroid use and likely adrenal insufficiency. PLAN: - IV hydration - PT/OT Asymptomatic bacteriuria 03/13/2018 018 Last Assessment & Plan: Assessment: UA positive but asymptomatic PLAN: D/c ceftriaxone Monitor for symptoms Chest pain 03/13/2018 03/16/2018 Last Assessment & Plan: Pleuritic chest pain likely from post viral cough troponins negative, will stop cycling Hyperosmolar (nonketotic) coma 09/05/2017 0 09/06/2017 Uncontrolled type 2 diabetes mellitus with ketoacidosis without coma, without long-term current use of insulin 09/05/2017 09/14/2017 Hyperglycemia 09/04/2017 09/06/2017 Allergic asthma 02/26/2016 07/29/2019 Last Assessment & Plan: Assessment h/o asthma and uses albuterol inhaler as needed paitent coming with mild exacerbation as she was wheezing in the ED. PLAN: Check for flu CT CHEST AND Abdomen negative for acute pathology. Continue with duoneb No need for steroids at present Allergic rhinitis 02/26/2016 07/29/2019 Acquired hypothyroidism 01/28/2015 07/29/19 20 Last Assessment & Plan: TSH - WNL Continue with home dose of levothyroxine Essential hypertension 01/28/2015 0 Last Assessment & Plan: Resumed Lisinopril/HCTZ Vitamin D deficiency 08/20/2013 07/29/2019 Osteoarthritis 11/21/2012 07/29/2019 Last Assessment & Plan: Stopped Celecoxib Resumed daily Prednisone 20mg As she is a phasic continued her oxycodone but at a lower dosage documented as of this encounter (statuses as of 12/10/2021) [facility]04-[facility]2020 History of Past illness Narrative* Problem Noted Date Resolved Date Hypoglycemia 07/25/2019 07/25/2019 Last Assessment & Plan: Continue Synthroid Chronic neck pain 07/25/2019 07/29/2019 Overview: 5 milligrams oxycodone 4 times a day. Last Assessment & Plan: See treatment plan osteoarthritis Class 2 obesity with body ma ss index (BMI) of 35.0 to 35.9 in adult 07/25/2019 07/29/2019 Last Assessment & Plan: Assessment: Problem is stable with current regimen. PLAN: Continue current regimen Further counseling after stabilized following discharge Corticosteroid dependence 07/25/20192019 Overview: Stress dose steroid while nothing by mouth and stable Last Assessment & Plan: Stable Altered mental state 07/24/2019 07/25/2019 Last Assessment & Plan: Possibly secondary to hypoglycemia, stroke, or other etiology Opens eyes, responds to verbal stimuli and withdraw to pain but does not talk Moving all her extremities Head CT did not show acute findings Glucose improved now Continue D5+NS over night Check B12 and ammonia MRI at AM Neurology consult Stroke pathway Keep on telemetry ASA, statin Lipid panel and A1C Echo MRI W and W/O Anemia 07/22/2019 07/29/2019 Obesity, Class I, BMI 30-34.9 03/16/2018 Constipation 03/15/2018 07/29/2019 Last Assessment & Plan: Senna-s, miralax daily One time fleet enema Current chronic use of systemic steroids 018 07/29/2019 Last Assessment & Plan: Assessment: has been on 20mg prednisone for arthritis and asthma per patient for over 8 years. Has had unsuccessful attempts at weening due to fatigue, malaise. Likely has adrenal insufficiency due to this. PLAN: - continue 20mg prednisone for now - will try to decrease tomorrow to 17.5 and ween slowly Weakness 03/13/2018 07/29/2019 Last Assessment & Plan: Assessment: likely 2/2 to dehydration and prior viral illness, post viral cough. Exacerbated by chronic steroid use and likely adrenal insufficiency. PLAN: - IV hydration - PT/OT Asymptomatic bacteriuria 03/13/201803/16/2 018 Last Assessment & Plan: Assessment: UA positive but asymptomatic PLAN: D/c ceftriaxone Monitor for symptoms Chest pain 03/13/2018 03/16/2018 Last Assessment & Plan: Pleuritic chest pain likely from post viral cough troponins negative, will stop cycling Hyperosmolar (nonketotic) coma 09/05/2017 0 09/06/2017 Uncontrolled type 2 diabetes mellitus with ketoacidosis without coma, without long-term current use of insulin 09/05/2017 09/14/2017 Hyperglycemia 09/04/2017 09/06/2017 Allergic asthma 02/26/2016 07/29/2019 Last Assessment & Plan: Assessment h/o asthma and uses albuterol inhaler as needed paitent coming with mild exacerbation as she was wheezing in the ED. PLAN: Check for flu CT CHEST AND Abdomen negative for acute pathology. Continue with duoneb No need for steroids at present Allergic rhinitis 02/26/2016 07/29/2019 Acquired hypothyroidism 01/28/2015 07/29/19 20 Last Assessment & Plan: TSH - WNL Continue with home dose of levothyroxine Essential hypertension 01/28/2015 0 Last Assessment & Plan: Resumed Lisinopril/HCTZ Vitamin D deficiency 08/20/2013 07/29/2019 Osteoarthritis 11/21/2012 07/29/2019 Last Assessment & Plan: Stopped Celecoxib Resumed daily Prednisone 20mg As she is a phasic continued her oxycodone but at a lower dosage documented as of this encounter (statuses as of 03/21/2022) [facility]04-02[facility]2020 History of Past illness Narrative* Problem Noted Date Resolved Date Hypoglycemia 07/25/2019 07/25/2019 Last Assessment & Plan: Continue Synthroid Chronic neck pain 07/25/2019 07/29/2019 Overview: 5 milligrams oxycodone 4 times a day. Last Assessment & Plan: See treatment plan osteoarthritis Class 2 obesity with body ma ss index (BMI) of 35.0 to 35.9 in adult 07/25/2019 07/29/2019 Last Assessment & Plan: Assessment: Problem is stable with current regimen. PLAN: Continue current regimen Further counseling after stabilized following discharge Corticosteroid dependence 07/25/20192019 Overview: Stress dose steroid while nothing by mouth and stable Last Assessment & Plan: Stable Altered mental state 07/24/2019 07/25/2019 Last Assessment & Plan: Possibly secondary to hypoglycemia, stroke, or other etiology Opens eyes, responds to verbal stimuli and withdraw to pain but does not talk Moving all her extremities Head CT did not show acute findings Glucose improved now Continue D5+NS over night Check B12 and ammonia MRI at AM Neurology consult Stroke pathway Keep on telemetry ASA, statin Lipid panel and A1C Echo MRI W and W/O Anemia 07/22/2019 07/29/2019 Obesity, Class I, BMI 30-34.9 03/16/2018 Constipation 03/15/2018 07/29/2019 Last Assessment & Plan: Senna-s, miralax daily One time fleet enema Current chronic use of systemic steroids 018 07/29/2019 Last Assessment & Plan: Assessment: has been on 20mg prednisone for arthritis and asthma per patient for over 8 years. Has had unsuccessful attempts at weening due to fatigue, malaise. Likely has adrenal insufficiency due to this. PLAN: - continue 20mg prednisone for now - will try to decrease tomorrow to 17.5 and ween slowly Weakness 03/13/2018 07/29/2019 Last Assessment & Plan: Assessment: likely 2/2 to dehydration and prior viral illness, post viral cough. Exacerbated by chronic steroid use and likely adrenal insufficiency. PLAN: - IV hydration - PT/OT Asymptomatic bacteriuria 03/13/2018 018 Last Assessment & Plan: Assessment: UA positive but asymptomatic PLAN: D/c ceftriaxone Monitor for symptoms Chest pain 03/13/2018 03/16/2018 Last Assessment & Plan: Pleuritic chest pain likely from post viral cough troponins negative, will stop cycling Hyperosmolar (nonketotic) coma 09/05/2017 0 09/06/2017 Uncontrolled type 2 diabetes mellitus with ketoacidosis without coma, without long-term current use of insulin 09/05/2017 09/14/2017 Hyperglycemia 09/04/2017 09/06/2017 Allergic asthma 02/26/2016 07/29/2019 Last Assessment & Plan: Assessment h/o asthma and uses albuterol inhaler as needed paitent coming with mild exacerbation as she was wheezing in the ED. PLAN: Check for flu CT CHEST AND Abdomen negative for acute pathology. Continue with duoneb No need for steroids at present Allergic rhinitis 02/26/2016 07/29/2019 Acquired hypothyroidism 01/28/2015 07/29/19 20 Last Assessment & Plan: TSH - WNL Continue with home dose of levothyroxine Essential hypertension 01/28/2015 0 Last Assessment & Plan: Resumed Lisinopril/HCTZ Vitamin D deficiency 08/20/2013 07/29/2019 Osteoarthritis 11/21/2012 07/29/2019 Last Assessment & Plan: Stopped Celecoxib Resumed daily Prednisone 20mg As she is a phasic continued her oxycodone but at a lower dosage documented as of this encounter (statuses as of 03/22/2022) [facility]04-[facility]2020 History of Past illness Narrative* Problem Noted Date Resolved Date Hypoglycemia 07/25/2019 07/25/2019 Last Assessment & Plan: Continue Synthroid Chronic neck pain 07/25/2019 07/29/2019 Overview: 5 milligrams oxycodone 4 times a day. Last Assessment & Plan: See treatment plan osteoarthritis Class 2 obesity with body ma ss index (BMI) of 35.0 to 35.9 in adult 07/25/2019 07/29/2019 Last Assessment & Plan: Assessment: Problem is stable with current regimen. PLAN: Continue current regimen Further counseling after stabilized following discharge Corticosteroid dependence 07/25/20192019 Overview: Stress dose steroid while nothing by mouth and stable Last Assessment & Plan: Stable Altered mental state 07/24/2019 07/25/2019 Last Assessment & Plan: Possibly secondary to hypoglycemia, stroke, or other etiology Opens eyes, responds to verbal stimuli and withdraw to pain but does not talk Moving all her extremities Head CT did not show acute findings Glucose improved now Continue D5+NS over night Check B12 and ammonia MRI at AM Neurology consult Stroke pathway Keep on telemetry ASA, statin Lipid panel and A1C Echo MRI W and W/O Anemia 07/22/2019 07/29/2019 Obesity, Class I, BMI 30-34.9 03/16/2018 Constipation 03/15/2018 07/29/2019 Last Assessment & Plan: Senna-s, miralax daily One time fleet enema Current chronic use of systemic steroids 018 07/29/2019 Last Assessment & Plan: Assessment: has been on 20mg prednisone for arthritis and asthma per patient for over 8 years. Has had unsuccessful attempts at weening due to fatigue, malaise. Likely has adrenal insufficiency due to this. PLAN: - continue 20mg prednisone for now - will try to decrease tomorrow to 17.5 and ween slowly Weakness 03/13/2018 07/29/2019 Last Assessment & Plan: Assessment: likely 2/2 to dehydration and prior viral illness, post viral cough. Exacerbated by chronic steroid use and likely adrenal insufficiency. PLAN: - IV hydration - PT/OT Asymptomatic bacteriuria 03/13/2018 018 Last Assessment & Plan: Assessment: UA positive but asymptomatic PLAN: D/c ceftriaxone Monitor for symptoms Chest pain 03/13/2018 03/16/2018 Last Assessment & Plan: Pleuritic chest pain likely from post viral cough troponins negative, will stop cycling Hyperosmolar (nonketotic) coma 09/05/2017 0 09/06/2017 Uncontrolled type 2 diabetes mellitus with ketoacidosis without coma, without long-term current use of insulin 09/05/2017 09/14/2017 Hyperglycemia 09/04/2017 09/06/2017 Allergic asthma 02/26/2016 07/29/2019 Last Assessment & Plan: Assessment h/o asthma and uses albuterol inhaler as needed paitent coming with mild exacerbation as she was wheezing in the ED. PLAN: Check for flu CT CHEST AND Abdomen negative for acute pathology. Continue with duoneb No need for steroids at present Allergic rhinitis 02/26/2016 07/29/2019 Acquired hypothyroidism 01/28/2015 07/29/19 20 Last Assessment & Plan: TSH - WNL Continue with home dose of levothyroxine Essential hypertension 01/28/2015 0 Last Assessment & Plan: Resumed Lisinopril/HCTZ Vitamin D deficiency 08/20/2013 07/29/2019 Osteoarthritis 11/21/2012 07/29/2019 Last Assessment & Plan: Stopped Celecoxib Resumed daily Prednisone 20mg As she is a phasic continued her oxycodone but at a lower dosage documented as of this encounter (statuses as of 06/01/2022) [facility]2020 History of Past illness Narrative* Problem Noted Date Resolved Date Hypoglycemia 07/25/2019 07/25/2019 Last Assessment & Plan: Continue Synthroid Chronic neck pain 07/25/2019 07/29/2019 Overview: 5 milligrams oxycodone 4 times a day. Last Assessment & Plan: See treatment plan osteoarthritis Class 2 obesity with body ma ss index (BMI) of 35.0 to 35.9 in adult 07/25/2019 07/29/2019 Last Assessment & Plan: Assessment: Problem is stable with current regimen. PLAN: Continue current regimen Further counseling after stabilized following discharge Corticosteroid dependence 07/25/20192019 Overview: Stress dose steroid while nothing by mouth and stable Last Assessment & Plan: Stable Altered mental state 07/24/2019 07/25/2019 Last Assessment & Plan: Possibly secondary to hypoglycemia, stroke, or other etiology Opens eyes, responds to verbal stimuli and withdraw to pain but does not talk Moving all her extremities Head CT did not show acute findings Glucose improved now Continue D5+NS over night Check B12 and ammonia MRI at AM Neurology consult Stroke pathway Keep on telemetry ASA, statin Lipid panel and A1C Echo MRI W and W/O Anemia 07/22/2019 07/29/2019 Obesity, Class I, BMI 30-34.9 03/16/2018 Constipation 03/15/2018 07/29/2019 Last Assessment & Plan: Senna-s, miralax daily One time fleet enema Current chronic use of systemic steroids 018 07/29/2019 Last Assessment & Plan: Assessment: has been on 20mg prednisone for arthritis and asthma per patient for over 8 years. Has had unsuccessful attempts at weening due to fatigue, malaise. Likely has adrenal insufficiency due to this. PLAN: - continue 20mg prednisone for now - will try to decrease tomorrow to 17.5 and ween slowly Weakness 03/13/2018 07/29/2019 Last Assessment & Plan: Assessment: likely 2/2 to dehydration and prior viral illness, post viral cough. Exacerbated by chronic steroid use and likely adrenal insufficiency. PLAN: - IV hydration - PT/OT Asymptomatic bacteriuria 03/13/2018 018 Last Assessment & Plan: Assessment: UA positive but asymptomatic PLAN: D/c ceftriaxone Monitor for symptoms Chest pain 03/13/2018 03/16/2018 Last Assessment & Plan: Pleuritic chest pain likely from post viral cough troponins negative, will stop cycling Hyperosmolar (nonketotic) coma 09/05/2017 0 09/06/2017 Uncontrolled type 2 diabetes mellitus with ketoacidosis without coma, without long-term current use of insulin 09/05/2017 09/14/2017 Hyperglycemia 09/04/2017 09/06/2017 Allergic asthma 02/26/2016 07/29/2019 Last Assessment & Plan: Assessment h/o asthma and uses albuterol inhaler as needed paitent coming with mild exacerbation as she was wheezing in the ED. PLAN: Check for flu CT CHEST AND Abdomen negative for acute pathology. Continue with duoneb No need for steroids at present Allergic rhinitis 02/26/2016 07/29/2019 Acquired hypothyroidism 01/28/2015 07/29/19 20 Last Assessment & Plan: TSH - WNL Continue with home dose of levothyroxine Essential hypertension 01/28/2015 0 Last Assessment & Plan: Resumed Lisinopril/HCTZ Vitamin D deficiency 08/20/2013 07/29/2019 Osteoarthritis 11/21/2012 07/29/2019 Last Assessment & Plan: Stopped Celecoxib Resumed daily Prednisone 20mg As she is a phasic continued her oxycodone but at a lower dosage documented as of this encounter (statuses as of 07/26/2022) [facility]04-02-2020 History of Past illness Narrative* Problem Noted Date Resolved Date Hypoglycemia 07/25/2019 07/25/2019 Last Assessment & Plan: Continue Synthroid Chronic neck pain 07/25/2019 07/29/2019 Overview: 5 milligrams oxycodone 4 times a day. Last Assessment & Plan: See treatment plan osteoarthritis Class 2 obesity with body ma ss index (BMI) of 35.0 to 35.9 in adult 07/25/2019 07/29/2019 Last Assessment & Plan: Assessment: Problem is stable with current regimen. PLAN: Continue current regimen Further counseling after stabilized following discharge Corticosteroid dependence 07/25/20192019 Overview: Stress dose steroid while nothing by mouth and stable Last Assessment & Plan: Stable Altered mental state 07/24/2019 07/25/2019 Last Assessment & Plan: Possibly secondary to hypoglycemia, stroke, or other etiology Opens eyes, responds to verbal stimuli and withdraw to pain but does not talk Moving all her extremities Head CT did not show acute findings Glucose improved now Continue D5+NS over night Check B12 and ammonia MRI at AM Neurology consult Stroke pathway Keep on telemetry ASA, statin Lipid panel and A1C Echo MRI W and W/O Anemia 07/22/2019 07/29/2019 Obesity, Class I, BMI 30-34.9 03/16/2018 Constipation 03/15/2018 07/29/2019 Last Assessment & Plan: Senna-s, miralax daily One time fleet enema Current chronic use of systemic steroids 018 07/29/2019 Last Assessment & Plan: Assessment: has been on 20mg prednisone for arthritis and asthma per patient for over 8 years. Has had unsuccessful attempts at weening due to fatigue, malaise. Likely has adrenal insufficiency due to this. PLAN: - continue 20mg prednisone for now - will try to decrease tomorrow to 17.5 and ween slowly Weakness 03/13/2018 07/29/2019 Last Assessment & Plan: Assessment: likely 2/2 to dehydration and prior viral illness, post viral cough. Exacerbated by chronic steroid use and likely adrenal insufficiency. PLAN: - IV hydration - PT/OT Asymptomatic bacteriuria 03/13/2018 018 Last Assessment & Plan: Assessment: UA positive but asymptomatic PLAN: D/c ceftriaxone Monitor for symptoms Chest pain 03/13/2018 03/16/2018 Last Assessment & Plan: Pleuritic chest pain likely from post viral cough troponins negative, will stop cycling Hyperosmolar (nonketotic) coma 09/05/2017 0 09/06/2017 Uncontrolled type 2 diabetes mellitus with ketoacidosis without coma, without long-term current use of insulin 09/05/2017 09/14/2017 Hyperglycemia 09/04/2017 09/06/2017 Allergic asthma 02/26/2016 07/29/2019 Last Assessment & Plan: Assessment h/o asthma and uses albuterol inhaler as needed paitent coming with mild exacerbation as she was wheezing in the ED. PLAN: Check for flu CT CHEST AND Abdomen negative for acute pathology. Continue with duoneb No need for steroids at present Allergic rhinitis 02/26/2016 07/29/2019 Acquired hypothyroidism 01/28/2015 07/29/19 20 Last Assessment & Plan: TSH - WNL Continue with home dose of levothyroxine Essential hypertension 01/28/2015 0 Last Assessment & Plan: Resumed Lisinopril/HCTZ Vitamin D deficiency 08/20/2013 07/29/2019 Osteoarthritis 11/21/2012 07/29/2019 Last Assessment & Plan: Stopped Celecoxib Resumed daily Prednisone 20mg As she is a phasic continued her oxycodone but at a lower dosage documented as of this encounter (statuses as of 08/11/2022) [facility]04-[facility]2020 History of Past illness Narrative* Problem Noted Date Resolved Date Hypoglycemia 07/25/2019 07/25/2019 Last Assessment & Plan: Continue Synthroid Chronic neck pain 07/25/2019 07/29/2019 Overview: 5 milligrams oxycodone 4 times a day. Last Assessment & Plan: See treatment plan osteoarthritis Class 2 obesity with body ma ss index (BMI) of 35.0 to 35.9 in adult 07/25/2019 07/29/2019 Last Assessment & Plan: Assessment: Problem is stable with current regimen. PLAN: Continue current regimen Further counseling after stabilized following discharge Corticosteroid dependence 07/25/20192019 Overview: Stress dose steroid while nothing by mouth and stable Last Assessment & Plan: Stable Altered mental state 07/24/2019 07/25/2019 Last Assessment & Plan: Possibly secondary to hypoglycemia, stroke, or other etiology Opens eyes, responds to verbal stimuli and withdraw to pain but does not talk Moving all her extremities Head CT did not show acute findings Glucose improved now Continue D5+NS over night Check B12 and ammonia MRI at AM Neurology consult Stroke pathway Keep on telemetry ASA, statin Lipid panel and A1C Echo MRI W and W/O Anemia 07/22/2019 07/29/2019 Obesity, Class I, BMI 30-34.9 03/16/2018 Constipation 03/15/2018 07/29/2019 Last Assessment & Plan: Senna-s, miralax daily One time fleet enema Current chronic use of systemic steroids 018 07/29/2019 Last Assessment & Plan: Assessment: has been on 20mg prednisone for arthritis and asthma per patient for over 8 years. Has had unsuccessful attempts at weening due to fatigue, malaise. Likely has adrenal insufficiency due to this. PLAN: - continue 20mg prednisone for now - will try to decrease tomorrow to 17.5 and ween slowly Weakness 03/13/2018 07/29/2019 Last Assessment & Plan: Assessment: likely 2/2 to dehydration and prior viral illness, post viral cough. Exacerbated by chronic steroid use and likely adrenal insufficiency. PLAN: - IV hydration - PT/OT Asymptomatic bacteriuria 03/13/2018 018 Last Assessment & Plan: Assessment: UA positive but asymptomatic PLAN: D/c ceftriaxone Monitor for symptoms Chest pain 03/13/2018 03/16/2018 Last Assessment & Plan: Pleuritic chest pain likely from post viral cough troponins negative, will stop cycling Hyperosmolar (nonketotic) coma 09/05/2017 0 09/06/2017 Uncontrolled type 2 diabetes mellitus with ketoacidosis without coma, without long-term current use of insulin 09/05/2017 09/14/2017 Hyperglycemia 09/04/2017 09/06/2017 Allergic asthma 02/26/2016 07/29/2019 Last Assessment & Plan: Assessment h/o asthma and uses albuterol inhaler as needed paitent coming with mild exacerbation as she was wheezing in the ED. PLAN: Check for flu CT CHEST AND Abdomen negative for acute pathology. Continue with duoneb No need for steroids at present Allergic rhinitis 02/26/2016 07/29/2019 Acquired hypothyroidism 01/28/2015 07/29/19 20 Last Assessment & Plan: TSH - WNL Continue with home dose of levothyroxine Essential hypertension 01/28/2015 0 Last Assessment & Plan: Resumed Lisinopril/HCTZ Vitamin D deficiency 08/20/2013 07/29/2019 Osteoarthritis 11/21/2012 07/29/2019 Last Assessment & Plan: Stopped Celecoxib Resumed daily Prednisone 20mg As she is a phasic continued her oxycodone but at a lower dosage documented as of this encounter (statuses as of 08/15/2022) [facility]04-[facility] History of Past illness Narrative* Problem Noted Date Resolved Date Hypoglycemia 07/25/2019 07/25/2019 Last Assessment & Plan: Continue Synthroid Chronic neck pain 07/25/2019 07/29/2019 Overview: 5 milligrams oxycodone 4 times a day. Last Assessment & Plan: See treatment plan osteoarthritis Class 2 obesity with body ma ss index (BMI) of 35.0 to 35.9 in adult 07/25/2019 07/29/2019 Last Assessment & Plan: Assessment: Problem is stable with current regimen. PLAN: Continue current regimen Further counseling after stabilized following discharge Corticosteroid dependence 07/25/20192019 Overview: Stress dose steroid while nothing by mouth and stable Last Assessment & Plan: Stable Altered mental state 07/24/2019 07/25/2019 Last Assessment & Plan: Possibly secondary to hypoglycemia, stroke, or other etiology Opens eyes, responds to verbal stimuli and withdraw to pain but does not talk Moving all her extremities Head CT did not show acute findings Glucose improved now Continue D5+NS over night Check B12 and ammonia MRI at AM Neurology consult Stroke pathway Keep on telemetry ASA, statin Lipid panel and A1C Echo MRI W and W/O Anemia 07/22/2019 07/29/2019 Obesity, Class I, BMI 30-34.9 03/16/2018 Constipation 03/15/2018 07/29/2019 Last Assessment & Plan: Senna-s, miralax daily One time fleet enema Current chronic use of systemic steroids 018 07/29/2019 Last Assessment & Plan: Assessment: has been on 20mg prednisone for arthritis and asthma per patient for over 8 years. Has had unsuccessful attempts at weening due to fatigue, malaise. Likely has adrenal insufficiency due to this. PLAN: - continue 20mg prednisone for now - will try to decrease tomorrow to 17.5 and ween slowly Weakness 03/13/2018 07/29/2019 Last Assessment & Plan: Assessment: likely 2/2 to dehydration and prior viral illness, post viral cough. Exacerbated by chronic steroid use and likely adrenal insufficiency. PLAN: - IV hydration - PT/OT Asymptomatic bacteriuria 03/13/2018 018 Last Assessment & Plan: Assessment: UA positive but asymptomatic PLAN: D/c ceftriaxone Monitor for symptoms Chest pain 03/13/2018 03/16/2018 Last Assessment & Plan: Pleuritic chest pain likely from post viral cough troponins negative, will stop cycling Hyperosmolar (nonketotic) coma 09/05/2017 0 09/06/2017 Uncontrolled type 2 diabetes mellitus with ketoacidosis without coma, without long-term current use of insulin 09/05/2017 09/14/2017 Hyperglycemia 09/04/2017 09/06/2017 Allergic asthma 02/26/2016 07/29/2019 Last Assessment & Plan: Assessment h/o asthma and uses albuterol inhaler as needed paitent coming with mild exacerbation as she was wheezing in the ED. PLAN: Check for flu CT CHEST AND Abdomen negative for acute pathology. Continue with duoneb No need for steroids at present Allergic rhinitis 02/26/2016 07/29/2019 Acquired hypothyroidism 01/28/2015 07/29/19 20 Last Assessment & Plan: TSH - WNL Continue with home dose of levothyroxine Essential hypertension 01/28/2015 0 Last Assessment & Plan: Resumed Lisinopril/HCTZ Vitamin D deficiency 08/20/2013 07/29/2019 Osteoarthritis 11/21/2012 07/29/2019 Last Assessment & Plan: Stopped Celecoxib Resumed daily Prednisone 20mg As she is a phasic continued her oxycodone but at a lower dosage documented as of this encounter (statuses as of 08/19/2022) [facility]04-[facility]2020 History of Past illness Narrative* Problem Noted Date Resolved Date Hypoglycemia 07/25/2019 07/25/2019 Last Assessment & Plan: Continue Synthroid Chronic neck pain 07/25/2019 07/29/2019 Overview: 5 milligrams oxycodone 4 times a day. Last Assessment & Plan: See treatment plan osteoarthritis Class 2 obesity with body ma ss index (BMI) of 35.0 to 35.9 in adult 07/25/2019 07/29/2019 Last Assessment & Plan: Assessment: Problem is stable with current regimen. PLAN: Continue current regimen Further counseling after stabilized following discharge Corticosteroid dependence 07/25/20192019 Overview: Stress dose steroid while nothing by mouth and stable Last Assessment & Plan: Stable Altered mental state 07/24/2019 07/25/2019 Last Assessment & Plan: Possibly secondary to hypoglycemia, stroke, or other etiology Opens eyes, responds to verbal stimuli and withdraw to pain but does not talk Moving all her extremities Head CT did not show acute findings Glucose improved now Continue D5+NS over night Check B12 and ammonia MRI at AM Neurology consult Stroke pathway Keep on telemetry ASA, statin Lipid panel and A1C Echo MRI W and W/O Anemia 07/22/2019 07/29/2019 Obesity, Class I, BMI 30-34.9 03/16/2018 Constipation 03/15/2018 07/29/2019 Last Assessment & Plan: Senna-s, miralax daily One time fleet enema Current chronic use of systemic steroids 018 07/29/2019 Last Assessment & Plan: Assessment: has been on 20mg prednisone for arthritis and asthma per patient for over 8 years. Has had unsuccessful attempts at weening due to fatigue, malaise. Likely has adrenal insufficiency due to this. PLAN: - continue 20mg prednisone for now - will try to decrease tomorrow to 17.5 and ween slowly Weakness 03/13/2018 07/29/2019 Last Assessment & Plan: Assessment: likely 2/2 to dehydration and prior viral illness, post viral cough. Exacerbated by chronic steroid use and likely adrenal insufficiency. PLAN: - IV hydration - PT/OT Asymptomatic bacteriuria 03/13/2018 018 Last Assessment & Plan: Assessment: UA positive but asymptomatic PLAN: D/c ceftriaxone Monitor for symptoms Chest pain 03/13/2018 03/16/2018 Last Assessment & Plan: Pleuritic chest pain likely from post viral cough troponins negative, will stop cycling Hyperosmolar (nonketotic) coma 09/05/2017 0 09/06/2017 Uncontrolled type 2 diabetes mellitus with ketoacidosis without coma, without long-term current use of insulin 09/05/2017 09/14/2017 Hyperglycemia 09/04/2017 09/06/2017 Allergic asthma 02/26/2016 07/29/2019 Last Assessment & Plan: Assessment h/o asthma and uses albuterol inhaler as needed paitent coming with mild exacerbation as she was wheezing in the ED. PLAN: Check for flu CT CHEST AND Abdomen negative for acute pathology. Continue with duoneb No need for steroids at present Allergic rhinitis 02/26/2016 07/29/2019 Acquired hypothyroidism 01/28/2015 07/29/19 20 Last Assessment & Plan: TSH - WNL Continue with home dose of levothyroxine Essential hypertension 01/28/2015 0 Last Assessment & Plan: Resumed Lisinopril/HCTZ Vitamin D deficiency 08/20/2013 07/29/2019 Osteoarthritis 11/21/2012 07/29/2019 Last Assessment & Plan: Stopped Celecoxib Resumed daily Prednisone 20mg As she is a phasic continued her oxycodone but at a lower dosage documented as of this encounter (statuses as of 08/19/2022) [facility]2020 History of Past illness Narrative* Problem Noted Date Diagnosed Date Resolved Date Hypoglycemia 07/25/2019 07/25/2019 Last Assessment & Plan: Continue Synthroid Chronic neck pain 07/25/2019 07/29/2019 Overview: 5 milligrams oxycodone 4 times a day. Last Assessment & Plan: See treatment plan osteoarthritis Class 2 obesity with body ma ss index (BMI) of 35.0 to 35.9 in adult 07/25/2019 07/29/2019 Last Assessment & Plan: Assessment: Problem is stable with current regimen. PLAN: Continue current regimen Further counseling after stabilized following discharge Corticosteroid dependence 07/25/2019 Overview: Stress dose steroid while nothing by mouth and stable Last Assessment & Plan: Stable Altered mental state 07/24/2019 020 Last Assessment & Plan: Possibly secondary to hypoglycemia, stroke, or other etiology Opens eyes, responds to verbal stimuli and withdraw to pain but does not talk Moving all her extremities Head CT did not show acute findings Glucose improved now Continue D5+NS over night Check B12 and ammonia MRI at AM Neurology consult Stroke pathway Keep on telemetry ASA, statin Lipid panel and A1C Echo MRI W and W/O Anemia 07/22/2019 07/29/2019 Obesity, Class I, BMI 30-34.9 03/16/2018 07/29/2019 Constipation 03/15/2018 07/29/2019 Last Assessment & Plan: Senna-s, miralax daily One time fleet enema Current chronic use of systemic steroids 03/14/2018 07/29/2019 Last Assessment & Plan: Assessment: has been on 20mg prednisone for arthritis and asthma per patient for over 8 years. Has had unsuccessful attempts at weening due to fatigue, malaise. Likely has adrenal insufficiency due to this. PLAN: - continue 20mg prednisone for now - will try to decrease tomorrow to 17.5 and ween slowly Weakness 03/13/2018 07/29/2019 Last Assessment & Plan: Assessment: likely 2/2 to dehydration and prior viral illness, post viral cough. Exacerbated by chronic steroid use and likely adrenal insufficiency. PLAN: - IV hydration - PT/OT Asymptomatic bacteriuria 03/13/2018 Last Assessment & Plan: Assessment: UA positive but asymptomatic PLAN: D/c ceftriaxone Monitor for symptoms Chest pain 03/13/2018 03/16/2018 Last Assessment & Plan: Pleuritic chest pain likely from post viral cough troponins negative, will stop cycling Hyperosmolar (nonketotic) coma 09/05/2017 09/06/2017 Uncontrolled type 2 diabetes mellitus with ketoacidosis without coma, without long-term current use of insulin 09/05/2017 09/14/2017 Hyperglycemia 09/04/2017 09/06/2017 Allergic asthma 02/26/2016 07/29/2019 Last Assessment & Plan: Assessment h/o asthma and uses albuterol inhaler as needed paitent coming with mild exacerbation as she was wheezing in the ED. PLAN: Check for flu CT CHEST AND Abdomen negative for acute pathology. Continue with duoneb No need for steroids at present Allergic rhinitis 02/26/2016 07/29/2019 Acquired hypothyroidism 01/28/201509/2019 Last Assessment & Plan: TSH - WNL Continue with home dose of levothyroxine Essential hypertension 01/28/201507/28 Last Assessment & Plan: Resumed Lisinopril/HCTZ Vitamin D deficiency 08/20/2013 020 Osteoarthritis 11/21/2012 07/29/2019 Last Assessment & Plan: Stopped Celecoxib Resumed daily Prednisone 20mg As she is a phasic continued her oxycodone but at a lower dosage documented as of this encounter (statuses as of 11/09/2022) [facility] History of Past illness Narrative* Problem Noted Date Diagnosed Date Resolved Date Hypoglycemia 07/25/2019 07/25/2019 Last Assessment & Plan: Continue Synthroid Chronic neck pain 07/25/2019 07/29/2019 Overview: 5 milligrams oxycodone 4 times a day. Last Assessment & Plan: See treatment plan osteoarthritis Class 2 obesity with body ma ss index (BMI) of 35.0 to 35.9 in adult 07/25/2019 07/29/2019 Last Assessment & Plan: Assessment: Problem is stable with current regimen. PLAN: Continue current regimen Further counseling after stabilized following discharge Corticosteroid dependence 07/25/2019 Overview: Stress dose steroid while nothing by mouth and stable Last Assessment & Plan: Stable Altered mental state 07/24/2019 020 Last Assessment & Plan: Possibly secondary to hypoglycemia, stroke, or other etiology Opens eyes, responds to verbal stimuli and withdraw to pain but does not talk Moving all her extremities Head CT did not show acute findings Glucose improved now Continue D5+NS over night Check B12 and ammonia MRI at AM Neurology consult Stroke pathway Keep on telemetry ASA, statin Lipid panel and A1C Echo MRI W and W/O Anemia 07/22/2019 07/29/2019 Obesity, Class I, BMI 30-34.9 03/16/2018 07/29/2019 Constipation 03/15/2018 07/29/2019 Last Assessment & Plan: Senna-s, miralax daily One time fleet enema Current chronic use of systemic steroids 03/14/2018 07/29/2019 Last Assessment & Plan: Assessment: has been on 20mg prednisone for arthritis and asthma per patient for over 8 years. Has had unsuccessful attempts at weening due to fatigue, malaise. Likely has adrenal insufficiency due to this. PLAN: - continue 20mg prednisone for now - will try to decrease tomorrow to 17.5 and ween slowly Asymptomatic bacteriuria 03/13/2018 Last Assessment & Plan: Assessment: UA positive but asymptomatic PLAN: D/c ceftriaxone Monitor for symptoms Chest pain 03/13/2018 03/16/2018 Last Assessment & Plan: Pleuritic chest pain likely from post viral cough troponins negative, will stop cycling Hyperosmolar (nonketotic) coma 09/05/2017 09/06/2017 Uncontrolled type 2 diabetes mellitus with ketoacidosis without coma, without long-term current use of insulin 09/05/2017 09/14/2017 Hyperglycemia 09/04/2017 09/06/2017 Allergic asthma 02/26/2016 07/29/2019 Last Assessment & Plan: Assessment h/o asthma and uses albuterol inhaler as needed paitent coming with mild exacerbation as she was wheezing in the ED. PLAN: Check for flu CT CHEST AND Abdomen negative for acute pathology. Continue with duoneb No need for steroids at present Allergic rhinitis 02/26/2016 07/29/2019 Acquired hypothyroidism 01/28/2015 04/0 09/2019 Last Assessment & Plan: TSH - WNL Continue with home dose of levothyroxine Vitamin D deficiency 08/20/2013 020 Osteoarthritis 11/21/2012 07/29/2019 Last Assessment & Plan: Stopped Celecoxib Resumed daily Prednisone 20mg As she is a phasic continued her oxycodone but at a lower dosage documented as of this encounter (statuses as of 11/28/2022) [facility] Diagnosis Pressure ulcer of both heels, stage 1- Primary History of CVA (cerebrovascular accident) Transient ischemic attack (TIA), and cerebral infarction without residual deficits Controlled type 2 diabetes mellitus without complication, with long-term current use of insulin (HCC) [facility]* Diagnosis Needs assistance with community resources- [facility] Diagnosis Need for follow-up by social work manager- Primary [facility] Diagnosis Needs assistance with community resources- Primary [facility] Diagnosis Encounter for screening mammogram for breast cancer documented in this encounter [facility] for referral (narrative)* Diagnostic Procedure Only (Routine) - Pending Review Specialty Diagnoses / Procedures Referred By Thais t Referred To Contact [facility] Diagnoses Encounter for screening mammogram for breast cancer Procedures GAVIN SCREENING SCREENING MAMMOGRAPHY BI 2-VIEW BREAST INC CAD Carlton Montalvo MD [address] [place] [address] [facility] [address] [place] [address] Referral ID Status Reason Start Date Expiration Date Visits Requested Visits Authorized [id number] Pending Review Auto-Generat ed Referral 11/23/2022 12/23/2023 1 1 [facility] Summary Purpose Family History No Family History Records FoundNo Family History Records FoundNo Family History Records FoundNo Family History Records FoundNo Family History Records Found Advance Directives Documents on File Type Date Recorded Patient Qa Tech Expl anation Advance Directive(s) 02/10/2023 5:02 PM Latest Code Status on File Code Status Date Activated Date Inactivated Comments Full Code 12/01/2022 8:14 PM 12/03/2022 8:46 PM Question Answer Comments Full Code Order Discussed With: Patient Documents on File Type Date Recorded Patient Qa Tech Expl anation Advance Directive(s) 08/09/2020 1:08 PM Advance Directive(s) 08/08/2020 8:41 PM Advance Directive(s) 07/25/2019 2:54 PM Advance Directive(s) 07/24/2019 8:33 PM Advance Directive(s) 03/13/2018 4:42 PM Advance Directive(s) 03/13/2018 5:00 PM Advance Directive(s) 11/06/2017 3:53 PM Advance Directive(s) 09/05/2017 10:23 AM Advance Directive(s) 09/04/2017 2:29 PM Documents on File Type Date Recorded Patient Qa Tech Expl anation Advance Directive(s) 08/18/2021 10:48 PM P T unable to answer Advance Directive(s) 08/09/2020 1:08 PM Advance Directive(s) 08/08/2020 8:41 PM Advance Directive(s) 07/25/2019 2:54 PM Advance Directive(s) 07/24/2019 8:33 PM Advance Directive(s) 03/13/2018 4:42 PM Advance Directive(s) 03/13/2018 5:00 PM Advance Directive(s) 11/06/2017 3:53 PM Advance Directive(s) 09/05/2017 10:23 AM Advance Directive(s) 09/04/2017 2:29 PM Latest Code Status on File Code Status Date Activated Date Inactivated Comments Full Code 12/01/2022 8:14 PM Question Answer Comments Full Code Order Discussed With: Patient Latest Code Status on File Code Status Date Activated Date Inactivated Comments Full Code 12/01/2022 8:14 PM 12/03/2022 8:46 PM Question Answer Comments Full Code Order Discussed With: Patient Documents on File Type Date Recorded Patient Qa Tech Expl anation Advance Directive(s) 02/10/2023 5:02 PM Health Concerns Infection Onset Date Last Indicated Resolved Time COVID-19 Rule-Out 11/27/2022 11/27/2022 11/27/2022 3:24 PM EDT COVID-19 Confirmed 11/27/2022 11/27/2022 Infection Onset Date Last Indicated Resolved Time COVID-19 Confirmed 11/27/2022 11/27/2022 Additional Source Comments INFORMATION SOURCE (unrecogn ized section and content) DATE CREATED AUTHOR AUTHOR'S ORGANIZ ATION 10/06/2020 [facility] DATE CREATED AUTHOR AUTHOR'S ORGANIZ ATION 11/30/2022 [facility] DATE CREATED AUTHOR AUTHOR'S ORGANIZ ATION 12/05/2022 [facility] DATE CREATED AUTHOR AUTHOR'S ORGANIZ ATION 12/15/2022 [facility] Source Comments (unrecognize d section and content) In the event this informatio n is protected by the Federal Confidentiality of Alcohol and Drug Abuse Patient Records regulations: The Federal rules restrict any use of the information to criminally investigate or prosecute any alcohol or drug abuse patient.[facility] the event this information is protected by the Federal Confidentiality of Alcohol and Drug Abuse Patient Records regulations: The Federal rules restrict any use of the information to criminally investigate or prosecute any alcohol or drug abuse patient.[facility] HospitalIn the event this information is protected by the Federal Confidentiality of Alcohol and Drug Abuse Patient Records regulations: The Federal rules restrict any use of the information to criminally investigate or prosecute any alcohol or drug abuse patient.[facility] HospitalIn the event this information is protected by the Federal Confidentiality of Alcohol and Drug Abuse Patient Records regulations: The Federal rules restrict any use of the information to criminally investigate or prosecute any alcohol or drug abuse patient.[facility] HospitalIn the event this information is protected by the Federal Confidentiality of Alcohol and Drug Abuse Patient Records regulations: The Federal rules restrict any use of the information to criminally investigate or prosecute any alcohol or drug abuse patient.[facility] HospitalIn the event this information is protected by the Federal Confidentiality of Alcohol and Drug Abuse Patient Records regulations: The Federal rules restrict any use of the information to criminally investigate or prosecute any alcohol or drug abuse patient.[facility] HospitalIn the event this information is protected by the Federal Confidentiality of Alcohol and Drug Abuse Patient Records regulations: The Federal rules restrict any use of the information to criminally investigate or prosecute any alcohol or drug abuse patient.[facility] HospitalIn the event this information is protected by the Federal Confidentiality of Alcohol and Drug Abuse Patient Records regulations: The Federal rules restrict any use of the information to criminally investigate or prosecute any alcohol or drug abuse patient.[facility] HospitalIn the event this information is protected by the Federal Confidentiality of Alcohol and Drug Abuse Patient Records regulations: The Federal rules restrict any use of the information to criminally investigate or prosecute any alcohol or drug abuse patient.[facility] HospitalIn the event this information is protected by the Federal Confidentiality of Alcohol and Drug Abuse Patient Records regulations: The Federal rules restrict any use of the information to criminally investigate or prosecute any alcohol or drug abuse patient.[facility] HospitalIn the event this information is protected by the Federal Confidentiality of Alcohol and Drug Abuse Patient Records regulations: The Federal rules restrict any use of the information to criminally investigate or prosecute any alcohol or drug abuse patient.[facility] HospitalIn the event this information is protected by the Federal Confidentiality of Alcohol and Drug Abuse Patient Records regulations: The Federal rules restrict any use of the information to criminally investigate or prosecute any alcohol or drug abuse patient.[facility] HospitalIn the event this information is protected by the Federal Confidentiality of Alcohol and Drug Abuse Patient Records regulations: The Federal rules restrict any use of the information to criminally investigate or prosecute any alcohol or drug abuse patient.[facility] HospitalIn the event this information is protected by the Federal Confidentiality of Alcohol and Drug Abuse Patient Records regulations: The Federal rules restrict any use of the information to criminally investigate or prosecute any alcohol or drug abuse patient.[facility] HospitalIn the event this information is protected by the Federal Confidentiality of Alcohol and Drug Abuse Patient Records regulations: The Federal rules restrict any use of the information to criminally investigate or prosecute any alcohol or drug abuse patient.[facility] HospitalIn the event this information is protected by the Federal Confidentiality of Alcohol and Drug Abuse Patient Records regulations: The Federal rules restrict any use of the information to criminally investigate or prosecute any alcohol or drug abuse patient.[facility] HospitalIn the event this information is protected by the Federal Confidentiality of Alcohol and Drug Abuse Patient Records regulations: The Federal rules restrict any use of the information to criminally investigate or prosecute any alcohol or drug abuse patient.[facility] HospitalIn the event this information is protected by the Federal Confidentiality of Alcohol and Drug Abuse Patient Records regulations: The Federal rules restrict any use of the information to criminally investigate or prosecute any alcohol or drug abuse patient.[facility] HospitalIn the event this information is protected by the Federal Confidentiality of Alcohol and Drug Abuse Patient Records regulations: The Federal rules restrict any use of the information to criminally investigate or prosecute any alcohol or drug abuse patient.[facility] HospitalIn the event this information is protected by the Federal Confidentiality of Alcohol and Drug Abuse Patient Records regulations: The Federal rules restrict any use of the information to criminally investigate or prosecute any alcohol or drug abuse patient.[facility] HospitalIn the event this information is protected by the Federal Confidentiality of Alcohol and Drug Abuse Patient Records regulations: The Federal rules restrict any use of the information to criminally investigate or prosecute any alcohol or drug abuse patient.[facility] HospitalIn the event this information is protected by the Federal Confidentiality of Alcohol and Drug Abuse Patient Records regulations: The Federal rules restrict any use of the information to criminally investigate or prosecute any alcohol or drug abuse patient.[facility] HospitalIn the event this information is protected by the Federal Confidentiality of Alcohol and Drug Abuse Patient Records regulations: The Federal rules restrict any use of the information to criminally investigate or prosecute any alcohol or drug abuse patient.[facility] HospitalIn the event this information is protected by the Federal Confidentiality of Alcohol and Drug Abuse Patient Records regulations: The Federal rules restrict any use of the information to criminally investigate or prosecute any alcohol or drug abuse patient.[facility] HospitalIn the event this information is protected by the Federal Confidentiality of Alcohol and Drug Abuse Patient Records regulations: The Federal rules restrict any use of the information to criminally investigate or prosecute any alcohol or drug abuse patient.[facility] HospitalIn the event this information is protected by the Federal Confidentiality of Alcohol and Drug Abuse Patient Records regulations: The Federal rules restrict any use of the information to criminally investigate or prosecute any alcohol or drug abuse patient.[facility] HospitalIn the event this information is protected by the Federal Confidentiality of Alcohol and Drug Abuse Patient Records regulations: The Federal rules restrict any use of the information to criminally investigate or prosecute any alcohol or drug abuse patient.[facility] HospitalIn the event this information is protected by the Federal Confidentiality of Alcohol and Drug Abuse Patient Records regulations: The Federal rules restrict any use of the information to criminally investigate or prosecute any alcohol or drug abuse patient.[facility] HospitalIn the event this information is protected by the Federal Confidentiality of Alcohol and Drug Abuse Patient Records regulations: The Federal rules restrict any use of the information to criminally investigate or prosecute any alcohol or drug abuse patient.[facility] Reason for Visit (unrecogniz ed section and content) 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 Social Work Community Resourc es Reason Comments Ambulatory Social Work Other Reason Comments Nurse Triage Call Reason Comments Opened In Error Reason Onset Date Comments Refill Request 09/10/2021 Reason Onset Date Comments Appointment 11/01/2021 diabetes Reason Onset Date Comments Population Health Navigation Outreach 06/01/2022 [facility] PCSA Reason Onset Date Comments Population Health Navigation Outreach 07/26/2022 HCC GAPS Reason Comments Ambulatory Social Work Community Resourc es Reason Onset Date Comments Refill Request Refill Request 08/18/2022 Reason Comments Appointment Confirmation Reason Comments Home Care Follow for HHC Reason Comments Home Care Confirmation Call Reason Onset Date Comments Transition Of Care 11/30/2022 TCM Initial H ospital Discharge 11/29/2022 Reason Onset Date Comments Transition Of Care 12/02/2022 Care Teams (unrecognized sec tion and content) Bridge Tender Relationship Specialty Start Date End Date Carlton Montalvo MD [address] [place] [address] PCP - General Family Practice 02/26/16 Bere Valentine, DO [address] [place] [address] Family Practice 12/25/15 [facility] 03/27/18 Bridge Tender Relationship Specialty Start Date End Date Carlton Montalvo MD [address] [place] [address] PCP - General Family Practice 02/26/16 Bere Valentine, DO [address] [place] [address] Family Practice 12/25/15 [facility] 03/27/18 Bridge Tender Relationship Specialty Start Date End Date Carlton Montalvo MD [address] [place] [address] PCP - General Family Practice 02/26/16 Bere Valentine, DO [address] [place] [address] Family Practice 12/25/15 [facility] 03/27/18 Bridge Tender Relationship Specialty Start Date End Date Carlton Montalvo MD [address] [place] [address] PCP - General Family Practice 02/26/16 Bere Valentine, DO [address] [place] [address] Family Practice 12/25/15 [facility] 03/27/18 Bridge Tender Relationship Specialty Start Date End Date Carlton Montalvo MD [address] [place] [address] PCP - General Family Practice 02/26/16 Bere Valentine, DO [address] [place] [address] Family Practice 12/25/15 [facility] 03/27/18 Bridge Tender Relationship Specialty Start Date End Date Carlton Montalvo MD [address] [place] [address] PCP - General Family Practice 02/26/16 Bere Valentine, DO [address] [place] [address] Family Practice 12/25/15 [facility] 03/27/18 Bridge Tender Relationship Specialty Start Date End Date Carlton Montalvo MD [address] [place] [address] PCP - General Family Practice 02/26/16 Bere Valentine, DO [address] [place] [address] Family Practice 12/25/15 [facility] 03/27/18 Bridge Tender Relationship Specialty Start Date End Date Carlton Montalvo MD [address] [place] [address] PCP - General Family Medicine 02/26/16 Bere Valentine, DO [address] [place] [address] Family Medicine 12/25/15 [facility] 03/27/18 Bridge Tender Relationship Specialty Start Date End Date Carlton Montalvo MD [address] [place] [address] PCP - General Family Medicine 02/26/16 Bere Valentine, DO [address] [place] [address] Family Medicine 12/25/15 [facility] 03/27/18 Bridge Tender Relationship Specialty Start Date End Date Carlton Montalvo MD [address] [place] [address] PCP - General Family Medicine 02/26/16 Bere Valentine, DO [address] [place] [address] Family Medicine 12/25/15 [facility] 03/27/18 Bridge Tender Relationship Specialty Start Date End Date Carlton Montalvo MD [address] [place] [address] PCP - General Family Medicine 02/26/16 Bere Valentine DO [address] [place] [address] Family Medicine 12/25/15 [facility] 03/27/18 Bridge Tender Relationship Specialty Start Date End Date Carltno Montalvo MD [address] [place] [address] PCP - General Family Medicine 02/26/16 Bere Valentine DO [address] [place] [address] Family Medicine 12/25/15 [facility] 03/27/18 Bridge Tender Relationship Specialty Start Date End Date Carlton Montalvo MD [address] [place] [address] PCP - General Family Medicine 02/26/16 Bere Valentine DO [address] [place] [address] Family Medicine 12/25/15 [facility] 03/27/18 Bridge Tender Relationship Specialty Start Date End Date Carlton Montalvo MD [address] [place] [address] PCP - General Family Medicine 02/26/16 Bere Valentine DO [address] [place] [address] Family Medicine 12/25/15 [facility] 03/27/18 Bridge Tender Relationship Specialty Start Date End Date Carlton Montalvo MD [address] [place] [address] PCP - General Family Medicine 02/26/16 Bere Valentine DO [address] [place] [address] Family Medicine 12/25/15 Rajinder Rodriguez MD [address] [place] [address] Referring Internal Medicine 11/29/22 Carlton Montalvo MD [address] [place] [address] Home Care Provider Family Medicine 11/29/22 [facility] 03/27/18 Bridge Tender Relationship Specialty Start Date End Date Carlton Montalvo MD [address] [place] [address] PCP - General Family Medicine 02/26/16 Bere Valentine DO [address] [place] [address] Family Medicine 12/25/15 Rajinder Rodriguez MD [address] [place] [address] Referring Internal Medicine 11/29/22 Carlton Montalvo MD [facility] [place] [address] Home Care Provider Family Medicine 11/29/22 Catherine Webber, MADHAVI [address] [place] [address] Primary Care Game Advisor 11/30/22 12/28/22 Renae Moore, MADHAVI [address] [place] [address] Occupational Therapy Supervisor Post Acute Care 11/30/22 [facility] 03/27/18 Bridge Tender Relationship Specialty Start Date End Date Carlton Montalvo MD [address] [place] [address] PCP - General Family Medicine 02/26/16 Bere Valentine DO [address] [place] [address] Family Medicine 12/25/15 Rajinder Rodriguez MD [address] [place] [address] Referring Internal Medicine 11/29/22 Carlton Montalvo MD [address] [place] [address] Home Care Provider Family Medicine 11/29/22 Catherine Webber, MADHAVI [address] [place] [address] Primary Care Game Advisor 11/30/22 12/28/22 Renae Moore, RN [address] [place] [address] Occupational Therapy Supervisor Post Acute Care 11/30/22 [facility] 03/27/18 Bridge Tender Relationship Specialty Start Date End Date Carlton Montalvo MD [address] [place] [address] PCP - General Family Medicine 02/26/16 Bere Valentine DO [address] [place] [address] Family Medicine 12/25/15 Rajinder Rodriguez MD [address] [place] [address] Referring Internal Medicine 11/29/22 Carlton Montalvo MD [address] [place] [address] Home Care Provider Family Medicine 11/29/22 Catherine Webber, MADHAVI [address] [place] [address] Primary Care Game Advisor 11/30/22 12/02/22 Renae Moore, MADHAVI [address] [place] [address] Occupational Therapy Supervisor Post Acute Care 11/30/22 [facility] 03/27/18 Bridge Tender Relationship Specialty Start Date End Date Carlton Montalvo MD [address] [place] [address] PCP - General Family Medicine 02/26/16 Bere Valentine DO [address] [place] [address] Family Medicine 12/25/15 Rajinder Rodriguez MD [address] [place] [address] Referring Internal Medicine 11/29/22 Carlton Montalvo MD [address] [place] [address] Home Care Provider Family Medicine 11/29/22 Renae Moore RN [address] [place] [address] Occupational Therapy Supervisor Post Acute Care 11/30/22 [facility] 03/27/18 Bridge Tender Relationship Specialty Start Date End Date Carlton Montalvo MD [address] [place] [address] PCP - General Family Medicine 02/26/16 Bere Valentine DO [address] [place] [address] Family Medicine 12/25/15 Rajinder Rodriguez MD [address] [place] [address] Referring Internal Medicine 11/29/22 Carlton Montalvo MD [address] [place] [address] Home Care Provider Family Medicine 11/29/22 Renae Moore RN [address] [place], [place] [id number] Occupational Therapy Supervisor Post Acute Care 11/30/22 [facility] 03/27/18 FOR RECORDS PERTAINING TO PATIENTS WHO ARE OR HAVE BEEN ENROLLED IN A CHEMICAL DEPENDENCY/SUBSTANCEABUSE PROGRAM, SOME INFORMATION MAY BE OMITTED. This clinical summary was aggregated from multiple sources. Caution should be exercised in using it in the provision of clinical care. This summary normalizes information from multiple sources, and as a consequence, information in this document may materially change the coding, format and clinical context of patient data. In addition, data may be omitted in some cases. CLINICAL DECISIONS SHOULD BE BASED ON THE PRIMARY CLINICAL RECORDS. [facility] [employer] [facility]. provides no warranty or guarantee of the accuracy or completeness of information in this document.
[2023-05-22 08:19] LABS: Hematocrit 32.5 % (37-47); Hemoglobin 9.7 g/dL (12.0-15.0); Mean Corp Hgb Conc 29.8 g/dL (32-36); Mean Corpuscular Hgb 25.8 pg (27.0-32.0); Mean Corpuscular Volume 86.4 fL (81-99); Platelet Count 304 K/mm3 (150-450); RBC Distribution Width CV 14.6 % (11.6-14.6); Red Blood Count 3.76 M/mm3 (4.2-5.4); White Blood Count 5.7 K/mm3 (4.4-11.0)
[2023-05-22 08:57] LABS: ALB/GLOB Ratio 0.9 RATIO (0.9-2.4); AST(SGOT) 10 U/L (15-37); Alanine Aminotransfer ALT/SGPT 12 U/L (13-56); Alkaline Phosphatase 52 U/L (45-117); Anion Gap 5 (5-15); BUN 26 mg/dL (7-18); BUN/Creat Ratio 20.6 RATIO (10-20); Chloride 111 mmol/L (98-107); Creatinine, Serum 1.26 mg/dL (0.55-1.02); EST Glomerular Filtration Rate 44 mL/min (>60); Est Glom Filt Rate - Afr Amer 54 mL/min (>60); Globulin 3.2 g/dL (2.2-4.2); Glucose 116 mg/dL (74-106); Magnesium 2.3 mg/dL (1.6-2.6); Potassium 4.2 mmol/L (3.5-5.1); Protein, Total 6.2 g/dL (6.4-8.2); Sodium Level 142 mmol/L (136-145)
== END ==
LOC: OLS.SW 04:00
PROVIDERS: PCP Family Medicine; Referring Provider Internal Medicine; Visit Provider Internal Medicine
DX: E11.9 Type 2 diabetes mellitus without complications (principal)
CPT/HCPCS: 36415; 80053; 83735; 85027